=== PATIENT | female | born 1940 | race Caucasian/White ===

== ENCOUNTER 2019-04-30 19:55 | Inpatient (IN) | payer MEDICARE, BC ==
[2019-04-30] MEDS ORDERED: SODIUM CHLORIDE 0.9% 1,000 ML IV STA ×2 (20:21→21:31)
[2019-04-30 21:12] LABS: Anisocytosis Slight; Basophils # (A) 0.1 k/uL (0-0.2); Basophils % (A) 1 %; Eosinophils # (A) 0.1 k/uL (0-0.7); Eosinophils % (A) 0 %; HCT 33.6 % (34.0-46.0); HGB 10.4 gm/dL (11.4-16.0); Hypochromasia Slight; Lymphocytes # (A) 1.6 k/uL (1.0-4.8); Lymphocytes % (A) 9 %; MCH 27.3 pg (25.0-35.0); MCHC 30.9 g/dL (31.0-37.0); MCV 88.3 fL (80.0-100.0); Mean Platelet Volume 6.4; Monocytes # (A) 0.9 k/uL (0-1.0); Monocytes % (A) 5 %; Neutrophils # (A) 15.3 k/uL (1.3-7.7); Neutrophils % (A) 85 %; Platelet Count 288 k/uL (150-450); RDW 17.7 % (11.5-15.5); WBC 18.1 k/uL (3.8-10.6)
--- NOTE | 2019-04-30 21:13 | ED ---
Fall HPI - General Chief Complaint: Fall Stated Complaint: fall Time Seen by Provider: 04/30/19 20:05 Source: patient, EMS, RN notes reviewed, old records reviewed Mode of arrival: EMS - History of Present Illness Initial Comments: This is an 79-year-old female the ER for evaluation patient presents today for evaluation of the. Computed for a few hours ago at this time. Family was over patient earlier and left leg come back to palpation of the ground and skin tears to legs and ernandez, patient complaining of right elbow pain. Right-sided pain. Unsure of loss of consciousness no headache. Patient was unable to get herself off the ground. Patient sent in any current blood thinners. Patient denying any significant complaints of pain currently MD Complaint: fall -: hour(s) (5) Fall From: standing When Fall Occurred: 4-6 hours [employer] Fall Witnessed: no Place Fall Occurred: home Loss of Consciousness: unsure Prolonged Down Time?: yes Symptoms Prior to Fall: none Location - Extremities: Right: Shoulder, Elbow, Leg (edema) Severity: mild Severity scale (1-10): 3 Quality: aching Context: tripped/slipped Associated Symptoms: denies - Related Data Home Medications Medication Instructions Recorded Confirmed Biotin 5 mg PO DAILY 04/30/19 04/30/19 Budesonide/Formoterol Fumarate 2 puff INHALATION RT-BID 04/30/19 04/30/19 [Symbicort 160-4.5 Mcg Inhaler] Calcium Carbonate [Calcium] 600 mg PO DAILY 04/30/19 04/30/19 Folic Acid 0.4 mg PO DAILY 04/30/19 04/30/19 Levalbuterol Tartrate [Xopenex Hfa 1 puff INHALATION RT-BID PRN 04/30/19 04/30/19 Inhaler] Methotrexate Sodium [Methotrexate] 20 mg PO TU 04/30/19 04/30/19 Morphine Sulfate Ir [MSIR] 30 mg PO TID PRN 04/30/19 04/30/19 Ranitidine HCl [Zantac] 150 mg PO DAILY 04/30/19 04/30/19 methylPREDNISolone [Medrol] 2 mg PO DAILY 04/30/19 04/30/19 Allergies Allergy/AdvReac Type Severity Reaction Status Date / Time sulfadiazine Allergy Anaphylaxis Verified 04/30/19 22:01 Review of Systems ROS Statement: Those systems with pertinent positive or pertinent negative responses have been documented in the HPI. ROS Other: All systems not noted in ROS Statement are negative. Past Medical History Past Medical History: Asthma, Osteoarthritis (OA), Rheumatoid Arthritis (RA) Additional Past Medical History / Comment(s): Skin CA History of Any Multi-Drug Resistant Organisms: None Reported Additional Past Surgical History / Comment(s): left hip implant, gallbladder, Skin CA removed from face. Past Psychological History: No Psychological Hx Reported Smoking Status: Never smoker Past Alcohol Use History: Rare Past Drug Use History: None Reported - Past Family History Father Family Medical History: Myocardial Infarction ([place]) Mother Family Medical History: CVA/TIA General Exam Limitations: no limitations General appearance: alert, in no apparent distress Head exam: Present: atraumatic, normocephalic, normal inspection Eye exam: Present: normal appearance, EOMI. Absent: scleral icterus, conjunctival injection, periorbital swelling ENT exam: Present: normal exam, mucous membranes moist Neck exam: Present: normal inspection. Absent: tenderness, meningismus, lymphadenopathy Respiratory exam: Present: normal lung sounds bilaterally. Absent: respiratory distress, wheezes, rales, rhonchi, stridor Cardiovascular Exam: Present: normal rhythm, tachycardia, normal heart sounds. Absent: systolic murmur, diastolic murmur, rubs, gallop, clicks GI/Abdominal exam: Present: soft, normal bowel sounds. Absent: distended, tenderness, guarding, rebound, rigid Extremities exam: Present: normal inspection, normal capillary refill, other (Right shoulder tenderness). Absent: full ROM (Decreased shoulder right), tenderness (Decreased right shoulder tenderness), pedal edema, joint swelling, calf tenderness Back exam: Present: normal inspection Neurological exam: Present: alert, oriented X3, CN II-XII intact Psychiatric exam: Present: normal affect, normal mood Skin exam: Present: warm, dry, intact, normal color. Absent: rash Course Vital Signs 04/30/19 04/30/19 04/30/19 20:08 22:30 23:00 Temperature 98.3 F Pulse Rate 109 H 112 H 105 H Respiratory 19 Rate Blood Pressure 126/86 147/72 121/64 O2 Sat by Pulse 97 96 95 Oximetry 04/30/19 05/01/19 23:19 00:00 Temperature Pulse Rate 112 H 108 H Respiratory Rate Blood Pressure 146/72 139/81 O2 Sat by Pulse 95 96 Oximetry - Reevaluation(s) Reevaluation #1: 04/30/19 21:12 Medical record is reviewed Reevaluation #2: 04/30/19 22:00 Patient has no significant tenderness across her anterior pubic area, patient was able to get bed pain without difficulty Patient does feel too weak to go home Medical Decision Making - Medical Decision Making 79 female the ER for evaluation patient is status post fall with mild downtime. Patient has current pain control, right humerus has sling placed. Patient has adequate pain control currently. Still feeling weak mildly dehydrated. We'll admit for pain control - Lab Data Result diagrams: 04/30/19 21:00 04/30/19 21:00 Lab Results 04/30/19 04/30/19 04/30/19 Range/Units 21:00 21:00 21:00 WBC 18.1 H (3.8-10.6) k/uL RBC 3.80 (3.80-5.40) m/uL Hgb 10.4 L (11.4-16.0) gm/dL Hct 33.6 L (34.0-46.0) % MCV 88.3 (80.0-100.0) fL MCH 27.3 (25.0-35.0) pg MCHC 30.9 L (31.0-37.0) g/dL RDW 17.7 H (11.5-15.5) % Plt Count 288 (150-450) k/uL Neutrophils % 85 % Lymphocytes % 9 % Monocytes % 5 % Eosinophils % 0 % Basophils % 1 % Neutrophils # 15.3 H (1.3-7.7) k/uL Lymphocytes # 1.6 (1.0-4.8) k/uL Monocytes # 0.9 (0-1.0) k/uL Eosinophils # 0.1 (0-0.7) k/uL Basophils # 0.1 (0-0.2) k/uL Hypochromasia Slight Anisocytosis Slight PT (9.0-12.0) sec INR (<1.2) APTT (22.0-30.0) sec Sodium 138 (137-145) mmol/L Potassium 3.8 (3.5-5.1) mmol/L Chloride 101 (98-107) mmol/L Carbon Dioxide 27 (22-30) mmol/L Anion Gap 10 mmol/L BUN 27 H (7-17) mg/dL Creatinine 0.59 (0.52-1.04) mg/dL Est GFR (CKD-EPI)AfAm >90 (>60 ml/min/1.73 sqM) Est GFR (CKD-EPI)NonAf 86 (>60 ml/min/1.73 sqM) Glucose 159 H (74-99) mg/dL Calcium 9.7 (8.4-10.2) mg/dL Phosphorus 3.6 (2.5-4.5) mg/dL Magnesium 1.6 (1.6-2.3) mg/dL Total Bilirubin 0.5 (0.2-1.3) mg/dL AST 28 (14-36) U/L ALT 24 (9-52) U/L Alkaline Phosphatase 96 (38-126) U/L Creatine Kinase 67 (30-135) U/L CK-MB (CK-2) 1.5 (0.0-2.4) ng/mL Troponin I <0.012 (0.000-0.034) ng/mL NT-Pro-B Natriuret Pep pg/mL Total Protein 6.2 L (6.3-8.2) g/dL Albumin 3.6 (3.5-5.0) g/dL 04/30/19 04/30/19 Range/Units 21:00 21:00 WBC (3.8-10.6) k/uL RBC (3.80-5.40) m/uL Hgb (11.4-16.0) gm/dL Hct (34.0-46.0) % MCV (80.0-100.0) fL MCH (25.0-35.0) pg MCHC (31.0-37.0) g/dL RDW (11.5-15.5) % Plt Count (150-450) k/uL Neutrophils % % Lymphocytes % % Monocytes % % Eosinophils % % Basophils % % Neutrophils # (1.3-7.7) k/uL Lymphocytes # (1.0-4.8) k/uL Monocytes # (0-1.0) k/uL Eosinophils # (0-0.7) k/uL Basophils # (0-0.2) k/uL Hypochromasia Anisocytosis PT 9.9 (9.0-12.0) sec INR 0.9 (<1.2) APTT 16.3 L (22.0-30.0) sec Sodium (137-145) mmol/L Potassium (3.5-5.1) mmol/L Chloride (98-107) mmol/L Carbon Dioxide (22-30) mmol/L Anion Gap mmol/L BUN (7-17) mg/dL Creatinine (0.52-1.04) mg/dL Est GFR (CKD-EPI)AfAm (>60 ml/min/1.73 sqM) Est GFR (CKD-EPI)NonAf (>60 ml/min/1.73 sqM) Glucose (74-99) mg/dL Calcium (8.4-10.2) mg/dL Phosphorus (2.5-4.5) mg/dL Magnesium (1.6-2.3) mg/dL Total Bilirubin (0.2-1.3) mg/dL AST (14-36) U/L ALT (9-52) U/L Alkaline Phosphatase (38-126) U/L Creatine Kinase (30-135) U/L CK-MB (CK-2) (0.0-2.4) ng/mL Troponin I (0.000-0.034) ng/mL NT-Pro-B Natriuret Pep 682 pg/mL Total Protein (6.3-8.2) g/dL Albumin (3.5-5.0) g/dL - EKG Data -: EKG Interpreted by Me (EKG shows sinus tachycardia rate of 107, TX 170, QRS 90, QTc 448) - Radiology Data Radiology results: report reviewed (CT brain C-spine negative for traumatic injury chest x-rays negative for acute disease, x-ray pelvis and conclusive, x- ray right humerus right shoulder right elbow positive for proximal humerus fracture), image reviewed Disposition Clinical Impression: Fall, Weakness, Right humeral fracture, Dehydration Disposition: ADMITTED IP TO THIS [facility] Condition: Good Is patient prescribed a controlled substance at d/c from ED?: No
[2019-04-30 21:25] LABS: ALT 24 U/L (9-52); AST 28 U/L (14-36); African American GFR (CKD) >90 (>60 ml/min/1.73 sqM); Albumin 3.6 g/dL (3.5-5.0); Alkaline Phosphatase 96 U/L (38-126); Anion Gap 10 mmol/L; Blood Urea Nitrogen 27 mg/dL (7-17); Calcium 9.7 mg/dL (8.4-10.2); Carbon Dioxide 27 mmol/L (22-30); Chloride 101 mmol/L (98-107); Creatine Kinase 67 U/L (30-135); Glucose 159 mg/dL (74-99); Magnesium 1.6 mg/dL (1.6-2.3); Phosphorus 3.6 mg/dL (2.5-4.5); Potassium 3.8 mmol/L (3.5-5.1); Sodium 138 mmol/L (137-145); Total Bilirubin 0.5 mg/dL (0.2-1.3); Total Protein 6.2 g/dL (6.3-8.2)
[2019-04-30 21:29] LABS: INR 0.9 (<1.2); Prothrombin Time 9.9 sec (9.0-12.0)
[2019-04-30] MEDS ORDERED: SODIUM CHLORIDE 0.9% 1,000 ML IV ONE (21:30)
[2019-04-30] MEDS ORDERED: MORPHINE SULFATE 4 MG/ML SYRINGE IVP STA (21:30)
[2019-04-30 21:31] LABS: Partial Thromboplastin Time 16.3 sec (22.0-30.0)
[2019-04-30 21:37] LABS: Creatine Kinase MB 1.5 ng/mL (0.0-2.4); Troponin I <0.012 ng/mL (0.000-0.034)
--- NOTE | 2019-04-30 21:39 | XR ---
EXAMINATION TYPE: XR elbow complete RT DATE OF EXAM: 04/30/2019 CLINICAL HISTORY: Right elbow pain after fall injury. TECHNIQUE: Frontal, lateral and oblique images of the right elbow are obtained. COMPARISON: None FINDINGS: Demineralization is present. There is no acute fracture/dislocation evident in the right el bow. No abnormal fat pad signs are seen. Overlying clothing material is seen making evaluation sligh tly suboptimal. IMPRESSION: There is no acute fracture or dislocation in the right elbow.
--- NOTE | 2019-04-30 21:39 | CT ---
EXAMINATION TYPE: CT brain sherif carrasco DATE OF EXAM: 04/30/2019 COMPARISON: NONE HISTORY: Fall with headache and neck pain. CT DLP: 1181.3 mGycm. Automated Exposure Control for Dose Reduction was Utilized. TECHNIQUE: CT scan of the head and cervical spine are performed without contrast. FINDINGS: There is no acute intracranial hemorrhage or midline shift identified. Diffuse ventricula r and sulcal prominence. Low-attenuation in the deep and periventricular white matter. The calvarium is intact. The globes are intact and the visualized sinuses are clear. Past with desiccation distal i nternal carotid arteries is present. Cervical spine is visualized in its entirety from C1 through upper thoracic levels and demonstrates s light grade 1 anterolisthesis C3 on C4, slight grade 1 retrolisthesis C5 on C6, and grade 1 anterolis thesis C6 on C7 without evidence of acute fracture or dislocation. Prevertebral soft tissue appears within normal limits. The C1-C2 articulation shows asymmetric left-sided narrowing and spurring on c oronal images. Vertebral body heights are maintained. Moderate multilevel spurring and disc space maureen rowing most prominent at C4-C5 and C5-C6 levels is seen. Posterior spur disc complexes efface the ant erior thecal sac at these levels on sagittal and axial images. Slight levoconvex scoliotic curvature centered upper thoracic spine seen on coronal images. Axial images demonstrate multilevel uncovertebr al facet degenerative changes bilaterally contributing to multilevel neural foraminal narrowing. Mild to moderate calcified plaque bilateral carotid bulb greater on the left side is present. Visualized lung apices show no pneumothorax. IMPRESSION: 1. There is no acute fracture or dislocation evident in the cervical spine. Multilevel spondylolisthe sis and degenerative changes as detailed above. 2. No acute intracranial hemorrhage or midline shift is seen. Moderate diffuse cerebral atrophy and c hronic small vessel ischemic changes.
--- NOTE | 2019-04-30 21:52 | XR ---
EXAMINATION TYPE: XR shoulder complete RT DATE OF EXAM: 04/30/2019 CLINICAL HISTORY: Pain after fall injury. TECHNIQUE: Three views of the right shoulder are obtained. COMPARISON: None. FINDINGS: Demineralization is present. An acute slightly displaced comminuted fracture right humeral head involves the surgical neck and greater tuberosity. Some impaction of distal fracture fragment is seen. Glenohumeral joint shows no dislocation, severe narrowing and subchondral cystic changes prese nt. Acromioclavicular joint is maintained. Visualized ribs are intact. IMPRESSION: There is acute comminuted slightly displaced fracture surgical neck right proximal humer us with greater tuberosity involvement.
--- NOTE | 2019-04-30 21:53 | XR ---
EXAMINATION TYPE: XR chest 1V DATE OF EXAM: 04/30/2019 COMPARISON: Chest x-ray September 20, 2009. HISTORY: Right-sided pain after fall injury. TECHNIQUE: Single frontal view of the chest is obtained. FINDINGS: There is chronic parenchymal change without suspicious new focal air space opacity, pleura l effusion, or pneumothorax seen. The cardiac silhouette size is upper limits of normal. The osseo us structures are demineralized. Advanced degenerative change bilateral glenohumeral joints is seen. Acute comminuted slightly displaced fracture right humeral head level is noted. IMPRESSION: Chronic changes without acute pulmonary process.
--- NOTE | 2019-04-30 21:57 | XR ---
EXAMINATION TYPE: XR Hip RT and AP Pelvis DATE OF EXAM: 04/30/2019 COMPARISON: Abdominal x-ray 2009. HISTORY: Pelvic and right hip pain after fall injury. TECHNIQUE: A single AP view of the pelvis is obtained. Two views of the right hip are obtained. FINDINGS: Demineralization is present. Lucency overlying right superior pelvic ramus favors bowel gas . Similar finding left superior pelvic ramus is noted. Pubic symphysis is maintained. Remaining pelvi s shows no acute displaced fracture. Sacroiliac joints are preserved. Moderate narrowing right hip abner int. Metallic hardware left hip arthroplasty is partially imaged. Two views of right hip show no acute fracture or dislocation. No focal lytic or sclerotic lesion see n in the proximal right femur. Demineralization is present. The overlying soft tissue is unremarkabl e. IMPRESSION: Cannot exclude acute fracture involving superior pelvic rami bilaterally though favor ove rlying bowel gas. Remainder of pelvis shows no acute fracture or dislocation. Need to further investi gate by CT scan should be based on degree of clinical suspicion and clinical correlation.
[2019-04-30] MEDS: MORPHINE SULFATE 4 MG/ML SYRINGE IVP PRN (23:59)
[2019-05-01] MEDS ORDERED: SYMBICORT 160-4.5 MCG INHALER INHALATION STA (00:28)
[2019-05-01] MEDS: MORPHINE SULFATE 4 MG/ML SYRINGE IVP PRN ×2 (04:48→09:54)
[2019-05-01] MEDS ORDERED: ALBUTEROL NEBULIZED 2.5 MG/3 ML INHALATION PRN (10:31)
--- NOTE | 2019-05-01 11:13 | P.CNOR ---
History of Present Illness - [facility] Consult date: 05/01/19 Consult reason: fracture History of present illness: Patient is a pleasant 79-year-old female seen at bedside today in consultation for right proximal humerus fracture possible pelvic pubic rami fractures. She states she fell yesterday at home where she lives with family in [facility]. She states she fell to her right side subsequently injured her right upper arm. She was transported to the emergency department where x-rays showed a proximal humerus fracture. Studies were also done on the elbow head and neck which were negative. She has pain at the right shoulder as expected. She is denying any radicular symptoms down the upper extremity including numbness or tingling. She has a history of rheumatoid arthritis the right hand. She also has complaints of right leg pain from her thigh down to her ankle. She has pain with minimal range of motion or movement of the right leg. She has no left- sided symptoms currently. She is denying any other complaints. Review of Systems All systems: negative Constitutional: Denies chills, Denies fever Eyes: denies blurred vision, denies pain Ears, nose, mouth and throat: Denies headache, Denies sore throat Cardiovascular: Denies chest pain, Denies shortness of breath Respiratory: Denies cough Gastrointestinal: Denies abdominal pain, Denies diarrhea, Denies nausea, Denies vomiting Genitourinary: Denies dysuria, Denies hematuria Musculoskeletal: Denies myalgias Integumentary: Denies pruritus, Denies rash Neurological: Denies numbness, Denies weakness Psychiatric: Denies anxiety, Denies depression Endocrine: Denies fatigue, Denies weight change Past Medical History Past Medical History: Asthma, Osteoarthritis (OA), Rheumatoid Arthritis (RA) Additional Past Medical History / Comment(s): Skin CA History of Any Multi-Drug Resistant Organisms: None Reported Additional Past Surgical History / Comment(s): left hip implant, gallbladder, Skin CA removed from face. Past Psychological History: No Psychological Hx Reported Smoking Status: Never smoker Past Alcohol Use History: Rare Past Drug Use History: None Reported - Past Family History Father Family Medical History: Myocardial Infarction ([place]) Mother Family Medical History: CVA/TIA Medications and Allergies Home Medications Medication Instructions Recorded Confirmed Type Biotin 5 mg PO DAILY 04/30/19 04/30/19 History Budesonide/Formoterol Fumarate 2 puff INHALATION RT-BID 04/30/19 04/30/19 History [Symbicort 160-4.5 Mcg Inhaler] Calcium Carbonate [Calcium] 600 mg PO DAILY 04/30/19 04/30/19 History Folic Acid 0.4 mg PO DAILY 04/30/19 04/30/19 History Levalbuterol Tartrate [Xopenex Hfa 1 puff INHALATION RT-BID PRN 04/30/19 04/30/19 History Inhaler] Methotrexate Sodium [Methotrexate] 20 mg PO TU 04/30/19 04/30/19 History Morphine Sulfate Ir [MSIR] 30 mg PO TID PRN 04/30/19 04/30/19 History Ranitidine HCl [Zantac] 150 mg PO DAILY 04/30/19 04/30/19 History methylPREDNISolone [Medrol] 2 mg PO DAILY 04/30/19 04/30/19 History Allergies Allergy/AdvReac Type Severity Reaction Status Date / Time sulfadiazine Allergy Anaphylaxis Verified 04/30/19 22:01 Physical Examination Right upper extremity: Inspection shows no deformity or erythema or wounds. There is ecchymoses that humerus as expected. Range of motion was not tested due to the fracture. Neurovascular status is grossly intact with motor and sensation throughout the right upper extremity. There is no pain with range of motion of the elbow. She has rheumatoid appearing arthritic hand. 2+ radial pulses present and less than 2 second capillary refill is present Right lower extremity: Inspection of the right leg shows diffuse ecchymoses and swelling throughout the lower leg. Range of motion of the hip knee and ankle were not able to be determined due to significant pain with movement. Motor appears to be grossly intact. Sensation to light touch is intact with the right leg. Calf is soft and nontender. 2+ dorsalis pedis pulse and less than 2 second capillary refill is present. There is no deformity. There is no erythem a or open wounds. Results - Labs Labs: Abnormal Lab Results - Last 24 Hours (Table) 04/30/19 04/30/19 04/30/19 Range/Units 21:00 21:00 21:00 WBC 18.1 H (3.8-10.6) k/uL Hgb 10.4 L (11.4-16.0) gm/dL Hct 33.6 L (34.0-46.0) % MCHC 30.9 L (31.0-37.0) g/dL RDW 17.7 H (11.5-15.5) % Neutrophils # 15.3 H (1.3-7.7) k/uL APTT 16.3 L (22.0-30.0) sec BUN 27 H (7-17) mg/dL Glucose 159 H (74-99) mg/dL Total Protein 6.2 L (6.3-8.2) g/dL H & H 04/30/19 Range/Units 21:00 Hgb 10.4 L (11.4-16.0) gm/dL Hct 33.6 L (34.0-46.0) % Coagulation 04/30/19 Range/Units 21:00 INR 0.9 (<1.2) Result Diagrams: 04/30/19 21:00 04/30/19 21:00 - Diagnostic results Shoulder x-ray: report reviewed, image reviewed Assessment and Plan (1) Right humeral fracture Narrative/Plan: In regards to her right proximal humerus fracture, it is stable and there are no plans for immediate surgical intervention. Recommended continued sling and pain management. She is to be nonweightbearing with the right upper extremity. In regards to her pelvis, x-rays are not definitive for fracture of the pubic rami and clinically undeterminable due to the inability to examine her pelvis due to her right leg pain. Should she have fractures at the pubic rami, treatment would be similar in that she be protected weightbearing with walker. In regards to her right leg pain I have ordered x-rays from the femur down to the ankle. We'll review those findings and make further recommendations as appropriate. Continue pain management per primary team. Recommend DVT prophylaxis as well. Current Visit: Yes Status: Acute Priority: Medium Code(s): S42.301A - UNSP FRACTURE OF SHAFT OF HUMERUS, RIGHT ARM, INIT SNOMED Code(s): 07340041 Time with Patient: Greater than 30
[2019-05-01] MEDS ORDERED: METHOTREXATE SODIUM 2.5 MG TAB PO SCH (12:00)
--- NOTE | 2019-05-01 12:54 | XR ---
Right ankle, right leg, right knee, right femur HISTORY: Pain, trauma 2 views of the right femur on 4 images, 2 views of the right knee, 2 views of the right leg on 3 imag es, 2 views of the right ankle Bone mineralization is reduced which may limit sensitivity. Vascular calcifications are noted inciden tally. Alignment is maintained. Osteoarthritic changes present within the right knee, there is tricom partmental marginal spurring, joint space loss. Osteoarthritic change noted within the right foot. Jimenez prapatellar increased density compatible with knee joint effusion Soft tissue swelling noted at the r ight ankle. Lucency in the soft tissues of the right leg suggest underlying edema. There is a plantar calcaneal spur. IMPRESSION: No fracture or dislocation evident within the right femur, right knee, right ankle or rig ht leg. Additional findings above. Follow-up as indicated for increased sensitivity. Osteoarthritis, knee joint effusion, soft tissue swelling, osteopenia.
--- NOTE | 2019-05-01 13:50 | P.HPIM ---
History of Present Illness 79-year-old pleasant female had a fall non-syncopal mechanical. Patient is found have a right proximal humerus fracture and pelvic pubic rami fracture although patient does have significant swelling in the right ankle area and complete discoloration bruised discoloration of the right leg which was not imaged patient will undergo imaging of right leg and ankle for possible fractures patient check x-rays did show proximal humerus fracture. Patient was started on morphine which were dyspnea and patient will be taught was started on Toradol Tylenol and GI prophylaxis. Patient denied any fever chills denied dysuria. Patient doesn't have any radicular symptoms in the upper extremity and lower extremity. Review of Systems REVIEW OF SYSTEMS: CONSTITUTIONAL: No fever, no malaise, no fatigue. HEENT: No recent visual problems or hearing problems. Denied any sore throat. CARDIOVASCULAR: No chest pain, orthopnea, PND, no palpitations, no syncope. PULMONARY: No shortness of breath, no cough, no hemoptysis. GASTROINTESTINAL: No diarrhea, no nausea, no vomiting, no abdominal pain. NEUROLOGICAL: No headaches, no weakness, no numbness. HEMATOLOGICAL: Denies any bleeding or petechiae. GENITOURINARY: Denies any burning micturition, frequency, or urgency. MUSCULOSKELETAL/RHEUMATOLOGICAL: As mentioned in HPI ENDOCRINE: Denies any polyuria or polydipsia. The rest of the 14-point review of systems is negative. Past Medical History Past Medical History: Asthma, Osteoarthritis (OA), Rheumatoid Arthritis (RA) Additional Past Medical History / Comment(s): Skin CA History of Any Multi-Drug Resistant Organisms: None Reported Additional Past Surgical History / Comment(s): left hip implant, gallbladder, Skin CA removed from face. Past Psychological History: No Psychological Hx Reported Smoking Status: Never smoker Past Alcohol Use History: Rare Past Drug Use History: None Reported - Past Family History Father Family Medical History: Myocardial Infarction (AR) Mother Family Medical History: CVA/TIA Medications and Allergies Home Medications Medication Instructions Recorded Confirmed Type Biotin 5 mg PO DAILY 04/30/19 04/30/19 History Budesonide/Formoterol Fumarate 2 puff INHALATION RT-BID 04/30/19 04/30/19 History [Symbicort 160-4.5 Mcg Inhaler] Calcium Carbonate [Calcium] 600 mg PO DAILY 04/30/19 04/30/19 History Folic Acid 0.4 mg PO DAILY 04/30/19 04/30/19 History Levalbuterol Tartrate [Xopenex Hfa 1 puff INHALATION RT-BID PRN 04/30/19 04/30/19 History Inhaler] Methotrexate Sodium [Methotrexate] 20 mg PO TU 04/30/19 04/30/19 History Morphine Sulfate Ir [MSIR] 30 mg PO TID PRN 04/30/19 04/30/19 History Ranitidine HCl [Zantac] 150 mg PO DAILY 04/30/19 04/30/19 History methylPREDNISolone [Medrol] 2 mg PO DAILY 04/30/19 04/30/19 History Allergies Allergy/AdvReac Type Severity Reaction Status Date / Time sulfadiazine Allergy Anaphylaxis Verified 04/30/19 22:01 Physical Exam Vitals: Vital Signs Temp Pulse Pulse Resp BP BP Pulse Ox 05/01/19 07:03 99.8 F H 102 H 14 121/70 92 L 05/01/19 01:45 98.4 F 106 H 19 151/77 94 L 05/01/19 00:00 108 H 139/81 96 04/30/19 23:19 112 H 146/72 95 04/30/19 23:00 105 H 121/64 95 04/30/19 22:30 112 H 147/72 96 04/30/19 20:08 98.3 F 109 H 19 126/86 97 Intake and Output 04/30/19 05/01/19 05/01/19 22:59 06:59 14:59 Intake Total 400 Output Total 300 Balance 400 -300 Intake: Intake, IV Titration 400 Amount Sodium Chloride 0.9% 1, 400 000 ml @ 100 mls/hr IV . Q10H ONE Rx#:[id number] Output: Urine 300 Other: Voiding Method Bedpan # Voids 1 Weight 46.72 kg PHYSICAL EXAMINATION: GENERAL: The patient is alert and oriented x3, not in any acute distress. Well developed, well nourished. HEENT: Pupils are round and equally reacting to light. EOMI. No scleral icterus. No conjunctival pallor. Normocephalic, atraumatic. No pharyngeal erythema. No thyromegaly. CARDIOVASCULAR: S1 and S2 present. No murmurs, rubs, or gallops. PULMONARY: Chest is clear to auscultation, no wheezing or crackles. ABDOMEN: Soft, nontender, nondistended, normoactive bowel sounds. No palpable organomegaly. MUSCULOSKELETAL: As mentioned in HPI right ankle swelling deformity right leg cyanotic discoloration. And swelling EXTREMITIES: No cyanosis, clubbing, or pedal edema. NEUROLOGICAL: Gross neurological examination did not reveal any focal deficits. SKIN: No rashes. Results CBC & Chem 7: 04/30/19 21:00 04/30/19 21:00 Labs: Abnormal Lab Results - Last 24 Hours (Table) 04/30/19 04/30/19 04/30/19 Range/Units 21:00 21:00 21:00 WBC 18.1 H (3.8-10.6) k/uL Hgb 10.4 L (11.4-16.0) gm/dL Hct 33.6 L (34.0-46.0) % MCHC 30.9 L (31.0-37.0) g/dL RDW 17.7 H (11.5-15.5) % Neutrophils # 15.3 H (1.3-7.7) k/uL APTT 16.3 L (22.0-30.0) sec BUN 27 H (7-17) mg/dL Glucose 159 H (74-99) mg/dL Total Protein 6.2 L (6.3-8.2) g/dL Thrombosis Risk Factor Assmnt - Choose All That Apply Each Risk Factor Represents 3 Points: Age 75 years or older Thrombosis Risk Factor Assessment Total Risk Factor Score: 3 Thrombosis Risk Factor Assessment Level: Moderate Risk Assessment and Plan Plan: -Fall right humeral fracture with possibility of fracture of the right leg and ankle. Orthopedic surgery was canceled it pain management as mentioned above due to prophylaxis as mentioned above. Physical therapy and occupational therapy evaluation -Leukocytosis without any evidence of infection secondary to fall and fractures -Tachycardia sinus tachycardia secondary to pain -100 arthritis not in any acute flare up patient will be resumed on methotrexate and prednisone. -Asthma without any acute exacerbation DVT prophylaxis with subcutaneous heparin
[2019-05-01] MEDS: KETOROLAC 30 MG/ML 1 ML VIAL IVP PRN (14:41)
[2019-05-01] MEDS ORDERED: ACETAMINOPHEN TAB 325 MG TAB PO PRN (16:01)
[2019-05-01] MEDS ORDERED: MORPHINE SULFATE 4 MG/ML SYRINGE IVP STA (16:02)
[2019-05-01] MEDS: SYMBICORT 160-4.5 MCG INHALER INHALATION SCH ×2 (19:51→19:53)
[2019-05-01] MEDS: HEPARIN SODIUM,PORCINE 5,000 UNIT/ML 1 ML VIAL SQ SCH (20:18)
[2019-05-01] MEDS: FAMOTIDINE 20 MG TAB PO SCH (20:21)
[2019-05-02] MEDS: KETOROLAC 30 MG/ML 1 ML VIAL IVP PRN (00:22)
[2019-05-02] MEDS: MORPHINE SULFATE IR 15 MG TABLET PO PRN ×3 (02:32→18:46)
[2019-05-02 07:16] LABS: Anisocytosis Slight; Hypochromasia Moderate; MCH 29.3 pg (25.0-35.0); MCHC 32.1 g/dL (31.0-37.0); Mean Platelet Volume 6.7; RBC 2.14 m/uL (3.80-5.40); RDW 17.9 % (11.5-15.5); WBC 9.4 k/uL (3.8-10.6)
[2019-05-02 07:25] LABS: African American GFR (CKD) >90 (>60 ml/min/1.73 sqM); Anion Gap 6 mmol/L; Blood Urea Nitrogen 18 mg/dL (7-17); Calcium 8.6 mg/dL (8.4-10.2); Carbon Dioxide 24 mmol/L (22-30); Chloride 110 mmol/L (98-107); Glucose 75 mg/dL (74-99); Potassium 3.7 mmol/L (3.5-5.1); Sodium 140 mmol/L (137-145)
[2019-05-02 07:28] LABS: HGB 6.3 gm/dL (11.4-16.0)
[2019-05-02 07:29] LABS: HCT 19.5 % (34.0-46.0); Platelet Count 137 k/uL (150-450)
[2019-05-02] MEDS: HEPARIN SODIUM,PORCINE 5,000 UNIT/ML 1 ML VIAL SQ SCH ×2 (07:40→20:15)
[2019-05-02] MEDS: FOLIC ACID 1 MG TAB PO SCH (07:41)
[2019-05-02] MEDS: CALCIUM CARBONATE 500 MG CHEWABLE PO SCH (07:41)
[2019-05-02] MEDS: FAMOTIDINE 20 MG TAB PO SCH ×2 (07:41→20:15)
[2019-05-02] MEDS: methylPREDNISolone 4 MG TAB PO SCH (07:41)
[2019-05-02] MEDS: SYMBICORT 160-4.5 MCG INHALER INHALATION SCH ×2 (08:16→19:38)
[2019-05-02 08:55] LABS: Anisocytosis Slight; Basophils % (A) 0 %; Eosinophils # (A) 0.2 k/uL (0-0.7); Eosinophils % (A) 2 %; HCT 20.8 % (34.0-46.0); Hypochromasia Moderate; Lymphocytes # (A) 1.3 k/uL (1.0-4.8); Lymphocytes % (A) 11 %; MCH 28.4 pg (25.0-35.0); MCHC 30.9 g/dL (31.0-37.0); MCV 91.7 fL (80.0-100.0); Mean Platelet Volume 7.3; Monocytes # (A) 0.5 k/uL (0-1.0); Monocytes % (A) 5 %; Neutrophils # (A) 9.4 k/uL (1.3-7.7); Neutrophils % (A) 81 %; Platelet Count 173 k/uL (150-450); RBC 2.27 m/uL (3.80-5.40); RDW 18.2 % (11.5-15.5); WBC 11.6 k/uL (3.8-10.6)
[2019-05-02 08:57] LABS: HGB 6.4 gm/dL (11.4-16.0)
--- NOTE | 2019-05-02 09:58 | P.PN ---
Subjective Progress Note Date: 05/02/19 Principal diagnosis: Right proximal humerus fracture, possible pubic ramii fracture, RLE contusions Patient is pleasant 79-year-old female seen at bedside this morning. We saw her yesterday in consultation for right proximal humerus fracture as well as possible pubic rami fractures. She was also noted to have right lower extremity pain as well as ecchymoses and thus I ordered x-rays of the full right lower extremity. She continues to have pain as expected at the right shoulder as well as the right leg. She denies any new complaints. She has a history of rheumatoid arthritis and has been on methotrexate. Objective - Vital Signs Vital signs: Vital Signs Temp 98.2 F 05/02/19 07:00 Pulse 83 05/02/19 07:00 Resp 15 05/02/19 07:00 BP 106/62 05/02/19 07:00 Pulse Ox 93 L 05/02/19 01:34 Intake & Output 05/01/19 05/02/19 05/02/19 18:59 06:59 18:59 Intake Total 400 100 Output Total 300 Balance 100 100 Intake: Intake, IV Titration 400 Amount Sodium Chloride 0.9% 1, 400 000 ml @ 100 mls/hr IV . Q10H STA Rx#:[id number] Oral 100 Output: Urine 300 Other: Voiding Method Bedpan # Voids 2 1 - Exam Tenderness distinctly over the proximal humerus. Patient unwilling/unable to actively rotate, flex, extend, or abduct arm. Elbow range of motion is normal, without tenderness. Positive evolving ecchymosis over the elbow area, however, no focal tenderness. Sensation intact over medial and lateral forearm, thenar region, hypothenar region, mid-palm, dorsal 1st web space, lateral dorsal hand, and fingertips. Brachial and radial pulses are 2+. Capillary refill in all fingertips is less than 2 seconds. she has rheumatoid appearing hand. No ulceration. Skin is healthy, pink, and warm. Shoulder ROM today not tested Lower extremity shows ecchymosis diffusely in the right lower leg. She has pain with range of motion of the hip, knee and ankle. There is no deformity. Sensation intact to light touch throughout the right lower extremity. Calf is soft and nontender. To posterior cells. His pulse and less than 2 second capillary refill is present. - Constitutional General appearance: Present: no acute distress - Labs CBC & Chem 7: 05/02/19 08:24 05/02/19 05:49 Labs: Abnormal Lab Results - Last 24 Hours (Table) 05/02/19 05/02/19 05/02/19 Range/Units 05:49 05:49 08:24 WBC 11.6 H (3.8-10.6) k/uL RBC 2.14 L 2.27 L (3.80-5.40) m/uL Hgb 6.3 L* D 6.4 L* (11.4-16.0) gm/dL Hct 19.5 L* 20.8 L (34.0-46.0) % MCHC 30.9 L (31.0-37.0) g/dL RDW 17.9 H 18.2 H (11.5-15.5) % Plt Count 137 L D (150-450) k/uL Neutrophils # 9.4 H (1.3-7.7) k/uL Chloride 110 H (98-107) mmol/L BUN 18 H (7-17) mg/dL Assessment and Plan (1) Right humeral fracture Narrative/Plan: x-rays of the right leg including the femur, knee, tib-fib, ankle were negative for fracture or dislocation. Recommend continue supportive measures for her leg pain as well as elevation and physical therapy. In regards to her right proximal humerus fracture, it is stable and there are no plans for immediate surgical intervention. Recommended continued sling and pain management. She is to be nonweightbearing with the right upper extremity. In regards to her pelvis, x- rays are not definitive for fracture of the pubic rami and clinically undete rminable due to the inability to examine her pelvis due to her right leg pain. Should she have fractures at the pubic rami, treatment would be similar in that she be protected weightbearing with walker. Continue pain management per primary team. Recommend DVT prophylaxis as well. Current Visit: Yes Status: Acute Priority: Medium Code(s): S42.301A - UNSP FRACTURE OF SHAFT OF HUMERUS, RIGHT ARM, INIT SNOMED Code(s): 48342717 Time with Patient: Less than 30
--- NOTE | 2019-05-02 16:01 | P.PN ---
Subjective Progress Note Date: 05/02/19 Principal diagnosis: 79-year-old pleasant female had a fall non-syncopal mechanical. Patient is found have a right proximal humerus fracture and pelvic pubic rami fracture although patient does have significant swelling in the right ankle area and complete discoloration bruised discoloration of the right leg which was not imaged patient will undergo imaging of right leg and ankle for possible fractures patient chest x-rays did show proximal humerus fracture. Patient was started on morphine which was dyspneic and patient will be started on Toradol Tylenol and GI prophylaxis. Patient denied any fever chills denied dysuria. Patient doesn't have any radicular symptoms in the upper extremity and lower extremity. 05/02/2019 Patient is sitting up in bed in no acute distress. A sling to the right upper extremity is noted with bruising also noted that has not worsened. Patient continues to have right lower extremity swelling with discoloration and bruising noted. Patient states that the leg is very tender but denies any tingling or numbness and is able to move toes with no difficulty. Positive pedal pulses. Patient denies any chest pain, shortness of breath, or palpitations at this time. Patient is afebrile. Patient denies any nausea or vomiting and has been tolerating diet. Patient was restarted on her MS Contin but she normally takes at home and states that the pain has gotten much more manageable. Patient's labs this morning showed a hemoglobin of 6.4 and is currently awaiting 1 unit of PRBCs to be transfused. Patient denies any bleeding at this time. PT/OT are following and will work with the patient. Discussed with the patient today about discharge plans and patient is agreeable to rehab upon discharge. Case management and social work are following. Objective - Vital Signs Vital signs: Vital Signs Temp 98.7 F 05/02/19 14:47 Pulse 93 05/02/19 14:47 Resp 16 05/02/19 14:47 BP 95/46 05/02/19 14:47 Pulse Ox 95 05/02/19 14:47 Intake & Output 05/01/19 05/02/19 05/02/19 18:59 06:59 18:59 Intake Total 400 340 Output Total 300 Balance 100 340 Intake: Intake, IV Titration 400 Amount Sodium Chloride 0.9% 1, 400 000 ml @ 100 mls/hr IV . Q10H STA Rx#:[id number] Oral 340 Blood Product 0 Rc As-1 Unit 0 [id number] Output: Urine 300 Other: Voiding Method Bedpan # Voids 2 1 3 - Exam GENERAL: The patient is alert and oriented x3, not in any acute distress. Well developed, well nourished. Vital signs are stable. Blood pressure is 105/59, pulse is 89, temp is 98.5F, respirations are 16, oxygen saturation is 100% on 2 L nasal cannula. HEENT: Pupils are round and equally reacting to light. EOMI. No scleral icterus. No conjunctival pallor. Normocephalic, atraumatic. No pharyngeal erythema. No thyromegaly. CARDIOVASCULAR: S1 and S2 present. No murmurs, rubs, or gallops. PULMONARY: Chest is clear to auscultation, no wheezing or crackles. ABDOMEN: Soft, nontender, nondistended, normoactive bowel sounds. No palpable organomegaly. MUSCULOSKELETAL: As mentioned in HPI right ankle swelling deformity right leg cyanotic discoloration, bruising, and swelling. Pain upon palpation with no reports of numbness or tingling EXTREMITIES: No cyanosis, clubbing, or pedal edema. Positive pedal pulses p alpated. NEUROLOGICAL: Gross neurological examination did not reveal any focal deficits. SKIN: No rashes. Bruising and discoloration noted to the right upper extremity as well as the right lower extremity. - Labs CBC & Chem 7: 05/02/19 08:24 05/02/19 05:49 Labs: Abnormal Lab Results - Last 24 Hours (Table) 05/02/19 05/02/19 05/02/19 Range/Units 05:49 05:49 08:24 WBC 11.6 H (3.8-10.6) k/uL RBC 2.14 L 2.27 L (3.80-5.40) m/uL Hgb 6.3 L* D 6.4 L* (11.4-16.0) gm/dL Hct 19.5 L* 20.8 L (34.0-46.0) % MCHC 30.9 L (31.0-37.0) g/dL RDW 17.9 H 18.2 H (11.5-15.5) % Plt Count 137 L D (150-450) k/uL Neutrophils # 9.4 H (1.3-7.7) k/uL Chloride 110 H (98-107) mmol/L BUN 18 H (7-17) mg/dL Crossmatch 05/02/19 Range/Units 09:07 WBC (3.8-10.6) k/uL RBC (3.80-5.40) m/uL Hgb (11.4-16.0) gm/dL Hct (34.0-46.0) % MCHC (31.0-37.0) g/dL RDW (11.5-15.5) % Plt Count (150-450) k/uL Neutrophils # (1.3-7.7) k/uL Chloride (98-107) mmol/L BUN (7-17) mg/dL Crossmatch See Detail Assessment and Plan Assessment: -Fall right humeral fracture with possibility of fracture of the right leg and ankle. Orthopedic surgery was canceled it pain management as mentioned above due to prophylaxis as mentioned above. Physical therapy and occupational therapy evaluation -Leukocytosis without any evidence of infection secondary to fall and fractures -Tachycardia sinus tachycardia secondary to pain - rheumatoid arthritis not in any acute flare up patient will be resumed on methotrexate and prednisone. -Asthma without any acute exacerbation DVT prophylaxis with subcutaneous heparin
[2019-05-03] MEDS: MORPHINE SULFATE IR 15 MG TABLET PO PRN ×3 (04:40→20:33)
[2019-05-03] MEDS: SYMBICORT 160-4.5 MCG INHALER INHALATION SCH ×2 (07:36→19:04)
[2019-05-03 08:40] LABS: Anisocytosis Slight; Basophils % (A) 1 %; Eosinophils # (A) 0.2 k/uL (0-0.7); Eosinophils % (A) 2 %; HCT 21.6 % (34.0-46.0); Hypochromasia Slight; Lymphocytes # (A) 1.2 k/uL (1.0-4.8); Lymphocytes % (A) 13 %; MCH 28.9 pg (25.0-35.0); MCHC 32.4 g/dL (31.0-37.0); MCV 89.1 fL (80.0-100.0); Mean Platelet Volume 7.5; Monocytes # (A) 0.4 k/uL (0-1.0); Monocytes % (A) 5 %; Neutrophils # (A) 6.9 k/uL (1.3-7.7); Neutrophils % (A) 78 %; Platelet Count 168 k/uL (150-450); RBC 2.42 m/uL (3.80-5.40); RDW 17.5 % (11.5-15.5); WBC 8.9 k/uL (3.8-10.6)
[2019-05-03] MEDS: FAMOTIDINE 20 MG TAB PO SCH ×2 (08:42→20:33)
[2019-05-03] MEDS: CALCIUM CARBONATE 500 MG CHEWABLE PO SCH (08:42)
[2019-05-03] MEDS: FOLIC ACID 1 MG TAB PO SCH (08:42)
[2019-05-03] MEDS: methylPREDNISolone 4 MG TAB PO SCH (08:42)
[2019-05-03] MEDS: HEPARIN SODIUM,PORCINE 5,000 UNIT/ML 1 ML VIAL SQ SCH ×2 (08:43→20:33)
--- NOTE | 2019-05-03 09:21 | P.PN ---
Subjective Progress Note Date: 05/03/19 Principal diagnosis: Right proximal humerus fracture, possible pubic ramii fracture, RLE contusions Patient is pleasant 79-year-old female seen at bedside this morning. We are fol lowing for right proximal humerus fracture as well as possible pubic rami fractures. She was also noted to have right lower extremity pain as well as ecchymoses. Xrays were negative for fracture of the full right lower extremity. She continues to have pain as expected at the right shoulder as well as the right leg. She denies any new complaints. She has a history of rheumatoid arthritis and has been on methotrexate. Objective - Vital Signs Vital signs: Vital Signs Temp 98.6 F 05/03/19 07:00 Pulse 78 05/03/19 07:00 Resp 12 05/03/19 07:00 BP 112/55 05/03/19 07:00 Pulse Ox 94 L 05/03/19 07:00 Intake & Output 05/02/19 05/03/19 05/03/19 18:59 06:59 18:59 Intake Total 890 Balance 890 Intake: Oral 580 Blood Product 310 Rc As-1 Unit 310 [id number] Other: Voiding Method Bedpan # Voids 3 2 - Exam Tenderness distinctly over the proximal humerus. Patient unable to actively rotate, flex, extend, or abduct arm. Elbow range of motion is normal, without tenderness. Positive evolving ecchymosis over the elbow area, however, no focal tenderness. Sensation intact over medial and lateral forearm, thenar region, hypothenar region, mid-palm, dorsal 1st web space, lateral dorsal hand, and fingertips. Brachial and radial pulses are 2+. Capillary refill in all fingertips is less than 2 seconds. she has rheumatoid appearing hand. No ulceration. Skin is healthy, pink, and warm. Shoulder ROM today not tested Lower extremity shows ecchymosis diffusely in the right lower leg. She has pain with range of motion of the hip, knee and ankle. There is no deformity. Sensation intact to light touch throughout the right lower extremity. Calf is soft and nontender. 2+DP pules and less than 2 second capillary refill is present. - Constitutional General appearance: Present: no acute distress - Labs CBC & Chem 7: 05/03/19 07:06 05/02/19 05:49 Labs: Abnormal Lab Results - Last 24 Hours (Table) 05/02/19 05/03/19 Range/Units 09:07 07:06 RBC 2.42 L (3.80-5.40) m/uL Hgb 7.0 L (11.4-16.0) gm/dL Hct 21.6 L (34.0-46.0) % RDW 17.5 H (11.5-15.5) % Crossmatch See Detail Assessment and Plan (1) Right humeral fracture Narrative/Plan: x-rays of the right leg including the femur, knee, tib-fib, ankle were negative for fracture or dislocation. Recommend continue supportive measures for her leg pain as well as elevation and physical therapy. In regards to her right proximal humerus fracture, it is stable and there are no plans for immediate surgical intervention. Recommended continued sling and pain management. She is to be nonweightbearing with the right upper extremity. In regards to her pelvis, x- rays are not definitive for fracture of the pubic rami and clinically undeterminable due to the inability to examine her pelvis due to her right leg pain. Should she have fractures at the pubic rami, treatment would be similar in that she be protected weightbearing with walker. Continue pain management per primary team. Recommend DVT prophylaxis as well. She may follow up as an outpatient in office. Current Visit: Yes Status: Acute Priority: Medium Code(s): S42.301A - UNSP FRACTURE OF SHAFT OF HUMERUS, RIGHT ARM, INIT SNOMED Code(s): 87683702 Time with Patient: Less than 30
--- NOTE | 2019-05-03 15:47 | P.PN ---
Subjective Progress Note Date: 05/03/19 Principal diagnosis: 79-year-old pleasant female had a fall non-syncopal mechanical. Patient is found have a right proximal humerus fracture and pelvic pubic rami fracture although patient does have significant swelling in the right ankle area and complete discoloration bruised discoloration of the right leg which was not imaged patient will undergo imaging of right leg and ankle for possible fractures patient chest x-rays did show proximal humerus fracture. Patient was started on morphine which was dyspneic and patient will be started on Toradol Tylenol and GI prophylaxis. Patient denied any fever chills denied dysuria. Patient doesn't have any radicular symptoms in the upper extremity and lower extremity. 05/02/2019 Patient is sitting up in bed in no acute distress. A sling to the right upper extremity is noted with bruising also noted that has not worsened. Patient continues to have right lower extremity swelling with discoloration and bruising noted. Patient states that the leg is very tender but denies any tingling or numbness and is able to move toes with no difficulty. Positive pedal pulses. Patient denies any chest pain, shortness of breath, or palpitations at this time. Patient is afebrile. Patient denies any nausea or vomiting and has been tolerating diet. Patient was restarted on her MS Contin but she normally takes at home and states that the pain has gotten much more manageable. Patient's labs this morning showed a hemoglobin of 6.4 and is currently awaiting 1 unit of PRBCs to be transfused. Patient denies any bleeding at this time. PT/OT are following and will work with the patient. Discussed with the patient today about discharge plans and patient is agreeable to rehab upon discharge. Case management and social work are following. 05/03/2019 Patient is lying in bed in no acute distress. Patient was able to work with PT/OT today with recommendations for subacute rehab upon discharge. Currently there are no plans for any surgical interventions of the right humerus fracture. Patient's hemoglobin this morning was 7 and will be receiving 1 unit of PRBCs after working with PT/OT. Will monitor vital signs and labs closely. Case management and social organization professor following and working on possible placement at [facility]. Patient denies any chest pain, shortness of breath or palpitations at this time. Patient is tolerating diet with no reports of any nausea or vomiting. Patient states that her pain is being managed. Patient's right lower extremity continues to have bruising and swelling and is being closely mo nitored. Patient does have positive pedal pulses and denies any tingling or numbness to the lower extremity. Objective - Vital Signs Vital signs: Vital Signs Temp 98.5 F 05/03/19 15:16 Pulse 78 05/03/19 15:16 Resp 16 05/03/19 15:16 BP 99/60 05/03/19 15:16 Pulse Ox 94 L 05/03/19 15:16 Intake & Output 05/02/19 05/03/19 05/03/19 18:59 06:59 18:59 Intake Total 890 0 Balance 890 0 Intake: Oral 580 Blood Product 310 0 Rc As-1 Unit 0 [id number] Rc As-1 Unit 310 [id number] Other: Voiding Method Bedpan # Voids 3 2 3 - Exam GENERAL: The patient is alert and oriented x3, not in any acute distress. Well developed, well nourished. Vital signs are stable. Blood pressure is 112/55, pulse is 78, temp is 98.6F, respirations are 12, oxygen saturation is 94% on room air. HEENT: Pupils are round and equally reacting to light. EOMI. No scleral icterus. No conjunctival pallor. Normocephalic, atraumatic. No pharyngeal erythema. No thyromegaly. CARDIOVASCULAR: S1 and S2 present. No murmurs, rubs, or gallops. PULMONARY: Chest is clear to auscultation, no wheezing or crackles. ABDOMEN: Soft, nontender, nondistended, normoactive bowel sounds. No palpable organomegaly. MUSCULOSKELETAL: As mentioned in HPI right ankle swelling deformity right leg cyanotic discoloration, bruising, and swelling. Pain upon palpation with no reports of numbness or tingling EXTREMITIES: No cyanosis, clubbing, or pedal edema. Positive pedal pulses palpated. NEUROLOGICAL: Gross neurological examination did not reveal any focal deficits. SKIN: No rashes. Bruising and discoloration noted to the right upper extremity as well as the right lower extremity. - Labs CBC & Chem 7: 05/03/19 07:06 05/02/19 05:49 Labs: Abnormal Lab Results - Last 24 Hours (Table) 05/02/19 05/03/19 Range/Units 09:07 07:06 RBC 2.42 L (3.80-5.40) m/uL Hgb 7.0 L (11.4-16.0) gm/dL Hct 21.6 L (34.0-46.0) % RDW 17.5 H (11.5-15.5) % Crossmatch See Detail Assessment and Plan Assessment: -Fall right humeral fracture with possibility of fracture of the right leg and ankle. Orthopedic surgery was consulted and is following. pain management as mentioned above due to prophylaxis as mentioned above. Physical therapy and occupational therapy evaluation suggests subacute rehab. -Leukocytosis without any evidence of infection secondary to fall and fractures -Tachycardia sinus tachycardia secondary to pain - rheumatoid arthritis not in any acute flare up patient will be resumed on methotrexate and prednisone. -Asthma without any acute exacerbation DVT prophylaxis with subcutaneous heparin Recommendations and discussion: Recommend continue current medications, management, and symptomatic treatment. Ortho is following. PT/OT are following. Patient is receiving 1 unit of PRBCs for hemoglobin of 7 this morning. Will repeat a.m. labs. Guarded prognosis. Case management and social work are following and working on placement at [facility]. Further recommendations to follow. Possible discharge in 24 hours.
--- NOTE | 2019-05-03 16:02 | CDI ---
Documentation Clarification Form Date: 05/03/2019 3:42:06 PM From: Kaley Nguyen RN, CCDS Admit Date: 05/01/2019 3:04:00 PM Patient Name: Bianca Soto Visit Number: [id number] Discharge Date: ATTENTION: The Clinical Documentation Specialists (CDI) and [facility] Coding Staff appreciate your assistance in clarifying documentation. Please respond to the clarification below the line at the bottom and electronically sign. The CDI & [facility] Coding staff will review the response and follow-up if needed. Please note: Queries are made part of the Legal Health Record. If you have any questions, please contact the author of this message via ITS. Dr. Wilmar Sarmiento Documentation states: Fall non-syncopal mechanical. Patient was found to have a right proximal humerus fracture and pelvis pubic rami fracture. History/Risk Factors: Asthma, Osteoarthritis, Rheumatoid Arthritis, Jerez CA Clinical indicators: 79-year-old female who present after a fall. She has significant swelling in the right ankle area and complete discoloration bruised discoloration of the right legs. She has positive evolving ecchymosis over the elbow area. HGB 10.4, 6.3, 6.4 7.0 HCT 33.6 19.5, 20.8, 21.6 Treatment: Monitor CBC Transfuse 1 unit PRBC Clinical significance of diagnostic testing and treatment CANNOT be assumed or coded without physician documentation of significance if any. Please clarify what abnormal laboratory signifies: Abnormal Lab Value (due to, specify) Disease process, please specify Infectious process, please specify Unable to determine Other, please specify (Last Revision: May 2017) MTDD
[2019-05-03 20:18] VITALS: RESP 18
[2019-05-04] MEDS: MORPHINE SULFATE IR 15 MG TABLET PO PRN ×2 (04:19→13:18)
[2019-05-04] MEDS: SYMBICORT 160-4.5 MCG INHALER INHALATION SCH (07:17)
[2019-05-04 07:50] VITALS: BP 123/61; PULSE 73; TEMP 98.6
[2019-05-04 08:32] LABS: Anisocytosis Slight; Basophils % (A) 1 %; Eosinophils # (A) 0.2 k/uL (0-0.7); Eosinophils % (A) 3 %; HCT 26.7 % (34.0-46.0); Hypochromasia Slight; Lymphocytes # (A) 1.2 k/uL (1.0-4.8); Lymphocytes % (A) 16 %; MCH 29.3 pg (25.0-35.0); MCHC 32.8 g/dL (31.0-37.0); MCV 89.4 fL (80.0-100.0); Mean Platelet Volume 7.3; Monocytes # (A) 0.4 k/uL (0-1.0); Monocytes % (A) 5 %; Neutrophils # (A) 5.4 k/uL (1.3-7.7); Neutrophils % (A) 74 %; Platelet Count 178 k/uL (150-450); Poikilocytosis Slight; RBC 2.98 m/uL (3.80-5.40); RDW 16.6 % (11.5-15.5); WBC 7.3 k/uL (3.8-10.6)
[2019-05-04 08:44] LABS: HGB 8.7 gm/dL (11.4-16.0)
[2019-05-04] MEDS: FOLIC ACID 1 MG TAB PO SCH (09:03)
[2019-05-04] MEDS: methylPREDNISolone 4 MG TAB PO SCH (09:03)
[2019-05-04] MEDS: HEPARIN SODIUM,PORCINE 5,000 UNIT/ML 1 ML VIAL SQ SCH (09:04)
[2019-05-04] MEDS: CALCIUM CARBONATE 500 MG CHEWABLE PO SCH (09:04)
[2019-05-04] MEDS: FAMOTIDINE 20 MG TAB PO SCH (09:04)
--- NOTE | 2019-05-04 13:04 | P.DS ---
Providers Date of admission: 05/01/19 15:04 Expected date of discharge: 05/04/19 Attending physician: Angely Garrett Consults: 05/01/19 10:34 Consult Physician Routine Consulting Provider: [facility] Consult Reason/Comments: humeral head fracture, fall, possible pelvic fracture Do you want consulting provider notified?: Yes Primary care physician: [facility] Course: Final diagnosis Fall with right humeral fracture Leukocytosis without any evidence of infection secondary to fall and fractures Tachycardia, sinus tachycardia secondary to pain Rheumatoid arthritis not in any acute flareup Acute blood loss anemia secondary to fall and fractures Asthma without any acute exacerbation DVT prophylaxis Discharge disposition Patient is being discharged in a stable condition with guarded prognosis to [facility] for continued PT/OT therapy. Patient will follow up with orthopedic clinic in 1-2 weeks. Patient is to continue with orthopedic recommendations as well as PT/OT recommendations of continued sling of the right arm with non-weightbearing. Right lower extremity should maintain protected weight-bearing with a walker as tolerated. Total time taken is 35 minutes. History of present illness This is an 79-year-old female who was recently admitted for a fall and had a right humeral fracture and was being closely monitored. During hospitalization patient had some acute blood loss anemia most likely due to the fall and fracture. Patient received 2 units of PRBCs during hospitalization and tolerated well. Current hemoglobin is 8.5. Recommend repeat labs in 2-3 days. Per PT/OT and orthopedic surgery patient would benefit from a subacute rehab for strength and mobility. Currently patient's condition is stable and will be discharged today to [facility] for continued rehab. Patient will follow-up with orthopedic clinic in the outpatient setting in 1-2 weeks. Patient denies any shortness of breath, chest pain, or palpitations at this time. Patient is tolerating diet with no reports of nausea or vomiting. Patient has remained afebrile. Patient has been working with PT/OT and will continue while at rehab. Guarded prognosis On exam vital signs are stable. Temp is 98.6F, pulse is 73, respirations are 18, blood pressure is 123/61, oxygen saturation is 97% on room air. Cardio S1 and S2 are heard. Respiratory system shows clear upon auscultation. Abdomen is soft, thin, non-tender. Nervous system shows no focal deficits with mild diffuse weakness. Extremities show right upper arm bruising that has improved, lower right extremity with bruising and discoloration that is improving, Refill less than 3 of the right lower extremity and positive pulses noted. Please refer to medication reconciliation sheet for a list of medications. Patient Condition at Discharge: Good Plan - Discharge Summary New Discharge Prescriptions: New Acetaminophen Tab [Tylenol] 650 mg PO Q6HR PRN tab PRN Reason: Fever and/ or Mild Pain Continue Ranitidine HCl [Zantac] 150 mg PO DAILY Folic Acid 0.4 mg PO DAILY Calcium Carbonate [Calcium] 600 mg PO DAILY Biotin 5 mg PO DAILY Methotrexate Sodium [Methotrexate] 20 mg PO TU methylPREDNISolone [Medrol] 2 mg PO DAILY Budesonide/Formoterol Fumarate [Symbicort 160-4.5 Mcg Inhaler] 2 puff INHALATION RT-BID Levalbuterol Tartrate [Xopenex Hfa Inhaler] 1 puff INHALATION RT-BID PRN PRN Reason: Shortness Of Breath Morphine Sulfate Ir [MSIR] 30 mg PO TID PRN #6 tab PRN Reason: Pain Discharge Medication List Biotin 5 mg PO DAILY 04/30/19 [History] Budesonide/Formoterol Fumarate [Symbicort 160-4.5 Mcg Inhaler] 2 puff INHALATION RT-BID 04/30/19 [History] Calcium Carbonate [Calcium] 600 mg PO DAILY 04/30/19 [History] Folic Acid 0.4 mg PO DAILY 04/30/19 [History] Levalbuterol Tartrate [Xopenex Hfa Inhaler] 1 puff INHALATION RT-BID PRN 04/30/19 [History] Methotrexate Sodium [Methotrexate] 20 mg PO TU 04/30/19 [History] Ranitidine HCl [Zantac] 150 mg PO DAILY 04/30/19 [History] methylPREDNISolone [Medrol] 2 mg PO DAILY 04/30/19 [History] Acetaminophen Tab [Tylenol] 650 mg PO Q6HR PRN tab 05/04/19 [Rx] Morphine Sulfate Ir [MSIR] 30 mg PO TID PRN #6 tab 05/04/19 [Rx] Follow up Appointment(s)/Referral(s): Luis Zambrano DO [Primary Care Provider] - 1-2 days (Office closed. Please call Tuesday for follow up ) Román Curtis MD [STAFF PHYSICIAN] - 05/11/19 2:15 pm Ambulatory/Diagnostic Orders: Complete Blood Count w/diff [LAB.AMB] Time Frame: 2 Days, Location: None Selected Patient Instructions/Handouts: Fall Prevention for Older Adults (ED) Activity/Diet/Wound Care/Special Instructions: Patient is going to [facility] Non weightbearing RUE Sling to right arm for comfort Weightbearing as tolerated to the right lower extremity Continue to have the right lower extremity elevated while at rest F/U with Dr. Curtis/Krzysztof Sotelo PA-C in office Follow-up with primary care provider upon discharge Repeat labs in 2-3 days Continue current diet Activity as tolerated Discharge Disposition: TRANSFER TO SNF/ECF
== END 2019-05-04 14:14 | DRG 563 ==
LOC: EC 19:55 → 4SSUR 21:30 → OBSVTOIN 05-01 15:04
PROVIDERS: ADMIT Hospitalist; ATTEND Hospitalist
PROC: 30233N1 Transfusion of Nonautologous Red Blood Cells into Peripheral Vein, Percutaneous Approach (ICD-10-PCS; principal; 2019-05-02)
DX: S42.201A Unspecified fracture of upper end of right humerus, initial encounter for closed fracture (principal); S32.509A Unspecified fracture of unspecified pubis, initial encounter for closed fracture; D62 Acute posthemorrhagic anemia; E86.0 Dehydration; M06.9 Rheumatoid arthritis, unspecified; D72.829 Elevated white blood cell count, unspecified; J45.909 Unspecified asthma, uncomplicated; M19.90 Unspecified osteoarthritis, unspecified site; M79.604 Pain in right leg; S80.11XA Contusion of right lower leg, initial encounter; Z79.51 Long term (current) use of inhaled steroids; Z79.52 Long term (current) use of systemic steroids; Z79.899 Other long term (current) drug therapy; Z88.2 Allergy status to sulfonamides; Z96.642 Presence of left artificial hip joint; Z90.49 Acquired absence of other specified parts of digestive tract; Z85.828 Personal history of other malignant neoplasm of skin; W01.0XXA Fall on same level from slipping, tripping and stumbling without subsequent striking against object, initial encounter; Y92.009 Unspecified place in unspecified non-institutional (private) residence as the place of occurrence of the external cause
CPT/HCPCS: 36415; 70450; 71045; 72125; 73502; 80048; 80053; 82550; 82553; 83735; 83880; 84100; 84484; 85025; 85027; 85610; 85730; 86850; 86900; 86901; 86920; 93005; 94640; 94760; 96361; 96365; 96375; 96376; 99285

== ENCOUNTER 2020-10-23 13:38 | Inpatient (IN) | payer MEDICARE, BC ==
[2020-10-23] MEDS ORDERED: ALBUTEROL HFA INHALER INHALATION PRN (14:14)
[2020-10-23] MEDS ORDERED: ALBUTEROL HFA INHALER INHALATION STA (14:14)
[2020-10-23] MEDS ORDERED: ACETAMINOPHEN TAB 325 MG TAB PO PRN (14:14)
[2020-10-23] MEDS ORDERED: ACETAMINOPHEN TAB 325 MG TAB PO STA (14:14)
--- NOTE | 2020-10-23 14:19 | ED ---
General Adult HPI - General Chief complaint: Shortness of Breath Stated complaint: SOB Time Seen by Provider: 10/23/20 13:49 Source: patient, EMS, RN notes reviewed Mode of arrival: EMS Limitations: no limitations - History of Present Illness Initial comments: Patient is a pleasant 78-year-old female presenting to the emergency department secondary to not feeling well. Patient states she did have her immunization for coronavirus a month ago. Patient missed her second appointment. Patient states she is been having symptoms over the past week. Patient was tested positive for coronavirus 3 days ago. Patient complains of cough and dyspnea. Cough has productive white sputum. Patient has fevers and significant fatigue. No isolated area of weakness. No loss of taste or smell. Patient feels dry. - Related Data Home Medications Medication Instructions Recorded Confirmed Budesonide/Formoterol Fumarate 2 puff INHALATION RT-BID 04/30/19 10/23/20 [Symbicort 160-4.5 Mcg Inhaler] Levalbuterol Tartrate [Xopenex Hfa 1 puff INHALATION RT-BID PRN 04/30/19 10/23/20 Inhaler] metHOTREXate sodium [Methotrexate] 20 mg PO TH 04/30/19 10/23/20 methylPREDNISolone [Medrol] 2 mg PO DAILY 04/30/19 10/23/20 Mirabegron [Myrbetriq] 25 mg PO DAILY 10/23/20 10/23/20 Morphine Sulfate Ir [MSIR] 30 mg PO Q8H 10/23/20 10/23/20 Allergies Allergy/AdvReac Type Severity Reaction Status Date / Time sulfadiazine Allergy Anaphylaxis Verified 10/23/20 15:32 Review of Systems ROS Statement: Those systems with pertinent positive or pertinent negative responses have been documented in the HPI. ROS Other: All systems not noted in ROS Statement are negative. Constitutional: Reports: fever Eyes: Denies: eye pain ENT: Denies: ear pain Respiratory: Reports: cough, dyspnea Cardiovascular: Denies: chest pain Endocrine: Reports: fatigue Gastrointestinal: Reports: other (Anorexia). Denies: abdominal pain Genitourinary: Denies: dysuria Musculoskeletal: Denies: back pain Skin: Denies: rash Neurological: Denies: confusion Past Medical History Past Medical History: Asthma, Osteoarthritis (OA), Rheumatoid Arthritis (RA) Additional Past Medical History / Comment(s): Skin CA History of Any Multi-Drug Resistant Organisms: None Reported Additional Past Surgical History / Comment(s): left hip implant, gallbladder, Skin CA removed from face. Past Psychological History: No Psychological Hx Reported Smoking Status: Never smoker Past Alcohol Use History: None Reported Past Drug Use History: None Reported - Past Family History Father Family Medical History: Myocardial Infarction (MT) Mother Family Medical History: CVA/TIA General Exam Limitations: no limitations General appearance: alert, in no apparent distress Head exam: Present: atraumatic Eye exam: Present: normal appearance, PERRL ENT exam: Present: mucous membranes dry Neck exam: Present: normal inspection. Absent: meningismus Respiratory exam: Present: normal lung sounds bilaterally Cardiovascular Exam: Present: regular rate, normal rhythm GI/Abdominal exam: Present: soft. Absent: tenderness Extremities exam: Present: normal inspection Neurological exam: Present: alert Psychiatric exam: Present: normal affect, normal mood Skin exam: Present: normal color Course Vital Signs 10/23/20 10/23/20 10/23/20 13:41 13:47 15:08 Temperature 100.9 F H 99.2 F Pulse Rate 106 H Respiratory 16 16 Rate Blood Pressure 97/79 O2 Sat by Pulse 99 90 L Oximetry 10/23/20 10/23/20 15:13 15:51 Temperature Pulse Rate Respiratory Rate Blood Pressure O2 Sat by Pulse 94 L 98 Oximetry EKG Findings - EKG Comments: EKG Findings:: Sinus tachycardia 102. [place] 174. QRS 88. QT 228. QTC 427. Normal axis. Normal QRS. No acute ST change. Medical Decision Making - Medical Decision Making Room air pulse ox was 90%. Patient updated on results and plan. Case discussed with Dr. Garrett, who will admit covering for hospital call. - Lab Data Result diagrams: 10/23/20 13:52 10/23/20 13:52 Lab Results 10/23/20 10/23/20 10/23/20 Range/Units 13:52 13:52 13:52 WBC 4.2 (3.8-10.6) k/uL RBC 3.97 (3.80-5.40) m/uL Hgb 12.8 (11.4-16.0) gm/dL Hct 37.9 (34.0-46.0) % MCV 95.5 (80.0-100.0) fL MCH 32.2 (25.0-35.0) pg MCHC 33.7 (31.0-37.0) g/dL RDW 14.3 (11.5-15.5) % Plt Count 175 (150-450) k/uL MPV 7.0 Neutrophils % 82 % Lymphocytes % 9 % Monocytes % 6 % Eosinophils % 1 % Basophils % 1 % Neutrophils # 3.4 (1.3-7.7) k/uL Lymphocytes # 0.4 L (1.0-4.8) k/uL Monocytes # 0.3 (0-1.0) k/uL Eosinophils # 0.0 (0-0.7) k/uL Basophils # 0.1 (0-0.2) k/uL PT 10.1 (9.0-12.0) sec INR 0.9 (<1.2) APTT 22.4 (22.0-30.0) sec Sodium 137 (137-145) mmol/L Potassium 4.3 (3.5-5.1) mmol/L Chloride 98 (98-107) mmol/L Carbon Dioxide 33 H (22-30) mmol/L Anion Gap 6 mmol/L BUN 20 H (7-17) mg/dL Creatinine 0.53 (0.52-1.04) mg/dL Est GFR (CKD-EPI)AfAm >90 (>60 ml/min/1.73 sqM) Est GFR (CKD-EPI)NonAf 89 (>60 ml/min/1.73 sqM) Glucose 98 (74-99) mg/dL Plasma Lactic Acid Jaison (0.7-2.0) mmol/L Calcium 9.6 (8.4-10.2) mg/dL Magnesium 1.7 (1.6-2.3) mg/dL Total Bilirubin 0.5 (0.2-1.3) mg/dL AST 47 H (14-36) U/L ALT 25 (4-34) U/L Alkaline Phosphatase 71 (38-126) U/L Lactate Dehydrogenase 644 H (313-618) U/L C-Reactive Protein 49.3 H (<10.0) mg/L Total Protein 6.2 L (6.3-8.2) g/dL Albumin 3.7 (3.5-5.0) g/dL Coronavirus (PCR) (Not Detectd) 10/23/20 10/23/20 Range/Units 13:52 13:52 WBC (3.8-10.6) k/uL RBC (3.80-5.40) m/uL Hgb (11.4-16.0) gm/dL Hct (34.0-46.0) % MCV (80.0-100.0) fL MCH (25.0-35.0) pg MCHC (31.0-37.0) g/dL RDW (11.5-15.5) % Plt Count (150-450) k/uL MPV Neutrophils % % Lymphocytes % % Monocytes % % Eosinophils % % Basophils % % Neutrophils # (1.3-7.7) k/uL Lymphocytes # (1.0-4.8) k/uL Monocytes # (0-1.0) k/uL Eosinophils # (0-0.7) k/uL Basophils # (0-0.2) k/uL PT (9.0-12.0) sec INR (<1.2) APTT (22.0-30.0) sec Sodium (137-145) mmol/L Potassium (3.5-5.1) mmol/L Chloride (98-107) mmol/L Carbon Dioxide (22-30) mmol/L Anion Gap mmol/L BUN (7-17) mg/dL Creatinine (0.52-1.04) mg/dL Est GFR (CKD-EPI)AfAm (>60 ml/min/1.73 sqM) Est GFR (CKD-EPI)NonAf (>60 ml/min/1.73 sqM) Glucose (74-99) mg/dL Plasma Lactic Acid Jaison 1.1 (0.7-2.0) mmol/L Calcium (8.4-10.2) mg/dL Magnesium (1.6-2.3) mg/dL Total Bilirubin (0.2-1.3) mg/dL AST (14-36) U/L ALT (4-34) U/L Alkaline Phosphatase (38-126) U/L Lactate Dehydrogenase (313-618) U/L C-Reactive Protein (<10.0) mg/L Total Protein (6.3-8.2) g/dL Albumin (3.5-5.0) g/dL Coronavirus (PCR) Detected A (Not Detectd) - Radiology Data Radiology results: image reviewed (1 view chest x-ray shows COPD. Right suprahilar prominence.) Disposition Clinical Impression: COVID-19 Disposition: ADMITTED IP TO THIS HOSP Is patient prescribed a controlled substance at d/c from ED?: No Referrals: Luis Zambrano DO [Primary Care Provider] - 1-2 days Decision Time: 15:56
[2020-10-23 14:32] LABS: Basophils # (A) 0.1 k/uL (0-0.2); Basophils % (A) 1 %; Eosinophils % (A) 1 %; HCT 37.9 % (34.0-46.0); HGB 12.8 gm/dL (11.4-16.0); Lymphocytes # (A) 0.4 k/uL (1.0-4.8); Lymphocytes % (A) 9 %; MCH 32.2 pg (25.0-35.0); MCHC 33.7 g/dL (31.0-37.0); MCV 95.5 fL (80.0-100.0); Monocytes # (A) 0.3 k/uL (0-1.0); Monocytes % (A) 6 %; Neutrophils # (A) 3.4 k/uL (1.3-7.7); Neutrophils % (A) 82 %; Platelet Count 175 k/uL (150-450); RBC 3.97 m/uL (3.80-5.40); RDW 14.3 % (11.5-15.5); WBC 4.2 k/uL (3.8-10.6)
[2020-10-23 14:43] LABS: INR 0.9 (<1.2); Partial Thromboplastin Time 22.4 sec (22.0-30.0); Prothrombin Time 10.1 sec (9.0-12.0)
[2020-10-23 15:00] LABS: ALT 25 U/L (4-34); AST 47 U/L (14-36); African American GFR (CKD) >90 (>60 ml/min/1.73 sqM); Albumin 3.7 g/dL (3.5-5.0); Alkaline Phosphatase 71 U/L (38-126); Anion Gap 6 mmol/L; Blood Urea Nitrogen 20 mg/dL (7-17); C Reactive Protein 49.3 mg/L (<10.0); Calcium 9.6 mg/dL (8.4-10.2); Carbon Dioxide 33 mmol/L (22-30); Chloride 98 mmol/L (98-107); Glucose 98 mg/dL (74-99); LDH 644 U/L (313-618); Magnesium 1.7 mg/dL (1.6-2.3); Non-African American GFR(CKD) 89 (>60 ml/min/1.73 sqM); Potassium 4.3 mmol/L (3.5-5.1); Sodium 137 mmol/L (137-145); Total Bilirubin 0.5 mg/dL (0.2-1.3); Total Protein 6.2 g/dL (6.3-8.2)
--- NOTE | 2020-10-23 15:06 | XR ---
EXAMINATION TYPE: XR chest 1V portable DATE OF EXAM: 10/23/2020 Comparison: 04/30/2019 Clinical History: 80-year-old female shortness of breath and fever, Suspected COVID-19 pneumonia Findings: Heart upper limits of normal in size. Rounded retrocardiac density may represent a moderate-sized her nando. Hyperinflation. Right suprahilar prominence. Mild interstitial prominence is unchanged. No joaquín consolidation or pleural effusion seen at this time. Advanced degenerative change at the shoulders. This seems to be a chronic healed fracture deformity of the left proximal humeral surgical neck. Impression: 1. COPD. No definite focal infiltrate at this time. 2. Right suprahilar soft tissue prominence could be projectional. Consider cross-sectional evaluation to exclude underlying lymphadenopathy or subtle mass. 3. Possible underlying moderate-sized hiatal hernia.
[2020-10-23] MEDS ORDERED: NALOXONE 0.4 MG/ML 1 ML VIAL IV PRN (15:56)
[2020-10-23] MEDS ORDERED: ENOXAPARIN 30 MG/0.3 ML SYRINGE SQ SCH (16:00)
[2020-10-23] MEDS: ASCORBIC ACID 500 MG TAB PO SCH (17:06)
[2020-10-23] MEDS: DEXAMETHASONE SOD PHOSPHATE 10 MG/ML 1 ML VIAL IV SCH (17:06)
[2020-10-23] MEDS: CHOLECALCIFEROL 25 MCG (1000 IU) TABLET PO SCH (17:06)
[2020-10-23] MEDS: SODIUM CHLORIDE 0.9% 1,000 ML IV SCH (17:07)
[2020-10-23] MEDS: ZINC SULFATE 220 MG CAP PO SCH (17:07)
[2020-10-23] MEDS ORDERED: ALPRAZolam 0.25 MG TAB PO PRN (17:52)
[2020-10-23] MEDS ORDERED: HYDROcodone/APAP 5-325MG 1 EACH TAB PO PRN (17:52)
--- NOTE | 2020-10-23 18:56 | CT ---
EXAMINATION TYPE: CT angio chest with contrast and with 3-D reconstruction renderings DATE OF EXAM: 10/23/2020 6:28 PM COMPARISON: None HISTORY: ELEVATED D-DIMER AND +COVID. CT DLP: 229.5 mGycm Automated exposure control for dose reduction was used. CONTRAST: CTA scan of the thorax is performed with IV Contrast, patient injected with 63ML mL of Isovue 370, pu lmonary embolism protocol. . FINDINGS: Airways: Unremarkable Lungs: There are a few scattered geographic zones of groundglass opacity in subpleural position bilat erally, ranging from 1 cm to 3 cm mean diameter and sparing the central axial lung parenchyma. These bilateral scattered groundglass opacities occupy approximately 5-10% of the pulmonary parenchyma; the se can correlate with a clinical diagnosis of atypical pneumonia. There is no lung consolidation. No evidence of pulmonary edema. A few scattered pulmonary nodules are identified, which can be further c haracterized six-month follow-up CT. Pleural spaces: No abnormal gas or fluid collections. Mediastinum: Pulmonary arteries are patent bilaterally, with no evidence for pulmonary embolism. Aort a is unremarkable. No cardiomegaly, but left atrial enlargement noted. No pericardial effusion. Coron geovany calcifications are seen. No adenopathy. Other: Proximal half of the stomach is noted to be intrathoracic in position. IMPRESSION: 1. NEGATIVE FOR PULMONARY EMBOLISM. 2. PATCHY BILATERAL 1-3 CM SUBPLEURAL NONSPECIFIC GROUNDGLASS OPACITIES
--- NOTE | 2020-10-23 19:27 | HP ---
HISTORY AND PHYSICAL DATE OF SERVICE: 10/23/2020. CHIEF COMPLAINT: Shortness of breath. HISTORY OF PRESENT ILLNESS: This 80-year-old woman with a past medical history of multiple medical problems including history of asthma, DJD, rheumatoid arthritis, history of skin cancer being followed by Dr. Zambrano in the outpatient setting, was not feeling well over the past several days. Patient had shortness of breath, cough and sputum. The patient did receive the 1st does of Covid vaccine on September 25. The 2nd dose was supposed to be on the but the patient did not take because the patient was apparently sick. Multiple members of the family are sick including the patient's son recently with Covid 19 according to her. The patient was tested positive for Covid-19 3 days ago and because of increasing difficulty, the patient came to [facility] and was admitted for further evaluation and treatment. The patient was found to be hypoxic at 90% on room air. Patient needed supplemental oxygen. A chest x-ray was done which I reviewed personally in the ER showed some increased bronchovascular markings and possible pneumonia in the right suprahilar area. Hiatal hernia was also suspected. Labs were CBC within normal limits. D-dimer was 1.01. LDH 644. CRP is 45.3. The patient admitted for further evaluation and treatment. There is no history any headache, loss of consciousness or seizures at this time. No history of hematochezia or melena either. PAST MEDICAL HISTORY: History of asthma, DJD, rheumatoid arthritis, skin cancer. MEDICATIONS: Home medications are reviewed and include: Medrol, methotrexate, MS-IR, Myrbetriq, Xopenex, Symbicort, Effexor, sulfadiazine. FAMILY HISTORY: History of myocardial infarction in the family. SOCIAL HISTORY: No history of smoking. No history of alcohol. REVIEW OF SYSTEMS: ENT: Diminished vision. Diminished hearing. CARDIOVASCULAR as mentioned earlier. RESPIRATORY: As mentioned earlier. GI no nausea or vomiting. : No dysuria. NERVOUS SYSTEM: No numbness or weakness. ALLERGY/IMMUNOLOGY: As mentioned earlier. HEMATOLOGY/ONCOLOGY: No history of anemia. ENDOCRINE: No history of diabetes or hypothyroidism. CONSTITUTIONAL: As mentioned earlier. DERMATOLOGY as mentioned earlier. RHEUMATOLOGY as mentioned earlier. PSYCHIATRY: As mentioned earlier. PHYSICAL EXAMINATION: Alert and oriented x3. Pulse is 97. Blood pressure 97/57, respirations 16, temperature 99.4, pulse ox was 90 percent on room air and 94% on 3 L nasal cannula. T-max 100.9. HEENT: Conjunctivae normal. NECK: No JVD. CARDIOVASCULAR: S1, S2 muffled. RESPIRATORY: Breath sounds diminished in the bases. A few scattered rhonchi. ABDOMEN: Soft, nontender. No mass palpable. LEGS: No edema. No swelling. NERVOUS SYSTEM: No focal deficits. LABS: CBC within normal limits. D-dimer is 1.01, CO2 33, AST is 47 and LDH is 644. CRP is 49.3. Covid 19 is positive. ASSESSMENT: 1. Acute Covid 19 infection with possible Covid 19 interstitial pneumonia. 2. Prominent right hilum, rule out pneumonia. 3. Elevated D-dimer. 4. Elevated inflammatory markers, Covid 19 including LDH and CRP. 5. Elevated AST. 6. History of asthma. 7. History of degenerative joint disease. 8. History of rheumatoid arthritis. 9. History of skin cancer. 10.History of left hip implantation. RECOMMENDATION AND DISCUSSION: This 80-year-old woman who presented with multiple complex medical issues, we will monitor the patient closely, continue the current medications, symptomatic treatment. We will initiate Lovenox and zinc and dexamethasone. Albuterol will be started. The patient might be in the window for Covid 19. I would recommend pulmonary and Infectious Disease evaluation with Dr. Beltran. Other than that, I would also recommend a CT angio of the chest to rule out the possible acute pulmonary embolism. We will follow the patient closely. Overall prognosis guarded because of multiple complex medical issues. [ MMODL / IJN: [id number] /
[2020-10-23] MEDS: MORPHINE SULFATE IR 15 MG TABLET PO SCH (19:35)
[2020-10-23] MEDS: ENOXAPARIN 40 MG/0.4 ML SYRINGE SQ SCH (19:36)
[2020-10-23] MEDS: ALBUTEROL HFA INHALER INHALATION SCH (19:41)
[2020-10-23] MEDS: SYMBICORT 160-4.5 MCG INHALER INHALATION SCH (19:41)
[2020-10-23] MEDS ORDERED: ALBUTEROL HFA INHALER INHALATION SCH (20:00)
[2020-10-24] MEDS: MORPHINE SULFATE IR 15 MG TABLET PO SCH ×3 (02:00→18:08)
[2020-10-24] MEDS: ALBUTEROL HFA INHALER INHALATION SCH ×4 (07:46→19:28)
[2020-10-24] MEDS: SYMBICORT 160-4.5 MCG INHALER INHALATION SCH ×2 (07:47→19:28)
[2020-10-24] MEDS: ASCORBIC ACID 500 MG TAB PO SCH ×2 (09:29→20:07)
[2020-10-24] MEDS: ZINC SULFATE 220 MG CAP PO SCH (09:29)
[2020-10-24] MEDS: DEXAMETHASONE SOD PHOSPHATE 10 MG/ML 1 ML VIAL IV SCH (09:31)
[2020-10-24 09:52] LABS: African American GFR (CKD) 98.4 (60.0-200.0); Albumin 3.6 g/dL (3.80-4.90); Albumin/Globulin Ratio 2.12 (1.60-3.17); BUN/Creat Ratio 28.33 Ratio (12.00-20.00); Calcium 9.3 mg/dL (8.7-10.3); Globulin 1.7 g/dL (1.6-3.3); Non-African American GFR(CKD) 84.9 (60.0-200.0); Potassium 4.1 mmol/L (3.5-5.5); Total Bilirubin 0.4 mg/dL (0.3-1.2); Total Protein 5.3 g/dL (6.2-8.2)
[2020-10-24] MEDS: MULTIVITAMINS, THERA 1 EACH TAB PO SCH (12:59)
[2020-10-24] MEDS: THIAMINE 100 MG TAB PO SCH (12:59)
[2020-10-24] MEDS: FOLIC ACID 1 MG TAB PO SCH (12:59)
[2020-10-24] MEDS: SODIUM CHLORIDE 0.9% 1,000 ML IV SCH (16:12)
--- NOTE | 2020-10-24 17:02 | PN ---
PROGRESS NOTE DATE OF SERVICE: 10/24/2020 This 80-year-old woman was admitted with shortness of breath and acute COVID-19 infection with bilateral COVID interstitial pneumonia. The patient is being closely monitored. The inflammatory markers of COVID-19 are elevated. The pulse ox is about 100% on 3 L. The patient has some shortness of breath past medical. PAST MEDICAL HISTORY: Reviewed. REVIEW OF SYSTEMS: CARDIOVASCULAR: As mentioned earlier. RESPIRATORY: As mentioned earlier. GI: As mentioned earlier. : No dysuria. NERVOUS SYSTEM: No numbness or weakness. CURRENT MEDICATIONS: Tylenol, [place], Ventolin, Xanax, vitamin C, Symbicort, Doses of medications reviewed. PHYSICAL EXAM: GENERAL: Patient is alert and oriented times two. VITAL SIGNS: Pulse 83, blood pressure 155/71, respirations 20, temperature 97.2, pulse ox 100% on 3 liters. HEENT: Conjunctivae normal. NECK: No jugular venous distention. No carotid bruits. No lymph node enlargement. RESPIRATORY: Breath sounds diminished at the bases. A few scattered rhonchi and crackles. HEART: S1 and S2, muffled. ABDOMEN: Soft, no tenderness. EXTREMITIES: No edema, no swelling. NERVOUS: No focal deficits. LABORATORY DATA: CBC within normal. D-dimer is 1.01. Chest CTA personally reviewed showed no evidence of any pulmonary embolism, but however, patchy bilateral subpleural nonspecific ground-glass opacities. Other labs are reviewed. ASSESSMENT: 1. Acute COVID-19 infection with acute COVID-19 interstitial pneumonia bilaterally. 2. Prominent right hilum possibly secondary to pneumonia. 3. Elevated D-dimer with no evidence of pulmonary embolism. 4. Elevated inflammatory markers of COVID-19 including LDH and CRP. 5. Increased ALT. 6. History of asthma. 7. History of degenerative joint disease. 8. History of rheumatoid arthritis. 9. History of skin cancer. 10.History of the hip implantation. RECOMMENDATION AND DISCUSSION: In this 80-year-old gentleman who presented with multiple complex medical issues, we will monitor the patient closely. Continue the current management and continue symptomatic treatment. Otherwise I would recommend followup labs. Otherwise will repeat CBC, CMP, repeat inflammatory markers. Procalcitonin is elevated. I would also get a UA with micro. I would also follow the patient closely with Dr. Koo and Dr. Beltran also. Prognosis guarded because of multiple complex medical issues. Further recommendations to follow. MMODL / IJN: [id number] / GRAHAM
[2020-10-24 18:03] LABS: Ferritin 301.3 ng/mL (10.0-291.0)
[2020-10-24] MEDS: ENOXAPARIN 40 MG/0.4 ML SYRINGE SQ SCH (18:09)
[2020-10-25] MEDS: MORPHINE SULFATE IR 15 MG TABLET PO SCH ×3 (02:02→17:52)
--- NOTE | 2020-10-25 05:56 | CONS ---
CONSULTATION DATE OF SERVICE: 10/24/2020 REASON FOR CONSULTATION: COVID-19 infection. HISTORY OF PRESENT ILLNESS: The patient is an 80-year-old female with past medical history significant for COPD in this patient who did get her 1st dose of COVID-19 vaccine on September 25. The patient mentioned she did not go for the 2nd dose as she was not feeling well. The patient is now presenting to the [facility] yesterday afternoon for evaluation of increasing shortness of breath and cough, along with weakness. The patient's symptoms have been going on for more than a week now and apparently the patient tested positive for COVID-19 three days prior to presentation to the hospital. The patient is complaining of feeling weak, fatigued, no energy and did have a fever. She did have shortness of breath on minimal exertion and even at rest. The patient did have a cough which is moderate in intensity with occasional green sputum. No hemoptysis. No pleuritic chest pain. No nausea, no vomiting. No abdominal pain. Did have some diarrhea. On presentation to hospital the patient did have a low-grade fever of 100.9. Patient was saturating 94% initially on room air and currently 100% on 3 L and 95% on room air. The patient did have a normal white count with lymphopenia. D- dimer is 1.01. Kidney function was normal. AST is elevated. CRP 49.3, procalcitonin 0.19. George PCR was positive. Chest x-ray, COPD, no acute infiltrate. CT angiogram did show some peripheral ground glass opacities. The patient was admitted to the hospital. Infectious Disease was consulted for further management. REVIEW OF SYSTEMS: Positive points have been mentioned in HPI. Rest of systems are negative. PAST MEDICAL HISTORY: Asthma, rheumatoid arthritis, history of skin cancer. PAST SURGICAL HISTORY: Left heel implant, cholecystectomy, skin cancer removal. SOCIAL HISTORY: Denies smoking, drinking or drug use. FAMILY HISTORY: Father with history of ME. ALLERGIES: SULFADIAZINE. MEDICATIONS: The patient is currently on Tylenol, [place], Ventolin, Xanax, vitamin C, Symbicort, vitamin D3, Decadron, Lovenox, folic acid, Theragran, Narcan, IV fluid, zinc sulfate. PHYSICAL EXAMINATION: VITAL SIGNS: Blood pressure 155/71 with a pulse of 83, temperature 97.2. She is 95% on room air. GENERAL DESCRIPTION: The patient is an elderly female lying in bed in no distress. No tachypnea or accessory muscles of respiration use. HEENT: Examination shows no pallor or scleral icterus. Oral mucous membrane is dry. NECK: Trachea is central, no thyromegaly. LUNGS: Unlabored breathing, decreased intensity of breath sounds, no wheeze. HEART: S1, S2. Regular rate and rhythm. ABDOMEN: Soft, no tenderness, no guarding, no rigidity. EXTREMITIES: No edema of the feet. SKIN: No rash or mass palpable. NEUROLOGICAL: Patient is awake, alert, oriented times three. Mood and affect normal. LABS: Hemoglobin is 12.1, white count 4.2. D-dimer 1.01, creatinine 0.6. AST 41, initial was 47 and CRP elevated, procalcitonin 0.19. Chest x-ray negative. CT angiogram was positive with some peripheral ground glass opacity. DIAGNOSTIC IMPRESSION: Patient presenting to the hospital with increasing shortness of breath, cough with fever in this patient who does have underlying asthma and currently have only one COVID- 19 vaccine. She was unable to get to the second one because she was not feeling well, likely representing a mild COVID-19 infection in this patient whose symptom have been going on for more than a week and is currently 95% on room air. Will not meet criteria for remdesivir per institution policy. The patient already is seeing clinical improvement with treatment started yesterday. PLAN: 1. Patient to continue with dexamethasone, Lovenox, zinc, ascorbic acid. 2. We will add cultures. 3. Droplet isolation and respiratory support. 4. We will follow on clinical condition to further adjust medication if needed. Thank you for this consultation. Will follow this patient along with you. MMODL / IJN: [id number] /
[2020-10-25] MEDS: ALBUTEROL HFA INHALER INHALATION SCH ×4 (07:25→20:26)
[2020-10-25] MEDS: SYMBICORT 160-4.5 MCG INHALER INHALATION SCH ×2 (07:25→20:26)
[2020-10-25 08:55] LABS: ALT 28 U/L (4-34); AST 45 U/L (14-36); African American GFR (CKD) >90 (>60 ml/min/1.73 sqM); Albumin/Globulin Ratio 1.3; Alkaline Phosphatase 78 U/L (38-126); Anion Gap 10 mmol/L; Blood Urea Nitrogen 16 mg/dL (7-17); C Reactive Protein 38.8 mg/L (<10.0); Calcium 10.1 mg/dL (8.4-10.2); Carbon Dioxide 30 mmol/L (22-30); Chloride 101 mmol/L (98-107); Glucose 89 mg/dL (74-99); LDH 755 U/L (313-618); Non-African American GFR(CKD) >90 (>60 ml/min/1.73 sqM); Potassium 4.8 mmol/L (3.5-5.1); Sodium 141 mmol/L (137-145); Total Bilirubin 0.7 mg/dL (0.2-1.3)
[2020-10-25] MEDS: COLCHICINE 0.6 MG EACH PO SCH ×2 (09:22→20:01)
[2020-10-25] MEDS: DEXAMETHASONE SOD PHOSPHATE 10 MG/ML 1 ML VIAL IV SCH (09:22)
[2020-10-25] MEDS: ASCORBIC ACID 500 MG TAB PO SCH ×2 (09:23→20:01)
[2020-10-25] MEDS: THIAMINE 100 MG TAB PO SCH (09:23)
[2020-10-25] MEDS: MULTIVITAMINS, THERA 1 EACH TAB PO SCH (09:23)
[2020-10-25] MEDS: ZINC SULFATE 220 MG CAP PO SCH (09:24)
[2020-10-25] MEDS: FOLIC ACID 1 MG TAB PO SCH (09:24)
[2020-10-25] MEDS: CHOLECALCIFEROL 25 MCG (1000 IU) TABLET PO SCH (09:24)
--- NOTE | 2020-10-25 11:21 | P.CNPUL ---
History of Present Illness Consult date: 10/25/20 Reason for consult: dyspnea History of present illness: -year-old female patient presented to the ED because of not feeling well. She stated that she received a vaccination fo COVID 19 approximately a month ago. She missed her second dose of the vaccination and she took only the first dose.she took her first dose of vaccination which she sings his Pfizer vaccine on 09/25/2020. The patient was having complaints of cough and dyspnea and she was not feeling well and she was having fevers and fatigue. Based on that she had the colon 19 testing done approximately 3 days ago and she tested positive. No loss of the taste or smell. In the ED, the patient had a T-max of 100.9. Pulse is 106. BP was 97/79. Saturation was 90% on room air oxygen. EKG was sinus without any acute abnormalities. The patient was hospitalized accordingly. The patient had a white cell count of 4.2 with a hemoglobin of 12.8. BUN is at 20 with a creatinine of 0.5 and a blood sugar of 98. Platelet count was 175. The chest x-ray showed COPD without any focal infiltration. There was some right suprahilar soft tissue prominence and there was a moderate- sized hiatal hernia. Based on that, the patient was given a CT angios the chest was negative for pulmonary embolism. There was patchy bilateral subpleural subs subpleural, minimal groundglass changes. This is very minimal at this point in time. She is currently on oxygen at 2 L. She is 98% pulse ox. She is on Decadron 6 mg IV. She takes Lovenox 40 mg subcu every 24 worse. Her markers show a mildly elevated LDH of 755, CRP of 38 and a d-dimer is at 1.01. Her covert 19 testing was positive on 10/23/2020.note that the patient has been taking methotrexate for history of rheumatoid arthritis. She is known to have bronchial asthma. She'll noted previously. Skin cancer.[id number] was diagnosed having covert 19 and she happens to live with her son and [id number]-[id number] Review of Systems Constitutional: Reports fever, Reports weakness Eyes: denies as per HPI, denies blurred vision, denies bulging eye, denies decreased vision, denies diplopia, denies discharge, denies dry eye, denies irritation, denies itching, denies pain, denies photophobia, denies loss of peripheral vision, denies loss of vision, denies tunnel vision/blind spots Ears: deny: decreased hearing, ear discharge, earache, tinnitus Ears, nose, mouth and throat: Denies headache, Denies sore throat Breasts: absent: as per HPI, change in shape, gynecomastia, masses, nipple discharge, pain, skin changes, swelling Cardiovascular: Reports decreased exercise tolerance, Reports dyspnea on exertion Respiratory: Reports dyspnea Gastrointestinal: Reports as per HPI Genitourinary: Reports as per HPI Menstruation: Reports as per HPI Musculoskeletal: Reports as per HPI Musculoskeletal: absent: ankle pain, ankle stiffness, ankle swelling Integumentary: Reports as per HPI Neurological: Reports as per HPI, Reports weakness Psychiatric: Reports as per HPI Endocrine: Reports as per HPI, Reports fatigue Hematologic/Lymphatic: Reports as per HPI Allergic/Immunologic: Reports as per HPI Past Medical History Past Medical History: Asthma, Osteoarthritis (OA), Rheumatoid Arthritis (RA) Additional Past Medical History / Comment(s): Skin CA History of Any Multi-Drug Resistant Organisms: None Reported Additional Past Surgical History / Comment(s): left hip implant, gallbladder, Skin CA removed from face. Past Psychological History: No Psychological Hx Reported Smoking Status: Never smoker Past Alcohol Use History: None Reported Past Drug Use History: None Reported - Past Family History Father Family Medical History: Myocardial Infarction ([place]) Mother Family Medical History: CVA/TIA Medications and Allergies Home Medications Medication Instructions Recorded Confirmed Type Budesonide/Formoterol Fumarate 2 puff INHALATION RT-BID 04/30/19 10/23/20 History [Symbicort 160-4.5 Mcg Inhaler] Levalbuterol Tartrate [Xopenex Hfa 1 puff INHALATION RT-BID PRN 04/30/19 10/23/20 History Inhaler] metHOTREXate sodium [Methotrexate] 20 mg PO TH 04/30/19 10/23/20 History methylPREDNISolone [Medrol] 2 mg PO DAILY 04/30/19 10/23/20 History Mirabegron [Myrbetriq] 25 mg PO DAILY 10/23/20 10/23/20 History Morphine Sulfate Ir [MSIR] 30 mg PO Q8H 10/23/20 10/23/20 History Allergies Allergy/AdvReac Type Severity Reaction Status Date / Time sulfadiazine Allergy Anaphylaxis Verified 10/23/20 15:32 Physical Exam Vitals: Vital Signs Temp Pulse Resp BP Pulse Ox 10/25/20 10:00 98 F 79 18 137/68 98 10/25/20 05:34 98.0 F 69 13 139/74 99 10/25/20 02:00 97.6 F 69 13 150/81 95 10/24/20 22:04 98.3 F 78 14 138/71 95 10/24/20 13:38 97.2 F L 86 20 155/71 100 Intake and Output 10/24/20 10/25/20 10/25/20 22:59 06:59 14:59 Output Total 400 Balance -400 Output: Urine 400 Other: Voiding Method Toilet External Catheter # Voids 3 1 The patient appeared well nourished and normally developed. Vital signs as documented. Head exam is unremarkable. No scleral icterus or corneal arcus noted. Neck is without jugular venous distension, thyromegaly, or carotid bruits. Carotid upstrokes are brisk bilaterally. Lungs are clear to auscultation and percussion. Cardiac exam reveals the PMI to be normally sized and situated. Rhythm is regular. First and second heart sounds normal. No murmurs, rubs or gallops. Abdominal exam reveals normal bowel sounds, no masses, no organomegaly and no aortic enlargement. Extremities are nonedematous and both femoral and pedal pulses are normal.Examination of the skin revealed no evidence of significant rashes, suspicious appearing nevi or other concerning lesions.Neuro logically, the patient is awake and alert and the patient does not have any focal neurological deficit. Cranial nerves are essentially intact. Results - Laboratory Findings CBC and BMP: 10/23/20 13:52 10/25/20 07:47 PT/INR, D-dimer PT 10.1 sec (9.0-12.0) 10/23/20 13:52 INR 0.9 (<1.2) 10/23/20 13:52 D-Dimer 0.55 mg/L FEU (<0.60) 10/25/20 07:47 Abnormal lab findings: Abnormal Labs 10/23/20 10/23/20 10/23/20 13:52 13:52 13:52 Lymphocytes # 0.4 L D-Dimer Carbon Dioxide 33 H BUN 20 H Creatinine BUN/Creatinine Ratio Ferritin 301.3 H AST 47 H Lactate Dehydrogenase 644 H C-Reactive Protein 49.3 H Total Protein 6.2 L Albumin Procalcitonin 0.19 H Coronavirus (PCR) 10/23/20 10/23/20 10/23/20 13:52 13:52 18:58 Lymphocytes # D-Dimer 1.01 H Carbon Dioxide BUN Creatinine BUN/Creatinine Ratio 28.33 H Ferritin AST 41 H Lactate Dehydrogenase C-Reactive Protein Total Protein 5.3 L Albumin 3.60 L Procalcitonin Coronavirus (PCR) Detected A 10/25/20 07:47 Lymphocytes # D-Dimer Carbon Dioxide BUN Creatinine 0.43 L BUN/Creatinine Ratio Ferritin AST 45 H Lactate Dehydrogenase 755 H C-Reactive Protein 38.8 H Total Protein Albumin Procalcitonin Coronavirus (PCR) - Diagnostic Findings Chest x-ray: image reviewed CT scan - chest: image reviewed Assessment and Plan Plan: 1 acute shortness of breath, mainly related but not limited to asthma exacerbation as the patient also has some minor bilateral pulmonary groundglass changes consistent with COVID 19-related pulmonary infection. Nevertheless, these groundglass changes on minimal at this point in time and her main presentation is asthma exacerbation. She is maintaining a pulse ox above 90% on room air oxygen. 2 COVID 19 infection confirmed on 10/23/2020 3 COVID 19vaccination administered on 09/25/2020 4 chronic bronchial asthma maintained on Symbicort and Xopenex on outpatient basis 5 history of rheumatoid arthritis maintained on methotrexate on outpatient basis and she also takes prednisone 2 mg daily basis. 6 chronic steroid treatment and dependence related to rheumatoid arthritis 7 history of skin cancer Plan Obviously this patient was infected with coronavirus/COVID 19 post Pfizer vaccination x 1 The fact that she has been taken methotrexate and prednisone, this may have contributed to a lower illicited immune response and she got infected accordingly. Her test was positive. The patient has however minimal groundglass changes in current presentation is typical of an underlying asthma exacerbation. I will stop the methotrexate for now. I'll subjective patient IV Solu Medrol 60 g every 6 hours. Resume Symbicort. Resume bronchodilators ar [id number]. Stop the Decadron for now. Monitor inflammatory markers which are already low. Lovenox 40 mg subcu for DVT prophylaxis. We'll continue to follow.
[2020-10-25] MEDS ORDERED: methylPREDNISolone SOD SUCCI 125 MG/2 ML VIAL IV SCH (12:00)
--- NOTE | 2020-10-25 13:57 | XR ---
EXAMINATION TYPE: XR chest 1V portable DATE OF EXAM: 10/25/2020 COMPARISON: Chest x-ray and chest CT 10/23/2020 HISTORY: Covid, shortness of breath and cough TECHNIQUE: Single frontal view of the chest is obtained. FINDINGS: Findings are similar to prior exam. Bone mineralization is reduced. There is no pneumothor ax or pleural effusion. Cardiac mediastinal silhouette is stable. Aorta appears dense and somewhat ec tatic. Retrocardiac density with central lucency consistent with hiatal hernia and partial intrathora cic stomach. Central vascularity appears prominently, interstitium is mildly increased. Prominent luis alfredo g volume may be indicative of underlying COPD. IMPRESSION: Airspace disease noted on patient's prior chest CT not as conspicuous on chest x-ray. Previously identified pulmonary nodules are not seen on plain film.
[2020-10-25] MEDS: SODIUM CHLORIDE 0.9% 1,000 ML IV SCH (15:51)
[2020-10-25 17:19] LABS: HCT 42.6 % (37.2-46.3); HGB 13.4 g/dL (12.0-15.0); MCH 31.5 pg (27.0-32.0); MCHC 31.5 g/dL (32.0-37.0); Mean Platelet Volume 10.1 fL (9.5-12.2); Platelet Count 316 X 10*3/uL (140-440); RBC 4.26 X 10*6/uL (4.10-5.20); RDW 13.5 % (11.5-14.5); WBC 6.86 X 10*3/uL (4.50-10.00)
[2020-10-25 17:46] LABS: Ferritin 334.9 ng/mL (10.0-291.0)
[2020-10-25] MEDS: methylPREDNISolone SOD SUCCI 125 MG/2 ML VIAL IV SCH (17:52)
[2020-10-25] MEDS: ENOXAPARIN 40 MG/0.4 ML SYRINGE SQ SCH (17:52)
[2020-10-25 18:17] LABS: Basophils # (A) 0.01 X 10*3/uL (0.00-0.10); Basophils % (A) 0.1 %; Eosinophils # (A) 0 X 10*3/uL (0.04-0.35); Eosinophils % (A) 0 %; Lymphocytes # (A) 1.03 X 10*3/uL (0.90-5.00); Monocytes % (A) 7.3 %; Neutrophils % (A) 77.3 %
--- NOTE | 2020-10-25 20:43 | PN ---
PROGRESS NOTE DATE OF SERVICE: 10/25/2020 This 80-year-old woman who was admitted with shortness of breath and acute COVID-19 infection with bilateral COVID-19 interstitial pneumonia is being closely monitored at this time. The patient is satting about 98% on 2 L. The patient had multiple contacts with COVID-19 at home apparently. The ferritin level was 334.9, and multiple inflammatory markers also elevated. The procalcitonin level was also elevated. Otherwise, white count is normal and the patient is currently not running any fever. Patient was seen by Dr. Koo and as well as with Dr. Beltran. PAST MEDICAL HISTORY: Reviewed. REVIEW OF SYSTEMS: CARDIOVASCULAR SYSTEM: No angina. RESPIRATORY: As mentioned earlier. GI: No nausea. : No dysuria. NERVOUS SYSTEM: No numbness, weakness. CURRENT MEDICATIONS: Tylenol, [place], Ventolin, Xanax, vitamin C, Symbicort. PHYSICAL EXAMINATION: Patient alert and oriented x3. Pulse 79, blood pressure 130/60, respiration 18, temperature 98 degrees, pulse ox 98% on 2 L. HEENT: Conjunctivae normal. Oral mucosa moist. NECK: No jugular venous distention. No lymph node enlargement. CARDIOVASCULAR: S1, S2, muffled. No S3, no S4, RESPIRATORY: Diminished breath sounds at the bases. A few scattered rhonchi and crackles. ABDOMEN: Soft, nontender. LEGS: No edema, no swelling. NERVOUS SYSTEM: No focal motor or sensory deficits. LABS: D-dimer is 1.01 and inflammatory markers are also elevated. CRP is 38.8. ASSESSMENT: 1. Acute COVID-19 infection with acute COVID-19 interstitial pneumonia bilaterally. 2. Prominent right hilum possibly secondary pneumonia. 3. Elevated D-dimer with no evidence of pulmonary embolism. 4. Elevated inflammatory markers of COVID-19 including LDH and CRP. 5. Recent COVID-19 vaccinations x1. 6. Increased ALT. 7. History of asthma. 8. History of degenerative joint disease. 9. History of rheumatoid arthritis. 10.History of skin cancer. 11.History of hip replacement. RECOMMENDATIONS AND DISCUSSION: Recommend to continue current medications, continue to monitor, symptomatic treatment. Otherwise, at this time continue with IV steroids. Monitor closely with Pulmonary and Infectious Disease. Guarded prognosis because of multiple complex medical issues. Further recommendations to follow. MMODL / IJN: [id number] /
[2020-10-25 22:12] LABS: Appearance,Urine Clear (Clear); Bilirubin,Urine Negative (Negative); Blood,Urine Negative (Negative); Color,Urine Yellow; Glucose,Urine (UA) Negative (Negative); Ketones,Urine Negative (Negative); Leukocyte Esterase,Urine Negative (Negative); Mucus,Urine Rare /hpf; Nitrite,Urine Negative (Negative); Protein,Urine 1+ (Negative); Specific Gravity,Urine 1.021 (1.001-1.035); Squamous Epithelial Cell,Urine <1 /hpf (0-4); Urobilinogen,Urine <2.0 mg/dL (<2.0); WBC,Urine 1 /hpf (0-5)
[2020-10-26] MEDS: MORPHINE SULFATE IR 15 MG TABLET PO SCH ×3 (01:25→17:42)
[2020-10-26] MEDS: methylPREDNISolone SOD SUCCI 125 MG/2 ML VIAL IV SCH ×4 (01:25→17:43)
[2020-10-26] MEDS: ALBUTEROL HFA INHALER INHALATION SCH ×4 (07:31→19:22)
[2020-10-26] MEDS: SYMBICORT 160-4.5 MCG INHALER INHALATION SCH ×2 (07:31→19:22)
[2020-10-26] MEDS: CHOLECALCIFEROL 25 MCG (1000 IU) TABLET PO SCH (08:39)
[2020-10-26] MEDS: COLCHICINE 0.6 MG EACH PO SCH ×2 (08:39→20:15)
[2020-10-26] MEDS: ZINC SULFATE 220 MG CAP PO SCH (08:39)
[2020-10-26] MEDS: ASCORBIC ACID 500 MG TAB PO SCH ×2 (08:39→20:15)
--- NOTE | 2020-10-26 11:33 | P.PN ---
Subjective Progress Note Date: 10/26/20 80-year-old female patient presented to the ED because of not feeling well. She stated that she received a vaccination fo COVID 19 approximately a month ago. She missed her second dose of the vaccination and she took only the first dose.she took her first dose of vaccination which she sings his Pfizer vaccine on 09/25/2020. The patient was having complaints of cough and dyspnea and she was not feeling well and she was having fevers and fatigue. Based on that she had the colon 19 testing done approximately 3 days ago and she tested positive. No loss of the taste or smell. In the ED, the patient had a T-max of 100.9. Pulse is 106. BP was 97/79. Saturation was 90% on room air oxygen. EKG was sinus without any acute abnormalities. The patient was hospitalized accordingly. The patient had a white cell count of 4.2 with a hemoglobin of 12.8. BUN is at 20 with a creatinine of 0.5 and a blood sugar of 98. Platelet count was 175. The chest x-ray showed COPD without any focal infiltration. There was some right suprahilar soft tissue prominence and there was a moderate- sized hiatal hernia. Based on that, the patient was given a CT angios the chest was negative for pulmonary embolism. There was patchy bilateral subpleural subs subpleural, minimal groundglass changes. This is very minimal at this point in time. She is currently on oxygen at 2 L. She is 98% pulse ox. She is on Decadron 6 mg IV. She takes Lovenox 40 mg subcu every 24 worse. Her markers show a mildly elevated LDH of 755, CRP of 38 and a d-dimer is at 1.01. Her covert 19 testing was positive on 10/23/2020.note that the patient has been taking methotrexate for history of rheumatoid arthritis. She is known to have bronchial asthma. She'll noted previously. Skin cancer.dzsxnzlb-jw-[id number] was diagnosed having covid 19 and she happens to live with her son and yosnhuiw-gk-fed 10/26/2020, the patient remains on 2 L of oxygen by nasal cannula. She has Covid 19 infection/pneumonia. She has exertional dyspnea and she gets short of breath with mobility and activity. The patient has not developed any fever or chills.D-dimer remains low. Note that she has history of bronchial asthma and the patient is also being treated with Symbicort, IV Solu-Medrol and albuterol HFA [id number]. No nausea. No vomiting. No abdominal pain. No chest pain. Objective - Vital Signs Vital signs: Vital Signs Temp 98.2 F 10/26/20 09:15 Pulse 79 10/26/20 09:15 Resp 18 10/26/20 09:15 BP 160/80 10/26/20 09:15 Pulse Ox 98 10/26/20 09:15 Intake & Output 10/25/20 10/26/20 10/26/20 18:59 06:59 18:59 Other: # Voids 3 2 - Exam The patient appeared well nourished and normally developed. Vital signs as documented. Head exam is unremarkable. No scleral icterus or corneal arcus noted. Neck is without jugular venous distension, thyromegaly, or carotid bruits. Carotid upstrokes are brisk bilaterally. Lungs are clear to auscultation and percussion. Cardiac exam reveals the PMI to be normally sized and situated. Rhythm is regular. First and second heart sounds normal. No murmurs, rubs or gallops. Abdominal exam reveals normal bowel sounds, no masses, no organomegaly and no aortic enlargement. Extremities are nonedematous and both femoral and pedal pulses are normal. The patient has contractions and arm and hand deformities related to previous history of rheumatoid arthritis. Examination of the skin revealed no evidence of significant rashes, suspicious appearing nevi or other concerning lesions.Neurologically, the patient is awake and alert and the patient does not have any focal neurological deficit. Cranial nerves are essentially intact. - Labs CBC & Chem 7: 10/25/20 07:47 10/25/20 07:47 Labs: Abnormal Lab Results - Last 24 Hours (Table) 10/25/20 10/25/20 10/25/20 Range/Units 07:47 07:47 21:30 MCV 100.0 H (80.0-97.0) fL MCHC 31.5 L (32.0-37.0) g/dL Eosinophils # 0 L (0.04-0.35) X 10*3/uL Ferritin 334.9 H (10.0-291.0) ng/mL Urine Protein 1+ H (Negative) Urine Mucus Rare H (None) /hpf Microbiology - Last 24 Hours (Table) 10/23/20 14:36 Blood Culture - Preliminary Blood No Growth after 48 hours 10/23/20 14:06 Blood Culture - Preliminary Blood No Growth after 48 hours Assessment and Plan Plan: 1 acute shortness of breath, mainly related but not limited to asthma exacerbation as the patient also has some minor bilateral pulmonary groundglass changes consistent with COVID 19-related pulmonary infection. Nevertheless, these groundglass changes on minimal at this point in time and her main presentation is asthma exacerbation. She is maintaining a pulse ox above 90% on room air oxygen. Clinically stable compared to yesterday's evaluation. Still requiring oxygen at 2 L. 2 COVID 19 infection confirmed on 10/23/2020 3 COVID 19 vaccination administered on 09/25/2020 4 chronic bronchial asthma maintained on Symbicort and Xopenex on outpatient basis 5 history of rheumatoid arthritis maintained on methotrexate on outpatient basis and she also takes prednisone 2 mg daily basis. 6 chronic steroid treatment and dependence related to rheumatoid arthritis 7 history of skin cancer Plan Obviously this patient was infected with coronavirus/COVID 19 post Pfizer vaccination x 1 The fact that she has been taken methotrexate and prednisone, this may have contributed to a lower illicited immune response and she got i nfected accordingly. Her test was positive. The patient has however minimal groundglass changes in current presentation is typical of an underlying asthma exacerbation. I will stop the methotrexate for now. I'll subjective patient IV Solu Medrol 60 g every 6 hours. Resume Symbicort. She is also on Lovenox 40 mg subcutaneous every day. She is essentially stable compared to yesterday. She still requiring oxygen at 2 L per minute nasal cannula. No worsening shortness of breath. Slightly less bronchospastic and wheezy compared to yesterday's evaluation. We'll continue same treatment for now. We'll repeat chest x-ray in the morning. We'll repeat inflammatory markers in the morning.
[2020-10-26 11:50] LABS: HCT 40.5 % (37.2-46.3); HGB 12.8 g/dL (12.0-15.0); MCH 31.4 pg (27.0-32.0); MCHC 31.6 g/dL (32.0-37.0); MCV 99.3 fL (80.0-97.0); Mean Platelet Volume 9.8 fL (9.5-12.2); Platelet Count 278 X 10*3/uL (140-440); RBC 4.08 X 10*6/uL (4.10-5.20); RDW 13.6 % (11.5-14.5); WBC 4.61 X 10*3/uL (4.50-10.00)
[2020-10-26 12:15] LABS: African American GFR (CKD) 98.4 (60.0-200.0); Albumin/Globulin Ratio 1.74 (1.60-3.17); Anion Gap 8.1 mmol/L (4.00-12.00); BUN/Creat Ratio 33.33 Ratio (12.00-20.00); C Reactive Protein 1.9 mg/dL (0.0-0.8); Calcium 9.9 mg/dL (8.7-10.3); Carbon Dioxide 30.9 mmol/L (21.6-31.8); Globulin 2.3 g/dL (1.6-3.3); Non-African American GFR(CKD) 84.9 (60.0-200.0); Total Bilirubin 0.6 mg/dL (0.3-1.2); Total Protein 6.3 g/dL (6.2-8.2)
[2020-10-26 12:16] LABS: Basophils # (A) 0.01 X 10*3/uL (0.00-0.10); Basophils % (A) 0.2 %; Eosinophils # (A) 0 X 10*3/uL (0.04-0.35); Eosinophils % (A) 0 %; Lymphocytes # (A) 0.45 X 10*3/uL (0.90-5.00); Lymphocytes % (A) 9.8 %; Monocytes # (A) 0.11 X 10*3/uL (0.20-1.00); Monocytes % (A) 2.4 %; Neutrophils # (A) 4.02 X 10*3/uL (1.80-7.70); Neutrophils % (A) 87.2 %
[2020-10-26 12:39] LABS: Ferritin 242.9 ng/mL (10.0-291.0)
[2020-10-26] MEDS: FOLIC ACID 1 MG TAB PO SCH (12:57)
[2020-10-26] MEDS: MULTIVITAMINS, THERA 1 EACH TAB PO SCH (12:57)
[2020-10-26] MEDS: ENOXAPARIN 40 MG/0.4 ML SYRINGE SQ SCH (17:42)
[2020-10-26] MEDS: SODIUM CHLORIDE 0.9% 1,000 ML IV SCH (17:43)
--- NOTE | 2020-10-26 18:25 | PN ---
PROGRESS NOTE DATE OF SERVICE: 10/26/2020 This 80-year-old woman who was admitted with acute Covid 19 infection, Covid 19, bilateral interstitial pneumonia. Patient is having shortness of breath. The patient being treated with steroids and other medications also. Patient being closely monitored. Chest x-ray showed some minimal infiltrates. The pulse ox is 98% on [address] Koo is following the patient closely. PAST MEDICAL HISTORY: Reviewed. REVIEW OF SYSTEMS: CARDIOVASCULAR: As mentioned earlier. RESPIRATORY: As mentioned earlier. GI: No nausea or vomiting. : No dysuria. NERVOUS SYSTEM: No numbness. No weakness. CURRENT MEDICATIONS: Reviewed and include: Tylenol, [place], Ventolin, Xanax, vitamin C, Symbicort, vitamin D3, [place], Lovenox, MS-IR, multivitamins, other doses reviewed. PHYSICAL EXAM: Patient is alert, oriented x3. Pulse 74. Blood pressure 160/84, respiration 18, temperature 98.2, pulse ox 98% on 2 L. HEENT: Conjunctivae normal. NECK: No JVD. RESPIRATORY SYSTEM: Breath sounds diminished at the bases. A few scattered rhonchi. ABDOMEN: Soft. LEGS are no edema. NERVOUS SYSTEM: No focal deficits. LAB: WBC 4.7, hemoglobin 12.8, sodium 143, potassium 5.3. COVID-19 positive. ASSESSMENT: 1. Acute COVID-19 infection with acute Covid 19 interstitial pneumonia bilateral. 2. Prominent right hilum possibly secondary to pneumonia. 3. Elevated D-dimer without any evidence of pulmonary embolism. 4. Elevated inflammatory markers of Covid 19 including LDH and CRP. 5. Recent Covid 19 vaccination x1. 6. Increased ALT. 7. History of asthma. 8. History of degenerative joint disease. 9. History of rheumatoid arthritis. 10.History of skin cancer. 11.History of hip replacement. RECOMMENDATIONS AND DISCUSSION: Recommend to continue current medications, symptomatic treatment, and continue with IV steroids. Continue bronchodilators continue the antibiotics. Otherwise, C- reactive protein is improving at this time. We will continue to monitor. Continue with Lovenox and repeat labs. Guarded prognosis. Further recommendations to follow. MMODL / IJN: [id number] / MTDD
--- NOTE | 2020-10-26 23:13 | PN ---
PROGRESS NOTE DATE OF SERVICE: 10/26/2020 REASON FOR FOLLOWUP: COVID-19 pneumonia. INTERVAL HISTORY: The patient is currently afebrile. The patient is breathing comfortably. The patient denies having any chest pain, shortness of breath . The patient did have a cough but no sputum. No nausea, vomiting, abdominal pain or diarrhea. PHYSICAL EXAMINATION: Blood pressure 160/80 with a pulse of 79. Temperature 98.2, she is 98% on 2 L nasal cannula. General description: The patient is an elderly female lying in bed in no distress. Respiratory system: Unlabored breathing, clear to auscultation anteriorly. HEART: S1, S2. Regular rate and rhythm. ABDOMEN: Soft, no tenderness. LABS: Hemoglobin is 12.2, white count 4.61, creatinine 0.6. Blood culture have been negative. DIAGNOSTIC IMPRESSION AND PLAN: Patient with acute COVID-19 pneumonia. This patient seems to have shown overall clinical improvement currently with supportive treatment in the form of colchicine, Lovenox, Solu-Medrol, zinc and ascorbic acid to continue along with respiratory support and monitor clinical course closely. MMODL / IJN: [id number] / MTDD
[2020-10-27] MEDS: methylPREDNISolone SOD SUCCI 125 MG/2 ML VIAL IV SCH ×3 (00:59→11:30)
[2020-10-27] MEDS: MORPHINE SULFATE IR 15 MG TABLET PO SCH ×3 (01:00→17:16)
[2020-10-27] MEDS: ALBUTEROL HFA INHALER INHALATION SCH ×4 (07:13→19:21)
[2020-10-27] MEDS: SYMBICORT 160-4.5 MCG INHALER INHALATION SCH ×2 (07:13→19:21)
[2020-10-27] MEDS: ZINC SULFATE 220 MG CAP PO SCH (09:38)
[2020-10-27] MEDS: MULTIVITAMINS, THERA 1 EACH TAB PO SCH (09:38)
[2020-10-27] MEDS: ASCORBIC ACID 500 MG TAB PO SCH ×2 (09:38→19:31)
[2020-10-27] MEDS: CHOLECALCIFEROL 25 MCG (1000 IU) TABLET PO SCH (09:38)
[2020-10-27] MEDS: COLCHICINE 0.6 MG EACH PO SCH ×2 (09:40→19:31)
--- NOTE | 2020-10-27 10:10 | XR ---
EXAMINATION TYPE: XR chest 1V DATE OF EXAM: 10/27/2020 COMPARISON: 10/25/2020 HISTORY: Cough TECHNIQUE: Single frontal view of the chest is obtained. FINDINGS: A coarsened interstitium with hiatal hernia noted. Chronic deformity and arthropathy of th e shoulders. No pneumothorax. Underlying COPD noted. Rib deformity suggested on the left likely chron ic. No pleural effusion or pneumothorax. Heart size stable. Atherosclerotic change aorta. Diffuse ost eopenia. IMPRESSION: 1. Patchy left upper lobe and perihilar coarsened interstitium correlate for pneumonitis.
[2020-10-27 10:32] LABS: Basophils # (A) 0.01 X 10*3/uL (0.00-0.10); Basophils % (A) 0.1 %; Eosinophils # (A) 0 X 10*3/uL (0.04-0.35); Eosinophils % (A) 0 %; HCT 37.4 % (37.2-46.3); Lymphocytes # (A) 0.44 X 10*3/uL (0.90-5.00); Lymphocytes % (A) 5.7 %; MCH 31.9 pg (27.0-32.0); MCHC 32.1 g/dL (32.0-37.0); MCV 99.5 fL (80.0-97.0); Mean Platelet Volume 9.8 fL (9.5-12.2); Monocytes # (A) 0.13 X 10*3/uL (0.20-1.00); Monocytes % (A) 1.7 %; Neutrophils # (A) 7.14 X 10*3/uL (1.80-7.70); Platelet Count 270 X 10*3/uL (140-440); RBC 3.76 X 10*6/uL (4.10-5.20); RDW 13.4 % (11.5-14.5); WBC 7.76 X 10*3/uL (4.50-10.00)
[2020-10-27 11:18] LABS: Ferritin 209.4 ng/mL (10.0-291.0)
[2020-10-27] MEDS: THIAMINE 100 MG TAB PO SCH (11:30)
[2020-10-27] MEDS: FOLIC ACID 1 MG TAB PO SCH (11:30)
[2020-10-27 11:43] LABS: African American GFR (CKD) 104.5 (60.0-200.0); Albumin 3.7 g/dL (3.80-4.90); Albumin/Globulin Ratio 1.95 (1.60-3.17); Anion Gap 5.4 mmol/L (4.00-12.00); C Reactive Protein 0.8 mg/dL (0.0-0.8); Calcium 9.5 mg/dL (8.7-10.3); Carbon Dioxide 31.6 mmol/L (21.6-31.8); Globulin 1.9 g/dL (1.6-3.3); Non-African American GFR(CKD) 90.1 (60.0-200.0); Potassium 4.7 mmol/L (3.5-5.5); Total Bilirubin 0.5 mg/dL (0.3-1.2); Total Protein 5.6 g/dL (6.2-8.2)
--- NOTE | 2020-10-27 13:46 | P.PN ---
Subjective Progress Note Date: 10/27/20 80-year-old female patient presented to the ED because of not feeling well. She stated that she received a vaccination fo COVID 19 approximately a month ago. She missed her second dose of the vaccination and she took only the first dose.she took her first dose of vaccination which she sings his Pfizer vaccine on 09/25/2020. The patient was having complaints of cough and dyspnea and she was not feeling well and she was having fevers and fatigue. Based on that she had the colon 19 testing done approximately 3 days ago and she tested positive. No loss of the taste or smell. In the ED, the patient had a T-max of 100.9. Pulse is 106. BP was 97/79. Saturation was 90% on room air oxygen. EKG was sinus without any acute abnormalities. The patient was hospitalized accordingly. The patient had a white cell count of 4.2 with a hemoglobin of 12.8. BUN is at 20 with a creatinine of 0.5 and a blood sugar of 98. Platelet count was 175. The chest x-ray showed COPD without any focal infiltration. There was some right suprahilar soft tissue prominence and there was a moderate- sized hiatal hernia. Based on that, the patient was given a CT angios the chest was negative for pulmonary embolism. There was patchy bilateral subpleural subs subpleural, minimal groundglass changes. This is very minimal at this point in time. She is currently on oxygen at 2 L. She is 98% pulse ox. She is on Decadron 6 mg IV. She takes Lovenox 40 mg subcu every 24 worse. Her markers show a mildly elevated LDH of 755, CRP of 38 and a d-dimer is at 1.01. Her covert 19 testing was positive on 10/23/2020.note that the patient has been taking methotrexate for history of rheumatoid arthritis. She is known to have bronchial asthma. She'll noted previously. Skin cancer.[id number]-mh-wud was diagnosed having covid 19 and she happens to live with her son and [id number] 10/26/2020, the patient remains on 2 L of oxygen by nasal cannula. She has Covid 19 infection/pneumonia. She has exertional dyspnea and she gets short of breath with mobility and activity. The patient has not developed any fever or chills.D-dimer remains low. Note that she has history of bronchial asthma and the patient is also being treated with Symbicort, IV Solu-Medrol and albuterol HFA [id number]. No nausea. No vomiting. No abdominal pain. No chest pain. On 10/27/2020 patient seen in follow-up on medical floor. She is awake and alert, she has some scattered wheezes but overall less bronchospastic on today's exam, room air pulse ox is 96-97%, she is breathing comfortably, no acute distress, no cognitive chest pain, lung sounds are clear, no crackles there are some scattered wheezes, patient remains on IV Cipro 60 mg every 6 hours, today's chest x-ray shows patchy left upper lobe and perihilar coarsened interstitium. Today's labs have been reviewed, white blood cell count is 7.7, lymphocyte count is 0.4, d-dimer 0.5, electrolytes are unremarkable, B1 is 23 creatinine 0.5, LDH and CRP have significantly improved, urinalysis is without signs of infection. She continues on inhaled bronchodilators, prophylactic dose of Lovenox, and vitamins C, D and zinc. Objective - Vital Signs Vital signs: Vital Signs Temp 98.2 F 10/27/20 10:09 Pulse 103 H 10/27/20 10:09 Resp 19 10/27/20 10:09 BP 135/73 10/27/20 10:09 Pulse Ox 96 10/27/20 11:18 Intake & Output 10/26/20 10/27/20 10/27/20 18:59 06:59 18:59 Other: # Voids 3 2 # Bowel Movements 1 - Exam GENERAL EXAM: Alert, active, very pleasant, 80-year-old white female, sitting up in the chair, currently on room air, with a pulse ox of 96% comfortable in no apparent distress. HEAD: Normocephalic/atraumatic. EYES: Normal reaction of pupils, equal size. Conjunctiva pink, sclera white. NOSE: Clear with pink turbinates. THROAT: No erythema or exudates. NECK: No masses, no JVD, no thyroid enlargement, no adenopathy. CHEST: No chest wall deformity. Symmetrical expansion. LUNGS: Equal air entry with bibasilar crackles CVS: Regular rate and rhythm, normal S1 and S2, no gallops, no murmurs, no rubs ABDOMEN: Soft, nontender. No hepatosplenomegaly, normal bowel sounds, no guarding or rigidity. EXTREMITIES: No clubbing, no edema, no cyanosis, 2+ pulses and upper and lower extremities. MUSCULOSKELETAL: Muscle strength and tone normal. SPINE: No scoliosis or deformity SKIN: No rashes CENTRAL NERVOUS SYSTEM: Alert and oriented -3. No focal deficits, tone is normal in all 4 extremities. PSYCHIATRIC: Alert and oriented -3. Appropriate affect. Intact judgment and insight. - Labs CBC & Chem 7: 10/27/20 06:42 10/27/20 06:42 Labs: Abnormal Lab Results - Last 24 Hours (Table) 10/27/20 10/27/20 Range/Units 06:42 06:42 RBC 3.76 L (4.10-5.20) X 10*6/uL MCV 99.5 H (80.0-97.0) fL Lymphocytes # 0.44 L (0.90-5.00) X 10*3/uL Monocytes # 0.13 L (0.20-1.00) X 10*3/uL Eosinophils # 0 L (0.04-0.35) X 10*3/uL Creatinine 0.5 L (0.6-1.5) mg/dL BUN/Creatinine Ratio 46.00 H (12.00-20.00) Ratio Glucose 120 H (70-110) mg/dL AST 72 H (13-35) U/L ALT 57 H (8-44) U/L Lactate Dehydrogenase 274 H (120-246) U/L Total Protein 5.6 L (6.2-8.2) g/dL Albumin 3.70 L (3.80-4.90) g/dL Microbiology - Last 24 Hours (Table) 10/23/20 14:06 Blood Culture - Preliminary Blood No Growth after 72 hours 10/23/20 14:36 Blood Culture - Preliminary Blood No Growth after 72 hours Assessment and Plan Plan: Assessment: 1 acute shortness of breath, mainly related but not limited to asthma exacerbation as the patient also has some minor bilateral pulmonary groundglass changes consistent with COVID 19-related pulmonary infection. Nevertheless, these groundglass changes on minimal at this point in time and her main presentation is asthma exacerbation. She is maintaining a pulse ox above 90% on room air oxygen. Clinically stable compared to yesterday's evaluation. Still r equiring oxygen at 2 L. 2 COVID 19 infection confirmed on 10/23/2020 3 COVID 19 vaccination administered on 09/25/2020 4 chronic bronchial asthma maintained on Symbicort and Xopenex on outpatient b asis 5 history of rheumatoid arthritis maintained on methotrexate on outpatient basis and she also takes prednisone 2 mg daily basis. 6 chronic steroid treatment and dependence related to rheumatoid arthritis 7 history of skin cancer Plan: No worsening dyspnea, inflammatory markers are improving, no fever, patient is on room air, we'll transition to IV Solu-Medrol to oral prednisone 40 mg daily, continue with current dose prophylactic Lovenox, methotrexate remains on hold. Today's chest x-ray has been reviewed. The patient continues to be stable and improve may consider discharge home in the next 24 hours. Patient will not be able to receive her second dose of Covid 19 vaccine for at least 2-3 weeks after she is completely symptom free I performed a history & physical examination of the patient and discussed their management with my nurse practitioner, Kathleen Farmer. I reviewed the nurse practitioner's note and agree with the documented findings and plan of care. Lung sounds are positive for diminished breath sounds. The findings and the impression was discussed with the patient. I attest to the documentation by the nurse practitioner. Time with Patient: Less than 30
[2020-10-27] MEDS: SODIUM CHLORIDE 0.9% 1,000 ML IV SCH (16:31)
--- NOTE | 2020-10-27 17:03 | PN ---
PROGRESS NOTE DATE OF SERVICE: 10/27/2020 INTERVAL HISTORY: This 80-year-old woman was admitted with acute COVID-19 infection as well as possible acute asthma exacerbation. She is being closely monitored. The patient is on IV steroids. No chest pain. No palpitations. No fever. Pulmonary is following the patient closely. The most recent chest x-ray done today which was reviewed personally by me showed some evidence of pneumonia of the perihilar distribution. PAST MEDICAL HISTORY: Reviewed. PHYSICAL EXAM: GENERAL: Patient is alert and oriented times three. VITAL SIGNS: Pulse 75, blood pressure 150/72, respirations 17, temperature 98, pulse ox 97% on room air. HEENT: Conjunctivae normal. Oral mucosa moist. NECK: No jugular venous distention. RESPIRATORY: Breath sounds diminished at the bases. No rhonchi, no crackles. HEART: S1 and S2, muffled. ABDOMEN: Soft, no tenderness. No masses palpable. EXTREMITIES: No edema, no swelling. NERVOUS: No focal deficits. LABS: WBC 7.2, hemoglobin is 12, otherwise glucose is 120. AST 72, ALT is 57. ASSESSMENT: 1. Acute COVID-19 infection with acute COVID-19 interstitial pneumonia, bilateral. 2. Possible acute asthma exacerbation. 3. Prominent right hilum with possibly secondary pneumonia. 4. Elevated D-dimer without any evidence of pulmonary embolism. 5. Elevated inflammatory markers of COVID-19 including LDH and CRP. 6. Possible COVID-19 interstitial pneumonia. 7. History of recent COVID-19 vaccination x1. 8. Increased ALT. 9. History of asthma. 10.History of degenerative joint disease. 11.History rheumatoid arthritis. 12.History of skin cancer. 13.History of hip replacement. RECOMMENDATIONS AND DISCUSSION: I recommend to continue current management and continue symptomatic treatment. Continue the bronchodilators and steroids. Continue with the rest of the medications. Prognosis guarded because of multiple complex medical issues. Further recommendations to follow. MMODL / IJN: [id number] /
[2020-10-27] MEDS: ENOXAPARIN 40 MG/0.4 ML SYRINGE SQ SCH (17:16)
--- NOTE | 2020-10-27 18:45 | PN ---
PROGRESS NOTE DATE OF SERVICE: 10/27/2020 REASON FOR FOLLOWUP: COVID-19 infection. INTERVAL HISTORY: The patient is currently afebrile. The patient is currently breathing comfortably on room air. Denies having any chest pain. Occasional cough. No nausea. No abdominal pain. No diarrhea. PHYSICAL EXAMINATION: Blood pressure 154/76, pulse 78, temperature 98.1. She is 95% on room air. General description is an elderly female lying in bed in no distress. Respiratory system: Unlabored breathing with mild basilar crackles. Heart S1-S2 regular rate and rhythm. ABDOMEN: Soft, no tenderness. EXTREMITIES: No edema. LABS: Hemoglobin is 12, with white count 7.76, BUN of 23, creatinine 0.5. DIAGNOSTIC IMPRESSION AND PLAN: Patient with acute COVID-19 infection in this patient who seems to have shown overall clinical improvement. Currently on room air. No worsening chest x-ray finding. Patient is covered with colchicine, Lovenox, zinc. Steroids have been discontinued. Continue supportive care. MMODL / IJN: [id number] /
[2020-10-28] MEDS: MORPHINE SULFATE IR 15 MG TABLET PO SCH ×2 (02:45→08:59)
[2020-10-28] MEDS: ALBUTEROL HFA INHALER INHALATION SCH ×2 (07:32→11:27)
[2020-10-28] MEDS: SYMBICORT 160-4.5 MCG INHALER INHALATION SCH (07:32)
[2020-10-28] MEDS: CHOLECALCIFEROL 25 MCG (1000 IU) TABLET PO SCH (08:59)
[2020-10-28] MEDS: COLCHICINE 0.6 MG EACH PO SCH (08:59)
[2020-10-28] MEDS: ZINC SULFATE 220 MG CAP PO SCH (09:00)
[2020-10-28] MEDS: ASCORBIC ACID 500 MG TAB PO SCH (09:00)
[2020-10-28] MEDS ORDERED: predniSONE 20 MG TAB PO SCH (09:00)
[2020-10-28 11:37] VITALS: BP 142/83; PULSE 90; RESP 16; TEMP 97.5
[2020-10-28] MEDS: THIAMINE 100 MG TAB PO SCH (12:47)
[2020-10-28] MEDS: MULTIVITAMINS, THERA 1 EACH TAB PO SCH (12:47)
[2020-10-28] MEDS: FOLIC ACID 1 MG TAB PO SCH (12:47)
--- NOTE | 2020-10-28 14:25 | P.PN ---
Subjective Progress Note Date: 10/28/20 80-year-old female patient presented to the ED because of not feeling well. She stated that she received a vaccination fo COVID 19 approximately a month ago. She missed her second dose of the vaccination and she took only the first dose.she took her first dose of vaccination which she sings his Pfizer vaccine on 09/25/2020. The patient was having complaints of cough and dyspnea and she was not feeling well and she was having fevers and fatigue. Based on that she had the colon 19 testing done approximately 3 days ago and she tested positive. No loss of the taste or smell. In the ED, the patient had a T-max of 100.9. Pulse is 106. BP was 97/79. Saturation was 90% on room air oxygen. EKG was sinus without any acute abnormalities. The patient was hospitalized accordingly. The patient had a white cell count of 4.2 with a hemoglobin of 12.8. BUN is at 20 with a creatinine of 0.5 and a blood sugar of 98. Platelet count was 175. The chest x-ray showed COPD without any focal infiltration. There was some right suprahilar soft tissue prominence and there was a moderate- sized hiatal hernia. Based on that, the patient was given a CT angios the chest was negative for pulmonary embolism. There was patchy bilateral subpleural subs subpleural, minimal groundglass changes. This is very minimal at this point in time. She is currently on oxygen at 2 L. She is 98% pulse ox. She is on Decadron 6 mg IV. She takes Lovenox 40 mg subcu every 24 worse. Her markers show a mildly elevated LDH of 755, CRP of 38 and a d-dimer is at 1.01. Her covert 19 testing was positive on 10/23/2020.note that the patient has been taking methotrexate for history of rheumatoid arthritis. She is known to have bronchial asthma. She'll noted previously. Skin cancer.dduylpba-yn-fsm was diagnosed having covid 19 and she happens to live with her son and [id number] 10/26/2020, the patient remains on 2 L of oxygen by nasal cannula. She has Covid 19 infection/pneumonia. She has exertional dyspnea and she gets short of breath with mobility and activity. The patient has not developed any fever or chills.D-dimer remains low. Note that she has history of bronchial asthma and the patient is also being treated with Symbicort, IV Solu-Medrol and albuterol HFA [id number]. No nausea. No vomiting. No abdominal pain. No chest pain. On 10/27/2020 patient seen in follow-up on medical floor. She is awake and alert, she has some scattered wheezes but overall less bronchospastic on today's exam, room air pulse ox is 96-97%, she is breathing comfortably, no acute distress, no cognitive chest pain, lung sounds are clear, no crackles there are some scattered wheezes, patient remains on IV Cipro 60 mg every 6 hours, today's chest x-ray shows patchy left upper lobe and perihilar coarsened interstitium. Today's labs have been reviewed, white blood cell count is 7.7, lymphocyte count is 0.4, d-dimer 0.5, electrolytes are unremarkable, B1 is 23 creatinine 0.5, LDH and CRP have significantly improved, urinalysis is without signs of infection. She continues on inhaled bronchodilators, prophylactic dose of Lovenox, and vitamins C, D and zinc. On 10/28/2020 patient seen in follow-up on medical floor, she is awake and alert, in no acute distress, she is on room air, pulse ox is 96%, she is breathing comfortably, vital signs have been stable, patient has denied fever or chills, no acute event overnight, no chest discomfort, no worsening cough. No nausea vomiting or diarrhea. She continues on IV steroids, inhaled bronchodilators, prednisone and prophylactic Lovenox. Objective - Vital Signs Vital signs: Vital Signs Temp 97.5 F L 10/28/20 10:00 Pulse 90 10/28/20 10:00 Resp 16 10/28/20 10:00 BP 142/83 10/28/20 10:00 Pulse Ox 95 10/28/20 10:00 Intake & Output 10/27/20 10/28/20 10/28/20 18:59 06:59 18:59 Other: Voiding Method Toilet Diaper External Catheter # Voids 3 1 # Bowel Movements 1 1 - Exam GENERAL EXAM: Alert, active, very pleasant, 80-year-old white female, sitting up in the chair, currently on room air, with a pulse ox of 96% comfortable in no apparent distress. HEAD: Normocephalic/atraumatic. EYES: Normal reaction of pupils, equal size. Conjunctiva pink, sclera white. NOSE: Clear with pink turbinates. THROAT: No erythema or exudates. NECK: No masses, no JVD, no thyroid enlargement, no adenopathy. CHEST: No chest wall deformity. Symmetrical expansion. LUNGS: Equal air entry with bibasilar crackles CVS: Regular rate and rhythm, normal S1 and S2, no gallops, no murmurs, no rubs ABDOMEN: Soft, nontender. No hepatosplenomegaly, normal bowel sounds, no guarding or rigidity. EXTREMITIES: No clubbing, no edema, no cyanosis, 2+ pulses and upper and lower extremities. MUSCULOSKELETAL: Muscle strength and tone normal. SPINE: No scoliosis or deformity SKIN: No rashes CENTRAL NERVOUS SYSTEM: Alert and oriented -3. No focal deficits, tone is normal in all 4 extremities. PSYCHIATRIC: Alert and oriented -3. Appropriate affect. Intact judgment and insight. - Labs CBC & Chem 7: 10/27/20 06:42 10/27/20 06:42 Labs: Microbiology - Last 24 Hours (Table) 10/23/20 14:36 Blood Culture - Preliminary Blood No Growth after 96 hours 10/23/20 14:06 Blood Culture - Preliminary Blood No Growth after 96 hours Assessment and Plan Plan: Assessment: 1 acute shortness of breath, mainly related but not limited to asthma exacerbation as the patient also has some minor bilateral pulmonary groundglass changes consistent with COVID 19-related pulmonary infection. Nevertheless, these groundglass changes on minimal at this point in time and her main presentation is asthma exacerbation. She is maintaining a pulse ox above 90% on room air oxygen. Clinically stable compared to yesterday's evaluation. Still requiring oxygen at 2 L. 2 COVID 19 infection confirmed on 10/23/2020 3 COVID 19 vaccination administered on 09/25/2020 4 chronic bronchial asthma maintained on Symbicort and Xopenex on outpatient basis 5 history of rheumatoid arthritis maintained on methotrexate on outpatient basis and she also takes prednisone 2 mg daily basis. 6 chronic steroid treatment and dependence related to rheumatoid arthritis 7 history of skin cancer Plan: Patient has remained stable, no fever or chills, and she is maintaining stable oxygenation on room air, no specific complaints, she is breathing comfortably, from pulmonary perspective she can consider for discharge of the hospital today, she can follow up with Dr. Koo in the office in 2 to 3 weeks I performed a history & physical examination of the patient and discussed their management with my nurse practitioner, Kathleen Farmer. I reviewed the nurse practitioner's note and agree with the documented findings and plan of care. Lung sounds are positive for diminished breath sounds. The findings and the impression was discussed with the patient. I attest to the documentation by the nurse practitioner. Time with Patient: Less than 30
[2020-10-28] MEDS: SODIUM CHLORIDE 0.9% 1,000 ML IV SCH (16:10)
--- NOTE | 2020-10-28 23:51 | DS ---
DISCHARGE SUMMARY DATE OF SERVICE: 10/28/2020 FINAL DIAGNOSES: 1. Acute COVID-19 infection as well as acute COVID-19 interstitial pneumonia, bilateral. 2. Possible acute bronchial asthma exacerbation. 3. Prominent right hilum with possible secondary pneumonia. 4. Elevated D-dimer without any evidence of pulmonary embolism. 5. Elevated inflammatory markers of COVID-19, including LDH and CRP. 6. Possible COVID-19 interstitial pneumonia. 7. History of recent COVID-19 vaccination x1. 8. Increased ALT. 9. History of asthma. 10.History of degenerative joint disease. 11.History of rheumatoid arthritis. 12.History of skin cancer. 13.History of hip replacement. DIAGNOSTIC IMPRESSION AND PLAN: The patient will be discharged in stable condition with guarded prognosis. Total time taken 35 minutes. HISTORY OF PRESENT ILLNESS: This 80-year-old woman with a past medical history of multiple medical problems was admitted with acute COVID-19 infection as well as multiple medical problems. She was treated symptomatically. Patient improved significantly. On exam, vitals are stable. CARDIOVASCULAR SYSTEM: S1, S2 muffled. ABDOMEN: Soft. NERVOUS SYSTEM: No focal deficit. The patient was seen by Dr. Wilburn and cleared for discharge. DISCHARGE ADVICE AND MEDICATIONS: 1. Diet cardiac. 2. Activity limited until followup. 3. Follow up with Dr. Zambrano in 1-2 days. 4. Follow up with Dr. Koo as recommended. 5. Methotrexate as before. 6. MS-IR 30 mg q.8. 7. Myrbetriq 25 mg p.o. daily. 8. Symbicort 2 puffs b.i.d. 9. Colcrys 0.6 daily. 10.DuoNeb q.i.d. and p.r.n. 11.Folic acid 1 mg p.o. daily. 12.Multivitamins 1 p.o. daily. 13.Oral zinc 220 mg p.o. daily. 14.Prednisone 40 mg daily for 3 days, 30 mg daily for 3 days, 20 mg daily for 3 days, 10 mg daily for 3 days. 15.Thiamine 100 mg p.o. daily. 16.Vitamin C 500 mg p.o. daily. 17.Vitamin D3 25 mcg p.o. daily. 18.Follow up with Dr. Zambrano as advised. 19.Second dose of vaccination probably after 3 months. Once again, the patient will be discharged in stable condition with guarded prognosis. MMODL / SAVANNAHN: [id number] /
--- NOTE | 2020-10-31 15:17 | P.PN ---
Progress Note - Text Progress Note Date: 10/28/20 REASON FOR FOLLOWUP: COVID-19 infection. INTERVAL HISTORY: The patient is afebrile. The patient is breathing comfortably on room air. The patient denies chest pain. Patient did have mild dry cough. No nausea. No abdominal pain. No diarrhea. PHYSICAL EXAMINATION: Blood pressure 154/76, pulse 78, temperature 98.1. She is 95% on room air. General description is an elderly female lying in bed in no distress. Respiratory system: Unlabored breathing with mild basilar crackles. Heart S1-S2 regular rate and rhythm. ABDOMEN: Soft, no tenderness. EXTREMITIES: No edema. LABS: Revealed DIAGNOSTIC IMPRESSION AND PLAN: Patient with acute COVID-19 infection in this patient who seems to have shown overall clinical improvement. Currently on room air. No worsening chest x-ray finding. Patient is covered with colchicine, Lovenox, zinc. Continue supportive care.
== END 2020-10-28 16:42 | disposition home or self-care (01) | DRG 177 ==
LOC: EC 13:38 → 4SSUR 15:56
PROVIDERS: ADMIT Hospitalist; ATTEND Hospitalist
DX: U07.1 COVID-19 (principal); J12.82 Pneumonia due to coronavirus disease 2019; J45.901 Unspecified asthma with (acute) exacerbation; J44.0 Chronic obstructive pulmonary disease with (acute) lower respiratory infection; M06.9 Rheumatoid arthritis, unspecified; M19.90 Unspecified osteoarthritis, unspecified site; R09.02 Hypoxemia; K44.9 Diaphragmatic hernia without obstruction or gangrene; D72.810 Lymphocytopenia; Z79.891 Long term (current) use of opiate analgesic; Z79.52 Long term (current) use of systemic steroids; Z79.51 Long term (current) use of inhaled steroids; Z79.899 Other long term (current) drug therapy; Z96.642 Presence of left artificial hip joint; Z85.828 Personal history of other malignant neoplasm of skin; Z90.49 Acquired absence of other specified parts of digestive tract; Z98.890 Other specified postprocedural states; Z88.2 Allergy status to sulfonamides; Z82.49 Family history of ischemic heart disease and other diseases of the circulatory system; Z82.3 Family history of stroke
CPT/HCPCS: 36415; 71045; 71275; 80053; 81001; 82728; 83605; 83615; 83735; 84145; 85025; 85379; 85610; 85730; 86140; 87040; 87635; 93005; 94640; 94760; 96372; 99284

== ENCOUNTER 2020-10-29 10:54 | Observation (INO) | payer MEDICARE, BC ==
[2020-10-29] MEDS ORDERED: SODIUM CHLORIDE 0.9% 500 ML 500 ML IV STA (11:34)
--- NOTE | 2020-10-29 12:03 | ED ---
Weakness HPI - General Chief complaint: Weakness Stated complaint: revisit - weakness Time Seen by Provider: 10/29/20 11:03 Source: patient Mode of arrival: EMS Limitations: no limitations - History of Present Illness Initial comments: 80 year-old female patient presents to the emergency department for evaluation of persistent weakness. She was recently admitted to the hospital and for COVID- 19. She was discharged yesterday. Apparently she was too weak to care for herself at home and family called EMS to bring her back to ED. Patient states that she just feels weak. She denies any pain. States she feels short of breath. Denies vomiting or cough. States she is not eating or drinking. She is a poor historian and it is difficult to obtain information. I did speak to the [id number] who reports that since discharge yesterday patient has been be coming progressively more weak. She had several episodes of diarrhea throughout the night and today. She is not eating or drinking and they're concerned she is becoming dehydrated. They were hoping for placement in an ECF for rehab due to her illness and weakness. - Related Data Home Medications Medication Instructions Recorded Confirmed Budesonide/Formoterol Fumarate 2 puff INHALATION RT-BID 04/30/19 10/29/20 [Symbicort 160-4.5 Mcg Inhaler] metHOTREXate sodium [Methotrexate] 20 mg PO TH 04/30/19 10/29/20 Mirabegron [Myrbetriq] 25 mg PO DAILY 10/23/20 10/29/20 Morphine Sulfate Ir [MSIR] 30 mg PO Q8H 10/23/20 10/29/20 Ipratropium-Albuterol Nebulize 3 ml INHALATION RT-QID 10/29/20 10/29/20 [Duoneb 0.5 mg-3 mg/3 ml Soln] predniSONE See Taper PO DAILY 10/29/20 10/29/20 Previous Rx's Medication Instructions Recorded Ascorbic Acid [Vitamin C] 500 mg PO DAILY #30 tab 10/28/20 Cholecalciferol [Vitamin D3 (25 25 mcg PO DAILY #30 tablet 10/28/20 Mcg = 1000 Iu)] Colchicine [Colcrys] 0.6 mg PO DAILY #30 each 10/28/20 Folic Acid 1 mg PO DAILY #30 tablet 10/28/20 Multivitamins, Thera [Multivitamin] 1 tab PO DAILY #30 tablet 10/28/20 Thiamine [Vitamin B-1] 100 mg PO DAILY #30 tablet 10/28/20 Zinc Sulfate [Orazinc] 220 mg PO DAILY #30 cap 10/28/20 Allergies Allergy/AdvReac Type Severity Reaction Status Date / Time sulfadiazine Allergy Anaphylaxis Verified 10/29/20 12:52 Review of Systems ROS Statement: Those systems with pertinent positive or pertinent negative responses have been documented in the HPI. ROS Other: All systems not noted in ROS Statement are negative. Past Medical History Past Medical History: Asthma, Osteoarthritis (OA), Rheumatoid Arthritis (RA) Additional Past Medical History / Comment(s): Skin CA History of Any Multi-Drug Resistant Organisms: None Reported Additional Past Surgical History / Comment(s): left hip implant, gallbladder, Skin CA removed from face. Past Psychological History: No Psychological Hx Reported Smoking Status: Never smoker Past Alcohol Use History: None Reported Past Drug Use History: None Reported - Past Family History Father Family Medical History: Myocardial Infarction ([place]) Mother Family Medical History: CVA/TIA General Exam Limitations: no limitations General appearance: alert, in no apparent distress, other (This is a well- developed, thin appearing elderly female patient in no acute distress. Vital signs upon presentation are temperature 98.2F, pulse 98, respirations 18, blood pressure 138/88, pulse ox 97% on room air.) Eye exam: Present: normal appearance, PERRL, EOMI. Absent: scleral icterus, conjunctival injection, periorbital swelling ENT exam: Present: normal exam, normal oropharynx, mucous membranes dry Respiratory exam: Present: normal lung sounds bilaterally. Absent: respiratory distress, wheezes, rales, rhonchi, stridor Cardiovascular Exam: Present: regular rate, normal rhythm, normal heart sounds. Absent: systolic murmur, diastolic murmur, rubs, gallop, clicks GI/Abdominal exam: Present: soft, normal bowel sounds. Absent: distended, tenderness, guarding, rebound, rigid Neurological exam: Present: alert, CN II-XII intact. Absent: oriented X3 (2) Psychiatric exam: Present: normal affect, normal mood Skin exam: Present: warm, dry, intact, normal color. Absent: rash Course Vital Signs 10/29/20 11:03 Temperature 98.2 F Pulse Rate 98 Respiratory 18 Rate Blood Pressure 138/88 O2 Sat by Pulse 97 Oximetry Medical Decision Making - Medical Decision Making 80-year-old female patient presenting to the emergency department today for increased weakness, altered mental status. Patient was discharged home from the hospital yesterday after being admitted for several days for COVID-19 infection with pneumonitis. Labs are obtained and showed white blood cell count 18.2 most likely elevated due to steroid use, BUN 22, creatinine 0.51. Urine is pending. I did discuss results with the family, they are concerned that they will not be able to adequately care for her at home and would like her to be placed in an ECF, she has been to [facility] in the past. Case discussed with my attending Dr. Haddad. - Lab Data Result diagrams: 10/29/20 11:41 10/29/20 11:41 Lab Results 10/29/20 10/29/20 10/29/20 Range/Units 11:41 11:41 11:41 WBC 18.2 H (3.8-10.6) k/uL RBC 4.60 (3.80-5.40) m/uL Hgb 14.5 (11.4-16.0) gm/dL Hct 43.6 (34.0-46.0) % MCV 94.7 (80.0-100.0) fL MCH 31.5 (25.0-35.0) pg MCHC 33.3 (31.0-37.0) g/dL RDW 15.1 (11.5-15.5) % Plt Count 344 (150-450) k/uL MPV 6.8 Neutrophils % 89 % Lymphocytes % 4 % Monocytes % 5 % Eosinophils % 1 % Basophils % 0 % Neutrophils # 16.3 H (1.3-7.7) k/uL Lymphocytes # 0.8 L (1.0-4.8) k/uL Monocytes # 0.9 (0-1.0) k/uL Eosinophils # 0.1 (0-0.7) k/uL Basophils # 0.0 (0-0.2) k/uL Sodium 137 (137-145) mmol/L Potassium 4.0 (3.5-5.1) mmol/L Chloride 101 (98-107) mmol/L Carbon Dioxide 25 (22-30) mmol/L Anion Gap 11 mmol/L BUN 22 H (7-17) mg/dL Creatinine 0.51 L (0.52-1.04) mg/dL Est GFR (CKD-EPI)AfAm >90 (>60 ml/min/1.73 sqM) Est GFR (CKD-EPI)NonAf >90 (>60 ml/min/1.73 sqM) Glucose 80 (74-99) mg/dL Plasma Lactic Acid Jaison 1.4 (0.7-2.0) mmol/L Calcium 10.4 H (8.4-10.2) mg/dL Magnesium 1.6 (1.6-2.3) mg/dL Total Bilirubin 1.3 (0.2-1.3) mg/dL AST 61 H (14-36) U/L ALT 88 H (4-34) U/L Alkaline Phosphatase 107 (38-126) U/L Total Protein 6.6 (6.3-8.2) g/dL Albumin 3.8 (3.5-5.0) g/dL Urine Color Urine Appearance (Clear) Urine pH (5.0-8.0) Ur Specific [place] (1.001-1.035) Urine Protein (Negative) Urine Glucose (UA) (Negative) Urine Ketones (Negative) Urine Blood (Negative) Urine Nitrite (Negative) Urine Bilirubin (Negative) Urine Urobilinogen (<2.0) mg/dL Ur Leukocyte Esterase (Negative) Urine RBC (0-5) /hpf Urine WBC (0-5) /hpf Urine Mucus (None) /hpf 10/29/20 Range/Units 13:22 WBC (3.8-10.6) k/uL RBC (3.80-5.40) m/uL Hgb (11.4-16.0) gm/dL Hct (34.0-46.0) % MCV (80.0-100.0) fL MCH (25.0-35.0) pg MCHC (31.0-37.0) g/dL RDW (11.5-15.5) % Plt Count (150-450) k/uL MPV Neutrophils % % Lymphocytes % % Monocytes % % Eosinophils % % Basophils % % Neutrophils # (1.3-7.7) k/uL Lymphocytes # (1.0-4.8) k/uL Monocytes # (0-1.0) k/uL Eosinophils # (0-0.7) k/uL Basophils # (0-0.2) k/uL Sodium (137-145) mmol/L Potassium (3.5-5.1) mmol/L Chloride (98-107) mmol/L Carbon Dioxide (22-30) mmol/L Anion Gap mmol/L BUN (7-17) mg/dL Creatinine (0.52-1.04) mg/dL Est GFR (CKD-EPI)AfAm (>60 ml/min/1.73 sqM) Est GFR (CKD-EPI)NonAf (>60 ml/min/1.73 sqM) Glucose (74-99) mg/dL Plasma Lactic Acid Jaison (0.7-2.0) mmol/L Calcium (8.4-10.2) mg/dL Magnesium (1.6-2.3) mg/dL Total Bilirubin (0.2-1.3) mg/dL AST (14-36) U/L ALT (4-34) U/L Alkaline Phosphatase (38-126) U/L Total Protein (6.3-8.2) g/dL Albumin (3.5-5.0) g/dL Urine Color Light Yellow Urine Appearance Clear (Clear) Urine pH 6.0 (5.0-8.0) Ur Specific [place] 1.012 (1.001-1.035) Urine Protein 1+ H (Negative) Urine Glucose (UA) Negative (Negative) Urine Ketones 2+ H (Negative) Urine Blood Small H (Negative) Urine Nitrite Positive H (Negative) Urine Bilirubin Negative (Negative) Urine Urobilinogen <2.0 (<2.0) mg/dL Ur Leukocyte Esterase Negative (Negative) Urine RBC 2 (0-5) /hpf Urine WBC 2 (0-5) /hpf Urine Mucus Rare H (None) /hpf - Radiology Data Radiology results: report reviewed, image reviewed One view x-ray of the chest is obtained. Report was reviewed in its entirety. Impression by Dr. Lerma shows rotated exam. Right lower lobe lung nodule. Ground glass opacity seen on patient CT not well seen on plain film. Disposition Clinical Impression: Weakness, COVID-19 Disposition: ADMITTED IP TO THIS HOSP Condition: Serious Referrals: Luis Zambrano DO [Primary Care Provider] - 1-2 days Decision to Admit Reason: Admit from EC Decision Date: 10/29/20 Decision Time: 13:53
[2020-10-29 12:07] LABS: Basophils % (A) 0 %; Eosinophils # (A) 0.1 k/uL (0-0.7); Eosinophils % (A) 1 %; HCT 43.6 % (34.0-46.0); HGB 14.5 gm/dL (11.4-16.0); Lymphocytes # (A) 0.8 k/uL (1.0-4.8); Lymphocytes % (A) 4 %; MCH 31.5 pg (25.0-35.0); MCHC 33.3 g/dL (31.0-37.0); MCV 94.7 fL (80.0-100.0); Mean Platelet Volume 6.8; Monocytes # (A) 0.9 k/uL (0-1.0); Monocytes % (A) 5 %; Neutrophils # (A) 16.3 k/uL (1.3-7.7); Neutrophils % (A) 89 %; Platelet Count 344 k/uL (150-450); RDW 15.1 % (11.5-15.5); WBC 18.2 k/uL (3.8-10.6)
[2020-10-29 12:34] LABS: ALT 88 U/L (4-34); AST 61 U/L (14-36); African American GFR (CKD) >90 (>60 ml/min/1.73 sqM); Albumin 3.8 g/dL (3.5-5.0); Alkaline Phosphatase 107 U/L (38-126); Anion Gap 11 mmol/L; Blood Urea Nitrogen 22 mg/dL (7-17); Calcium 10.4 mg/dL (8.4-10.2); Carbon Dioxide 25 mmol/L (22-30); Chloride 101 mmol/L (98-107); Glucose 80 mg/dL (74-99); Magnesium 1.6 mg/dL (1.6-2.3); Non-African American GFR(CKD) >90 (>60 ml/min/1.73 sqM); Sodium 137 mmol/L (137-145); Total Bilirubin 1.3 mg/dL (0.2-1.3); Total Protein 6.6 g/dL (6.3-8.2)
--- NOTE | 2020-10-29 12:36 | XR ---
EXAMINATION TYPE: XR chest 1V portable DATE OF EXAM: 10/29/2020 COMPARISON: Right chest x-ray 10/27/2020, chest CT 10/23/2020 HISTORY: Weakness, Covid positive TECHNIQUE: Single frontal view of the chest is obtained. FINDINGS: There is no focal air space opacity, pleural effusion, or pneumothorax seen. The cardiac silhouette size is within normal limits. Questionable nodular density present in the right lower lob e measuring approximately 1 cm. The osseous structures are stable, remote trauma suspected proximal r ight humerus, is arthropathy the left shoulder, acromioclavicular joint on the right, there are overl munir leads and the aorta is dense. IMPRESSION: Rotated exam. There is a right lower lobe lung nodule. Groundglass opacities seen on pat ient's CT not well seen on plain film.
[2020-10-29 13:47] LABS: Appearance,Urine Clear (Clear); Bilirubin,Urine Negative (Negative); Blood,Urine Small (Negative); Color,Urine Light Yellow; Glucose,Urine (UA) Negative (Negative); Ketones,Urine 2+ (Negative); Leukocyte Esterase,Urine Negative (Negative); Mucus,Urine Rare /hpf; Nitrite,Urine Positive (Negative); Protein,Urine 1+ (Negative); RBC,Urine 2 /hpf (0-5); Specific Gravity,Urine 1.012 (1.001-1.035); Urobilinogen,Urine <2.0 mg/dL (<2.0); WBC,Urine 2 /hpf (0-5)
[2020-10-29] MEDS ORDERED: NALOXONE 0.4 MG/ML 1 ML VIAL IV PRN (13:51)
[2020-10-29] MEDS: SODIUM CHLORIDE 0.9% 1,000 ML IV SCH (14:34)
[2020-10-29] MEDS ORDERED: CHOLESTYRAMINE (WITH SUGAR) 4 GM PACKET PO PRN (16:05)
[2020-10-29] MEDS: IPRATROPIUM-ALBUTEROL 3 ML NEB INHALATION SCH (16:31)
[2020-10-29] MEDS: MAGNESIUM SULFATE-D5W PMX 1 GM in DEXTROSE/WATER 1 100ML.BAG IVPB SCH ×2 (16:44→18:14)
--- NOTE | 2020-10-29 17:39 | P.HPIM ---
History of Present Illness 80 year-old female patient presents to the emergency department for evaluation of persistent weakness. She was recently admitted to the hospital and for COVID- 19. She was discharged yesterday. Apparently she was too weak to care for herself at home and family called EMS to bring her back to ED. Patient states that she just feels weak. She denies any pain. States she feels short of breath. Denies vomiting or cough. States she is not eating or drinking. She is a poor historian and it is difficult to obtain information. I did speak to the [id number] who reports that since discharge yesterday patient has been becoming progressively more weak. She had several episodes of diarrhea throughout the night and today. She is not eating or drinking and they're concerned she is becoming dehydrated. They were hoping for placement in an ECF for rehab due to her illness and weakness. During her stay in ER patient had multiple episodes of diarrhea. Obtaining C. diff testing. Patient IV fluids will be increased patient will be admitted with PT and OT consultation along with social work and case management evaluation Review of Systems Unable to obtain due to her clinical condition Past Medical History Past Medical History: Asthma, Osteoarthritis (OA), Rheumatoid Arthritis (RA) Additional Past Medical History / Comment(s): Skin CA History of Any Multi-Drug Resistant Organisms: None Reported Additional Past Surgical History / Comment(s): left hip implant, gallbladder, Skin CA removed from face. Past Psychological History: No Psychological Hx Reported Smoking Status: Never smoker Past Alcohol Use History: None Reported Past Drug Use History: None Reported - Past Family History Father Family Medical History: Myocardial Infarction ([place]) Mother Family Medical History: CVA/TIA Medications and Allergies Home Medications Medication Instructions Recorded Confirmed Type Budesonide/Formoterol Fumarate 2 puff INHALATION RT-BID 04/30/19 10/29/20 History [Symbicort 160-4.5 Mcg Inhaler] metHOTREXate sodium [Methotrexate] 20 mg PO TH 04/30/19 10/29/20 History Mirabegron [Myrbetriq] 25 mg PO DAILY 10/23/20 10/29/20 History Morphine Sulfate Ir [MSIR] 30 mg PO Q8H 10/23/20 10/29/20 History Ascorbic Acid [Vitamin C] 500 mg PO DAILY #30 tab 10/28/20 10/29/20 Rx Cholecalciferol [Vitamin D3 (25 25 mcg PO DAILY #30 tablet 10/28/20 10/29/20 Rx Mcg = 1000 Iu)] Colchicine [Colcrys] 0.6 mg PO DAILY #30 each 10/28/20 10/29/20 Rx Folic Acid 1 mg PO DAILY #30 tablet 10/28/20 10/29/20 Rx Multivitamins, Thera [Multivitamin] 1 tab PO DAILY #30 tablet 10/28/20 10/29/20 Rx Thiamine [Vitamin B-1] 100 mg PO DAILY #30 tablet 10/28/20 10/29/20 Rx Zinc Sulfate [Orazinc] 220 mg PO DAILY #30 cap 10/28/20 10/29/20 Rx Ipratropium-Albuterol Nebulize 3 ml INHALATION RT-QID 10/29/20 10/29/20 History [Duoneb 0.5 mg-3 mg/3 ml Soln] predniSONE See Taper PO DAILY 10/29/20 10/29/20 History Allergies Allergy/AdvReac Type Severity Reaction Status Date / Time sulfadiazine Allergy Anaphylaxis Verified 10/29/20 12:52 Physical Exam Vitals: Vital Signs Temp Pulse Resp BP Pulse Ox 10/29/20 16:39 81 10/29/20 16:32 66 10/29/20 15:05 80 18 157/70 99 10/29/20 14:00 101 H 20 176/79 97 10/29/20 13:30 90 18 165/82 98 10/29/20 12:30 89 18 141/89 98 10/29/20 11:30 87 21 138/88 79 L 10/29/20 11:03 98.2 F 98 18 138/88 97 Intake and Output 10/29/20 10/29/20 10/29/20 06:59 14:59 22:59 Other: Weight 49.895 kg PHYSICAL EXAMINATION: GENERAL: The patient is drowsy unable to assess his orientation, not in any acute distress. Well developed, well nourished. HEENT: Pupils are round and equally reacting to light. EOMI. No scleral icterus. No conjunctival pallor. Normocephalic, atraumatic. No pharyngeal erythema. No thyromegaly. CARDIOVASCULAR: S1 and S2 present. No murmurs, rubs, or gallops. PULMONARY: Chest is clear to auscultation, no wheezing or crackles. ABDOMEN: Soft, nontender, nondistended, normoactive bowel sounds. No palpable organomegaly. MUSCULOSKELETAL: No joint swelling or deformity. EXTREMITIES: No cyanosis, clubbing, or pedal edema. NEUROLOGICAL: Unable to assess as patient doesn't follow commands and although moving all 4 limbs SKIN: No rashes. Results CBC & Chem 7: 10/29/20 11:41 10/29/20 11:41 Labs: Abnormal Lab Results - Last 24 Hours (Table) 10/29/20 10/29/20 10/29/20 Range/Units 11:41 11:41 13:22 WBC 18.2 H (3.8-10.6) k/uL Neutrophils # 16.3 H (1.3-7.7) k/uL Lymphocytes # 0.8 L (1.0-4.8) k/uL BUN 22 H (7-17) mg/dL Creatinine 0.51 L (0.52-1.04) mg/dL Calcium 10.4 H (8.4-10.2) mg/dL AST 61 H (14-36) U/L ALT 88 H (4-34) U/L Urine Protein 1+ H (Negative) Urine Ketones 2+ H (Negative) Urine Blood Small H (Negative) Urine Nitrite Positive H (Negative) Urine Mucus Rare H (None) /hpf Assessment and Plan Plan: -Generalized weakness: Secondary to recent infection prolonged hospitalization. Patient will be evaluated by physical therapy and occupational therapy possibly will need placement in subacute rehabitation. Patient will be continued on weaning dose of steroids and colchicine for now -Diarrhea: Will test for C. diff no evidence of any other infection at this t [facility]. -Altered mental status: May be related to morphine. Patient is on sustained release morphine which will be discontinued patient will continued on IV fluids -History of rheumatoid arthritis for which patient is on methotrexate which will continue 9 -Asthma without any acute exacerbation unsure about the severity of her chronic asthma. -DVT prophylaxis with Lovenox
[2020-10-29] MEDS: SYMBICORT 160-4.5 MCG INHALER INHALATION SCH (20:58)
[2020-10-29] MEDS: ALBUTEROL HFA INHALER INHALATION SCH (20:58)
[2020-10-29] MEDS: amLODIPine 10 MG TAB PO SCH (22:17)
[2020-10-30 08:32] LABS: African American GFR (CKD) >90 (>60 ml/min/1.73 sqM); Anion Gap 15 mmol/L; Blood Urea Nitrogen 16 mg/dL (7-17); Calcium 9.4 mg/dL (8.4-10.2); Carbon Dioxide 18 mmol/L (22-30); Chloride 102 mmol/L (98-107); Glucose 69 mg/dL (74-99); Magnesium 2.2 mg/dL (1.6-2.3); Non-African American GFR(CKD) 89 (>60 ml/min/1.73 sqM); Sodium 135 mmol/L (137-145)
[2020-10-30] MEDS: amLODIPine 10 MG TAB PO SCH (08:42)
[2020-10-30] MEDS: ALBUTEROL HFA INHALER INHALATION SCH ×3 (08:54→17:11)
[2020-10-30] MEDS: SYMBICORT 160-4.5 MCG INHALER INHALATION SCH (08:54)
[2020-10-30] MEDS: IPRATROPIUM-ALBUTEROL 3 ML NEB INHALATION SCH (08:58)
[2020-10-30] MEDS ORDERED: CHOLECALCIFEROL 25 MCG (1000 IU) TABLET PO SCH (09:00)
[2020-10-30] MEDS ORDERED: ASCORBIC ACID 500 MG TAB PO SCH (09:00)
[2020-10-30] MEDS ORDERED: COLCHICINE 0.6 MG EACH PO SCH (09:00)
[2020-10-30] MEDS ORDERED: THIAMINE 100 MG TAB PO SCH (09:00)
[2020-10-30] MEDS ORDERED: NON FORMULARY DRUG (Mirabegron [Myrbetriq] 25 MG Tab.Er.24h) PO SCH (09:00)
[2020-10-30] MEDS ORDERED: ENOXAPARIN 40 MG/0.4 ML SYRINGE SQ SCH (09:00)
[2020-10-30] MEDS ORDERED: predniSONE 20 MG TAB PO SCH (09:00)
[2020-10-30] MEDS ORDERED: MULTIVITAMINS, THERA 1 EACH TAB PO SCH (09:00)
[2020-10-30] MEDS ORDERED: FOLIC ACID 1 MG TAB PO SCH (09:00)
[2020-10-30] MEDS: SODIUM CHLORIDE 0.9% 1,000 ML IV SCH (09:07)
[2020-10-30 10:02] VITALS: RESP 18
[2020-10-30] MEDS ORDERED: DICYCLOMINE 10 MG CAP PO PRN (13:18)
[2020-10-30 13:27] VITALS: BMI 20.1
[2020-10-30] MEDS ORDERED: Potassium Replacement Protocol 1 EACH MISC MISCELLANE PRN (13:28)
[2020-10-30] MEDS: POTASSIUM CHLORIDE ER 20 MEQ TAB.ER PO SCH ×2 (13:48→15:19)
--- NOTE | 2020-10-30 14:46 | P.DS ---
Providers Date of admission: 10/29/20 13:43 Attending physician: Angely Garrett Primary care physician[facility] Course: 80 year-old female patient presents to the emergency department for evaluation of persistent weakness. She was recently admitted to the hospital and for COVID- 19. She was discharged yesterday. Apparently she was too weak to care for herself at home and family called EMS to bring her back to ED. Patient states that she just feels weak. She denies any pain. States she feels short of breath. Denies vomiting or cough. States she is not eating or drinking. She is a poor historian and it is difficult to obtain information. I did speak to the [id number] who reports that since discharge yesterday patient has been becoming progressively more weak. She had several episodes of diarrhea throughout the night and today. She is not eating or drinking and they're concerned she is becoming dehydrated. They were hoping for placement in an ECF for rehab due to her illness and weakness. During her stay in ER patient had multiple episodes of diarrhea. Obtaining C. diff testing. Patient IV fluids will be increased patient will be admitted with PT and OT consultation along with social work and case management evaluation. 10/30/2020 Patient's mental status improved significantly patient is alert oriented times around 2 today still tired and weak. C. diff is not available at this time patient is still having some diarrhea this is probably related to withdrawal from morphine she was on. Morphine was discontinued because of toxic encephalopathy. be started on Bentyl as well because of the IV fluids patient's potassium is down which will be replaced. Patient is able to provide me some history today. All inpatient medications were reviewed and appropriate changes in these medications as dictated in the interval history and assessment and plan. PHYSICAL EXAMINATION: GENERAL: The patient is alert and oriented x2, not in any acute distress. Thin built appears to be fatigued still HEENT: Pupils are round and equally reacting to light. EOMI. No scleral icterus. No conjunctival pallor. Normocephalic, atraumatic. No pharyngeal erythema. No thyromegaly. CARDIOVASCULAR: S1 and S2 present. No murmurs, rubs, or gallops. PULMONARY: Chest is clear to auscultation, no wheezing or crackles. ABDOMEN: Soft, nontender, nondistended, normoactive bowel sounds. No palpable organomegaly. MUSCULOSKELETAL: No joint swelling or deformity. EXTREMITIES: No cyanosis, clubbing, or pedal edema. NEUROLOGICAL: Gross neurological examination did not reveal any focal deficits. SKIN: No rashes. Assessment and Plan Plan: -Generalized weakness: Secondary to recent infection prolonged hospitalization. And toxic encephalopathy from morphine. Morphine was discontinued patient is having some diarrhea probably a withdrawal from a morphine C. diff is still pending. Patient will be discharged to subacute rehabilitation once we get negative C. diff. Patient is on Questran and Bentyl will be added as needed for diarrhea. -Diarrhea: Will test for C. diff no evidence of any other infection at this time. -Altered mental status: Secondary to morphine and toxic encephalopathy secondary to morphine. -History of rheumatoid arthritis for which patient is on methotrexate which will continued -Asthma without any acute exacerbation unsure about the severity of her chronic asthma. Patient will be discharged to subacute rehabitation either today or tomorrow depending on his C. diff test. Patient Condition at Discharge: Serious Plan - Discharge Summary Discharge Rx Participant: No New Discharge Prescriptions: New Cholestyramine (with Sugar) [Questran Packet] 4 gm PO TID BETWEEN MEALS PRN packet PRN Reason: Constipation Dicyclomine [Bentyl] 10 mg PO TID PRN #10 capsule PRN Reason: Diarrhea Continue metHOTREXate sodium [Methotrexate] 20 mg PO TH Budesonide/Formoterol Fumarate [Symbicort 160-4.5 Mcg Inhaler] 2 puff INHALATION RT-BID Mirabegron [Myrbetriq] 25 mg PO DAILY Folic Acid 1 mg PO DAILY #30 tablet Multivitamins, Thera [Multivitamin (formulary)] 1 tab PO DAILY #30 tablet Zinc Sulfate [Orazinc] 220 mg PO DAILY #30 cap Thiamine [Vitamin B-1] 100 mg PO DAILY #30 tablet Ascorbic Acid [Vitamin C] 500 mg PO DAILY #30 tab Cholecalciferol [Vitamin D3 (25 Mcg = 1000 Iu)] 25 mcg PO DAILY #30 tablet Ipratropium-Albuterol Nebulize [Duoneb 0.5 mg-3 mg/3 ml Soln] 3 ml INHALATION RT-QID Changed predniSONE See Taper PO DAILY #0 Discontinued Morphine Sulfate Ir [MSIR] 30 mg PO Q8H Colchicine [Colcrys] 0.6 mg PO DAILY #30 each Discharge Medication List Budesonide/Formoterol Fumarate [Symbicort 160-4.5 Mcg Inhaler] 2 puff INHALATION RT-BID 04/30/19 [History] metHOTREXate sodium [Methotrexate] 20 mg PO TH 04/30/19 [History] Mirabegron [Myrbetriq] 25 mg PO DAILY 10/23/20 [History] Ascorbic Acid [Vitamin C] 500 mg PO DAILY #30 tab 10/28/20 [Rx] Cholecalciferol [Vitamin D3 (25 Mcg = 1000 Iu)] 25 mcg PO DAILY #30 tablet 10/28/20 [Rx] Folic Acid 1 mg PO DAILY #30 tablet 10/28/20 [Rx] Multivitamins, Thera [Multivitamin (formulary)] 1 tab PO DAILY #30 tablet 10/28/20 [Rx] Thiamine [Vitamin B-1] 100 mg PO DAILY #30 tablet 10/28/20 [Rx] Zinc Sulfate [Orazinc] 220 mg PO DAILY #30 cap 10/28/20 [Rx] Ipratropium-Albuterol Nebulize [Duoneb 0.5 mg-3 mg/3 ml Soln] 3 ml INHALATION RT-QID 10/29/20 [History] Cholestyramine (with Sugar) [Questran Packet] 4 gm PO TID BETWEEN MEALS PRN packet 10/30/20 [Rx] Dicyclomine [Bentyl] 10 mg PO TID PRN #10 capsule 10/30/20 [Rx] predniSONE See Taper PO DAILY #0 10/30/20 [Rx] Follow up Appointment(s)/Referral(s): Manolo Forman MD [STAFF PHYSICIAN] - 1 Week Luis Zambrano DO [Primary Care Provider] - 1-2 Days Discharge Disposition: HOME SELF-CARE
[2020-10-30] MEDS ORDERED: metHOTREXate sodium 2.5 MG TAB PO SCH (16:00)
[2020-10-30 16:17] VITALS: BP 131/72; PULSE 88; TEMP 97.8
== END 2020-10-30 17:29 ==
LOC: EC 10:54 → INTOOBSV 13:43 → 4SSUR 13:43
PROVIDERS: ADMIT Hospitalist; ATTEND Hospitalist
DX: G92 Toxic encephalopathy (principal); T40.2X5A Adverse effect of other opioids, initial encounter; R53.1 Weakness; R19.7 Diarrhea, unspecified; M06.9 Rheumatoid arthritis, unspecified; J45.909 Unspecified asthma, uncomplicated; J18.9 Pneumonia, unspecified organism; Z96.642 Presence of left artificial hip joint; R91.8 Other nonspecific abnormal finding of lung field; Z86.16 Personal history of COVID-19; Z79.899 Other long term (current) drug therapy; Z79.51 Long term (current) use of inhaled steroids; Z82.49 Family history of ischemic heart disease and other diseases of the circulatory system
CPT/HCPCS: 96361 ×2; 96365; 96366; 96372; 99285; 94640 ×3; 93005 ×2; 97162; 97166; 80053; 80048; 83605; 83735 ×2; 84484; 85025; 87324; 71045; G0378; J1650; J8610; J3475; J7512

== ENCOUNTER 2020-11-05 14:01 | Inpatient (IN) | payer MEDICARE, BC ==
--- NOTE | 2020-11-05 14:14 | ED ---
Recheck HPI <Deb Maldonado - Last Filed: 11/05/20 17:25> <Jose Haddadah Paul - Last Filed: 11/12/20 16:27> - General Stated Complaint: Covid+/High HR/Fever Time Seen by Provider: 11/05/20 14:05 - History of Present Illness Initial Comments: 80yo female with hx of RA, asthma and diagnosis of covid 19 on 10/20/2020 (inbetween vaccine #1 and #2 after exposure) presenting to the ER today for cc of rapid heart rate, lower blood pressure readings and fevers. [place] [facility] [place] a care facility. She was brought to the emergency department for rapid heart rate readings as well as lower than usual blood pressure and fevers. Patient personally complains of shortness of breath as well as body aches. She denies nausea vomiting diarrhea rashes chest pain or leg swelling. There is also been documented that she has had decreased appetite. Patient admits to generalized weakness, denies localized weakness or sensation deficits. Patient denies additional complaints she denies any hemoptysis neck stiffness sore throat dysuria urgency or frequency. Upon arrival patient is tachycardic and is warm to touch. She does not appear in distress nor altered-answering questions clearly and appropriately, she is hard of hearing. (Deb Maldonado) - Related Data Home Medications Medication Instructions Recorded Confirmed Budesonide/Formoterol Fumarate 2 puff INHALATION RT-BID@0900,2100 04/30/19 11/05/20 [Symbicort 160-4.5 Mcg Inhaler] metHOTREXate sodium [Methotrexate] 20 mg PO TH@89904/30/19 11/05/20 Mirabegron [Myrbetriq] 25 mg PO DAILY@89910/23/20 11/05/20 Ipratropium-Albuterol Nebulize 3 ml INHALATION RT-QID@,,,10/29/20 11/05/20 [Duoneb 0.5 mg-3 mg/3 ml Soln] Acetaminophen [Tylenol] 650 mg PO Q6H PRN 11/05/20 11/05/20 Ascorbic Acid [Vitamin C] 500 mg PO DAILY@89911/05/20 11/05/20 Cholecalciferol [Vitamin D3 (25 25 mcg PO DAILY@0900 11/05/20 11/05/20 Mcg = 1000 Iu)] Folic Acid 1 mg PO DAILY@0900 11/05/20 11/05/20 Lactose-Reduced Food [Ensure Plus] 1 can PO BID@0900,2100 11/05/20 11/05/20 Loperamide [Imodium] 2 mg PO Q6H PRN 11/05/20 11/05/20 Multivitamins, Thera [Multivitamin 1 tab PO DAILY@0900 11/05/20 11/05/20 (formulary)] Thiamine [Vitamin B-1] 100 mg PO DAILY@0900 11/05/20 11/05/20 Zinc Sulfate [Orazinc] 220 mg PO DAILY@0900 11/05/20 11/05/20 Previous Rx's Medication Instructions Recorded Cholestyramine (with Sugar) 4 gm PO TID BETWEEN MEALS PRN 10/30/20 [Questran Packet] packet Dicyclomine [Bentyl] 10 mg PO TID PRN #10 capsule 10/30/20 Allergies Allergy/AdvReac Type Severity Reaction Status Date / Time sulfadiazine Allergy Anaphylaxis Verified 11/05/20 17:03 Review of Systems ROS Other: All systems not noted in ROS Statement are negative. <Deb Maldonado - Last Filed: 11/05/20 17:25> ROS Other: All systems not noted in ROS Statement are negative. <Amarilis Haddad - Last Filed: 11/12/20 16:27> ROS Statement: Those systems with pertinent positive or pertinent negative responses have been documented in the HPI. Past Medical History Past Medical History: Asthma, Osteoarthritis (OA), Rheumatoid Arthritis (RA) Additional Past Medical History / Comment(s): Skin CA History of Any Multi-Drug Resistant Organisms: None Reported Additional Past Surgical History / Comment(s): left hip implant, gallbladder, Skin CA removed from face. Past Psychological History: No Psychological Hx Reported Smoking Status: Never smoker Past Alcohol Use History: None Reported Past Drug Use History: None Reported - Past Family History Father Family Medical History: Myocardial Infarction ([place]) Mother Family Medical History: CVA/TIA <Deb Maldonado - Last Filed: 11/05/20 17:25> General Exam <Deb Maldonado - Last Filed: 11/05/20 17:25> - General Exam Comments Initial Comments: General: The patient is awake and alert, in no distress Eye: +3 mm pupils are equal, round and reactive to light, extra-ocular movements are intact. No nystagmus. There is normal conjunctiva bilaterally. No signs of icterus. Ears, nose, mouth and throat: There are moist mucous membranes and no oral lesions. Neck: The neck is supple, there is no tenderness or JVD. Cardiovascular: There is a regular rate and rhythm. No murmur, rub or gallop is appreciated. Respiratory: Respirations are non-labored, breath sounds are equal. No wheezes , stridor, rales, or rhonchi. Gastrointestinal: Soft, non-distended, non-tender abdomen without masses or organomegaly noted. There is no rebound or guarding present. Musculoskeletal: Normal ROM, no tenderness. Strength 5/5. Sensation intact. Radial and DP pulses equal bilaterally 2+. Neurological: A&O x 3. CN II-XII intact grossly, There are no obvious motor or sensory deficits. Coordination appears grossly intact. Speech is normal. Skin: Skin is warm and dry and no rashes or lesions are noted. No LE edema. Psychiatric: Cooperative, appropriate mood & affect, normal judgment. (Deb Maldonado) Course Vital Signs 11/05/20 11/05/20 11/05/20 14:17 15:24 16:44 Temperature 99.1 F Pulse Rate 117 H 120 H 108 H Respiratory 24 24 16 Rate Blood Pressure 132/90 130/74 132/94 O2 Sat by Pulse 98 97 100 Oximetry 11/05/20 11/05/20 19:08 21:47 Temperature Pulse Rate 93 86 Respiratory 16 14 Rate Blood Pressure 141/70 136/76 O2 Sat by Pulse 99 97 Oximetry Medical Decision Making - Lab Data Result diagrams: 11/05/20 14:44 11/05/20 14:44 <Deb Maldonado - Last Filed: 11/05/20 17:25> - Lab Data Result diagrams: 11/12/20 06:07 11/12/20 06:07 <Amarilis Haddad - Last Filed: 11/12/20 16:27> - Medical Decision Making Ventricular rate 1 21 bpm, WV interval 134 ms, QRS confucianist 92 ms, QT/QTc to 72/386 ms. This is sinus tachycardia with an incomplete right bundle branch block. Nonspecific T-wave changes but no ST elevation or depression appreciated. 6-year-old female presented for worsening shortness of breath, sustained tachycardia lower than normal blood pressure readings at outpatient facility and fevers. Chest x-ray overall improved.. Patient does have persistent tachycardia despite anti-pyritic administration. Patietn hydrated. she had elevated WBC count but is on steroid outpatient, reactive WBC count vs concern for secondary bacterial infection. Fluids, IV abx initiated, blood cultures pending. Patient agreeable to admission> Spoke with front office coordinator [employer] for Dr. Garrett who recommended decadron, pulm consultation and is agreeable to admission. Patient case also discussed with attending Dr. Haddad who is agreeable to this care plan Initial admission attemptd to [facility] but since patient has had two admission to [facility] in past 3 weeks they recommended admitting again to this group. (Deb Maldonado) I was available for consultation in the emergency department. The history and physical exam were done by the midlevel provider. I was consulted for this patients care. I reviewed the case with the midlevel provider and based on their presentation of the patient, I agree with the assessment, medical decision making and plan of care as documented. Chart was dictated using [email or web address] dictation software. Attempts were made to correct any dictation errors however some typographical errors may persist. Patient was seen during a national state of emergency due to the Covid-19 pandemic. (Amarilis Haddad) - Lab Data Lab Results 11/05/20 11/05/20 11/05/20 Range/Units 14:44 14:44 14:44 WBC 19.6 H (3.8-10.6) k/uL RBC 4.08 (3.80-5.40) m/uL Hgb 12.7 (11.4-16.0) gm/dL Hct 39.4 (34.0-46.0) % MCV 96.5 (80.0-100.0) fL MCH 31.1 (25.0-35.0) pg MCHC 32.2 (31.0-37.0) g/dL RDW 15.2 (11.5-15.5) % Plt Count 388 (150-450) k/uL MPV 7.3 Neutrophils % 89 % Lymphocytes % 7 % Monocytes % 3 % Eosinophils % 0 % Basophils % 0 % Neutrophils # 17.5 H (1.3-7.7) k/uL Lymphocytes # 1.3 (1.0-4.8) k/uL Monocytes # 0.6 (0-1.0) k/uL Eosinophils # 0.1 (0-0.7) k/uL Basophils # 0.1 (0-0.2) k/uL PT 12.8 H (9.0-12.0) sec INR 1.2 H (<1.2) APTT 24.2 (22.0-30.0) sec D-Dimer 2.61 H (<0.60) mg/L FEU Sodium 139 (137-145) mmol/L Potassium 4.2 (3.5-5.1) mmol/L Chloride 103 (98-107) mmol/L Carbon Dioxide 28 (22-30) mmol/L Anion Gap 8 mmol/L BUN 23 H (7-17) mg/dL Creatinine 0.52 (0.52-1.04) mg/dL Est GFR (CKD-EPI)AfAm >90 (>60 ml/min/1.73 sqM) Est GFR (CKD-EPI)NonAf 89 (>60 ml/min/1.73 sqM) Glucose 111 H (74-99) mg/dL Plasma Lactic Acid Jaison (0.7-2.0) mmol/L Calcium 9.5 (8.4-10.2) mg/dL Magnesium 1.9 (1.6-2.3) mg/dL Ferritin 969.6 H (10.0-291.0) ng/mL Total Bilirubin 1.0 (0.2-1.3) mg/dL AST 53 H (14-36) U/L ALT 31 (4-34) U/L Alkaline Phosphatase 152 H (38-126) U/L Lactate Dehydrogenase 876 H (313-618) U/L C-Reactive Protein 348.3 H (<10.0) mg/L NT-Pro-B Natriuret Pep pg/mL Total Protein 6.0 L (6.3-8.2) g/dL Albumin 2.8 L (3.5-5.0) g/dL Procalcitonin (0.02-0.09) ng/mL 11/05/20 11/05/20 11/05/20 Range/Units 14:44 14:44 14:44 WBC (3.8-10.6) k/uL RBC (3.80-5.40) m/uL Hgb (11.4-16.0) gm/dL Hct (34.0-46.0) % MCV (80.0-100.0) fL MCH (25.0-35.0) pg MCHC (31.0-37.0) g/dL RDW (11.5-15.5) % Plt Count (150-450) k/uL MPV Neutrophils % % Lymphocytes % % Monocytes % % Eosinophils % % Basophils % % Neutrophils # (1.3-7.7) k/uL Lymphocytes # (1.0-4.8) k/uL Monocytes # (0-1.0) k/uL Eosinophils # (0-0.7) k/uL Basophils # (0-0.2) k/uL PT (9.0-12.0) sec INR (<1.2) APTT (22.0-30.0) sec D-Dimer (<0.60) mg/L FEU Sodium (137-145) mmol/L Potassium (3.5-5.1) mmol/L Chloride (98-107) mmol/L Carbon Dioxide (22-30) mmol/L Anion Gap mmol/L BUN (7-17) mg/dL Creatinine (0.52-1.04) mg/dL Est GFR (CKD-EPI)AfAm (>60 ml/min/1.73 sqM) Est GFR (CKD-EPI)NonAf (>60 ml/min/1.73 sqM) Glucose (74-99) mg/dL Plasma Lactic Acid Jaison 1.4 (0.7-2.0) mmol/L Calcium (8.4-10.2) mg/dL Magnesium (1.6-2.3) mg/dL Ferritin (10.0-291.0) ng/mL Total Bilirubin (0.2-1.3) mg/dL AST (14-36) U/L ALT (4-34) U/L Alkaline Phosphatase (38-126) U/L Lactate Dehydrogenase (313-618) U/L C-Reactive Protein (<10.0) mg/L NT-Pro-B Natriuret Pep 1170 pg/mL Total Protein (6.3-8.2) g/dL Albumin (3.5-5.0) g/dL Procalcitonin 10.24 H (0.02-0.09) ng/mL Disposition Is patient prescribed a controlled substance at d/c from ED?: No Time of Disposition: 17:28 Decision to Admit Reason: Admit from EC Decision Date: 11/05/20 Decision Time: 17:28 <Deb Maldonado - Last Filed: 11/05/20 17:25> <Amarilis Haddad - Last Filed: 11/12/20 16:27> Clinical Impression: Dyspnea, Tachycardia, Fever, COVID-19, Leukocytosis Disposition: ADMITTED IP TO THIS HOSP Condition: Stable
[2020-11-05] MEDS ORDERED: SODIUM CHLORIDE 0.9% 500 ML 500 ML IV ONE (14:26)
--- NOTE | 2020-11-05 15:06 | XR ---
EXAMINATION TYPE: XR chest 1V portable DATE OF EXAM: 11/05/2020 COMPARISON: Chest x-ray one week ago. CTA chest October 23, 2020. HISTORY: Cough and weakness, suspect covid pneumonia TECHNIQUE: Single AP portable frontal upright view of the chest is obtained. FINDINGS: There is background chronic parenchymal change greatest in the upper lungs without suspici ous new focal air space opacity, pleural effusion, or pneumothorax seen. Stable 8 to 10 mm lateral r ight basilar nodule redemonstrated. The cardiac silhouette size is upper limits of normal on current study with atherosclerotic aorta. Advanced degenerative change bilateral glenohumeral joints. IMPRESSION: Chronic changes without new suspicious acute pulmonary process.
[2020-11-05 15:09] LABS: Basophils # (A) 0.1 k/uL (0-0.2); Basophils % (A) 0 %; Eosinophils # (A) 0.1 k/uL (0-0.7); Eosinophils % (A) 0 %; HCT 39.4 % (34.0-46.0); HGB 12.7 gm/dL (11.4-16.0); Lymphocytes # (A) 1.3 k/uL (1.0-4.8); Lymphocytes % (A) 7 %; MCH 31.1 pg (25.0-35.0); MCHC 32.2 g/dL (31.0-37.0); MCV 96.5 fL (80.0-100.0); Mean Platelet Volume 7.3; Monocytes # (A) 0.6 k/uL (0-1.0); Monocytes % (A) 3 %; Neutrophils # (A) 17.5 k/uL (1.3-7.7); Neutrophils % (A) 89 %; Platelet Count 388 k/uL (150-450); RBC 4.08 m/uL (3.80-5.40); RDW 15.2 % (11.5-15.5); WBC 19.6 k/uL (3.8-10.6)
[2020-11-05 15:13] LABS: ALT 31 U/L (4-34); AST 53 U/L (14-36); African American GFR (CKD) >90 (>60 ml/min/1.73 sqM); Albumin 2.8 g/dL (3.5-5.0); Alkaline Phosphatase 152 U/L (38-126); Anion Gap 8 mmol/L; Blood Urea Nitrogen 23 mg/dL (7-17); Calcium 9.5 mg/dL (8.4-10.2); Carbon Dioxide 28 mmol/L (22-30); Chloride 103 mmol/L (98-107); Glucose 111 mg/dL (74-99); LDH 876 U/L (313-618); Magnesium 1.9 mg/dL (1.6-2.3); Non-African American GFR(CKD) 89 (>60 ml/min/1.73 sqM); Potassium 4.2 mmol/L (3.5-5.1); Sodium 139 mmol/L (137-145)
[2020-11-05] MEDS: SODIUM CHLORIDE 0.9% 1,000 ML IV SCH (15:18)
[2020-11-05 15:22] LABS: INR 1.2 (<1.2); Partial Thromboplastin Time 24.2 sec (22.0-30.0); Prothrombin Time 12.8 sec (9.0-12.0)
[2020-11-05] MEDS ORDERED: SODIUM CHLORIDE 0.9% 1,000 ML IV ONE (15:26)
[2020-11-05] MEDS ORDERED: ACETAMINOPHEN TAB 325 MG TAB PO STA (15:36)
[2020-11-05 15:41] LABS: D-Dimer 2.61 mg/L FEU (<0.60)
[2020-11-05 15:45] LABS: C Reactive Protein 348.3 mg/L (<10.0)
--- NOTE | 2020-11-05 16:41 | CT ---
EXAMINATION TYPE: CT chest angio for PE DATE OF EXAM: 11/05/2020 COMPARISON: 10/23/2020 HISTORY: elevated dimer CT DLP: 175.7 mGycm Automated exposure control for dose reduction was used. CONTRAST: Performed with IV Contrast, patient injected with 100 mL of Isovue 370. There are 3-D post processed images. There is some pulmonary emphysema. There is pulmonary hyperinflation and flattening of the diaphragm. There is hiatal hernia. Heart size is normal. There is no pericardial effusion. There is no mediastinal adenopathy. There are no hilar masses. Ascending aorta measures 3.5 cm. There is no dissection. There is normal contrast opacification of the pulmonary arteries. There are no filling defects. There is thoracic kyphotic deformity with T7 and T8 anterior wedging 75%. The upper abdominal soft ti ssues are intact. There is advanced arthritic change in the shoulder joints. IMPRESSION: No evidence of pulmonary embolism. Pulmonary emphysema. Thoracic kyphotic deformity. Compression fractures stable compared to last exam.
[2020-11-05] MEDS ORDERED: NALOXONE 0.4 MG/ML 1 ML VIAL IV PRN (17:20)
[2020-11-05] MEDS ORDERED: DEXAMETHASONE SOD PHOSPHATE 4 MG/ML 1 ML VIAL IV STA (17:25)
[2020-11-05 23:07] LABS: Glucose,Whole Blood 159 mg/dL (75-99)
[2020-11-06] MEDS: SODIUM CHLORIDE 0.9% 1,000 ML IV SCH ×4 (01:41→21:18)
[2020-11-06] MEDS: ACETAMINOPHEN TAB 325 MG TAB PO PRN ×2 (12:09→20:23)
[2020-11-06] MEDS ORDERED: dexAMETHasone 2 MG TAB PO SCH (13:15)
[2020-11-06] MEDS ORDERED: ACETAMINOPHEN TAB 325 MG TAB PO PRN (13:42)
[2020-11-06] MEDS ORDERED: CHOLESTYRAMINE (WITH SUGAR) 4 GM PACKET PO PRN (13:42)
--- NOTE | 2020-11-06 13:49 | P.HPIM ---
History of Present Illness H&P Date: 11/06/20 HISTORY OF PRESENT ILLNESS This is an 80-year-old female patient of Dr. Zambrano in [facility] currently at [facility] under the care of Dr. Durham for subacute rehab with past medical history of rheumatoid arthritis, bronchial mild intermittent asthma, overactive bladder. Patient was diagnosed with COVID-19 1 month after receiving the first vaccine on October 23 and was hospitalized at that time. CT angiogram was negative for pulmonary embolism. She was treated with colchicine, Lovenox and supplements. Patient was discharged home on October 28 but due to weakness and diarrhea, rehospitalized on October 29 under [facility] and was subsequently discharged to [facility]. Patient was sent from [facility] to the [facility] due to tachycardia and low blood pressure and fevers. Patient also complained of shortness of breath and body aches. No nausea, vomiting or diarrhea. She does have decreased appetite and generalized weakness. She was found to be afebrile, heart rate 117, respiratory rate 24, blood pressure 132/90, pulse ox 98% on 2 L nasal cannula. EKG was a sinus tachycardia with right bundle branch block. No acute ST changes. Chest x-ray reveals chronic changes. CTA of the chest showed no evidence of pulmonary embolism. Pulmonary emphysema. Thoracic kyphotic deformity. Compression fracture stable. WBC 19.6, hemoglobin 12.7, platelet count 388. INR 1.2. D-dimer 2.61. Electrolytes normal. BUN 23 and creatinine 0.52. AST 53, ALT 31, alkaline phosphate is 152. LDH 876. C-reactive protein 348.3. Lactic acid 1.4. ProBNP 1170. REVIEW OF SYSTEMS Constitutional: Reports fever, no chills, no night sweats. Reported weight loss. Reports weakness, Reportsfatigue no lethargy. No daytime sleepiness. EENT: No headache. No blurred vision or double vision, no loss of vision. Reports loss of Hearing, no ringing in the ears, no dizziness. No nasal drainage or congestion. No epistaxis. No sore throat. Lungs: Reports shortness of breath, cough, no sputum production. No wheezing. Cardiovascular: No chest pain, no lower extremity edema. No palpitations. No paroxysmal nocturnal dyspnea. No orthopnea. No lightheadedness or dizziness. No syncopal episodes. Abdominal: No abdominal pain. No nausea, vomiting. No diarrhea. No constipation. No bloody or tarry stools.. No loss of appetite. Genitourinary: No dysuria, increased frequency, urgency. No urinary retention. Musculoskeletal: Reports myalgias. Reports muscle weakness, no gait dysfunction, no frequent falls. No back pain. No neck pain. Integumentary: No wounds, no lesions. No rash or pruritus. No unusual bruising. No change in hair or nails. Neurologic: No aphasia. No facial droop. No change in mentation. No head injury. No headache. No paralysis. No paresthesia. Psychiatric: No depression. No anxiety. Endocrine: No abnormal blood sugars. SOCIAL HISTORY Patient is a lifelong nonsmoker, no alcohol use, illicit drug use. She lives with her son and family. She has been for 20 years. 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 FAMILY HISTORY Mother at age 59 from a myocardial infarction. Father at age 49 from a myocardial infarction. Patient does not have any brothers or sisters. Patient has one daughter that at age 6 from a brain tumor. One son is living in has no major medical problems. PHYSICAL EXAMINATION Gen: This is a frail 80-year-old female. She is resting on the side of the bed and appears comfortable. No acute respiratory distress is noted. HEENT: Head is atraumatic, normocephalic. Pupils equal, round. Sclerae is anicteric. NECK: Supple. No JVD. No lymphadenopathy. No thyromegaly. LUNGS: Diminished. No intercostal retractions. No accessory muscle usage. HEART: Regular rate and rhythm. No murmur. ABDOMEN: Soft. Bowel sounds are present. No masses. No tenderness. EXTREMITIES: No pedal edema. No calf tenderness. NEUROLOGICAL: Patient is awake, alert and oriented x3. Cranial nerves 2 through 12 are grossly intact. ASSESSMENT AND PLAN 1. Generalized weakness secondary to Covid 19, prolonged hospitalization, recent diarrhea, weight loss. Continue PT and OT. 2. Hypotension and tachycardia with leukocytosis possibly related to dehydration secondary to recent diarrhea, possibly secondary to bacterial pneumonia. 3. Leukocytosis secondary to steroids. 4. Elevated d-dimer, pulmonary embolism ruled out. D-dimer elevated secondary to recent Covid infection.. 5. Elevated inflammatory markers secondary to Covid 19.. 6. Covid 19 pneumonia, possible bacterial pneumonia with lingering effects. Continue Rocephin 1 g daily, dexamethasone 6 mg daily, Lovenox 40 mg subcu daily. 7. History of rheumatoid arthritis. Methotrexate on hold. 8. Mild intermittent asthma. 9. Overactive bladder. Continue Mirabegron 25 mg daily. 10. GI prophylaxis. Protonix. 11. DVT prophylaxis. Lovenox. Patient will be admitted to the hospital for a minimum of 2 night stay. DISCHARGE PLAN Return to [facility] to complete course of rehab. Impression and plan of care have been directed as dictated by the signing physician. Raissa Ledbetter nurse practitioner acting as scribe for signing physician. Past Medical History Past Medical History: Asthma, Osteoarthritis (OA), Rheumatoid Arthritis (RA) Additional Past Medical History / Comment(s): Skin CA History of Any Multi-Drug Resistant Organisms: None Reported Additional Past Surgical History / Comment(s): left hip implant, gallbladder, Skin CA removed from face. Past Psychological History: No Psychological Hx Reported Smoking Status: Never smoker Past Alcohol Use History: None Reported Past Drug Use History: None Reported - Past Family History Father Family Medical History: Myocardial Infarction ([place]) Mother Family Medical History: CVA/TIA Medications and Allergies Home Medications Medication Instructions Recorded Confirmed Type Budesonide/Formoterol Fumarate 2 puff INHALATION RT-BID@0900,2100 04/30/19 11/05/20 History [Symbicort 160-4.5 Mcg Inhaler] metHOTREXate sodium [Methotrexate] 20 mg PO TH@0900 04/30/19 11/05/20 History Mirabegron [Myrbetriq] 25 mg PO DAILY@0900 10/23/20 11/05/20 History Ipratropium-Albuterol Nebulize 3 ml INHALATION RT-QID@,,,10/29/20 11/05/20 History [Duoneb 0.5 mg-3 mg/3 ml Soln] Cholestyramine (with Sugar) 4 gm PO TID BETWEEN MEALS PRN 10/30/20 11/05/20 Rx [Questran Packet] packet Dicyclomine [Bentyl] 10 mg PO TID PRN #10 capsule 10/30/20 11/05/20 Rx Acetaminophen [Tylenol] 650 mg PO Q6H PRN 11/05/20 11/05/20 History Ascorbic Acid [Vitamin C] 500 mg PO DAILY@0900 11/05/20 11/05/20 History Cholecalciferol [Vitamin D3 (25 25 mcg PO DAILY@0900 11/05/20 11/05/20 History Mcg = 1000 Iu)] Folic Acid 1 mg PO DAILY@0900 11/05/20 11/05/20 History Lactose-Reduced Food [Ensure Plus] 1 can PO BID@0900,2100 11/05/20 11/05/20 History Loperamide [Imodium] 2 mg PO Q6H PRN 11/05/20 11/05/20 History Multivitamins, Thera [Multivitamin 1 tab PO DAILY@0900 11/05/20 11/05/20 History (formulary)] Thiamine [Vitamin B-1] 100 mg PO DAILY@0900 11/05/20 11/05/20 History Zinc Sulfate [Orazinc] 220 mg PO DAILY@0900 11/05/20 11/05/20 History Allergies Allergy/AdvReac Type Severity Reaction Status Date / Time sulfadiazine Allergy Anaphylaxis Verified 11/05/20 17:03 Physical Exam Vitals: Vital Signs Temp Pulse Pulse Resp BP BP Pulse Ox 11/06/20 08:00 98 F 87 18 126/68 99 11/06/20 04:00 98.6 F 84 18 131/63 100 11/06/20 00:00 98.9 F 94 18 127/72 95 11/05/20 21:47 86 14 136/76 97 11/05/20 19:08 93 16 141/70 99 11/05/20 16:44 108 H 16 132/94 100 11/05/20 15:24 120 H 24 130/74 97 11/05/20 14:17 99.1 F 117 H 24 132/90 98 Intake and Output 11/05/20 11/06/20 11/06/20 22:59 06:59 14:59 Intake Total 240 Balance 240 Intake: Oral 240 Other: Voiding Method Diaper # Voids 1 1 Weight 31.5 kg 31.5 kg Results CBC & Chem 7: 11/05/20 14:44 11/05/20 14:44 Labs: Abnormal Lab Results - Last 24 Hours (Table) 11/05/20 11/05/20 11/05/20 Range/Units 14:44 14:44 14:44 WBC 19.6 H (3.8-10.6) k/uL Neutrophils # 17.5 H (1.3-7.7) k/uL PT 12.8 H (9.0-12.0) sec INR 1.2 H (<1.2) D-Dimer 2.61 H (<0.60) mg/L FEU BUN 23 H (7-17) mg/dL Glucose 111 H (74-99) mg/dL POC Glucose (mg/dL) (75-99) mg/dL AST 53 H (14-36) U/L Alkaline Phosphatase 152 H (38-126) U/L Lactate Dehydrogenase 876 H (313-618) U/L C-Reactive Protein 348.3 H (<10.0) mg/L Total Protein 6.0 L (6.3-8.2) g/dL Albumin 2.8 L (3.5-5.0) g/dL Procalcitonin (0.02-0.09) ng/mL 11/05/20 11/05/20 Range/Units 14:44 23:06 WBC (3.8-10.6) k/uL Neutrophils # (1.3-7.7) k/uL PT (9.0-12.0) sec INR (<1.2) D-Dimer (<0.60) mg/L FEU BUN (7-17) mg/dL Glucose (74-99) mg/dL POC Glucose (mg/dL) 159 H (75-99) mg/dL AST (14-36) U/L Alkaline Phosphatase (38-126) U/L Lactate Dehydrogenase (313-618) U/L C-Reactive Protein (<10.0) mg/L Total Protein (6.3-8.2) g/dL Albumin (3.5-5.0) g/dL Procalcitonin 10.24 H (0.02-0.09) ng/mL Thrombosis Risk Factor Assmnt - Choose All That Apply Any of the Below Risk Factors Present?: No Each Risk Factor Represents 3 Points: Age 75 years or older Other congenital or acquired thrombophilia - If yes, enter type in comment: No Thrombosis Risk Factor Assessment Total Risk Factor Score: 3 Thrombosis Risk Factor Assessment Level: Moderate Risk
[2020-11-06] MEDS: ENOXAPARIN 40 MG/0.4 ML SYRINGE SQ SCH (14:39)
--- NOTE | 2020-11-06 15:24 | P.CNPUL ---
History of Present Illness Consult date: 11/06/20 Requesting physician: Angely Garrett Chief complaint: Tachycardia, hypoxemia. History of present illness: 80-year-old female, who is an extremely poor historian, who apparently tested positive for COVID 19, on 10/20/2020. She apparently tested positive between her first coronavirus vaccine and her second vaccine. The patient apparently resides at one of the local nursing homes. She presented to the emergency room on November 05, with a rapid heart rate, and low blood pressure. Apparently in the emergency room, she complained of shortness of breath. She also apparently had body aches. Today, when I talked to the patient, she is an extremely poor historian, and doesn't really admit to anything at all. It's hard to know what she was actually complaining out. In the ER sosa mentions that she did not complain of nausea, vomiting, diarrhea, abdominal pain, rash, or lower extremity edema. He does mention that she had a poor appetite, and poor fluid intake. Chest x-ray showed chronic changes without new or suspicious acute pulmonary process. CT angiogram did not reveal a pulmonary embolus and only showed e vidence of emphysematous changes. White count was 19.6, hemoglobin 12.7, hematocrit 39.4, and platelet count 388,000. PT 12.8, INR 1.2, PTT 24.2, and d- dimer 2.61. Sodium potassium chloride and CO2 were all normal. Anion gap was normal. BUN was 23 with a creatinine of 0.52. LDH was 876, C-reactive protein was 348, N-terminal proBNP was 1170, and pro-calcitonin level was 10.24. Review of Systems REVIEW OF SYSTEMS: CONSTITUTIONAL: [Negative.] NEUROLOGIC: [ Negative.] HEENT: [ Negative.] CARDIAC: Rapid heart rate and low blood pressure. PULMONARY: Possible shortness of breath. GI: [Negative.] : [Negative.] RHEUMATOLOGIC: [ Negative.] IMMUNOLOGIC: [ Negative.] ENDOCRINE: [Negative. ] DERMATOLOGIC: [Negative.] Past Medical History Past Medical History: Asthma, Osteoarthritis (OA), Rheumatoid Arthritis (RA) Additional Past Medical History / Comment(s): Skin CA History of Any Multi-Drug Resistant Organisms: None Reported Additional Past Surgical History / Comment(s): left hip implant, gallbladder, Skin CA removed from face. Past Psychological History: No Psychological Hx Reported Smoking Status: Never smoker Past Alcohol Use History: None Reported Past Drug Use History: None Reported - Past Family History Father Family Medical History: Myocardial Infarction ([place]) Mother Family Medical History: CVA/TIA Medications and Allergies Home Medications Medication Instructions Recorded Confirmed Type Budesonide/Formoterol Fumarate 2 puff INHALATION RT-BID@09,209904/30/19 11/05/20 History [Symbicort 160-4.5 Mcg Inhaler] metHOTREXate sodium [Methotrexate] 20 mg PO TH@89904/30/19 11/05/20 History Mirabegron [Myrbetriq] 25 mg PO DAILY@89910/23/20 11/05/20 History Ipratropium-Albuterol Nebulize 3 ml INHALATION RT-QID@,,,10/29/20 11/05/20 History [Duoneb 0.5 mg-3 mg/3 ml Soln] Cholestyramine (with Sugar) 4 gm PO TID BETWEEN MEALS PRN 10/30/20 11/05/20 Rx [Questran Packet] packet Dicyclomine [Bentyl] 10 mg PO TID PRN #10 capsule 10/30/20 11/05/20 Rx Acetaminophen [Tylenol] 650 mg PO Q6H PRN 11/05/20 11/05/20 History Ascorbic Acid [Vitamin C] 500 mg PO DAILY@89911/05/20 11/05/20 History Cholecalciferol [Vitamin D3 (25 25 mcg PO DAILY@89911/05/20 11/05/20 History Mcg = 1000 Iu)] Folic Acid 1 mg PO DAILY@89911/05/20 11/05/20 History Lactose-Reduced Food [Ensure Plus] 1 can PO BID@0900,209911/05/20 11/05/20 History Loperamide [Imodium] 2 mg PO Q6H PRN 11/05/20 11/05/20 History Multivitamins, Thera [Multivitamin 1 tab PO DAILY@00 11/05/20 11/05/20 History (formulary)] Thiamine [Vitamin B-1] 100 mg PO DAILY@00 11/05/20 11/05/20 History Zinc Sulfate [Orazinc] 220 mg PO DAILY@00 11/05/20 11/05/20 History Allergies Allergy/AdvReac Type Severity Reaction Status Date / Time sulfadiazine Allergy Anaphylaxis Verified 11/05/20 17:03 Physical Exam Osteopathic Statement: *. No significant issues noted on an osteopathic structural exam other than those noted in the History and Physical/Consult. Vitals: Vital Signs Temp Pulse Pulse Resp BP BP Pulse Ox 11/06/20 12:00 98.4 F 87 16 134/68 99 11/06/20 08:00 98 F 87 18 126/68 99 11/06/20 04:00 98.6 F 84 18 131/63 100 11/06/20 00:00 98.9 F 94 18 127/72 95 11/05/20 21:47 86 14 136/76 97 11/05/20 19:08 93 16 141/70 99 11/05/20 16:44 108 H 16 132/94 100 11/05/20 15:24 120 H 24 130/74 97 Intake and Output 11/06/20 11/06/20 11/06/20 06:59 14:59 22:59 Intake Total 240 Balance 240 Intake: Oral 240 Other: Voiding Method Diaper Diaper # Voids 1 1 Weight 31.5 kg No acute respiratory distress, poor historian, room air saturation 99%. HEENT examination is grossly unremarkable. Mucous membranes are moist. Small sores about her lips. Neck supple. Full range of motion. No adenopathy thyromegaly or neck vein distention. Cardiovascular examination reveals regular rhythm rate. S1-S2 normal. No S3 or S4. No discernible murmur noted. Heart rate 87 bpm. Lungs reveal clear breath sounds. Her sounds are equal bilaterally. No adventitious lung sounds including wheezes rhonchi or crackles. Abdomen soft bowel sounds are heard. No masses or tenderness. Extremities are intact. No cyanosis clubbing or edema. Deformities of rheumatoid arthritis are noticed in her hands and wrists. Skin is without rash or lesion. Neurologic examination is brief but nonfocal. Not a good historian. Results - Laboratory Findings CBC and BMP: 11/05/20 14:44 11/05/20 14:44 PT/INR, D-dimer PT 12.8 sec (9.0-12.0) H 11/05/20 14:44 INR 1.2 (<1.2) H 11/05/20 14:44 D-Dimer 2.61 mg/L FEU (<0.60) H 11/05/20 14:44 Abnormal lab findings: Abnormal Labs 11/05/20 11/05/20 11/05/20 14:44 14:44 14:44 WBC 19.6 H Neutrophils # 17.5 H PT 12.8 H INR 1.2 H D-Dimer 2.61 H BUN 23 H Glucose 111 H POC Glucose (mg/dL) AST 53 H Alkaline Phosphatase 152 H Lactate Dehydrogenase 876 H C-Reactive Protein 348.3 H Total Protein 6.0 L Albumin 2.8 L Procalcitonin 11/05/20 11/05/20 14:44 23:06 WBC Neutrophils # PT INR D-Dimer BUN Glucose POC Glucose (mg/dL) 159 H AST Alkaline Phosphatase Lactate Dehydrogenase C-Reactive Protein Total Protein Albumin Procalcitonin 10.24 H - Diagnostic Findings Chest x-ray: image reviewed CT scan - chest: image reviewed Assessment and Plan Assessment: Prior history of COVID 19 infection, 10/20/2020. Essentially normal chest x-ray and CT angiogram, without evidence of COVID 19 related pneumonia/pneumonitis. No evidence of bacterial pneumonia at this time. Tachycardia, and hypotension, resolved. History of chronic bronchial asthma. History of rheumatoid arthritis. History of skin cancer. History of DJD. Plan: Plan dated 11/06/2020. In my opinion, the patient does not need or require antibiotics at this time. Chest x-ray and CT angiogram did not show any evidence of active pulmonary disease. A urine should be checked. The patient will not benefit from decadron at this time. Additional recommendations and suggestions are forthcoming. She tested positive for COVID 19 back on October 20. We will continue to follow. A urinalysis will be sent. Prognosis is guarded. Etiology of her tachycardia and hyportension are not clear. Currently, she is on room air. She's not having any pulmonary complaints. Blood pressure and heart rate are normal. The patient has essentially been afebrile. Time with Patient: Greater than 30
[2020-11-06] MEDS ORDERED: ALBUTEROL HFA INHALER INHALATION PRN (15:28)
[2020-11-06] MEDS: ALBUTEROL HFA INHALER INHALATION SCH ×2 (15:41→19:32)
[2020-11-06 15:47] LABS: Ferritin 969.6 ng/mL (10.0-291.0)
[2020-11-06] MEDS ORDERED: IPRATROPIUM-ALBUTEROL 3 ML NEB INHALATION SCH (17:00)
[2020-11-06] MEDS: SYMBICORT 160-4.5 MCG INHALER INHALATION SCH (19:32)
[2020-11-06] MEDS ORDERED: NON FORMULARY DRUG (Lactose-Reduced Food [Ensure Plus] 237 ML Liquid) PO SCH (21:00)
[2020-11-07] MEDS: SODIUM CHLORIDE 0.9% 1,000 ML IV SCH ×2 (06:17→15:04)
[2020-11-07] MEDS: PANTOPRAZOLE 40 MG TABLET PO SCH (06:24)
[2020-11-07] MEDS: SYMBICORT 160-4.5 MCG INHALER INHALATION SCH ×2 (07:22→20:03)
[2020-11-07] MEDS: ALBUTEROL HFA INHALER INHALATION SCH ×4 (07:22→20:03)
[2020-11-07] MEDS: CHOLECALCIFEROL 25 MCG (1000 IU) TABLET PO SCH (09:23)
[2020-11-07] MEDS: FOLIC ACID 1 MG TAB PO SCH (09:24)
[2020-11-07] MEDS: THIAMINE 100 MG TAB PO SCH (09:24)
[2020-11-07] MEDS: ZINC SULFATE 220 MG CAP PO SCH (09:24)
[2020-11-07] MEDS: ASCORBIC ACID 500 MG TAB PO SCH (09:24)
[2020-11-07] MEDS: MULTIVITAMINS, THERA 1 EACH TAB PO SCH (09:24)
[2020-11-07] MEDS: ENOXAPARIN 40 MG/0.4 ML SYRINGE SQ SCH (09:25)
[2020-11-07] MEDS: NON FORMULARY DRUG (Mirabegron [Myrbetriq] 25 MG Tab.Er.24h) PO SCH (09:25)
[2020-11-07] MEDS: ACETAMINOPHEN TAB 325 MG TAB PO PRN ×2 (11:27→17:40)
--- NOTE | 2020-11-07 14:42 | P.PN ---
Subjective Progress Note Date: 11/07/20 HISTORY OF PRESENT ILLNESS This is an 80-year-old female patient of Dr. Zambrano in [facility] currently at [facility] under the care of Dr. Durham for subacute rehab with past medical history of rheumatoid arthritis, bronchial mild intermittent asthma, overactive bladder. Patient was diagnosed with COVID-19 1 month after receiving the first vaccine on October 23 and was hospitalized at that time. CT angiogram was negative for pulmonary embolism. She was treated with colchicine, Lovenox and supplements. Patient was discharged home on October 28 but due to weakness and diarrhea, nathan ospitalized on October 29 under [facility] and was subsequently discharged to [facility]. Patient was sent from [facility] to the [facility] due to tachycardia and low blood pressure and fevers. Patient also complained of shortness of breath and body aches. No nausea, vomiting or diarrhea. She does have decreased appetite and generalized weakness. She was found to be afebrile, heart rate 117, respiratory rate 24, blood pressure 132/90, pulse ox 98% on 2 L nasal cannula. EKG was a sinus tachycardia with right bundle branch block. No acute ST changes. Chest x-ray reveals chronic changes. CTA of the chest showed no evidence of pulmonary embolism. Pulmonary emphysema. Thoracic kyphotic deformity. Compression fracture stable. WBC 19.6, hemoglobin 12.7, platelet count 388. INR 1.2. D-dimer 2.61. Electrolytes normal. BUN 23 and creatinine 0.52. AST 53, ALT 31, alkaline phosphate is 152. LDH 876. C-reactive protein 348.3. Lactic acid 1.4. ProBNP 1170. 3/: Pulse ox 100% on 2 L nasal cannula, afebrile, heart rate 79, blood pressure 135/74. media monitor is a sinus rhythm. Patient has been seen by pulmonary medicine indeterminate patient does not require antibiotics, no benefit with Decadron. Recommended a urinalysis which has been ordered on 2 occasions and not collected. Patient has refused PT and OT today. Recommendations from therapies is for subacute rehab. Patient is eating very little, she states she does not have appetite. Patient remains pleasantly confused. REVIEW OF SYSTEMS Constitutional: Reports fever, no chills, no night sweats. Reported weight loss. Reports weakness, Reportsfatigue no lethargy. No daytime sleepiness. EENT: No headache. No blurred vision or double vision, no loss of vision. Reports loss of Hearing, no ringing in the ears, no dizziness. No nasal drainage or congestion. No epistaxis. No sore throat. Lungs: Reports shortness of breath, cough, no sputum production. No wheezing. Cardiovascular: No chest pain, no lower extremity edema. No palpitations. No paroxysmal nocturnal dyspnea. No orthopnea. No lightheadedness or dizziness. No syncopal episodes. Abdominal: No abdominal pain. No nausea, vomiting. No diarrhea. No constipation. No bloody or tarry stools.. No loss of appetite. Genitourinary: No dysuria, increased frequency, urgency. No urinary retention. Musculoskeletal: Reports myalgias. Reports muscle weakness, no gait dysfunction, no frequent falls. No back pain. No neck pain. Integumentary: No wounds, no lesions. No rash or pruritus. No unusual bruising. No change in hair or nails. Neurologic: No aphasia. No facial droop. No change in mentation. No head injury. No headache. No paralysis. No paresthesia. Psychiatric: No depression. No anxiety. Endocrine: No abnormal blood sugars. PHYSICAL EXAMINATION Gen: This is a frail 80-year-old female. She is resting on the side of the bed and appears comfortable. No acute respiratory distress is noted. HEENT: Head is atraumatic, normocephalic. Pupils equal, round. Sclerae is anicteric. NECK: Supple. No JVD. No lymphadenopathy. No thyromegaly. LUNGS: Diminished. No intercostal retractions. No accessory muscle usage. HEART: Regular rate and rhythm. No murmur. ABDOMEN: Soft. Bowel sounds are present. No masses. No tenderness. EXTREMITIES: No pedal edema. No calf tenderness. NEUROLOGICAL: Patient is awake, alert and oriented to person and place. Cranial nerves 2 through 12 are grossly intact. ASSESSMENT AND PLAN 1. Generalized weakness secondary to Covid 19, prolonged hospitalization, recent diarrhea, weight loss. Continue PT and OT. 2. Hypotension and tachycardia with leukocytosis possibly related to deh ydration secondary to recent diarrhea, possibly secondary to bacterial pneumonia. 3. Leukocytosis secondary to steroids. 4. Elevated d-dimer, pulmonary embolism ruled out. D-dimer elevated secondary to recent Covid infection.. 5. Elevated inflammatory markers secondary to Covid 19.. 6. Covid 19 pneumonia, possible bacterial pneumonia with lingering effects. Continue Rocephin 1 g daily, dexamethasone 6 mg daily, Lovenox 40 mg subcu daily. 7. History of rheumatoid arthritis. Methotrexate on hold. 8. Mild intermittent asthma. 9. Overactive bladder. Continue Mirabegron 25 mg daily. 10. GI prophylaxis. Protonix. 11. DVT prophylaxis. Lovenox. DISCHARGE PLAN Return to [facility] on Tuesday to complete course of rehab. Impression and plan of care have been directed as dictated by the signing physician. Raissa Ledbetter nurse practitioner acting as scribe for signing physician. Objective - Vital Signs Vital signs: Vital Signs Temp 98 F 11/07/20 12:00 Pulse 79 11/07/20 12:00 Resp 20 11/07/20 12:00 BP 135/74 11/07/20 12:00 Pulse Ox 100 11/07/20 12:00 Intake & Output 11/06/20 11/07/20 11/07/20 18:59 06:59 18:59 Intake Total 240 240 365 Balance 240 240 365 Weight 34.5 kg 34.5 kg Intake: Oral 240 240 365 Other: Voiding Method Diaper Diaper Bedside Commode Bedpan Diaper # Voids 1 2 3 - Labs CBC & Chem 7: 11/05/20 14:44 11/05/20 14:44 Labs: Abnormal Lab Results - Last 24 Hours (Table) 11/05/20 Range/Units 14:44 Ferritin 969.6 H (10.0-291.0) ng/mL Microbiology - Last 24 Hours (Table) 11/05/20 15:21 Blood Culture - Preliminary Blood No Growth after 24 hours 11/05/20 14:44 Blood Culture - Preliminary Blood No Growth after 24 hours
[2020-11-07 14:57] LABS: Appearance,Urine Cloudy (Clear); Bacteria,Urine Rare /hpf; Bilirubin,Urine Negative (Negative); Blood,Urine Trace (Negative); Budding Yeast,Urine Few /hpf; Color,Urine Yellow; Glucose,Urine (UA) Negative (Negative); Ketones,Urine Negative (Negative); Leukocyte Esterase,Urine Large (Negative); Mucus,Urine Rare /hpf; Nitrite,Urine Negative (Negative); Protein,Urine Trace (Negative); RBC,Urine 7 /hpf (0-5); Specific Gravity,Urine 1.014 (1.001-1.035); Squamous Epithelial Cell,Urine <1 /hpf (0-4); Urobilinogen,Urine <2.0 mg/dL (<2.0); WBC,Urine 89 /hpf (0-5)
--- NOTE | 2020-11-07 16:10 | P.PN ---
Subjective Progress Note Date: 11/07/20 80-year-old female, who is an extremely poor historian, who apparently tested positive for COVID 19, on 10/20/2020. She apparently tested positive between her first coronavirus vaccine and her second vaccine. The patient apparently resides at one of the local nursing homes. She presented to the emergency room on November 05, with a rapid heart rate, and low blood pressure. Apparently in the emergency room, she complained of shortness of breath. She also apparently had body aches. Today, when I talked to the patient, she is an extremely poor historian, and doesn't really admit to anything at all. It's hard to know what she was actually complaining out. In the ER sosa mentions that she did not complain of nausea, vomiting, diarrhea, abdominal pain, rash, or lower extremity edema. He does mention that she had a poor appetite, and poor fluid intake. Chest x-ray showed chronic changes without new or suspicious acute pulmonary process. CT angiogram did not reveal a pulmonary embolus and only showed evidence of emphysematous changes. White count was 19.6, hemoglobin 12.7, hematocrit 39.4, and platelet count 388,000. PT 12.8, INR 1.2, PTT 24.2, and d- dimer 2.61. Sodium potassium chloride and CO2 were all normal. Anion gap was normal. BUN was 23 with a creatinine of 0.52. LDH was 876, C-reactive protein was 348, N-terminal proBNP was 1170, and pro-calcitonin level was 10.24. The patient is seen today 11/07/2020 in follow-up on the selective care unit. She is currently awake and alert resting comfortably in bed. Maintaining O2 saturations in the 90s on 2 L/m per nasal cannula. She did test positive for CoVID 19 19 on 10/20/2020. Continued on Lovenox, vitamin supplements. She remains on Symbicort, albuterol, antibiotics in the form of ceftriaxone. Urinalysis cloudy, large leukocyte esterase, many WBCs, rare bacteria. Cultures pending. Objective - Vital Signs Vital signs: Vital Signs Temp 97.9 F 11/07/20 15:54 Pulse 81 11/07/20 15:54 Resp 16 11/07/20 15:54 BP 139/75 11/07/20 15:54 Pulse Ox 98 11/07/20 15:54 Intake & Output 11/06/20 11/07/20 11/07/20 18:59 06:59 18:59 Intake Total 240 240 490 Balance 240 240 490 Weight 34.5 kg 34.5 kg Intake: Oral 240 240 490 Other: Voiding Method Diaper Diaper Bedside Commode Bedpan Diaper # Voids 1 2 2 - Exam GENERAL EXAM: Alert, very pleasant 80-year-old female patient, on 2 L nasal cannula, comfortable in no apparent distress. HEAD: Normocephalic. EYES: Normal reaction of pupils, equal size. NOSE: Clear with pink turbinates. THROAT: No erythema or exudates. NECK: No masses, no JVD. CHEST: No chest wall deformity. LUNGS: Equal air entry with no crackles, wheeze, rhonchi or dullness. CVS: S1 and S2 normal with no audible murmur, regular rhythm. ABDOMEN: No hepatosplenomegaly, normal bowel sounds, no guarding or rigidity. SPINE: No scoliosis or deformity SKIN: No rashes CENTRAL NERVOUS SYSTEM: No focal deficits, tone is normal in all 4 extremities. EXTREMITIES: There is no peripheral edema. No clubbing, no cyanosis. Peripheral pulses are intact. - Labs CBC & Chem 7: 11/05/20 14:44 11/05/20 14:44 Labs: Abnormal Lab Results - Last 24 Hours (Table) 11/07/20 Range/Units 14:40 Urine Appearance Cloudy H (Clear) Urine Protein Trace H (Negative) Urine Blood Trace H (Negative) Ur Leukocyte Esterase Large H (Negative) Urine RBC 7 H (0-5) /hpf Urine WBC 89 H (0-5) /hpf Urine Bacteria Rare H (None) /hpf Urine Mucus Rare H (None) /hpf Urine Yeast (Budding) Few H (None) /hpf Microbiology - Last 24 Hours (Table) 11/05/20 15:21 Blood Culture - Preliminary Blood No Growth after 24 hours 11/05/20 14:44 Blood Culture - Preliminary Blood No Growth after 24 hours Assessment and Plan Assessment: 1 Prior history of COVID 19 infection, 10/20/2020. Essentially normal chest x- ray and CT angiogram, without evidence of COVID 19 related pneumonia/pneumonitis. 2 Elevated pro calcitonin, suspect urinary tract infection 3 Tachycardia, and hypotension, resolved. 4 History of chronic bronchial asthma. 5 History of rheumatoid arthritis. 6 History of skin cancer. 7 History of DJD. Plan: The patient was seen and evaluated by Dr. Yusuf Urinalysis results reviewed, cultures pending Continue ceftriaxone Titrate down the FiO2 as tolerated We'll continue to follow I, the cosigning physician, performed a history & physical examination of the patient. Lungs sounds are clear. Maintaining good O2 saturations in the 90s on 2 L nasal cannula. I discussed the assessment and plan of care with my nurse practitioner, Kary Escamilla. I attest to the above note as dictated by her.
[2020-11-08] MEDS: SODIUM CHLORIDE 0.9% 1,000 ML IV SCH ×4 (04:20→20:07)
[2020-11-08] MEDS: ACETAMINOPHEN TAB 325 MG TAB PO PRN (04:21)
[2020-11-08] MEDS: PANTOPRAZOLE 40 MG TABLET PO SCH (06:46)
[2020-11-08] MEDS: ALBUTEROL HFA INHALER INHALATION SCH ×4 (08:47→20:21)
[2020-11-08] MEDS: SYMBICORT 160-4.5 MCG INHALER INHALATION SCH ×2 (08:47→20:22)
[2020-11-08 09:41] LABS: HCT 33.1 % (34.0-46.0); Hypochromasia Slight; MCH 32.4 pg (25.0-35.0); MCHC 33.3 g/dL (31.0-37.0); MCV 97.2 fL (80.0-100.0); Mean Platelet Volume 7.5; Platelet Count 327 k/uL (150-450); RDW 14.9 % (11.5-15.5); WBC 9.8 k/uL (3.8-10.6)
[2020-11-08] MEDS: FOLIC ACID 1 MG TAB PO SCH (10:02)
[2020-11-08] MEDS: CHOLECALCIFEROL 25 MCG (1000 IU) TABLET PO SCH (10:02)
[2020-11-08] MEDS: ENOXAPARIN 40 MG/0.4 ML SYRINGE SQ SCH (10:02)
[2020-11-08] MEDS: ZINC SULFATE 220 MG CAP PO SCH (10:02)
[2020-11-08] MEDS: MULTIVITAMINS, THERA 1 EACH TAB PO SCH (10:02)
[2020-11-08] MEDS: ASCORBIC ACID 500 MG TAB PO SCH (10:02)
[2020-11-08] MEDS: THIAMINE 100 MG TAB PO SCH (10:02)
[2020-11-08] MEDS: NON FORMULARY DRUG (Mirabegron [Myrbetriq] 25 MG Tab.Er.24h) PO SCH (11:00)
[2020-11-08 11:21] LABS: ALT 31 U/L (4-34); AST 31 U/L (14-36); African American GFR (CKD) >90 (>60 ml/min/1.73 sqM); Albumin 2.5 g/dL (3.5-5.0); Alkaline Phosphatase 106 U/L (38-126); Anion Gap 3 mmol/L; Blood Urea Nitrogen 13 mg/dL (7-17); Calcium 8.8 mg/dL (8.4-10.2); Carbon Dioxide 31 mmol/L (22-30); Chloride 104 mmol/L (98-107); Glucose 87 mg/dL (74-99); Non-African American GFR(CKD) >90 (>60 ml/min/1.73 sqM); Potassium 3.6 mmol/L (3.5-5.1); Sodium 138 mmol/L (137-145); Total Bilirubin 0.5 mg/dL (0.2-1.3); Total Protein 5.4 g/dL (6.3-8.2)
[2020-11-08] MEDS: MORPHINE SULFATE IR 15 MG TABLET PO SCH ×2 (12:19→20:12)
--- NOTE | 2020-11-08 14:49 | P.PN ---
Subjective Progress Note Date: 11/08/20 80-year-old female, who is an extremely poor historian, who apparently tested positive for COVID 19, on 10/20/2020. She apparently tested positive between her first coronavirus vaccine and her second vaccine. The patient apparently resides at one of the local nursing homes. She presented to the emergency room on November 05, with a rapid heart rate, and low blood pressure. Apparently in the emergency room, she complained of shortness of breath. She also apparently had body aches. Today, when I talked to the patient, she is an extremely poor historian, and doesn't really admit to anything at all. It's hard to know what she was actually complaining out. In the ER sosa mentions that she did not complain of nausea, vomiting, diarrhea, abdominal pain, rash, or lower extremity edema. He does mention that she had a poor appetite, and poor fluid intake. Chest x-ray showed chronic changes without new or suspicious acute pulmonary process. CT angiogram did not reveal a pulmonary embolus and only showed evidence of emphysematous changes. White count was 19.6, hemoglobin 12.7, hematocrit 39.4, and platelet count 388,000. PT 12.8, INR 1.2, PTT 24.2, and d- dimer 2.61. Sodium potassium chloride and CO2 were all normal. Anion gap was normal. BUN was 23 with a creatinine of 0.52. LDH was 876, C-reactive protein was 348, N-terminal proBNP was 1170, and pro-calcitonin level was 10.24. The patient is seen today 11/07/2020 in follow-up on the selective care unit. She is currently awake and alert resting comfortably in bed. Maintaining O2 saturations in the 90s on 2 L/m per nasal cannula. She did test positive for CoVID 19 19 on 10/20/2020. Continued on Lovenox, vitamin supplements. She remains on Symbicort, albuterol, antibiotics in the form of ceftriaxone. Urinalysis cloudy, large leukocyte esterase, many WBCs, rare bacteria. Cultures pending. Patient is seen today 11/08/2020 in follow-up on the selective care unit. Currently resting comfortably in bed. Awake and alert in no acute distress. Maintaining O2 saturations in the 90s on 2 L/m per nasal cannula. White count 9.8. Hemoglobin 11.0. Sodium 138. Potassium 3.6. Creatinine 0.45. Blood and urine cultures pending. She remains on ceftriaxone. Objective - Vital Signs Vital signs: Vital Signs Temp 98.1 F 11/08/20 10:51 Pulse 73 11/08/20 10:51 Resp 18 11/08/20 04:00 BP 140/58 11/08/20 10:51 Pulse Ox 97 11/08/20 10:51 Intake & Output 11/07/20 11/08/20 11/08/20 18:59 06:59 18:59 Intake Total 490 600 Balance 490 600 Weight 34.5 kg 39.5 kg Intake: Intake, IV Titration 600 Amount Sodium Chloride 0.9% 1, 600 000 ml @ 130 mls/hr IV . [id number] [facility] Rx#:[id number] Oral 490 Other: Voiding Method Bedside Commode Bedside Commode Bedside Commode Bedpan Bedpan Bedpan Diaper Diaper Diaper # Voids 2 4 - Exam GENERAL EXAM: Alert, very pleasant 80-year-old female patient, on 2 L nasal cannula, comfortable in no apparent distress. HEAD: Normocephalic. EYES: Normal reaction of pupils, equal size. NOSE: Clear with pink turbinates. THROAT: No erythema or exudates. NECK: No masses, no JVD. CHEST: No chest wall deformity. LUNGS: Equal air entry with no crackles, wheeze, rhonchi or dullness. CVS: S1 and S2 normal with no audible murmur, regular rhythm. ABDOMEN: No hepatosplenomegaly, normal bowel sounds, no guarding or rigidity. SPINE: No scoliosis or deformity SKIN: No rashes CENTRAL NERVOUS SYSTEM: No focal deficits, tone is normal in all 4 extremities. EXTREMITIES: Rheumatic changes. There is no peripheral edema. No clubbing, no cyanosis. Peripheral pulses are intact. - Labs CBC & Chem 7: 11/08/20 08:23 11/08/20 10:53 Labs: Abnormal Lab Results - Last 24 Hours (Table) 11/07/20 11/08/20 11/08/20 Range/Units 14:40 08:23 10:53 RBC 3.40 L (3.80-5.40) m/uL Hgb 11.0 L (11.4-16.0) gm/dL Hct 33.1 L (34.0-46.0) % Carbon Dioxide 31 H (22-30) mmol/L Creatinine 0.45 L (0.52-1.04) mg/dL Total Protein 5.4 L (6.3-8.2) g/dL Albumin 2.5 L (3.5-5.0) g/dL Urine Appearance Cloudy H (Clear) Urine Protein Trace H (Negative) Urine Blood Trace H (Negative) Ur Leukocyte Esterase Large H (Negative) Urine RBC 7 H (0-5) /hpf Urine WBC 89 H (0-5) /hpf Urine Bacteria Rare H (None) /hpf Urine Mucus Rare H (None) /hpf Urine Yeast (Budding) Few H (None) /hpf Microbiology - Last 24 Hours (Table) 11/07/20 14:40 Urine Culture - Preliminary Urine,Clean Catch 11/05/20 15:21 Blood Culture - Preliminary Blood No Growth after 48 hours 11/05/20 14:44 Blood Culture - Preliminary Blood No Growth after 48 hours Assessment and Plan Assessment: 1 Prior history of COVID 19 infection, 10/20/2020. Essentially normal chest x- ray and CT angiogram, without evidence of COVID 19 related pneumonia/pneumonitis. 2 Elevated pro calcitonin, suspect urinary tract infection 3 Tachycardia, and hypotension, resolved. 4 History of chronic bronchial asthma. 5 History of rheumatoid arthritis. 6 History of skin cancer. 7 History of DJD. Plan: The patient was seen and evaluated by Dr. Yusuf Urine and blood cultures pending Continue ceftriaxone Continue bronchodilators We'll continue to follow I, the cosigning physician, performed a history & physical examination of the patient. Lungs sounds are clear. Maintaining good O2 saturations in the 90s on 2 L nasal cannula. I discussed the assessment and plan of care with my nurse practitioner, Kary Escamilla. I attest to the above note as dictated by her.
--- NOTE | 2020-11-08 15:50 | P.PN ---
Subjective Progress Note Date: 11/08/20 HISTORY OF PRESENT ILLNESS This is an 80-year-old female patient of Dr. Zambrano in [facility] currently at [facility] under the care of Dr. Durham for subacute rehab with past medical history of rheumatoid arthritis, bronchial mild intermittent asthma, overactive bladder. Patient was diagnosed with COVID-19 1 month after receiving the first vaccine on October 23 and was hospitalized at that time. CT angiogram was negative for pulmonary embolism. She was treated with colchicine, Lovenox and supplements. Patient was discharged home on October 28 but due to weakness and diarrhea, re hospitalized on October 29 under [facility] and was subsequently discharged to [facility]. Patient was sent from [facility] to the [facility] due to tachycardia and low blood pressure and fevers. Patient also complained of shortness of breath and body aches. No nausea, vomiting or diarrhea. She does have decreased appetite and generalized weakness. She was found to be afebrile, heart rate 117, respiratory rate 24, blood pressure 132/90, pulse ox 98% on 2 L nasal cannula. EKG was a sinus tachycardia with right bundle branch block. No acute ST changes. Chest x-ray reveals chronic changes. CTA of the chest showed no evidence of pulmonary embolism. Pulmonary emphysema. Thoracic kyphotic deformity. Compression fracture stable. WBC 19.6, hemoglobin 12.7, platelet count 388. INR 1.2. D-dimer 2.61. Electrolytes normal. BUN 23 and creatinine 0.52. AST 53, ALT 31, alkaline phosphate is 152. LDH 876. C-reactive protein 348.3. Lactic acid 1.4. ProBNP 1170. 11/07: Pulse ox 100% on 2 L nasal cannula, afebrile, heart rate 79, blood pressure 135/74. monitor technician is a sinus rhythm. Patient has been seen by pulmonary medicine indeterminate patient does not require antibiotics, no benefit with Decadron. Recommended a urinalysis which has been ordered on 2 occasions and not collected. Patient has refused PT and OT today. Recommendations from therapies is for subacute rehab. Patient is eating very little, she states she does not have appetite. Patient remains pleasantly confused. 11/08: Patient arm was seen for evaluation today, very frail looking, she R feels drowsy, and has not slept well last night, when inquired she arm was supposed to take morphine 30 mg every 8 hours, she has been doing in the past several years, secondary to RA. Apparently she hasn't had this medication off for the past several days now, the family 1. Her morphine 3 started, when inquired patient denies any significant pain today. She is noticed to have unlimited appetite, however she is drinking okay. She is a little bit anemic when evaluated for blood work, hemoglobin was 11.0, creatinine 0.45, Covid markers on admission November 05 was elevated, with ferritin 969, alkaline phosphatase 152, LDH 876, CRP of 348, pro-calcitonin elevated at 10.24, urine WBC the 84 WBC, currently pending patient is on Rocephin. Vital signs okay, nonlabored breathing, O2 sats 2 L cannula, 100%, otherwise remainder she stands at 97%. T-max of 98, heart rate of 88. She is followed here by Dr. Jaramillo a critical care medicine. attempted to call son 4x and another family member 2x without response REVIEW OF SYSTEMS Constitutional: Reports fever, no chills, no night sweats. Reported weight loss. Reports weakness, Reportsfatigue no lethargy. No daytime sleepiness. EENT: No headache. No blurred vision or double vision, no loss of vision. Reports loss of Hearing, no ringing in the ears, no dizziness. No nasal drainage or congestion. No epistaxis. No sore throat. Lungs: Reports shortness of breath, cough, no sputum production. No wheezing. Cardiovascular: No chest pain, no lower extremity edema. No palpitations. No paroxysmal nocturnal dyspnea. No orthopnea. No lightheadedness or dizziness. No syncopal episodes. Abdominal: No abdominal pain. No nausea, vomiting. No diarrhea. No constipation. No bloody or tarry stools.. No loss of appetite. Genitourinary: No dysuria, increased frequency, urgency. No urinary retention. Musculoskeletal: Reports myalgias. Reports muscle weakness, no gait dysfunction, no frequent falls. No back pain. No neck pain. Integumentary: No wounds, no lesions. No rash or pruritus. No unusual bruising. No change in hair or nails. Neurologic: No aphasia. No facial droop. No change in mentation. No head injury. No headache. No paralysis. No paresthesia. Psychiatric: No depression. No anxiety. Endocrine: No abnormal blood sugars. Objective - Vital Signs Vital signs: Vital Signs Temp 98.1 F 11/08/20 10:51 Pulse 73 11/08/20 10:51 Resp 18 11/08/20 04:00 BP 140/58 11/08/20 10:51 Pulse Ox 97 11/08/20 10:51 Intake & Output 11/07/20 11/08/20 11/08/20 18:59 06:59 18:59 Intake Total 490 600 Balance 490 600 Weight 34.5 kg 39.5 kg Intake: Intake, IV Titration 600 Amount Sodium Chloride 0.9% 1, 600 000 ml @ 130 mls/hr IV . [id number] [facility] Rx#:[id number] Oral 490 Other: Voiding Method Bedside Commode Bedside Commode Bedside Commode Bedpan Bedpan Bedpan Diaper Diaper Diaper # Voids 2 4 - Constitutional General appearance: Present: cooperative, no acute distress, thin - EENT Eyes: Present: anicteric sclerae, EOMI, PERRLA, dentition normal - Neck Neck: Present: normal ROM - Respiratory Respiratory: bilateral: CTA, negative: diminished, dullness, rales - Cardiovascular Rhythm: regular Heart sounds: normal: S1, S2 Abnormal Heart Sounds: Absent: systolic murmur, diastolic murmur, rub, S3 Gallop, S4 Gallop, click, other - Gastrointestinal General gastrointestinal: Present: normal bowel sounds, soft - Integumentary Integumentary: Present: decreased turgor, normal - Neurologic Neurologic: Present: CNII-XII intact - Musculoskeletal Musculoskeletal: Present: generalized weakness - Psychiatric Psychiatric: Present: A&O x's 3, appropriate affect - Labs CBC & Chem 7: 11/08/20 08:23 11/08/20 10:53 Labs: Abnormal Lab Results - Last 24 Hours (Table) 11/07/20 11/08/20 11/08/20 Range/Units 14:40 08:23 10:53 RBC 3.40 L (3.80-5.40) m/uL Hgb 11.0 L (11.4-16.0) gm/dL Hct 33.1 L (34.0-46.0) % Carbon Dioxide 31 H (22-30) mmol/L Creatinine 0.45 L (0.52-1.04) mg/dL Total Protein 5.4 L (6.3-8.2) g/dL Albumin 2.5 L (3.5-5.0) g/dL Urine Appearance Cloudy H (Clear) Urine Protein Trace H (Negative) Urine Blood Trace H (Negative) Ur Leukocyte Esterase Large H (Negative) Urine RBC 7 H (0-5) /hpf Urine WBC 89 H (0-5) /hpf Urine Bacteria Rare H (None) /hpf Urine Mucus Rare H (None) /hpf Urine Yeast (Budding) Few H (None) /hpf Microbiology - Last 24 Hours (Table) 11/07/20 14:40 Urine Culture - Preliminary Urine,Clean Catch 11/05/20 15:21 Blood Culture - Preliminary Blood No Growth after 48 hours 11/05/20 14:44 Blood Culture - Preliminary Blood No Growth after 48 hours Assessment and Plan Plan: 1. Generalized weakness secondary to Covid 19, prolonged hospitalization, recent diarrhea, weight loss. Continue PT and OT. 2. Hypotension and tachycardia with leukocytosis possibly related to dehydration secondary to recent diarrhea, possibly secondary to bacterial pneumonia. 3. Leukocytosis secondary to steroids , from UTI, 4 acute UTI with pyuria, patient is on IV Rocephin, urine cultures currently pending. Unknown whether the antibiotic was started in the emergency room with subsequent urinalysis was collected after the initial antibiotic was performed 4. Elevated d-dimer, pulmonary embolism ruled out. D-dimer elevated secondary to recent Covid infection.. 5. Elevated inflammatory markers secondary to Covid 19.. 6. Covid 19 pneumonia, possible bacterial pneumonia with lingering effects. no current hypoxemia Continue Rocephin 1 g daily, dexamethasone 6 mg daily, Lovenox 40 mg subcu daily. 7. History of rheumatoid arthritis. Methotrexate on hold. 8. Mild intermittent asthma. 9. Overactive bladder. Continue Mirabegron 25 mg daily. 10. GI prophylaxis. Protonix. 11. Frail elderly with protein calorie nutrition, low BMI 18, most likely secondary to chronic poor nutrition, patient needs an oral orexigenic agent, we will discuss Remeron wtih family members but no current response. pt is in agreement for now to start remeron 7.5. 11. DVT prophylaxis. Lovenox.
[2020-11-09] MEDS: SODIUM CHLORIDE 0.9% 1,000 ML IV SCH ×3 (04:33→17:24)
[2020-11-09] MEDS: MORPHINE SULFATE IR 15 MG TABLET PO SCH ×3 (04:38→17:09)
[2020-11-09] MEDS: PANTOPRAZOLE 40 MG TABLET PO SCH (06:25)
[2020-11-09] MEDS: SYMBICORT 160-4.5 MCG INHALER INHALATION SCH ×2 (07:24→19:14)
[2020-11-09] MEDS: ALBUTEROL HFA INHALER INHALATION SCH ×4 (07:24→19:14)
[2020-11-09] MEDS: ZINC SULFATE 220 MG CAP PO SCH (09:21)
[2020-11-09] MEDS: FOLIC ACID 1 MG TAB PO SCH (09:21)
[2020-11-09] MEDS: CHOLECALCIFEROL 25 MCG (1000 IU) TABLET PO SCH (09:21)
[2020-11-09] MEDS: ASCORBIC ACID 500 MG TAB PO SCH (09:21)
[2020-11-09] MEDS: THIAMINE 100 MG TAB PO SCH (09:21)
[2020-11-09] MEDS: MULTIVITAMINS, THERA 1 EACH TAB PO SCH (09:21)
[2020-11-09] MEDS: NON FORMULARY DRUG (Mirabegron [Myrbetriq] 25 MG Tab.Er.24h) PO SCH (09:22)
[2020-11-09] MEDS: ENOXAPARIN 40 MG/0.4 ML SYRINGE SQ SCH (09:22)
[2020-11-09 11:44] LABS: Glucose,Whole Blood 84 mg/dL (75-99)
--- NOTE | 2020-11-09 14:23 | P.PN ---
Subjective Progress Note Date: 11/09/20 HISTORY OF PRESENT ILLNESS This is an 80-year-old female patient of Dr. Zambrano in [facility] currently at [facility] under the care of Dr. Durham for subacute rehab with past medical history of rheumatoid arthritis, bronchial mild intermittent asthma, overactive bladder. Patient was diagnosed with COVID-19 1 month after receiving the first vaccine on October 23 and was hospitalized at that time. CT angiogram was negative for pulmonary embolism. She was treated with colchicine, Lovenox and supplements. Patient was discharged home on October 28 but due to weakness and diarrhea, re hospitalized on October 29 under [facility] and was subsequently discharged to [facility]. Patient was sent from [facility] to the [facility] due to tachycardia and low blood pressure and fevers. Patient also complained of shortness of breath and body aches. No nausea, vomiting or diarrhea. She does have decreased appetite and generalized weakness. She was found to be afebrile, heart rate 117, respiratory rate 24, blood pressure 132/90, pulse ox 98% on 2 L nasal cannula. EKG was a sinus tachycardia with right bundle branch block. No acute ST changes. Chest x-ray reveals chronic changes. CTA of the chest showed no evidence of pulmonary embolism. Pulmonary emphysema. Thoracic kyphotic deformity. Compression fracture stable. WBC 19.6, hemoglobin 12.7, platelet count 388. INR 1.2. D-dimer 2.61. Electrolytes normal. BUN 23 and creatinine 0.52. AST 53, ALT 31, alkaline phosphate is 152. LDH 876. C-reactive protein 348.3. Lactic acid 1.4. ProBNP 1170. 11/07: Pulse ox 100% on 2 L nasal cannula, afebrile, heart rate 79, blood pressure 135/74. 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 Patient has been seen by pulmonary medicine indeterminate patient does not require antibiotics, no benefit with Decadron. Recommended a urinalysis which has been ordered on 2 occasions and not collected. Patient has refused PT and OT today. Recommendations from therapies is for subacute rehab. Patient is eating very little, she states she does not have appetite. Patient remains pleasantly confused. 11/08: Patient arm was seen for evaluation today, very frail looking, she R feels drowsy, and has not slept well last night, when inquired she arm was supposed to take morphine 30 mg every 8 hours, she has been doing in the past several years, secondary to RA. Apparently she hasn't had this medication off for the past several days now, the family 1. Her morphine 3 started, when inquired patient denies any significant pain today. She is noticed to have unlimited appetite, however she is drinking okay. She is a little bit anemic when evaluated for blood work, hemoglobin was 11.0, creatinine 0.45, Covid markers on admission November 05 was elevated, with ferritin 969, alkaline phosphatase 152, LDH 876, CRP of 348, pro-calcitonin elevated at 10.24, urine WBC the 84 WBC, currently pending patient is on Rocephin. Vital signs okay, nonlabored breathing, O2 sats 2 L cannula, 100%, otherwise remainder she stands at 97%. T-max of 98, heart rate of 88. She is followed here by Dr. Jaramillo a critical care medicine. attempted to call son 4x and another family member 2x without response 11/09: Patient is more drowsy today, more lethargic, we have to back down on mor phine 15 mg twice a day, still with diminished appetite, she does have lip sores mainly on the left side, possibly suspected HSV oral simplex, valacyclovir initiated, we haven't initiated mirtaze[ine. Melatonin started for sleep christian at nighttime. Nutrition is still impaired, started on liquid ensure tid hemoglobin 11, creatinine of 0.45, albumin not 2.5 urine culture presumptive staph aureus, patient is on Rocephin, patient denies pain in the joints or the back or abdominal pain REVIEW OF SYSTEMS Constitutional: Reports fever, no chills, no night sweats. Reported weight loss. Reports weakness, Reportsfatigue no lethargy. No daytime sleepiness. EENT: No headache. No blurred vision or double vision, no loss of vision. Reports loss of Hearing, no ringing in the ears, no dizziness. No nasal drainage or congestion. No epistaxis. No sore throat. Lungs: Reports shortness of breath, cough, no sputum production. No wheezing. Cardiovascular: No chest pain, no lower extremity edema. No palpitations. No paroxysmal nocturnal dyspnea. No orthopnea. No lightheadedness or dizziness. No syncopal episodes. Abdominal: No abdominal pain. No nausea, vomiting. No diarrhea. No constipation. No bloody or tarry stools.. No loss of appetite. Genitourinary: No dysuria, increased frequency, urgency. No urinary retention. Musculoskeletal: Reports myalgias. Reports muscle weakness, no gait dysfunction, no frequent falls. No back pain. No neck pain. Integumentary: No wounds, no lesions. No rash or pruritus. No unusual bruising. No change in hair or nails. Neurologic: No aphasia. No facial droop. No change in mentation. No head injury. No headache. No paralysis. No paresthesia. Psychiatric: No depression. No anxiety. Endocrine: No abnormal blood sugars. Objective - Vital Signs Vital signs: Vital Signs Temp 98.6 F 11/09/20 08:00 Pulse 103 H 11/09/20 08:00 Resp 18 11/09/20 04:00 BP 133/63 11/09/20 08:00 Pulse Ox 97 11/09/20 08:00 Intake & Output 11/08/20 11/09/20 11/09/20 18:59 06:59 18:59 Intake Total 250 80 Balance 250 80 Weight 33.5 kg Intake: Intake, IV Titration 50 Amount cefTRIAXone 1 gm In 50 Sodium Chloride 0.9% 50 ml @ 100 mls/hr IVPB Q24HR [facility] Rx#:[id number] Oral 200 80 Other: Voiding Method Bedside Commode Bedside Commode Bedside Commode Bedpan Bedpan Bedpan Diaper Diaper Diaper # Voids 1 1 2 # Bowel Movements 0 0 - Constitutional General appearance: Present: cooperative, no acute distress, thin - EENT Eyes: Present: EOMI, PERRLA, normal appearance ENT: Present: NA/AT, normal oropharynx, other (Crusts on the upper lip left side and left lower lip,) - Neck Neck: Present: normal ROM - Respiratory Respiratory: bilateral: CTA - Cardiovascular Rhythm: regular Heart sounds: normal: S1, S2 - Gastrointestinal General gastrointestinal: Present: decreased bowel sounds, normal bowel sounds - Integumentary Integumentary: Present: decreased turgor, normal - Neurologic Neurologic: Present: CNII-XII intact - Musculoskeletal Musculoskeletal: Present: generalized weakness, strength equal bilaterally - Psychiatric Psychiatric: Present: appropriate affect - Labs CBC & Chem 7: 11/08/20 08:23 03/20/21 10:53 Labs: Microbiology - Last 24 Hours (Table) 11/07/20 14:40 Urine Culture - Preliminary Urine,Clean Catch Presumptive Staph aureus 11/05/20 15:21 Blood Culture - Preliminary Blood No Growth after 72 hours 11/05/20 14:44 Blood Culture - Preliminary Blood No Growth after 72 hours Assessment and Plan Plan: 1. Generalized weakness secondary to Covid 19, prolonged hospitalization, recent diarrhea, weight loss. Continue PT and OT. 2. Hypotension and tachycardia with leukocytosis possibly related to dehydration secondary to recent diarrhea, possibly secondary to bacterial pneumonia. 3. Leukocytosis secondary to steroids , from UTI, staph species 4 acute UTI with pyuria, patient is on IV Rocephin, urine cultures currently pending. Unknown whether the antibiotic was started in the emergency room with subsequent urinalysis was collected after the initial antibiotic was performed IV Rocephin 4. Elevated d-dimer, pulmonary embolism ruled out. D-dimer elevated secondary to recent Covid infection.. 5. Elevated inflammatory markers secondary to Covid 19.. 6. Covid 19 pneumonia, possible bacterial pneumonia with lingering effects. no current hypoxemia Continue Rocephin 1 g daily, dexamethasone 6 mg daily, Lovenox 40 mg subcu daily. 7. History of rheumatoid arthritis. Methotrexate on hold. Family wanted morphine restarted at 30 mg 3 times a day per home dose. She cannot tolerate these secondary to hypersomnia, we are decreasing it to 50 mg every 8 hours. 8. Mild intermittent asthma. 9. Overactive bladder. Continue Mirabegron 25 mg daily. 10. GI prophylaxis. Protonix. 11. Frail elderly with protein calorie nutrition, low BMI 18, most likely secondary to chronic poor nutrition, patient needs an oral orexigenic agent, we will discuss Remeron wtih family members but no current response. pt is in agre ement for now to start remeron 7.5. We have initiated Remeron as the patient is drowsy secondary to morphine that was requested by family members 12. 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 Severe protein calorie malnutrition on ensure 3 times a day BMI 15 possible Marinol however this could significantly impaired neuropsychiatric disorders including cognitive impairment. 11. DVT prophylaxis. Lovenox.
--- NOTE | 2020-11-09 14:39 | P.PN ---
Subjective Progress Note Date: 11/09/20 80-year-old female, who is an extremely poor historian, who apparently tested positive for COVID 19, on 10/20/2020. She apparently tested positive between her first coronavirus vaccine and her second vaccine. The patient apparently resides at one of the local nursing homes. She presented to the emergency room on November 05, with a rapid heart rate, and low blood pressure. Apparently in the emergency room, she complained of shortness of breath. She also apparently had body aches. Today, when I talked to the patient, she is an extremely poor historian, and doesn't really admit to anything at all. It's hard to know what she was actually complaining out. In the ER sosa mentions that she did not complain of nausea, vomiting, diarrhea, abdominal pain, rash, or lower extremity edema. He does mention that she had a poor appetite, and poor fluid intake. Chest x-ray showed chronic changes without new or suspicious acute pulmonary process. CT angiogram did not reveal a pulmonary embolus and only showed evidence of emphysematous changes. White count was 19.6, hemoglobin 12.7, hematocrit 39.4, and platelet count 388,000. PT 12.8, INR 1.2, PTT 24.2, and d- dimer 2.61. Sodium potassium chloride and CO2 were all normal. Anion gap was normal. BUN was 23 with a creatinine of 0.52. LDH was 876, C-reactive protein was 348, N-terminal proBNP was 1170, and pro-calcitonin level was 10.24. The patient is seen today 11/07/2020 in follow-up on the selective care unit. She is currently awake and alert resting comfortably in bed. Maintaining O2 saturations in the 90s on 2 L/m per nasal cannula. She did test positive for CoVID 19 19 on 10/20/2020. Continued on Lovenox, vitamin supplements. She remains on Symbicort, albuterol, antibiotics in the form of ceftriaxone. Urinalysis cloudy, large leukocyte esterase, many WBCs, rare bacteria. Cultures pending. Patient is seen today 11/08/2020 in follow-up on the selective care unit. Currently resting comfortably in bed. Awake and alert in no acute distress. Maintaining O2 saturations in the 90s on 2 L/m per nasal cannula. White count 9.8. Hemoglobin 11.0. Sodium 138. Potassium 3.6. Creatinine 0.45. Blood and urine cultures pending. She remains on ceftriaxone. Patient is seen today 11/09/2020 in follow-up on the selective care unit. She is currently awake and alert in no acute distress. Resting comfortably in bed. She is still requiring 3 L/m per nasal cannula to maintain O2 saturations in the 90s. She is 0.9 normal sinus at 50 MLS per hour. Urine culture positive for presumptive staph aureus. Blood cultures revealed no growth. Sodium 138. Potassium 3.6. Creatinine 0.45. Remains on ceftriaxone. Objective - Vital Signs Vital signs: Vital Signs Temp 98.6 F 11/09/20 08:00 Pulse 103 H 11/09/20 08:00 Resp 18 11/09/20 04:00 BP 133/63 11/09/20 08:00 Pulse Ox 97 11/09/20 08:00 Intake & Output 11/08/20 11/09/20 11/09/20 18:59 06:59 18:59 Intake Total 250 80 Balance 250 80 Weight 33.5 kg Intake: Intake, IV Titration 50 Amount cefTRIAXone 1 gm In 50 Sodium Chloride 0.9% 50 ml @ 100 mls/hr IVPB Q24HR [facility] Rx#:[id number] Oral 200 80 Other: Voiding Method Bedside Commode Bedside Commode Bedside Commode Bedpan Bedpan Bedpan Diaper Diaper Diaper # Voids 1 1 2 # Bowel Movements 0 0 - Exam GENERAL EXAM: Alert, very pleasant 80-year-old female patient, on 3 L nasal cannula, comfortable in no apparent distress. HEAD: Normocephalic. EYES: Normal reaction of pupils, equal size. NOSE: Clear with pink turbinates. THROAT: No erythema or exudates. NECK: No masses, no JVD. CHEST: No chest wall deformity. LUNGS: Equal air entry with no crackles, wheeze, rhonchi or dullness. CVS: S1 and S2 normal with no audible murmur, regular rhythm. ABDOMEN: No hepatosplenomegaly, normal bowel sounds, no guarding or rigidity. SPINE: No scoliosis or deformity SKIN: No rashes CENTRAL NERVOUS SYSTEM: No focal deficits, tone is normal in all 4 extremities. EXTREMITIES: Rheumatic changes. There is no peripheral edema. No clubbing, no cyanosis. Peripheral pulses are intact. - Labs CBC & Chem 7: 11/08/20 08:23 11/08/20 10:53 Labs: Microbiology - Last 24 Hours (Table) 11/07/20 14:40 Urine Culture - Preliminary Urine,Clean Catch Presumptive Staph aureus 11/05/20 15:21 Blood Culture - Preliminary Blood No Growth after 72 hours 11/05/20 14:44 Blood Culture - Preliminary Blood No Growth after 72 hours Assessment and Plan Assessment: 1 Prior history of COVID 19 infection, 10/20/2020. Essentially normal chest x- ray and CT angiogram, without evidence of COVID 19 related pneumonia/pneumonitis. 2 Elevated pro calcitonin, secondary to urinary tract infection with presumptive staph aureus 3 Tachycardia, and hypotension, resolved. 4 History of chronic bronchial asthma. 5 History of rheumatoid arthritis. 6 History of skin cancer. 7 History of DJD. Plan: The patient was seen and evaluated by Dr. Yusuf Continue ceftriaxone Continue bronchodilators Titrate down the FiO2 as tolerated We'll continue to follow I, the cosigning physician, performed a history & physical examination of the patient. Lungs sounds are clear. Maintaining good O2 saturations in the 90s on 3 L nasal cannula. I discussed the assessment and plan of care with my nurse practitioner, Kary Escamilla. I attest to the above note as dictated by her.
[2020-11-09 16:48] LABS: Glucose,Whole Blood 78 mg/dL (75-99)
[2020-11-09] MEDS: valACYclovir HCL 1,000 MG TABLET PO SCH ×2 (17:24→21:58)
[2020-11-09 21:10] LABS: Glucose,Whole Blood 89 mg/dL (75-99)
[2020-11-09] MEDS: MELATONIN 3 MG TABLET PO SCH (21:57)
[2020-11-09] MEDS: ACETAMINOPHEN TAB 325 MG TAB PO PRN (21:57)
[2020-11-10] MEDS: MORPHINE SULFATE IR 15 MG TABLET PO SCH ×5 (00:07→21:50)
[2020-11-10] MEDS: SODIUM CHLORIDE 0.9% 1,000 ML IV SCH ×3 (04:07→17:51)
[2020-11-10 06:11] LABS: Glucose,Whole Blood 81 mg/dL (75-99)
[2020-11-10] MEDS: PANTOPRAZOLE 40 MG TABLET PO SCH (06:32)
[2020-11-10 07:37] LABS: ALT 88 U/L (4-34); AST 46 U/L (14-36); African American GFR (CKD) >90 (>60 ml/min/1.73 sqM); Albumin 2.1 g/dL (3.5-5.0); Alkaline Phosphatase 225 U/L (38-126); Anion Gap 6 mmol/L; Blood Urea Nitrogen 16 mg/dL (7-17); Calcium 8.6 mg/dL (8.4-10.2); Carbon Dioxide 32 mmol/L (22-30); Chloride 98 mmol/L (98-107); Glucose 72 mg/dL (74-99); LDH 422 U/L (313-618); Non-African American GFR(CKD) 88 (>60 ml/min/1.73 sqM); Potassium 3.4 mmol/L (3.5-5.1); Sodium 136 mmol/L (137-145); Total Bilirubin 0.6 mg/dL (0.2-1.3); Total Protein 4.5 g/dL (6.3-8.2)
[2020-11-10 07:51] LABS: C Reactive Protein 246.8 mg/L (<10.0)
[2020-11-10 07:58] LABS: Basophils % (A) 0 %; Eosinophils # (A) 0.1 k/uL (0-0.7); Eosinophils % (A) 1 %; HCT 30.7 % (34.0-46.0); HGB 10.1 gm/dL (11.4-16.0); Lymphocytes # (A) 1.1 k/uL (1.0-4.8); Lymphocytes % (A) 11 %; Mean Platelet Volume 7.2; Monocytes # (A) 0.4 k/uL (0-1.0); Monocytes % (A) 4 %; Neutrophils # (A) 8.4 k/uL (1.3-7.7); Neutrophils % (A) 83 %; Platelet Count 304 k/uL (150-450); RBC 3.17 m/uL (3.80-5.40); WBC 10.1 k/uL (3.8-10.6)
[2020-11-10] MEDS: CHOLECALCIFEROL 25 MCG (1000 IU) TABLET PO SCH (08:39)
[2020-11-10] MEDS: FOLIC ACID 1 MG TAB PO SCH (08:39)
[2020-11-10] MEDS: ZINC SULFATE 220 MG CAP PO SCH (08:39)
[2020-11-10] MEDS: THIAMINE 100 MG TAB PO SCH (08:39)
[2020-11-10] MEDS: ASCORBIC ACID 500 MG TAB PO SCH (08:39)
[2020-11-10] MEDS: MULTIVITAMINS, THERA 1 EACH TAB PO SCH (08:39)
[2020-11-10] MEDS: valACYclovir HCL 1,000 MG TABLET PO SCH ×3 (08:39→21:46)
[2020-11-10] MEDS: ENOXAPARIN 40 MG/0.4 ML SYRINGE SQ SCH (08:40)
[2020-11-10] MEDS: ALBUTEROL HFA INHALER INHALATION SCH ×4 (08:46→20:08)
[2020-11-10] MEDS: SYMBICORT 160-4.5 MCG INHALER INHALATION SCH ×2 (08:46→20:08)
[2020-11-10] MEDS: NON FORMULARY DRUG (Mirabegron [Myrbetriq] 25 MG Tab.Er.24h) PO SCH (10:05)
[2020-11-10] MEDS: POTASSIUM CHLORIDE ER 20 MEQ TAB.ER PO SCH ×2 (10:20→12:14)
--- NOTE | 2020-11-10 11:16 | P.PN ---
Subjective Progress Note Date: 11/10/20 HISTORY OF PRESENT ILLNESS This is an 80-year-old female patient of Dr. Zambrano in [facility] currently at [facility] under the care of Dr. Durham for subacute rehab with past medical history of rheumatoid arthritis, bronchial mild intermittent asthma, overactive bladder. Patient was diagnosed with COVID-19 1 month after receiving the first vaccine on October 23 and was hospitalized at that time. CT angiogram was negative for pulmonary embolism. She was treated with colchicine, Lovenox and supplements. Patient was discharged home on October 28 but due to weakness and diarrhea, nathan ospitalized on October 29 under [facility] and was subsequently discharged to [facility]. Patient was sent from [facility] to the [facility] due to tachycardia and low blood pressure and fevers. Patient also complained of shortness of breath and body aches. No nausea, vomiting or diarrhea. She does have decreased appetite and generalized weakness. She was found to be afebrile, heart rate 117, respiratory rate 24, blood pressure 132/90, pulse ox 98% on 2 L nasal cannula. EKG was a sinus tachycardia with right bundle branch block. No acute ST changes. Chest x-ray reveals chronic changes. CTA of the chest showed no evidence of pulmonary embolism. Pulmonary emphysema. Thoracic kyphotic deformity. Compression fracture stable. WBC 19.6, hemoglobin 12.7, platelet count 388. INR 1.2. D-dimer 2.61. Electrolytes normal. BUN 23 and creatinine 0.52. AST 53, ALT 31, alkaline phosphate is 152. LDH 876. C-reactive protein 348.3. Lactic acid 1.4. ProBNP 1170. 11/07: Pulse ox 100% on 2 L nasal cannula, afebrile, heart rate 79, blood pressure 135/74. 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 Patient has been seen by pulmonary medicine indeterminate patient does not require antibiotics, no benefit with Decadron. Recommended a urinalysis which has been ordered on 2 occasions and not collected. Patient has refused PT and OT today. Recommendations from therapies is for subacute rehab. Patient is eating very little, she states she does not have appetite. Patient remains pleasantly confused. 11/08: Patient arm was seen for evaluation today, very frail looking, she R feels drowsy, and has not slept well last night, when inquired she arm was supposed to take morphine 30 mg every 8 hours, she has been doing in the past several years, secondary to RA. Apparently she hasn't had this medication off for the past several days now, the family 1. Her morphine 3 started, when inquired patient denies any significant pain today. She is noticed to have unlimited appetite, however she is drinking okay. She is a little bit anemic when evaluated for blood work, hemoglobin was 11.0, creatinine 0.45, Covid markers on admission November 05 was elevated, with ferritin 969, alkaline phosphatase 152, LDH 876, CRP of 348, pro-calcitonin elevated at 10.24, urine WBC the 84 WBC, currently pending patient is on Rocephin. Vital signs okay, nonlabored breathing, O2 sats 2 L cannula, 100%, otherwise remainder she stands at 97%. T-max of 98, heart rate of 88. She is followed here by Dr. Jaramillo a critical care medicine. attempted to call son 4x and another family member 2x without response 11/09: Patient is more drowsy today, more lethargic, we have to back down on morp mauricio 15 mg twice a day, still with diminished appetite, she does have lip sores mainly on the left side, possibly suspected HSV oral simplex, valacyclovir initiated, we haven't initiated mirtaze[ine. Melatonin started for sleep church at nighttime. Nutrition is still impaired, started on liquid ensure tid hemoglobin 11, creatinine of 0.45, albumin not 2.5 urine culture presumptive staph aureus, patient is on Rocephin, patient denies pain in the joints or the back or abdominal pain 11/10: Patient states that she is not feeling too good today. She states she is feeling tired. She denies having any pain whatsoever. Patient is somewhat lethargic. She is on morphine 15 mg every 8 hours which will be decreased frequency to every 12 hours and hold for sedation. Urine culture is positive for MSSA and ceftriaxone will be transitioned to Kefzol. Patient has been afebrile, heart rate 92, blood pressure 115/59, pulse ox 100% on 3 L nasal cannula. Repeat blood work reveals WBC 10.1, hemoglobin 10.1. Sodium 136, potassium 3. form will be replaced, chloride 98, CO2 32, BUN 16 creatinine 0.54. Blood sugars running between 72 and 89. AST 46, ALT 88, alkaline phosphatase 225. C-reactive protein 246.8. Plan is to monitor patient overnight and probable discharge to [facility] tomorrow. REVIEW OF SYSTEMS Constitutional: Reports fever, no chills, no night sweats. Reported weight loss. Reports weakness, Reportsfatigue no lethargy. No daytime sleepiness. EENT: No headache. No blurred vision or double vision, no loss of vision. Reports loss of Hearing, no ringing in the ears, no dizziness. No nasal drainage or congestion. No epistaxis. No sore throat. Lungs: Reports shortness of breath, cough, no sputum production. No wheezing. Cardiovascular: No chest pain, no lower extremity edema. No palpitations. No paroxysmal nocturnal dyspnea. No orthopnea. No lightheadedness or dizziness. No syncopal episodes. Abdominal: No abdominal pain. No nausea, vomiting. No diarrhea. No constipation. No bloody or tarry stools.. No loss of appetite. Genitourinary: No dysuria, increased frequency, urgency. No urinary retention. Musculoskeletal: Denies myalgias. Reports muscle weakness, no gait dysfunction, no frequent falls. No back pain. No neck pain. Integumentary: No wounds, no lesions. No rash or pruritus. No unusual bruising. No change in hair or nails. Neurologic: No aphasia. No facial droop. No change in mentation. No head injury. No headache. No paralysis. No paresthesia. Psychiatric: No depression. No anxiety. Endocrine: No abnormal blood sugars. PHYSICAL EXAMINATION Gen: This is a frail 80-year-old female. She is resting on the side of the bed and appears comfortable. No acute respiratory distress is noted. HEENT: Head is atraumatic, normocephalic. Pupils equal, round. Sclerae is anicteric. NECK: Supple. No JVD. No lymphadenopathy. No thyromegaly. LUNGS: Diminished. No intercostal retractions. No accessory muscle usage. HEART: Regular rate and rhythm. No murmur. ABDOMEN: Soft. Bowel sounds are present. No masses. No tenderness. EXTREMITIES: No pedal edema. No calf tenderness. NEUROLOGICAL: Patient is awake, alert and oriented to person and place. Cranial nerves 2 through 12 are grossly intact. ASSESSMENT AND PLAN 1. Generalized weakness secondary to Covid 19, prolonged hospitalization, recent diarrhea, weight loss. Continue PT and OT. 2. Hypotension and tachycardia with leukocytosis possibly related to dehydration secondary to recent diarrhea, possibly secondary to bacterial pneumonia. 3. Leukocytosis secondary to steroids. 4. Elevated d-dimer, pulmonary embolism ruled out. D-dimer elevated secondary to recent Covid infection.. 5. Elevated inflammatory markers secondary to Covid 19.. 6. Covid 19 pneumonia, possible bacterial pneumonia with lingering effects. Continue Kefzol, Lovenox 40 mg subcu daily. 7. Acute MSSA UTI with pyuria, transition IV antibiotics to Kefzol. 8. Mild intermittent asthma. 9. Overactive bladder. Continue Mirabegron 25 mg daily. 10. Severe protein calorie malnutrition with BMI of 15. We'll hold on starting Remeron due to family's desire to have patient on morphine. 11. Chronic pain, secondary to inflammatory arthritis, rheumatoid, on maintenance morphine 12. HSV oral simplex lesions, doubt herpes zoster, continue valacyclovir will be 1 g 3 times a day, 5-7 days instead of 2 tabs twice a day 13. DVT prophylaxis. Lovenox. DISCHARGE PLAN Return to [facility] on Tuesday to complete course of rehab. Impression and plan of care have been directed as dictated by the signing physician. Raissa Ledbetter nurse practitioner acting as scribe for signing physician. Objective - Vital Signs Vital signs: Vital Signs Temp 98.2 F 11/10/20 08:00 Pulse 92 11/10/20 08:00 Resp 16 11/10/20 08:00 BP 115/59 11/10/20 08:00 Pulse Ox 100 11/10/20 04:00 Intake & Output 11/09/20 11/10/20 11/10/20 18:59 06:59 18:59 Intake Total 200 Output Total 1 Balance 200 -1 Weight 34.5 kg Intake: Oral 200 Output: Urine 1 Other: Voiding Method Bedside Commode Bedside Commode Bedpan Bedpan Diaper Diaper # Voids 2 1 # Bowel Movements 0 0 - Labs CBC & Chem 7: 11/10/20 06:46 11/10/20 06:46 Labs: Abnormal Lab Results - Last 24 Hours (Table) 11/10/20 11/10/20 Range/Units 06:46 06:46 RBC 3.17 L (3.80-5.40) m/uL Hgb 10.1 L (11.4-16.0) gm/dL Hct 30.7 L (34.0-46.0) % Neutrophils # 8.4 H (1.3-7.7) k/uL Sodium 136 L (137-145) mmol/L Potassium 3.4 L (3.5-5.1) mmol/L Carbon Dioxide 32 H (22-30) mmol/L Glucose 72 L (74-99) mg/dL AST 46 H (14-36) U/L ALT 88 H (4-34) U/L Alkaline Phosphatase 225 H (38-126) U/L C-Reactive Protein 246.8 H (<10.0) mg/L Total Protein 4.5 L (6.3-8.2) g/dL Albumin 2.1 L (3.5-5.0) g/dL Microbiology - Last 24 Hours (Table) 11/07/20 14:40 Urine Culture - Final Urine,Clean Catch Staphylococcus aureus 11/05/20 15:21 Blood Culture - Preliminary Blood No Growth after 96 hours 11/05/20 14:44 Blood Culture - Preliminary Blood No Growth after 96 hours
--- NOTE | 2020-11-10 11:18 | P.PN ---
Subjective Progress Note Date: 11/10/20 80-year-old female, who is an extremely poor historian, who apparently tested positive for COVID 19, on 10/20/2020. She apparently tested positive between her first coronavirus vaccine and her second vaccine. The patient apparently resides at one of the local nursing homes. She presented to the emergency room on November 05, with a rapid heart rate, and low blood pressure. Apparently in the emergency room, she complained of shortness of breath. She also apparently had body aches. Today, when I talked to the patient, she is an extremely poor historian, and doesn't really admit to anything at all. It's hard to know what she was actually complaining out. In the ER sosa mentions that she did not complain of nausea, vomiting, diarrhea, abdominal pain, rash, or lower extremity edema. He does mention that she had a poor appetite, and poor fluid intake. Chest x-ray showed chronic changes without new or suspicious acute pulmonary process. CT angiogram did not reveal a pulmonary embolus and only showed evidence of emphysematous changes. White count was 19.6, hemoglobin 12.7, hematocrit 39.4, and platelet count 388,000. PT 12.8, INR 1.2, PTT 24.2, and d- dimer 2.61. Sodium potassium chloride and CO2 were all normal. Anion gap was normal. BUN was 23 with a creatinine of 0.52. LDH was 876, C-reactive protein was 348, N-terminal proBNP was 1170, and pro-calcitonin level was 10.24. The patient is seen today 11/07/2020 in follow-up on the selective care unit. She is currently awake and alert resting comfortably in bed. Maintaining O2 saturations in the 90s on 2 L/m per nasal cannula. She did test positive for CoVID 19 19 on 10/20/2020. Continued on Lovenox, vitamin supplements. She remains on Symbicort, albuterol, antibiotics in the form of ceftriaxone. Urinalysis cloudy, large leukocyte esterase, many WBCs, rare bacteria. Cultures pending. Patient is seen today 11/08/2020 in follow-up on the selective care unit. Currently resting comfortably in bed. Awake and alert in no acute distress. Maintaining O2 saturations in the 90s on 2 L/m per nasal cannula. White count 9.8. Hemoglobin 11.0. Sodium 138. Potassium 3.6. Creatinine 0.45. Blood and urine cultures pending. She remains on ceftriaxone. Patient is seen today 11/09/2020 in follow-up on the selective care unit. She is currently awake and alert in no acute distress. Resting comfortably in bed. She is still requiring 3 L/m per nasal cannula to maintain O2 saturations in the 90s. She is 0.9 normal sinus at 50 MLS per hour. Urine culture positive for presumptive staph aureus. Blood cultures revealed no growth. Sodium 138. Potassium 3.6. Creatinine 0.45. Remains on ceftriaxone. 11/10/2020 the patient is being seen for a follow-up. The patient has a Covid 19 infection and this was diagnosed on 10/20/2020. Chest x-ray and CAT scan of the chest have been normal without evidence of any pneumonitis. The patient had an elevated troponin level and is already due to a UTI and the patient is being treated accordingly. The patient's tachycardia and hypotension is improved. The patient is known to have chronic bronchial asthma, RA and osteoarthritis. The patient remains on IV Rocephin. The urine culture showed staph aureus, MSSA. The white cell count is not elevated at this point in time. No other major electrolyte abnormalities noted. Objective - Vital Signs Vital signs: Vital Signs Temp 98.2 F 11/10/20 08:00 Pulse 92 11/10/20 08:00 Resp 16 11/10/20 08:00 BP 115/59 11/10/20 08:00 Pulse Ox 100 11/10/20 04:00 Intake & Output 11/09/20 11/10/20 11/10/20 18:59 06:59 18:59 Intake Total 200 Output Total 1 Balance 200 -1 Weight 34.5 kg Intake: Oral 200 Output: Urine 1 Other: Voiding Method Bedside Commode Bedside Commode Diaper Bedpan Bedpan Diaper Diaper # Voids 2 1 # Bowel Movements 0 0 - Exam GENERAL EXAM: Alert, very pleasant 80-year-old female patient, on 2 L nasal cannula, comfortable in no apparent distress. HEAD: Normocephalic. EYES: Normal reaction of pupils, equal size. NOSE: Clear with pink turbinates. THROAT: No erythema or exudates. NECK: No masses, no JVD. CHEST: No chest wall deformity. LUNGS: Equal air entry with no crackles, wheeze, rhonchi or dullness. CVS: S1 and S2 normal with no audible murmur, regular rhythm. ABDOMEN: No hepatosplenomegaly, normal bowel sounds, no guarding or rigidity. SPINE: No scoliosis or deformity SKIN: No rashes CENTRAL NERVOUS SYSTEM: No focal deficits, tone is normal in all 4 extremities. EXTREMITIES: Rheumatic changes. There is no peripheral edema. No clubbing, no cyanosis. Peripheral pulses are intact. - Labs CBC & Chem 7: 11/10/20 06:46 11/10/20 06:46 Labs: Abnormal Lab Results - Last 24 Hours (Table) 11/10/20 11/10/20 Range/Units 06:46 06:46 RBC 3.17 L (3.80-5.40) m/uL Hgb 10.1 L (11.4-16.0) gm/dL Hct 30.7 L (34.0-46.0) % Neutrophils # 8.4 H (1.3-7.7) k/uL Sodium 136 L (137-145) mmol/L Potassium 3.4 L (3.5-5.1) mmol/L Carbon Dioxide 32 H (22-30) mmol/L Glucose 72 L (74-99) mg/dL AST 46 H (14-36) U/L ALT 88 H (4-34) U/L Alkaline Phosphatase 225 H (38-126) U/L C-Reactive Protein 246.8 H (<10.0) mg/L Total Protein 4.5 L (6.3-8.2) g/dL Albumin 2.1 L (3.5-5.0) g/dL Microbiology - Last 24 Hours (Table) 11/07/20 14:40 Urine Culture - Final Urine,Clean Catch Staphylococcus aureus 11/05/20 15:21 Blood Culture - Preliminary Blood No Growth after 96 hours 11/05/20 14:44 Blood Culture - Preliminary Blood No Growth after 96 hours Assessment and Plan Plan: 1 Prior history of COVID 19 infection, 10/20/2020. Essentially normal chest x- ray and CT angiogram, without evidence of COVID 19 related pneumonia/pneumonitis. The patient is not having any major respiratory difficulties. The pro calcitonin was elevated and the patient had a underlying UTI. She is LDH level is currently at 422 and a CRP level is down to 246. The patient's pulse ox is 100% liters about 2 by nasal cannula. She'll be titrated down to room air. 2 Elevated pro calcitonin, secondary to urinary tract infection with MSSA, staph aureus and the patient is on IV Rocephin 3 Tachycardia, and hypotension, resolved. 4 History of chronic bronchial asthma. 5 History of rheumatoid arthritis. 6 History of skin cancer. 7 History of DJD. Plan: Continue ceftriaxone Continue bronchodilators Titrate down the FiO2 as tolerated , will titrate the patient down to room air oxygen, We'll continue to follow
[2020-11-10] MEDS: ACETAMINOPHEN TAB 325 MG TAB PO PRN (16:31)
--- NOTE | 2020-11-10 18:44 | XR ---
EXAMINATION TYPE: XR chest 1V portable DATE OF EXAM: 11/10/2020 COMPARISON: 11/05/2020. HISTORY: Weakness and pneumonia. TECHNIQUE: Single frontal view of the chest is obtained. FINDINGS: There is slight increased prominence of the bilateral upper lobe interstitial opacities. N o pleural effusion, or pneumothorax seen. Stable hilar prominence. The cardiac silhouette size is wi thin normal limits. The osseous structures are intact. IMPRESSION: Slightly increased prominence of bilateral upper lobe interstitial opacities, may relate to acute on chronic process.
[2020-11-10] MEDS: METOPROLOL TARTRATE 12.5 MG TAB PO SCH (21:51)
[2020-11-10] MEDS: MELATONIN 3 MG TABLET PO SCH (21:51)
[2020-11-10] MEDS: PIPERACILLIN-TAZOBACTAM 3.375 GM in SODIUM CHLORIDE 0.9% 100 ML IVPB SCH (23:41)
[2020-11-11] MEDS: SODIUM CHLORIDE 0.9% 1,000 ML IV SCH ×3 (04:32→17:09)
[2020-11-11] MEDS: PIPERACILLIN-TAZOBACTAM 3.375 GM in SODIUM CHLORIDE 0.9% 100 ML IVPB SCH ×3 (05:26→22:09)
[2020-11-11] MEDS: PANTOPRAZOLE 40 MG TABLET PO SCH (07:04)
[2020-11-11] MEDS: CHOLECALCIFEROL 25 MCG (1000 IU) TABLET PO SCH (08:21)
[2020-11-11] MEDS: METOPROLOL TARTRATE 12.5 MG TAB PO SCH ×3 (08:21→22:21)
[2020-11-11] MEDS: ENOXAPARIN 40 MG/0.4 ML SYRINGE SQ SCH (08:21)
[2020-11-11] MEDS: ASCORBIC ACID 500 MG TAB PO SCH (08:21)
[2020-11-11] MEDS: THIAMINE 100 MG TAB PO SCH (08:22)
[2020-11-11] MEDS: ZINC SULFATE 220 MG CAP PO SCH (08:22)
[2020-11-11] MEDS: FOLIC ACID 1 MG TAB PO SCH (08:22)
[2020-11-11] MEDS: valACYclovir HCL 1,000 MG TABLET PO SCH ×4 (08:22→22:21)
[2020-11-11] MEDS: NON FORMULARY DRUG (Mirabegron [Myrbetriq] 25 MG Tab.Er.24h) PO SCH (08:26)
[2020-11-11] MEDS: ALBUTEROL HFA INHALER INHALATION SCH ×4 (08:27→20:21)
[2020-11-11] MEDS: SYMBICORT 160-4.5 MCG INHALER INHALATION SCH ×2 (08:28→20:21)
[2020-11-11] MEDS: MORPHINE SULFATE IR 15 MG TABLET PO SCH ×2 (09:01→22:07)
[2020-11-11] MEDS: MULTIVITAMINS, THERA 1 EACH TAB PO SCH (09:01)
[2020-11-11] MEDS ORDERED: POTASSIUM CHLORIDE ER 20 MEQ TAB.ER PO SCH (11:00)
[2020-11-11] MEDS ORDERED: Potassium Replacement Protocol 1 EACH MISC MISCELLANE PRN (11:00)
--- NOTE | 2020-11-11 11:29 | P.PN ---
Subjective Progress Note Date: 11/11/20 HISTORY OF PRESENT ILLNESS This is an 80-year-old female patient of Dr. Zambrano in [facility] currently at [facility] under the care of Dr. Durham for subacute rehab with past medical history of rheumatoid arthritis, bronchial mild intermittent asthma, overactive bladder. Patient was diagnosed with COVID-19 1 month after receiving the first vaccine on October 23 and was hospitalized at that time. CT angiogram was negative for pulmonary embolism. She was treated with colchicine, Lovenox and supplements. Patient was discharged home on October 28 but due to weakness and diarrhea, nathan ospitalized on October 29 under [facility] and was subsequently discharged to [facility]. Patient was sent from [facility] to the [facility] due to tachycardia and low blood pressure and fevers. Patient also complained of shortness of breath and body aches. No nausea, vomiting or diarrhea. She does have decreased appetite and generalized weakness. She was found to be afebrile, heart rate 117, respiratory rate 24, blood pressure 132/90, pulse ox 98% on 2 L nasal cannula. EKG was a sinus tachycardia with right bundle branch block. No acute ST changes. Chest x-ray reveals chronic changes. CTA of the chest showed no evidence of pulmonary embolism. Pulmonary emphysema. Thoracic kyphotic deformity. Compression fracture stable. WBC 19.6, hemoglobin 12.7, platelet count 388. INR 1.2. D-dimer 2.61. Electrolytes normal. BUN 23 and creatinine 0.52. AST 53, ALT 31, alkaline phosphate is 152. LDH 876. C-reactive protein 348.3. Lactic acid 1.4. ProBNP 1170. 11/07: Pulse ox 100% on 2 L nasal cannula, afebrile, heart rate 79, blood pressure 135/74. 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 Patient has been seen by pulmonary medicine indeterminate patient does not require antibiotics, no benefit with Decadron. Recommended a urinalysis which has been ordered on 2 occasions and not collected. Patient has refused PT and OT today. Recommendations from therapies is for subacute rehab. Patient is eating very little, she states she does not have appetite. Patient remains pleasantly confused. 11/08: Patient arm was seen for evaluation today, very frail looking, she R feels drowsy, and has not slept well last night, when inquired she arm was supposed to take morphine 30 mg every 8 hours, she has been doing in the past several years, secondary to RA. Apparently she hasn't had this medication off for the past several days now, the family 1. Her morphine 3 started, when inquired patient denies any significant pain today. She is noticed to have unlimited appetite, however she is drinking okay. She is a little bit anemic when evaluated for blood work, hemoglobin was 11.0, creatinine 0.45, Covid markers on admission November 05 was elevated, with ferritin 969, alkaline phosphatase 152, LDH 876, CRP of 348, pro-calcitonin elevated at 10.24, urine WBC the 84 WBC, currently pending patient is on Rocephin. Vital signs okay, nonlabored breathing, O2 sats 2 L cannula, 100%, otherwise remainder she stands at 97%. T-max of 98, heart rate of 88. She is followed here by Dr. Jaramillo a critical care medicine. attempted to call son 4x and another family member 2x without response 11/09: Patient is more drowsy today, more lethargic, we have to back down on morp mauricio 15 mg twice a day, still with diminished appetite, she does have lip sores mainly on the left side, possibly suspected HSV oral simplex, valacyclovir initiated, we haven't initiated mirtaze[ine. Melatonin started for sleep catholic at nighttime. Nutrition is still impaired, started on liquid ensure tid hemoglobin 11, creatinine of 0.45, albumin not 2.5 urine culture presumptive staph aureus, patient is on Rocephin, patient denies pain in the joints or the back or abdominal pain 11/10: Patient states that she is not feeling too good today. She states she is feeling tired. She denies having any pain whatsoever. Patient is somewhat lethargic. She is on morphine 15 mg every 8 hours which will be decreased frequency to every 12 hours and hold for sedation. Urine culture is positive for MSSA and ceftriaxone will be transitioned to Kefzol. Patient has been afebrile, heart rate 92, blood pressure 115/59, pulse ox 100% on 3 L nasal cannula. Repeat blood work reveals WBC 10.1, hemoglobin 10.1. Sodium 136, potassium 3. form will be replaced, chloride 98, CO2 32, BUN 16 creatinine 0.54. Blood sugars running between 72 and 89. AST 46, ALT 88, alkaline phosphatase 225. C-reactive protein 246.8. Plan is to monitor patient overnight and probable discharge to [facility] tomorrow. 11/11: Patient had a temperature max yesterday afternoon when a 1.8 and consult was added for Dr. Beltran and antibiotics changed to Zosyn. Patient remains more sedated unchanged from yesterday. She will open her eyes and answer questions. She is eating very little. We have added and speech consult for possible aspiration. Chest x-ray ordered yesterday afternoon revealed slightly increased prominence of bilateral upper lobe interstitial opacities. May relate to acute or chronic process. Repeat blood work ordered for tomorrow. Patient has been afebrile since yesterday afternoon, heart rate 101, blood pressure 135/73, pulse ox 95% on room air. REVIEW OF SYSTEMS Constitutional: Reports fever, no chills, no night sweats. Reported weight loss. Reports weakness, Reports fatigue reports lethargy. No daytime sleepiness. EENT: No headache. No blurred vision or double vision, no loss of vision. Reports loss of Hearing, no ringing in the ears, no dizziness. No nasal drainage or congestion. No epistaxis. No sore throat. Lungs: Reports shortness of breath, cough, no sputum production. No wheezing. Cardiovascular: No chest pain, no lower extremity edema. No palpitations. No paroxysmal nocturnal dyspnea. No orthopnea. No lightheadedness or dizziness. No syncopal episodes. Abdominal: No abdominal pain. No nausea, vomiting. No diarrhea. No constip ation. No bloody or tarry stools.. No loss of appetite. Genitourinary: No dysuria, increased frequency, urgency. No urinary retention. Musculoskeletal: Denies myalgias. Reports muscle weakness, no gait dysfunction, no frequent falls. No back pain. No neck pain. Integumentary: No wounds, no lesions. No rash or pruritus. No unusual bruising. No change in hair or nails. Neurologic: No aphasia. No facial droop. No change in mentation. No head injury. No headache. No paralysis. No paresthesia. Psychiatric: No depression. No anxiety. Endocrine: No abnormal blood sugars. PHYSICAL EXAMINATION Gen: This is a frail 80-year-old female. She is resting on the side of the bed and appears comfortable. No acute respiratory distress is noted. HEENT: Head is atraumatic, normocephalic. Pupils equal, round. Sclerae is anicteric. NECK: Supple. No JVD. No lymphadenopathy. No thyromegaly. LUNGS: Diminished. No intercostal retractions. No accessory muscle usage. HEART: Regular rate and rhythm. No murmur. ABDOMEN: Soft. Bowel sounds are present. No masses. No tenderness. EXTREMITIES: No pedal edema. No calf tenderness. NEUROLOGICAL: Patient is awake, alert and oriented to person and place. Cranial nerves 2 through 12 are grossly intact. ASSESSMENT AND PLAN 1. Generalized weakness secondary to Covid 19, prolonged hospitalization, recent diarrhea, weight loss. Continue PT and OT. 2. Sepsis: Hypotension and tachycardia with leukocytosis possibly related to dehydration secondary to recent diarrhea, possibly secondary to bacterial pneumonia.continue Zosyn, consult with Dr. Beltran 3. Leukocytosis secondary to steroids. 4. Elevated d-dimer, pulmonary embolism ruled out. D-dimer elevated secondary to recent Covid infection.. 5. Elevated inflammatory markers secondary to Covid 19.. 6. Covid 19 pneumonia, possible bacterial pneumonia with lingering effects. Continue Kefzol, Lovenox 40 mg subcu daily. 7. Acute MSSA UTI with pyuria, transition IV antibiotics to Kefzol. 8. Mild intermittent asthma. 9. Overactive bladder. Continue Mirabegron 25 mg daily. 10. Severe protein calorie malnutrition with BMI of 15. We'll hold on starting Remeron due to family's desire to have patient on morphine. 11. Chronic pain, secondary to inflammatory arthritis, rheumatoid, on maintenance morphine 12. HSV oral simplex lesions, doubt herpes zoster, continue valacyclovir will be 1 g 3 times a day, 5-7 days instead of 2 tabs twice a day 13. DVT prophylaxis. Lovenox. DISCHARGE PLAN Return to [facility] later this week to complete course of rehab. Impression and plan of care have been directed as dictated by the signing physician. Raissa Ledbetter nurse practitioner acting as scribe for signing physician. Objective - Vital Signs Vital signs: Vital Signs Temp 98.5 F 11/11/20 08:13 Pulse 101 H 11/11/20 08:13 Resp 18 11/11/20 08:13 BP 135/63 11/11/20 08:13 Pulse Ox 95 11/11/20 08:13 Intake & Output 11/10/20 11/11/20 11/11/20 18:59 06:59 18:59 Intake Total 120 240 Balance 120 240 Weight 34.5 kg 36 kg Intake: Oral 120 240 Other: Voiding Method Diaper Diaper Diaper # Voids 2 1 2 - Labs CBC & Chem 7: 11/10/20 06:46 11/10/20 06:46 Labs: Microbiology - Last 24 Hours (Table) 11/05/20 15:21 Blood Culture - Preliminary Blood No Growth after 120 hours 11/05/20 14:44 Blood Culture - Preliminary Blood No Growth after 120 hours
--- NOTE | 2020-11-11 11:36 | P.PN ---
Subjective Progress Note Date: 11/11/20 80-year-old female, who is an extremely poor historian, who apparently tested positive for COVID 19, on 10/20/2020. She apparently tested positive between her first coronavirus vaccine and her second vaccine. The patient apparently resides at one of the local nursing homes. She presented to the emergency room on November 05, with a rapid heart rate, and low blood pressure. Apparently in the emergency room, she complained of shortness of breath. She also apparently had body aches. Today, when I talked to the patient, she is an extremely poor historian, and doesn't really admit to anything at all. It's hard to know what she was actually complaining out. In the ER sosa mentions that she did not complain of nausea, vomiting, diarrhea, abdominal pain, rash, or lower extremity edema. He does mention that she had a poor appetite, and poor fluid intake. Chest x-ray showed chronic changes without new or suspicious acute pulmonary process. CT angiogram did not reveal a pulmonary embolus and only showed evidence of emphysematous changes. White count was 19.6, hemoglobin 12.7, hematocrit 39.4, and platelet count 388,000. PT 12.8, INR 1.2, PTT 24.2, and d- dimer 2.61. Sodium potassium chloride and CO2 were all normal. Anion gap was normal. BUN was 23 with a creatinine of 0.52. LDH was 876, C-reactive protein was 348, N-terminal proBNP was 1170, and pro-calcitonin level was 10.24. The patient is seen today 11/07/2020 in follow-up on the selective care unit. She is currently awake and alert resting comfortably in bed. Maintaining O2 saturations in the 90s on 2 L/m per nasal cannula. She did test positive for CoVID 19 19 on 10/20/2020. Continued on Lovenox, vitamin supplements. She remains on Symbicort, albuterol, antibiotics in the form of ceftriaxone. Urinalysis cloudy, large leukocyte esterase, many WBCs, rare bacteria. Cultures pending. Patient is seen today 11/08/2020 in follow-up on the selective care unit. Currently resting comfortably in bed. Awake and alert in no acute distress. Maintaining O2 saturations in the 90s on 2 L/m per nasal cannula. White count 9.8. Hemoglobin 11.0. Sodium 138. Potassium 3.6. Creatinine 0.45. Blood and urine cultures pending. She remains on ceftriaxone. Patient is seen today 11/09/2020 in follow-up on the selective care unit. She is currently awake and alert in no acute distress. Resting comfortably in bed. She is still requiring 3 L/m per nasal cannula to maintain O2 saturations in the 90s. She is 0.9 normal sinus at 50 MLS per hour. Urine culture positive for presumptive staph aureus. Blood cultures revealed no growth. Sodium 138. Potassium 3.6. Creatinine 0.45. Remains on ceftriaxone. 11/10/2020 the patient is being seen for a follow-up. The patient has a Covid 19 infection and this was diagnosed on 10/20/2020. Chest x-ray and CAT scan of the chest have been normal without evidence of any pneumonitis. The patient had an elevated troponin level and is already due to a UTI and the patient is being treated accordingly. The patient's tachycardia and hypotension is improved. The patient is known to have chronic bronchial asthma, RA and osteoarthritis. The patient remains on IV Rocephin. The urine culture showed staph aureus, MSSA. The white cell count is not elevated at this point in time. No other major electrolyte abnormalities noted. 11/11/2020, the patient is being seen for a follow-up. The patient is currently on room air oxygen pulse ox is on many experts percent. The patient has done well. LDH level is down to 246 and a CRP level is down to 4.5. Electrolytes are all within normal limits. This patient is hemodynamically stable. She was also treated for a UTI. Her white cell count today is at 10.1 with a hemoglobin of 10.1. She remains on IV Rocephin. No other issues for now. She is on room air oxygen. As mentioned earlier, the chest x-ray and a CAT scan of the chest did not show any evidence of any pneumonitis. Objective - Vital Signs Vital signs: Vital Signs Temp 98.4 F 11/11/20 11:20 Pulse 96 11/11/20 11:20 Resp 18 11/11/20 11:20 BP 143/66 11/11/20 11:20 Pulse Ox 96 11/11/20 11:20 Intake & Output 11/10/20 11/11/20 11/11/20 18:59 06:59 18:59 Intake Total 120 240 Balance 120 240 Weight 34.5 kg 36 kg Intake: Oral 120 240 Other: Voiding Method Diaper Diaper Diaper # Voids 2 1 2 - Exam GENERAL EXAM: Alert, very pleasant 80-year-old female patient, on RA, comfortable in no apparent distress. HEAD: Normocephalic. EYES: Normal reaction of pupils, equal size. NOSE: Clear with pink turbinates. THROAT: No erythema or exudates. NECK: No masses, no JVD. CHEST: No chest wall deformity. LUNGS: Equal air entry with no crackles, wheeze, rhonchi or dullness. CVS: S1 and S2 normal with no audible murmur, regular rhythm. ABDOMEN: No hepatosplenomegaly, normal bowel sounds, no guarding or rigidity. SPINE: No scoliosis or deformity SKIN: No rashes CENTRAL NERVOUS SYSTEM: No focal deficits, tone is normal in all 4 extremities. EXTREMITIES: Rheumatic changes. There is no peripheral edema. No clubbing, no cyanosis. Peripheral pulses are intact. - Labs CBC & Chem 7: 11/10/20 06:46 11/10/20 06:46 Labs: Microbiology - Last 24 Hours (Table) 11/05/20 15:21 Blood Culture - Preliminary Blood No Growth after 120 hours 11/05/20 14:44 Blood Culture - Preliminary Blood No Growth after 120 hours Assessment and Plan Plan: 1 Prior history of COVID 19 infection, 10/20/2020. Essentially normal chest x- ray and CT angiogram, without evidence of COVID 19 related pneumonia /pneumonitis. The patient is not having any major respiratory difficulties. The pro calcitonin was elevated and the patient had a underlying UTI. She is LDH level is currently at 422 and a CRP level is down to 246. The patient's is on room air. 2 Elevated pro calcitonin, secondary to urinary tract infection with MSSA, staph aureus and the patient is on IV Rocephin 3 Tachycardia, and hypotension, resolved. 4 History of chronic bronchial asthma. 5 History of rheumatoid arthritis. 6 History of skin cancer. 7 History of DJD. Plan: Continue antibiotics per medicine Continue bronchodilators Titrate down the FiO2 as tolerated , will titrate the patient down to room air oxygen, We'll sign off the case as the patient does not have any active pulmonary or critical care issues
[2020-11-11] MEDS: MELATONIN 3 MG TABLET PO SCH (22:06)
[2020-11-12] MEDS: SODIUM CHLORIDE 0.9% 1,000 ML IV SCH ×3 (05:04→17:11)
[2020-11-12] MEDS: PIPERACILLIN-TAZOBACTAM 3.375 GM in SODIUM CHLORIDE 0.9% 100 ML IVPB SCH ×3 (06:17→22:08)
[2020-11-12] MEDS: MULTIVITAMINS, THERA 1 EACH TAB PO SCH (08:38)
[2020-11-12] MEDS: ZINC SULFATE 220 MG CAP PO SCH (08:38)
[2020-11-12] MEDS: FOLIC ACID 1 MG TAB PO SCH (08:38)
[2020-11-12] MEDS: THIAMINE 100 MG TAB PO SCH (08:39)
[2020-11-12] MEDS: MORPHINE SULFATE IR 15 MG TABLET PO SCH ×2 (08:39→22:07)
[2020-11-12] MEDS: ASCORBIC ACID 500 MG TAB PO SCH (08:39)
[2020-11-12] MEDS: METOPROLOL TARTRATE 12.5 MG TAB PO SCH ×2 (08:40→22:07)
[2020-11-12] MEDS: PANTOPRAZOLE 40 MG TABLET PO SCH (08:40)
[2020-11-12] MEDS: valACYclovir HCL 1,000 MG TABLET PO SCH ×2 (08:41→22:08)
[2020-11-12] MEDS: ENOXAPARIN 40 MG/0.4 ML SYRINGE SQ SCH (08:41)
[2020-11-12] MEDS: NON FORMULARY DRUG (Mirabegron [Myrbetriq] 25 MG Tab.Er.24h) PO SCH (08:41)
[2020-11-12] MEDS: CHOLECALCIFEROL 25 MCG (1000 IU) TABLET PO SCH (08:41)
[2020-11-12 08:49] LABS: HCT 30.8 % (37.2-46.3); HGB 9.7 g/dL (12.0-15.0); MCH 30.9 pg (27.0-32.0); MCHC 31.5 g/dL (32.0-37.0); MCV 98.1 fL (80.0-97.0); Mean Platelet Volume 9.6 fL (9.5-12.2); Platelet Count 438 X 10*3/uL (140-440); RBC 3.14 X 10*6/uL (4.10-5.20); RDW 14.6 % (11.5-14.5); WBC 9.94 X 10*3/uL (4.50-10.00)
[2020-11-12] MEDS: ALBUTEROL HFA INHALER INHALATION SCH ×4 (09:01→21:06)
[2020-11-12] MEDS: SYMBICORT 160-4.5 MCG INHALER INHALATION SCH ×2 (09:01→21:06)
[2020-11-12 09:18] LABS: African American GFR (CKD) 104.5 (60.0-200.0); Albumin 2.5 g/dL (3.80-4.90); Albumin/Globulin Ratio 1.09 (1.60-3.17); Anion Gap 8.1 mmol/L (4.00-12.00); Calcium 8.4 mg/dL (8.7-10.3); Carbon Dioxide 27.9 mmol/L (21.6-31.8); Globulin 2.3 g/dL (1.6-3.3); Non-African American GFR(CKD) 90.1 (60.0-200.0); Potassium 4.3 mmol/L (3.5-5.5); Total Bilirubin 0.6 mg/dL (0.3-1.2); Total Protein 4.8 g/dL (6.2-8.2)
--- NOTE | 2020-11-12 11:42 | P.PN ---
Subjective Progress Note Date: 11/12/20 HISTORY OF PRESENT ILLNESS This is an 80-year-old female patient of Dr. Zambrano in [facility] currently at [facility] under the care of Dr. Durham for subacute rehab with past medical history of rheumatoid arthritis, bronchial mild intermittent asthma, overactive bladder. Patient was diagnosed with COVID-19 1 month after receiving the first vaccine on October 23 and was hospitalized at that time. CT angiogram was negative for pulmonary embolism. She was treated with colchicine, Lovenox and supplements. Patient was discharged home on October 28 but due to weakness and diarrhea, nathan ospitalized on October 29 under [facility] and was subsequently discharged to [facility]. Patient was sent from [facility] to the [facility] due to tachycardia and low blood pressure and fevers. Patient also complained of shortness of breath and body aches. No nausea, vomiting or diarrhea. She does have decreased appetite and generalized weakness. She was found to be afebrile, heart rate 117, respiratory rate 24, blood pressure 132/90, pulse ox 98% on 2 L nasal cannula. EKG was a sinus tachycardia with right bundle branch block. No acute ST changes. Chest x-ray reveals chronic changes. CTA of the chest showed no evidence of pulmonary embolism. Pulmonary emphysema. Thoracic kyphotic deformity. Compression fracture stable. WBC 19.6, hemoglobin 12.7, platelet count 388. INR 1.2. D-dimer 2.61. Electrolytes normal. BUN 23 and creatinine 0.52. AST 53, ALT 31, alkaline phosphate is 152. LDH 876. C-reactive protein 348.3. Lactic acid 1.4. ProBNP 1170. 11/07: Pulse ox 100% on 2 L nasal cannula, afebrile, heart rate 79, blood pressure 135/74. teletypesetter monitor is a sinus rhythm. Patient has been seen by pulmonary medicine indeterminate patient does not require antibiotics, no benefit with Decadron. Recommended a urinalysis which has been ordered on 2 occasions and not collected. Patient has refused PT and OT today. Recommendations from therapies is for subacute rehab. Patient is eating very little, she states she does not have appetite. Patient remains pleasantly confused. 11/08: Patient arm was seen for evaluation today, very frail looking, she R feels drowsy, and has not slept well last night, when inquired she arm was supposed to take morphine 30 mg every 8 hours, she has been doing in the past several years, secondary to RA. Apparently she hasn't had this medication off for the past several days now, the family 1. Her morphine 3 started, when inquired patient denies any significant pain today. She is noticed to have unlimited appetite, however she is drinking okay. She is a little bit anemic when evaluated for blood work, hemoglobin was 11.0, creatinine 0.45, Covid markers on admission November 05 was elevated, with ferritin 969, alkaline phosphatase 152, LDH 876, CRP of 348, pro-calcitonin elevated at 10.24, urine WBC the 84 WBC, currently pending patient is on Rocephin. Vital signs okay, nonlabored breathing, O2 sats 2 L cannula, 100%, otherwise remainder she stands at 97%. T-max of 98, heart rate of 88. She is followed here by Dr. Jaramillo a critical care medicine. attempted to call son 4x and another family member 2x without response 11/09: Patient is more drowsy today, more lethargic, we have to back down on morp mauricio 15 mg twice a day, still with diminished appetite, she does have lip sores mainly on the left side, possibly suspected HSV oral simplex, valacyclovir initiated, we haven't initiated mirtaze[ine. Melatonin started for sleep mormonism at nighttime. Nutrition is still impaired, started on liquid ensure tid hemoglobin 11, creatinine of 0.45, albumin not 2.5 urine culture presumptive staph aureus, patient is on Rocephin, patient denies pain in the joints or the back or abdominal pain 11/10: Patient states that she is not feeling too good today. She states she is feeling tired. She denies having any pain whatsoever. Patient is somewhat lethargic. She is on morphine 15 mg every 8 hours which will be decreased frequency to every 12 hours and hold for sedation. Urine culture is positive for MSSA and ceftriaxone will be transitioned to Kefzol. Patient has been afebrile, heart rate 92, blood pressure 115/59, pulse ox 100% on 3 L nasal cannula. Repeat blood work reveals WBC 10.1, hemoglobin 10.1. Sodium 136, potassium 3. form will be replaced, chloride 98, CO2 32, BUN 16 creatinine 0.54. Blood sugars running between 72 and 89. AST 46, ALT 88, alkaline phosphatase 225. C-reactive protein 246.8. Plan is to monitor patient overnight and probable discharge to ECF tomorrow. 11/11: Patient had a temperature max yesterday afternoon when a 1.8 and consult was added for Dr. Beltran and antibiotics changed to Zosyn. Patient remains more sedated unchanged from yesterday. She will open her eyes and answer questions. She is eating very little. We have added and speech consult for possible aspiration. Chest x-ray ordered yesterday afternoon revealed slightly increased prominence of bilateral upper lobe interstitial opacities. May relate to acute or chronic process. Repeat blood work ordered for tomorrow. Patient has been afebrile since yesterday afternoon, heart rate 101, blood pressure 135/73, pulse ox 95% on room air. 11/12: The patient is again more lethargic but has been afebrile. She has been seen bipolar medicine & office cases there is no active pulmonary issues. Blood culture was never obtained as ordered on the evening of November 10. Blood culture will be ordered now. Consult placed with Dr. Beltran. Patient is currently on Zosyn. Valtrex dosing will be decreased to twice daily to complete 4 more days. She has been afebrile, heart rate 99, blood pressure 134/71, pulse ox 100% on room air. Repeat blood work reveals WBC 9.9, hemoglobin 9.7, platelet count 438. Sodium 133, potassium 4.3, chloride 97, CO2 27.9, BUN 10 and creatinine 0.4. Alkaline phosphatase 192. Anticipate possible discharge back to ECF tomorrow if patient remains stable.. Blood culture ordered. REVIEW OF SYSTEMS Constitutional: Reports fever, no chills, no night sweats. Reported weight loss. Reports weakness, Reports fatigue reports lethargy. No daytime sleepiness. EENT: No headache. No blurred vision or double vision, no loss of vision. Reports loss of Hearing, no ringing in the ears, no dizziness. No nasal drainage or congestion. No epistaxis. No sore throat. Lungs: Reports shortness of breath, cough, no sputum production. No wheezing. Cardiovascular: No chest pain, no lower extremity edema. No palpitations. No paroxysmal nocturnal dyspnea. No orthopnea. No lightheadedness or dizziness. No syncopal episodes. Abdominal: No abdominal pain. No nausea, vomiting. No diarrhea. No constipation. No bloody or tarry stools.. No loss of appetite. Genitourinary: No dysuria, increased frequency, urgency. No urinary retention. Musculoskeletal: Denies myalgias. Reports muscle weakness, no gait dysfunction, no frequent falls. No back pain. No neck pain. Integumentary: No wounds, no lesions. No rash or pruritus. No unusual bruising. No change in hair or nails. Neurologic: No aphasia. No facial droop. No change in mentation. No head injury. No headache. No paralysis. No paresthesia. Psychiatric: No depression. No anxiety. Endocrine: No abnormal blood sugars. PHYSICAL EXAMINATION Gen: This is a frail 80-year-old female. She is resting on the side of the bed and appears comfortable. No acute respiratory distress is noted. HEENT: Head is atraumatic, normocephalic. Pupils equal, round. Sclerae is anicteric. NECK: Supple. No JVD. No lymphadenopathy. No thyromegaly. LUNGS: Diminished. No intercostal retractions. No accessory muscle usage. HEART: Regular rate and rhythm. No murmur. ABDOMEN: Soft. Bowel sounds are present. No masses. No tenderness. EXTREMITIES: No pedal edema. No calf tenderness. NEUROLOGICAL: Patient is awake, alert and oriented to person and place. Cranial nerves 2 through 12 are grossly intact. ASSESSMENT AND PLAN 1. Generalized weakness secondary to Covid 19, prolonged hospitalization, recent diarrhea, weight loss. Continue PT and OT. 2. Sepsis: Hypotension and tachycardia with leukocytosis possibly related to dehydration secondary to recent diarrhea, possibly secondary to bacterial pneumonia.continue Zosyn, consult with Dr. Beltran 3. Leukocytosis secondary to steroids. 4. Elevated d-dimer, pulmonary embolism ruled out. D-dimer elevated secondary to recent Covid infection.. 5. Elevated inflammatory markers secondary to Covid 19.. 6. Covid 19 pneumonia, possible bacterial pneumonia with lingering effects. Continue Kefzol, Lovenox 40 mg subcu daily. 7. Acute MSSA UTI with pyuria, transition IV antibiotics to Kefzol. 8. Mild intermittent asthma. 9. Overactive bladder. Continue Mirabegron 25 mg daily. 10. Severe protein calorie malnutrition with BMI of 15. We'll hold on starting Remeron due to family's desire to have patient on morphine. 11. Chronic pain, secondary to inflammatory arthritis, rheumatoid, on maintenance morphine 12. HSV oral simplex lesions, doubt herpes zoster, continue valacyclovir will be 1 g 3 times a day, 5-7 days instead of 2 tabs twice a day 13. DVT prophylaxis. Lovenox. DISCHARGE PLAN Return to [facility] under the care of Dr. Forman on to complete course of rehab. Impression and plan of care have been directed as dictated by the signing physician. Raissa Ledbetter nurse practitioner acting as scribe for signing physician. Objective - Vital Signs Vital signs: Vital Signs Temp 98.5 F 11/12/20 05:52 Pulse 99 11/12/20 05:52 Resp 18 11/12/20 05:52 BP 134/71 11/12/20 05:52 Pulse Ox 100 11/12/20 05:52 Intake & Output 11/11/20 11/12/20 11/12/20 18:59 06:59 18:59 Intake Total 240 Balance 240 Weight 36.3 kg Intake: Oral 240 Other: Voiding Method Diaper Diaper # Voids 3 2 - Labs CBC & Chem 7: 11/12/20 06:07 11/12/20 06:07 Labs: Abnormal Lab Results - Last 24 Hours (Table) 11/12/20 11/12/20 Range/Units 06:07 06:07 RBC 3.14 L (4.10-5.20) X 10*6/uL Hgb 9.7 L (12.0-15.0) g/dL Hct 30.8 L (37.2-46.3) % MCV 98.1 H (80.0-97.0) fL MCHC 31.5 L (32.0-37.0) g/dL RDW 14.6 H (11.5-14.5) % Sodium 133 L (135-145) mmol/L Creatinine 0.5 L (0.6-1.5) mg/dL Calcium 8.4 L (8.7-10.3) mg/dL Alkaline Phosphatase 192 H (41-126) U/L Total Protein 4.8 L (6.2-8.2) g/dL Albumin 2.50 L (3.80-4.90) g/dL Albumin/Globulin Ratio 1.09 L (1.60-3.17) g/dL Microbiology - Last 24 Hours (Table) 11/05/20 15:21 Blood Culture - Final Blood No Growth after 144 hours 11/05/20 14:44 Blood Culture - Final Blood No Growth after 144 hours
--- NOTE | 2020-11-12 15:33 | PN ---
PROGRESS NOTE DATE OF SERVICE: 11/12/2020 REASON FOR FOLLOWUP: Likely aspiration pneumonia. INTERVAL HISTORY: The patient did have a low grade fever of 100.1 this morning. The patient is afebrile since then. Currently on room air. The patient remains to be pleasantly confused, unable to provide any history. No vomiting, diarrhea has been reported by nursing staff. Oral intake remains to be poor. PHYSICAL EXAMINATION: Blood pressure 118/69, pulse of 101 temperature 100.1. She is 93% room air. General description is an elderly female up in the chair in no distress. RESPIRATORY SYSTEM: Unlabored breathing, decreased breath sounds at bases. No wheeze. HEART: S1, S2. Regular rate and rhythm. ABDOMEN: Soft, no tenderness. LABS: Hemoglobin 9.7, white count 9.94. Creatinine 0.5. DIAGNOSTIC IMPRESSION AND PLAN: Patient with low-grade fever, concern likely for an aspiration pneumonia with bilateral upper lobe infiltrate on CT. Patient started on Zosyn. Fever seemed to have improved. Needs aspiration precautions and close followup. Continue supportive care. MMODL / IJN: [id number] /
[2020-11-12] MEDS: MIRTAZAPINE 15 MG TAB PO SCH ×2 (17:11→22:07)
[2020-11-12] MEDS: ACETAMINOPHEN TAB 325 MG TAB PO PRN (17:12)
[2020-11-13] MEDS: SODIUM CHLORIDE 0.9% 1,000 ML IV SCH ×2 (05:35→08:09)
[2020-11-13] MEDS: PIPERACILLIN-TAZOBACTAM 3.375 GM in SODIUM CHLORIDE 0.9% 100 ML IVPB SCH ×2 (05:35→13:28)
[2020-11-13] MEDS: PANTOPRAZOLE 40 MG TABLET PO SCH (08:09)
[2020-11-13] MEDS: ASCORBIC ACID 500 MG TAB PO SCH (08:10)
[2020-11-13] MEDS: THIAMINE 100 MG TAB PO SCH (08:10)
[2020-11-13] MEDS: MULTIVITAMINS, THERA 1 EACH TAB PO SCH (08:10)
[2020-11-13] MEDS: FOLIC ACID 1 MG TAB PO SCH (08:10)
[2020-11-13] MEDS: METOPROLOL TARTRATE 12.5 MG TAB PO SCH (08:10)
[2020-11-13] MEDS: valACYclovir HCL 1,000 MG TABLET PO SCH ×2 (08:10→19:50)
[2020-11-13] MEDS: ZINC SULFATE 220 MG CAP PO SCH (08:10)
[2020-11-13] MEDS: CHOLECALCIFEROL 25 MCG (1000 IU) TABLET PO SCH (08:10)
[2020-11-13] MEDS: ENOXAPARIN 40 MG/0.4 ML SYRINGE SQ SCH (08:10)
[2020-11-13] MEDS: ALBUTEROL HFA INHALER INHALATION SCH ×4 (09:10→20:25)
[2020-11-13] MEDS: SYMBICORT 160-4.5 MCG INHALER INHALATION SCH ×2 (09:10→20:25)
[2020-11-13] MEDS ORDERED: METOPROLOL TARTRATE 25 MG TAB PO SCH (09:30)
[2020-11-13] MEDS ORDERED: METOPROLOL TARTRATE 12.5 MG TAB PO ONE (09:30)
[2020-11-13] MEDS: NON FORMULARY DRUG (Mirabegron [Myrbetriq] 25 MG Tab.Er.24h) PO SCH (09:58)
--- NOTE | 2020-11-13 11:06 | P.PN ---
Subjective Progress Note Date: 11/13/20 HISTORY OF PRESENT ILLNESS This is an 80-year-old female patient of Dr. Zambrano in [facility] currently at [facility] under the care of Dr. Durham for subacute rehab with past medical history of rheumatoid arthritis, bronchial mild intermittent asthma, overactive bladder. Patient was diagnosed with COVID-19 1 month after receiving the first vaccine on October 23 and was hospitalized at that time. CT angiogram was negative for pulmonary embolism. She was treated with colchicine, Lovenox and supplements. Patient was discharged home on October 28 but due to weakness and diarrhea, nathan ospitalized on October 29 under [facility] and was subsequently discharged to [facility]. Patient was sent from [facility] to the [facility] due to tachycardia and low blood pressure and fevers. Patient also complained of shortness of breath and body aches. No nausea, vomiting or diarrhea. She does have decreased appetite and generalized weakness. She was found to be afebrile, heart rate 117, respiratory rate 24, blood pressure 132/90, pulse ox 98% on 2 L nasal cannula. EKG was a sinus tachycardia with right bundle branch block. No acute ST changes. Chest x-ray reveals chronic changes. CTA of the chest showed no evidence of pulmonary embolism. Pulmonary emphysema. Thoracic kyphotic deformity. Compression fracture stable. WBC 19.6, hemoglobin 12.7, platelet count 388. INR 1.2. D-dimer 2.61. Electrolytes normal. BUN 23 and creatinine 0.52. AST 53, ALT 31, alkaline phosphate is 152. LDH 876. C-reactive protein 348.3. Lactic acid 1.4. ProBNP 1170. 11/07: Pulse ox 100% on 2 L nasal cannula, afebrile, heart rate 79, blood pressure 135/74. candy vendor is a sinus rhythm. Patient has been seen by pulmonary medicine indeterminate patient does not require antibiotics, no benefit with Decadron. Recommended a urinalysis which has been ordered on 2 occasions and not collected. Patient has refused PT and OT today. Recommendations from therapies is for subacute rehab. Patient is eating very little, she states she does not have appetite. Patient remains pleasantly confused. 11/08: Patient arm was seen for evaluation today, very frail looking, she R feels drowsy, and has not slept well last night, when inquired she arm was supposed to take morphine 30 mg every 8 hours, she has been doing in the past several years, secondary to RA. Apparently she hasn't had this medication off for the past several days now, the family 1. Her morphine 3 started, when inquired patient denies any significant pain today. She is noticed to have unlimited appetite, however she is drinking okay. She is a little bit anemic when evaluated for blood work, hemoglobin was 11.0, creatinine 0.45, Covid markers on admission November 05 was elevated, with ferritin 969, alkaline phosphatase 152, LDH 876, CRP of 348, pro-calcitonin elevated at 10.24, urine WBC the 84 WBC, currently pending patient is on Rocephin. Vital signs okay, nonlabored breathing, O2 sats 2 L cannula, 100%, otherwise remainder she stands at 97%. T-max of 98, heart rate of 88. She is followed here by Dr. Jaramillo a critical care medicine. attempted to call son 4x and another family member 2x without response 11/09: Patient is more drowsy today, more lethargic, we have to back down on morp mauricio 15 mg twice a day, still with diminished appetite, she does have lip sores mainly on the left side, possibly suspected HSV oral simplex, valacyclovir initiated, we haven't initiated mirtaze[ine. Melatonin started for sleep samaritan at nighttime. Nutrition is still impaired, started on liquid ensure tid hemoglobin 11, creatinine of 0.45, albumin not 2.5 urine culture presumptive staph aureus, patient is on Rocephin, patient denies pain in the joints or the back or abdominal pain 11/10: Patient states that she is not feeling too good today. She states she is feeling tired. She denies having any pain whatsoever. Patient is somewhat lethargic. She is on morphine 15 mg every 8 hours which will be decreased frequency to every 12 hours and hold for sedation. Urine culture is positive for MSSA and ceftriaxone will be transitioned to Kefzol. Patient has been afebrile, heart rate 92, blood pressure 115/59, pulse ox 100% on 3 L nasal cannula. Repeat blood work reveals WBC 10.1, hemoglobin 10.1. Sodium 136, potassium 3. form will be replaced, chloride 98, CO2 32, BUN 16 creatinine 0.54. Blood sugars running between 72 and 89. AST 46, ALT 88, alkaline phosphatase 225. C-reactive protein 246.8. Plan is to monitor patient overnight and probable discharge to ECF tomorrow. 11/11: Patient had a temperature max yesterday afternoon when a 1.8 and consult was added for Dr. Beltran and antibiotics changed to Zosyn. Patient remains more sedated unchanged from yesterday. She will open her eyes and answer questions. She is eating very little. We have added and speech consult for possible aspiration. Chest x-ray ordered yesterday afternoon revealed slightly increased prominence of bilateral upper lobe interstitial opacities. May relate to acute or chronic process. Repeat blood work ordered for tomorrow. Patient has been afebrile since yesterday afternoon, heart rate 101, blood pressure 135/73, pulse ox 95% on room air. 11/12: The patient is again more lethargic but has been afebrile. She has been seen bipolar medicine & office cases there is no active pulmonary issues. Blood culture was never obtained as ordered on the evening of November 10. Blood culture will be ordered now. Consult placed with Dr. Beltran. Patient is currently on Zosyn. Valtrex dosing will be decreased to twice daily to complete 4 more days. She has been afebrile, heart rate 99, blood pressure 134/71, pulse ox 100% on room air. Repeat blood work reveals WBC 9.9, hemoglobin 9.7, platelet count 438. Sodium 133, potassium 4.3, chloride 97, CO2 27.9, BUN 10 and creatinine 0.4. Alkaline phosphatase 192. Anticipate possible discharge back to ECF tomorrow if patient remains stable.. Blood culture ordered. 11/13: She has been seen and followed by Dr. Beltran from infectious disease for possible aspiration pneumonia. Temperature max 100.1 yesterday at 1600. Patient has been continued on Zosyn. Urine culture is finalized with staph aureus. Blood cultures no growth. Heart rate is running low 100s and metoprolol increased to 25 mg twice daily. Blood pressure 136/71. candy vendor is sinus rhythm. Patient is not eating very much, about 25% of her meals with low appetite. REVIEW OF SYSTEMS Constitutional: Reports fever, no chills, no night sweats. Reported weight loss. Reports weakness, Reports fatigue reports lethargy. Reports daytime sl eepiness. EENT: No headache. No blurred vision or double vision, no loss of vision. Reports loss of Hearing, no ringing in the ears, no dizziness. No nasal drainage or congestion. No epistaxis. No sore throat. Lungs: Reports shortness of breath, cough, no sputum production. No wheezing. Cardiovascular: No chest pain, no lower extremity edema. No palpitations. No paroxysmal nocturnal dyspnea. No orthopnea. No lightheadedness or dizziness. No syncopal episodes. Abdominal: No abdominal pain. No nausea, vomiting. No diarrhea. No constipation. No bloody or tarry stools.. No loss of appetite. Genitourinary: No dysuria, increased frequency, urgency. No urinary retention. Musculoskeletal: Denies myalgias. Reports muscle weakness, no gait dysfunction, no frequent falls. No back pain. No neck pain. Integumentary: No wounds, no lesions. No rash or pruritus. No unusual bruising . No change in hair or nails. Neurologic: No aphasia. No facial droop. No change in mentation. No head injury. No headache. No paralysis. No paresthesia. Psychiatric: No depression. No anxiety. Endocrine: No abnormal blood sugars. PHYSICAL EXAMINATION Gen: This is a frail 80-year-old female. She is resting on the side of the bed and appears comfortable. No acute respiratory distress is noted. HEENT: Head is atraumatic, normocephalic. Pupils equal, round. Sclerae is anicteric. Her face lesion left lips NECK: Supple. No JVD. No lymphadenopathy. No thyromegaly. LUNGS: Diminished. No intercostal retractions. No accessory muscle usage. HEART: Regular rate and rhythm. No murmur. ABDOMEN: Soft. Bowel sounds are present. No masses. No tenderness. EXTREMITIES: No pedal edema. No calf tenderness. NEUROLOGICAL: Patient is awake, alert and oriented to person and place. Cranial nerves 2 through 12 are grossly intact. ASSESSMENT AND PLAN 1. Generalized weakness secondary to Covid 19, prolonged hospitalization, recent diarrhea, weight loss. Continue PT and OT. 2. Sepsis: Hypotension and tachycardia with leukocytosis possibly related to dehydration secondary to recent diarrhea, possibly secondary to aspiration pneu monia.continue Zosyn, consult with Dr. Beltran 3. Leukocytosis secondary to steroids. 4. Elevated d-dimer, pulmonary embolism ruled out. D-dimer elevated secondary to recent Covid infection.. 5. Elevated inflammatory markers secondary to Covid 19.. 6. Covid 19 pneumonia, possible bacterial pneumonia with lingering effects. Continue Kefzol, Lovenox 40 mg subcu daily. 7. Acute MSSA UTI with pyuria, transition IV antibiotics to Kefzol. 8. Mild intermittent asthma. 9. Overactive bladder. Continue Mirabegron 25 mg daily. 10. Severe protein calorie malnutrition with BMI of 15. We'll hold on starting Remeron due to family's desire to have patient on morphine. 11. Chronic pain, secondary to inflammatory arthritis, rheumatoid, on maintenance morphine 12. HSV oral simplex lesions, doubt herpes zoster, continue valacyclovir will be 1 g 3 times a day, 5-7 days instead of 2 tabs twice a day 13. DVT prophylaxis. Lovenox. DISCHARGE PLAN Return to [facility] under the care of Dr. Durham on Tuesday to complete course of rehab. Impression and plan of care have been directed as dictated by the signing physician. Raissa Ledbetter nurse practitioner acting as scribe for signing physician. Objective - Vital Signs Vital signs: Vital Signs Temp 98.5 F 11/13/20 05:29 Pulse 102 H 11/13/20 05:29 Resp 17 11/13/20 05:29 BP 136/71 11/13/20 05:29 Pulse Ox 95 11/13/20 05:29 Intake & Output 11/12/20 11/13/20 11/13/20 18:59 06:59 18:59 Output Total 275 Balance -275 Weight 36.3 kg 36 kg Output: Urine 275 Other: Voiding Method Diaper Diaper # Voids 1 - Labs CBC & Chem 7: 11/12/20 06:07 11/12/20 06:07
--- NOTE | 2020-11-13 18:20 | PN ---
PROGRESS NOTE DATE OF SERVICE: 11/13/2020 REASON FOR FOLLOWUP: Fever, likely aspiration pneumonia. INTERVAL HISTORY: The patient is currently running a low-grade fever of 99.7. The patient remains slightly lethargic and not a good historian. No vomiting, diarrhea or any other changes reported by the nursing staff. PHYSICAL EXAMINATION: Blood pressure 144/70 with a pulse of 95, temperature 99.7. She is 97% on room air. General description is an elderly female lying in bed in no distress. HEENT EXAMINATION: The patient appears . LUNGS: Unlabored breathing. Decreased breath sounds at the base. No wheeze. HEART: S1, S2. Regular rate and rhythm. ABDOMEN: Soft. No tenderness. LABS: Hemoglobin 9.7, white count 9.94. Creatinine 0.5. Blood culture negative. DIAGNOSTIC IMPRESSION AND PLAN: 1. Patient with a fever. Concern for possible aspiration pneumonia, for which the patient is currently covered with Zosyn and aspiration precautions. 2. Patient with valtrex has been added. Continue with supportive care. MMODL / IJN: [id number] /
[2020-11-13] MEDS: MIRTAZAPINE 15 MG TAB PO SCH (19:50)
[2020-11-13] MEDS: METOPROLOL TARTRATE 25 MG TAB PO SCH (19:50)
[2020-11-14] MEDS: PIPERACILLIN-TAZOBACTAM 3.375 GM in SODIUM CHLORIDE 0.9% 100 ML IVPB SCH ×4 (06:02→21:41)
[2020-11-14] MEDS: ENOXAPARIN 40 MG/0.4 ML SYRINGE SQ SCH (08:29)
[2020-11-14] MEDS: PANTOPRAZOLE 40 MG TABLET PO SCH (08:30)
[2020-11-14] MEDS: CHOLECALCIFEROL 25 MCG (1000 IU) TABLET PO SCH (08:30)
[2020-11-14] MEDS: METOPROLOL TARTRATE 25 MG TAB PO SCH ×2 (08:31→21:41)
[2020-11-14] MEDS: FOLIC ACID 1 MG TAB PO SCH (08:31)
[2020-11-14] MEDS: THIAMINE 100 MG TAB PO SCH (08:31)
[2020-11-14] MEDS: MULTIVITAMINS, THERA 1 EACH TAB PO SCH (08:31)
[2020-11-14] MEDS: ASCORBIC ACID 500 MG TAB PO SCH (08:31)
[2020-11-14] MEDS: ZINC SULFATE 220 MG CAP PO SCH (08:31)
[2020-11-14] MEDS: NON FORMULARY DRUG (Mirabegron [Myrbetriq] 25 MG Tab.Er.24h) PO SCH (08:32)
[2020-11-14] MEDS: valACYclovir HCL 1,000 MG TABLET PO SCH (08:32)
[2020-11-14] MEDS: ALBUTEROL HFA INHALER INHALATION SCH ×4 (08:51→20:23)
[2020-11-14] MEDS: SYMBICORT 160-4.5 MCG INHALER INHALATION SCH ×2 (08:51→20:23)
[2020-11-14 09:19] LABS: HCT 32.9 % (37.2-46.3); HGB 10.4 g/dL (12.0-15.0); MCHC 31.6 g/dL (32.0-37.0); MCV 98.2 fL (80.0-97.0); Mean Platelet Volume 9.2 fL (9.5-12.2); Platelet Count 493 X 10*3/uL (140-440); RBC 3.35 X 10*6/uL (4.10-5.20); RDW 14.4 % (11.5-14.5); WBC 7.97 X 10*3/uL (4.50-10.00)
[2020-11-14 09:33] LABS: ALT 28 U/L (8-44); AST 30 U/L (13-35); African American GFR (CKD) 104.5 (60.0-200.0); Alkaline Phosphatase 173 U/L (41-126); Blood Urea Nitrogen <5.0 mg/dL (9.0-27.0); Calcium 8.7 mg/dL (8.7-10.3); Chloride 97 mmol/L (96-109); Globulin 2.8 g/dL (1.6-3.3); Glucose 88 mg/dL (70-110); Non-African American GFR(CKD) 90.1 (60.0-200.0); Potassium 4.1 mmol/L (3.5-5.5); Sodium 134 mmol/L (135-145); Total Bilirubin 0.4 mg/dL (0.3-1.2); Total Protein 5.6 g/dL (6.2-8.2)
--- NOTE | 2020-11-14 10:50 | P.PN ---
Subjective Progress Note Date: 11/14/20 HISTORY OF PRESENT ILLNESS This is an 80-year-old female patient of Dr. Zambrano in [facility] currently at [facility] under the care of Dr. Durham for subacute rehab with past medical history of rheumatoid arthritis, bronchial mild intermittent asthma, overactive bladder. Patient was diagnosed with COVID-19 1 month after receiving the first vaccine on October 23 and was hospitalized at that time. CT angiogram was negative for pulmonary embolism. She was treated with colchicine, Lovenox and supplements. Patient was discharged home on October 28 but due to weakness and diarrhea, nathan ospitalized on October 29 under [facility] and was subsequently discharged to [facility]. Patient was sent from [facility] to the [facility] due to tachycardia and low blood pressure and fevers. Patient also complained of shortness of breath and body aches. No nausea, vomiting or diarrhea. She does have decreased appetite and generalized weakness. She was found to be afebrile, heart rate 117, respiratory rate 24, blood pressure 132/90, pulse ox 98% on 2 L nasal cannula. EKG was a sinus tachycardia with right bundle branch block. No acute ST changes. Chest x-ray reveals chronic changes. CTA of the chest showed no evidence of pulmonary embolism. Pulmonary emphysema. Thoracic kyphotic deformity. Compression fracture stable. WBC 19.6, hemoglobin 12.7, platelet count 388. INR 1.2. D-dimer 2.61. Electrolytes normal. BUN 23 and creatinine 0.52. AST 53, ALT 31, alkaline phosphate is 152. LDH 876. C-reactive protein 348.3. Lactic acid 1.4. ProBNP 1170. 11/07: Pulse ox 100% on 2 L nasal cannula, afebrile, heart rate 79, blood pressure 135/74. 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 Patient has been seen by pulmonary medicine indeterminate patient does not require antibiotics, no benefit with Decadron. Recommended a urinalysis which has been ordered on 2 occasions and not collected. Patient has refused PT and OT today. Recommendations from therapies is for subacute rehab. Patient is eating very little, she states she does not have appetite. Patient remains pleasantly confused. 11/08: Patient arm was seen for evaluation today, very frail looking, she R feels drowsy, and has not slept well last night, when inquired she arm was supposed to take morphine 30 mg every 8 hours, she has been doing in the past several years, secondary to RA. Apparently she hasn't had this medication off for the past several days now, the family 1. Her morphine 3 started, when inquired patient denies any significant pain today. She is noticed to have unlimited appetite, however she is drinking okay. She is a little bit anemic when evaluated for blood work, hemoglobin was 11.0, creatinine 0.45, Covid markers on admission November 05 was elevated, with ferritin 969, alkaline phosphatase 152, LDH 876, CRP of 348, pro-calcitonin elevated at 10.24, urine WBC the 84 WBC, currently pending patient is on Rocephin. Vital signs okay, nonlabored breathing, O2 sats 2 L cannula, 100%, otherwise remainder she stands at 97%. T-max of 98, heart rate of 88. She is followed here by Dr. Jaramillo a critical care medicine. attempted to call son 4x and another family member 2x without response 11/09: Patient is more drowsy today, more lethargic, we have to back down on morp mauricio 15 mg twice a day, still with diminished appetite, she does have lip sores mainly on the left side, possibly suspected HSV oral simplex, valacyclovir initiated, we haven't initiated mirtaze[ine. Melatonin started for sleep denominational at nighttime. Nutrition is still impaired, started on liquid ensure tid hemoglobin 11, creatinine of 0.45, albumin not 2.5 urine culture presumptive staph aureus, patient is on Rocephin, patient denies pain in the joints or the back or abdominal pain 11/10: Patient states that she is not feeling too good today. She states she is feeling tired. She denies having any pain whatsoever. Patient is somewhat lethargic. She is on morphine 15 mg every 8 hours which will be decreased frequency to every 12 hours and hold for sedation. Urine culture is positive for MSSA and ceftriaxone will be transitioned to Kefzol. Patient has been afebrile, heart rate 92, blood pressure 115/59, pulse ox 100% on 3 L nasal cannula. Repeat blood work reveals WBC 10.1, hemoglobin 10.1. Sodium 136, potassium 3. form will be replaced, chloride 98, CO2 32, BUN 16 creatinine 0.54. Blood sugars running between 72 and 89. AST 46, ALT 88, alkaline phosphatase 225. C-reactive protein 246.8. Plan is to monitor patient overnight and probable discharge to ECF tomorrow. 11/11: Patient had a temperature max yesterday afternoon when a 1.8 and consult was added for Dr. Beltran and antibiotics changed to Zosyn. Patient remains more sedated unchanged from yesterday. She will open her eyes and answer questions. She is eating very little. We have added and speech consult for possible aspiration. Chest x-ray ordered yesterday afternoon revealed slightly increased prominence of bilateral upper lobe interstitial opacities. May relate to acute or chronic process. Repeat blood work ordered for tomorrow. Patient has been afebrile since yesterday afternoon, heart rate 101, blood pressure 135/73, pulse ox 95% on room air. 11/12: The patient is again more lethargic but has been afebrile. She has been seen bipolar medicine & office cases there is no active pulmonary issues. Blood culture was never obtained as ordered on the evening of November 10. Blood culture will be ordered now. Consult placed with Dr. Beltran. Patient is currently on Zosyn. Valtrex dosing will be decreased to twice daily to complete 4 more days. She has been afebrile, heart rate 99, blood pressure 134/71, pulse ox 100% on room air. Repeat blood work reveals WBC 9.9, hemoglobin 9.7, platelet count 438. Sodium 133, potassium 4.3, chloride 97, CO2 27.9, BUN 10 and creatinine 0.4. Alkaline phosphatase 192. Anticipate possible discharge back to ECF tomorrow if patient remains stable.. Blood culture ordered. 11/13: She has been seen and followed by Dr. Beltran from infectious disease for possible aspiration pneumonia. Temperature max 100.1 yesterday at 1600. Patient has been continued on Zosyn. Urine culture is finalized with staph aureus. Blood cultures no growth. Heart rate is running low 100s and metoprolol increased to 25 mg twice daily. Blood pressure 136/71. voip network technician is sinus rhythm. Patient is not eating very much, about 25% of her meals with low appetite. 11/14: Patient is slightly more awake alert today. We will discontinue Valtrex in case this is an packed in her mental status. Patient is not eating anything. She is not taking ensure. Patient verbalizes that she does not want a PEG tube. Noted oral thrush and patient started on clotrimazole. Family will be contacted regarding clarification of CODE STATUS and PEG tube. Patient has been afebrile, heart rate 105, blood pressure 120/62, pulse ox 91% on room air. Repeat blood work reveals WBC 7.9, hemoglobin 10.4, platelet count 493. Sodium 134, potassium 4.1, chloride 97, CO2 21, BUN less than 5 and creatinine 0.5. Patient is followed by Dr. Beltran and continued on Zosyn. REVIEW OF SYSTEMS Constitutional: Reports fever, no chills, no night sweats. Reported weight loss. Reports weakness, Reports fatigue reports lethargy. Reports daytime sleepiness. EENT: No headache. No blurred vision or double vision, no loss of vision. Reports loss of Hearing, no ringing in the ears, no dizziness. No nasal drainage or congestion. No epistaxis. No sore throat. Lungs: Reports shortness of breath, cough, no sputum production. No wheezing. Cardiovascular: No chest pain, no lower extremity edema. No palpitations. No paroxysmal nocturnal dyspnea. No orthopnea. No lightheadedness or dizziness. No syncopal episodes. Abdominal: No abdominal pain. No nausea, vomiting. No diarrhea. No constipation. No bloody or tarry stools reports loss of appetite. Genitourinary: No dysuria, increased frequency, urgency. No urinary retention. Musculoskeletal: Denies myalgias. Reports muscle weakness, no gait dysfunction, no frequent falls. No back pain. No neck pain. Integumentary: No wounds, no lesions. No rash or pruritus. No unusual bruising. No change in hair or nails. Neurologic: No aphasia. No facial droop. Reported change in mentation. No head injury. No headache. No paralysis. No paresthesia. Psychiatric: No depression. No anxiety. Endocrine: No abnormal blood sugars. PHYSICAL EXAMINATION Gen: This is a frail 80-year-old female. She is resting on the side of the bed and appears comfortable. No acute respiratory distress is noted. HEENT: Head is atraumatic, normocephalic. Pupils equal, round. Sclerae is anicteric. Herpes lesion left lips NECK: Supple. No JVD. No lymphadenopathy. No thyromegaly. LUNGS: Diminished. No intercostal retractions. No accessory muscle usage. HEART: Regular rate and rhythm. No murmur. ABDOMEN: Soft. Bowel sounds are present. No masses. No tenderness. EXTREMITIES: No pedal edema. No calf tenderness. NEUROLOGICAL: Patient is awake, alert and oriented to person and place. Cranial nerves 2 through 12 are grossly intact. ASSESSMENT AND PLAN 1. Generalized weakness secondary to Covid 19, prolonged hospitalization, recent diarrhea, weight loss. Continue PT and OT. 2. Sepsis: Hypotension and tachycardia with leukocytosis possibly related to dehydration secondary to recent diarrhea, possibly secondary to aspiration pneumonia.continue Zosyn, consult with Dr. Beltran 3. Leukocytosis secondary to steroids. 4. Elevated d-dimer, pulmonary embolism ruled out. D-dimer elevated secondary to recent Covid infection.. 5. Elevated inflammatory markers secondary to Covid 19. 6. Covid 19 pneumonia, possible bacterial pneumonia with lingering effects. Continue Kefzol, Lovenox 40 mg subcu daily. 7. Acute MSSA UTI with pyuria, patient is on Zosyn. 8. Mild intermittent asthma. 9. Overactive bladder. Continue Mirabegron 25 mg daily. 10. Severe protein calorie malnutrition with BMI of 15. Morphine has been discontinued. Patient started on Remeron 7.5 mg at bedtime. Family will be contacted regarding possible PEG tube. 11. Chronic pain, secondary to inflammatory arthritis, rheumatoid, on maintenance morphine 12. HSV oral simplex lesions, doubt herpes zoster, continue valacyclovir will be 1 g 3 times a day, 5-7 days instead of 2 tabs twice a day 13. DVT prophylaxis. Lovenox. DISCHARGE PLAN Return to [facility] under the care of Dr. Durham next week to complete course of rehab. Impression and plan of care have been directed as dictated by the signing physician. Raissa Ledbetter nurse practitioner acting as scribe for signing physician. Objective - Vital Signs Vital signs: Vital Signs Temp 98.5 F 11/14/20 06:00 Pulse 103 H 11/14/20 06:00 Resp 17 11/13/20 21:58 BP 147/74 11/14/20 06:00 Pulse Ox 96 11/14/20 06:00 Intake & Output 11/13/20 11/14/20 11/14/20 18:59 06:59 18:59 Intake Total 360 Output Total 600 Balance -600 360 Intake: Oral 360 Output: Urine 600 Other: Voiding Method Diaper Diaper External Catheter External Catheter External Catheter - Labs CBC & Chem 7: 11/14/20 06:17 11/14/20 06:17 Labs: Microbiology - Last 24 Hours (Table) 11/12/20 11:36 Blood Culture - Preliminary Blood No Growth after 24 hours
[2020-11-14] MEDS: CLOTRIMAZOLE TROCHE 10 MG TROCHE MUCOUS MEM SCH ×4 (11:25→23:34)
[2020-11-14 14:46] VITALS: BMI 16.5
--- NOTE | 2020-11-14 15:36 | PN ---
PROGRESS NOTE DATE OF SERVICE: 11/14/2020. REASON FOR FOLLOWUP: 1. Aspiration pneumonia. 2. Herpes labialis. INTERVAL HISTORY: The patient is currently afebrile. She has been slightly more awake, however, did not answer any questions. No vomiting or diarrhea has been reported. Currently on room air. PHYSICAL EXAMINATION: Blood pressure 128/62 with a pulse of 105, temperature 98.1. She is 91% on room air. General description is an elderly female lying in bed in no distress. HEENT EXAMINATION: The patient has crusting on the lips. No lesions were noticed. LUNGS: Unlabored breathing, decreased breath sounds at bases. No wheeze. HEART: S1, S2. Regular rate and rhythm. ABDOMEN: Soft, no tenderness. LABS: Hemoglobin 10.4, white count 7.97, creatinine 0.5. DIAGNOSTIC IMPRESSION AND PLAN: 1. Patient with pneumonia, likely aspiration etiology. This patient is currently covered with Zosyn, to oral antibiotic on discharge. 2. Herpes labialis. Patient received 2 doses of Valtrex, should be enough. Continue with supportive care. MMODL / IJN: [id number] /
[2020-11-14] MEDS: MIRTAZAPINE 15 MG TAB PO SCH (16:59)
[2020-11-14] MEDS: ACETAMINOPHEN TAB 325 MG TAB PO PRN (21:47)
[2020-11-15] MEDS: CLOTRIMAZOLE TROCHE 10 MG TROCHE MUCOUS MEM SCH ×5 (05:31→23:33)
[2020-11-15] MEDS: PIPERACILLIN-TAZOBACTAM 3.375 GM in SODIUM CHLORIDE 0.9% 100 ML IVPB SCH ×3 (05:31→22:00)
[2020-11-15] MEDS: MULTIVITAMINS, THERA 1 EACH TAB PO SCH (08:00)
[2020-11-15] MEDS: FOLIC ACID 1 MG TAB PO SCH (08:00)
[2020-11-15] MEDS: THIAMINE 100 MG TAB PO SCH (08:00)
[2020-11-15] MEDS: METOPROLOL TARTRATE 25 MG TAB PO SCH ×2 (08:00→20:30)
[2020-11-15] MEDS: ENOXAPARIN 40 MG/0.4 ML SYRINGE SQ SCH (08:00)
[2020-11-15] MEDS: PANTOPRAZOLE 40 MG TABLET PO SCH (08:00)
[2020-11-15] MEDS: ZINC SULFATE 220 MG CAP PO SCH (08:00)
[2020-11-15] MEDS: ASCORBIC ACID 500 MG TAB PO SCH (08:00)
[2020-11-15] MEDS: CHOLECALCIFEROL 25 MCG (1000 IU) TABLET PO SCH (08:00)
[2020-11-15] MEDS: NON FORMULARY DRUG (Mirabegron [Myrbetriq] 25 MG Tab.Er.24h) PO SCH (08:01)
[2020-11-15] MEDS: ALBUTEROL HFA INHALER INHALATION SCH ×4 (08:14→18:46)
[2020-11-15] MEDS: SYMBICORT 160-4.5 MCG INHALER INHALATION SCH ×2 (08:15→18:47)
--- NOTE | 2020-11-15 10:27 | P.PN ---
Subjective Progress Note Date: 11/15/20 HISTORY OF PRESENT ILLNESS This is an 80-year-old female patient of Dr. Zambrano in [facility] currently at [facility] under the care of Dr. Durham for subacute rehab with past medical history of rheumatoid arthritis, bronchial mild intermittent asthma, overactive bladder. Patient was diagnosed with COVID-19 1 month after receiving the first vaccine on October 23 and was hospitalized at that time. CT angiogram was negative for pulmonary embolism. She was treated with colchicine, Lovenox and supplements. Patient was discharged home on October 28 but due to weakness and diarrhea, nathan ospitalized on October 29 under [facility] and was subsequently discharged to [facility]. Patient was sent from [facility] to the [facility] due to tachycardia and low blood pressure and fevers. Patient also complained of shortness of breath and body aches. No nausea, vomiting or diarrhea. She does have decreased appetite and generalized weakness. She was found to be afebrile, heart rate 117, respiratory rate 24, blood pressure 132/90, pulse ox 98% on 2 L nasal cannula. EKG was a sinus tachycardia with right bundle branch block. No acute ST changes. Chest x-ray reveals chronic changes. CTA of the chest showed no evidence of pulmonary embolism. Pulmonary emphysema. Thoracic kyphotic deformity. Compression fracture stable. WBC 19.6, hemoglobin 12.7, platelet count 388. INR 1.2. D-dimer 2.61. Electrolytes normal. BUN 23 and creatinine 0.52. AST 53, ALT 31, alkaline phosphate is 152. LDH 876. C-reactive protein 348.3. Lactic acid 1.4. ProBNP 1170. 11/07: Pulse ox 100% on 2 L nasal cannula, afebrile, heart rate 79, blood pressure 135/74. senior communications specialist is a sinus rhythm. Patient has been seen by pulmonary medicine indeterminate patient does not require antibiotics, no benefit with Decadron. Recommended a urinalysis which has been ordered on 2 occasions and not collected. Patient has refused PT and OT today. Recommendations from therapies is for subacute rehab. Patient is eating very little, she states she does not have appetite. Patient remains pleasantly confused. 11/08: Patient arm was seen for evaluation today, very frail looking, she R feels drowsy, and has not slept well last night, when inquired she arm was supposed to take morphine 30 mg every 8 hours, she has been doing in the past several years, secondary to RA. Apparently she hasn't had this medication off for the past several days now, the family 1. Her morphine 3 started, when inquired patient denies any significant pain today. She is noticed to have unlimited appetite, however she is drinking okay. She is a little bit anemic when evaluated for blood work, hemoglobin was 11.0, creatinine 0.45, Covid markers on admission November 05 was elevated, with ferritin 969, alkaline phosphatase 152, LDH 876, CRP of 348, pro-calcitonin elevated at 10.24, urine WBC the 84 WBC, currently pending patient is on Rocephin. Vital signs okay, nonlabored breathing, O2 sats 2 L cannula, 100%, otherwise remainder she stands at 97%. T-max of 98, heart rate of 88. She is followed here by Dr. Jaramillo a critical care medicine. attempted to call son 4x and another family member 2x without response 11/09: Patient is more drowsy today, more lethargic, we have to back down on morp mauricio 15 mg twice a day, still with diminished appetite, she does have lip sores mainly on the left side, possibly suspected HSV oral simplex, valacyclovir initiated, we haven't initiated mirtaze[ine. Melatonin started for sleep gnosticist at nighttime. Nutrition is still impaired, started on liquid ensure tid hemoglobin 11, creatinine of 0.45, albumin not 2.5 urine culture presumptive staph aureus, patient is on Rocephin, patient denies pain in the joints or the back or abdominal pain 11/10: Patient states that she is not feeling too good today. She states she is feeling tired. She denies having any pain whatsoever. Patient is somewhat lethargic. She is on morphine 15 mg every 8 hours which will be decreased frequency to every 12 hours and hold for sedation. Urine culture is positive for MSSA and ceftriaxone will be transitioned to Kefzol. Patient has been afebrile, heart rate 92, blood pressure 115/59, pulse ox 100% on 3 L nasal cannula. Repeat blood work reveals WBC 10.1, hemoglobin 10.1. Sodium 136, potassium 3. form will be replaced, chloride 98, CO2 32, BUN 16 creatinine 0.54. Blood sugars running between 72 and 89. AST 46, ALT 88, alkaline phosphatase 225. C-reactive protein 246.8. Plan is to monitor patient overnight and probable discharge to ECF tomorrow. 11/11: Patient had a temperature max yesterday afternoon when a 1.8 and consult was added for Dr. Beltran and antibiotics changed to Zosyn. Patient remains more sedated unchanged from yesterday. She will open her eyes and answer questions. She is eating very little. We have added and speech consult for possible aspiration. Chest x-ray ordered yesterday afternoon revealed slightly increased prominence of bilateral upper lobe interstitial opacities. May relate to acute or chronic process. Repeat blood work ordered for tomorrow. Patient has been afebrile since yesterday afternoon, heart rate 101, blood pressure 135/73, pulse ox 95% on room air. 11/12: The patient is again more lethargic but has been afebrile. She has been seen bipolar medicine & office cases there is no active pulmonary issues. Blood culture was never obtained as ordered on the evening of November 10. Blood culture will be ordered now. Consult placed with Dr. Beltran. Patient is currently on Zosyn. Valtrex dosing will be decreased to twice daily to complete 4 more days. She has been afebrile, heart rate 99, blood pressure 134/71, pulse ox 100% on room air. Repeat blood work reveals WBC 9.9, hemoglobin 9.7, platelet count 438. Sodium 133, potassium 4.3, chloride 97, CO2 27.9, BUN 10 and creatinine 0.4. Alkaline phosphatase 192. Anticipate possible discharge back to ECF tomorrow if patient remains stable.. Blood culture ordered. 11/13: She has been seen and followed by Dr. Beltran from infectious disease for possible aspiration pneumonia. Temperature max 100.1 yesterday at 1600. Patient has been continued on Zosyn. Urine culture is finalized with staph aureus. Blood cultures no growth. Heart rate is running low 100s and metoprolol increased to 25 mg twice daily. Blood pressure 136/71. senior communications specialist is sinus rhythm. Patient is not eating very much, about 25% of her meals with low appetite. 11/14: Patient is slightly more awake alert today. We will discontinue Valtrex in case this is an packed in her mental status. Patient is not eating anything. She is not taking ensure. Patient verbalizes that she does not want a PEG tube. Noted oral thrush and patient started on clotrimazole. Family will be contacted regarding clarification of CODE STATUS and PEG tube. Patient has been afebrile, heart rate 105, blood pressure 120/62, pulse ox 91% on room air. Repeat blood work reveals WBC 7.9, hemoglobin 10.4, platelet count 493. Sodium 134, potassium 4.1, chloride 97, CO2 21, BUN less than 5 and creatinine 0.5. Patient is followed by Dr. Beltran and continued on Zosyn. 11/15: Patient is awake and alert. She continues to not eat very much. She denies having any nausea. Modified barium swallow will be order regarding concern for aspiration pneumonia. Speech therapy ordered. She is complaining of pain in bilateral knees and Hayden wraps ordered as well as Toradol. REVIEW OF SYSTEMS Constitutional: Reports fever, no chills, no night sweats. Reported weight loss. Reports weakness, Reports fatigue reports lethargy. Reports daytime sleepiness. EENT: No headache. No blurred vision or double vision, no loss of vision. Reports loss of Hearing, no ringing in the ears, no dizziness. No nasal drainage or congestion. No epistaxis. No sore throat. Lungs: Reports shortness of breath, cough, no sputum production. No wheezing. Cardiovascular: No chest pain, no lower extremity edema. No palpitations. No paroxysmal nocturnal dyspnea. No orthopnea. No lightheadedness or dizziness. No syncopal episodes. Abdominal: No abdominal pain. No nausea, vomiting. No diarrhea. No constipation. No bloody or tarry stools reports loss of appetite. Genitourinary: No dysuria, increased frequency, urgency. No urinary retention. Musculoskeletal: Denies myalgias. Reports muscle weakness, no gait dysfunction, no frequent falls. No back pain. No neck pain. Integumentary: No wounds, no lesions. No rash or pruritus. No unusual bruising. No change in hair or nails. Neurologic: No aphasia. No facial droop. Reported change in mentation. No head injury. No headache. No paralysis. No paresthesia. Psychiatric: No depression. No anxiety. Endocrine: No abnormal blood sugars. PHYSICAL EXAMINATION Gen: This is a frail 80-year-old female. She is resting on the side of the bed and appears comfortable. No acute respiratory distress is noted. HEENT: Head is atraumatic, normocephalic. Pupils equal, round. Sclerae is anicteric. Herpes lesion left lips NECK: Supple. No JVD. No lymphadenopathy. No thyromegaly. LUNGS: Diminished. No intercostal retractions. No accessory muscle usage. HEART: Regular rate and rhythm. No murmur. ABDOMEN: Soft. Bowel sounds are present. No masses. No tenderness. EXTREMITIES: No pedal edema. No calf tenderness. NEUROLOGICAL: Patient is awake, alert and oriented to person and place. Cranial nerves 2 through 12 are grossly intact. ASSESSMENT AND PLAN 1. Generalized weakness secondary to Covid 19, prolonged hospitalization, recent diarrhea, weight loss. Continue PT and OT. PT inflammatory markers. 2. Sepsis: Hypotension and tachycardia with leukocytosis possibly related to dehydration secondary to recent diarrhea, possibly secondary to aspiration pneumonia.continue Zosyn, consult with Dr. Beltran 3. Leukocytosis secondary to steroids. 4. Elevated d-dimer, pulmonary embolism ruled out. D-dimer elevated secondary to recent Covid infection.. 5. Elevated inflammatory markers secondary to Covid 19. 6. Covid 19 pneumonia, possible bacterial pneumonia with lingering effects. Continue Kefzol, Lovenox 40 mg subcu daily. 7. Acute MSSA UTI with pyuria, patient is on Zosyn. 8. Mild intermittent asthma. 9. Overactive bladder. Continue Mirabegron 25 mg daily. 10. Severe protein calorie malnutrition with BMI of 15. Morphine has been discontinued. Patient started on Remeron 7.5 mg at bedtime. Family will be contacted regarding possible PEG tube. 11. Chronic pain, secondary to inflammatory arthritis, rheumatoid, on maintenance morphine 12. HSV oral simplex lesions, doubt herpes zoster, continue valacyclovir will be 1 g 3 times a day, 5-7 days instead of 2 tabs twice a day 13. DVT prophylaxis. Lovenox. DISCHARGE PLAN Return to [facility] under the care of Dr. Durham next week to complete course of rehab. Impression and plan of care have been directed as dictated by the signing physician. Raissa Ledbetter nurse practitioner acting as scribe for signing physician. Objective - Vital Signs Vital signs: Vital Signs Temp 97.8 F 11/15/20 06:00 Pulse 65 11/15/20 06:00 Resp 18 11/15/20 06:00 BP 121/75 11/15/20 06:00 Pulse Ox 94 L 11/15/20 06:00 Intake & Output 11/14/20 11/15/20 11/15/20 18:59 06:59 18:59 Intake Total 360 Output Total 400 400 Balance -40 -400 Weight 36 kg Intake: Oral 360 Output: Urine 400 400 Other: Voiding Method External Catheter External Catheter # Bowel Movements 1 1 - Labs CBC & Chem 7: 11/14/20 06:17 11/14/20 06:17 Labs: Abnormal Lab Results - Last 24 Hours (Table) 11/14/20 11/14/20 Range/Units 06:17 06:17 RBC 3.35 L (4.10-5.20) X 10*6/uL Hgb 10.4 L (12.0-15.0) g/dL Hct 32.9 L (37.2-46.3) % MCV 98.2 H (80.0-97.0) fL MCHC 31.6 L (32.0-37.0) g/dL Plt Count 493 H (140-440) X 10*3/uL MPV 9.2 L (9.5-12.2) fL Sodium 134 L (135-145) mmol/L Carbon Dioxide 21.0 L (21.6-31.8) mmol/L Anion Gap 16.00 H (4.00-12.00) mmol/L BUN <5.0 L (9.0-27.0) mg/dL Creatinine 0.5 L (0.6-1.5) mg/dL Alkaline Phosphatase 173 H (41-126) U/L Total Protein 5.6 L (6.2-8.2) g/dL Albumin 2.80 L (3.80-4.90) g/dL Albumin/Globulin Ratio 1.00 L (1.60-3.17) g/dL Microbiology - Last 24 Hours (Table) 11/12/20 11:36 Blood Culture - Preliminary Blood No Growth after 48 hours
[2020-11-15] MEDS: BENZOCAINE 20 % GEL 15 GM TUBE MM SCH ×3 (11:24→20:31)
[2020-11-15] MEDS: KETOROLAC 15 MG/ML 1 ML VIAL IVP SCH ×2 (11:25→16:55)
[2020-11-15 12:18] LABS: C Reactive Protein 232.8 mg/L (<10.0)
[2020-11-15] MEDS: ACETAMINOPHEN TAB 325 MG TAB PO PRN (16:55)
--- NOTE | 2020-11-15 18:02 | PN ---
PROGRESS NOTE DATE OF SERVICE: 11/15/2020 REASON FOR FOLLOWUP: Aspiration pneumonia. INTERVAL HISTORY: The patient is currently afebrile. The patient is slightly more awake and alert today. The patient denies having any chest pain or cough. No abdominal pain. No diarrhea. remains to be poor per the nursing staff. PHYSICAL EXAMINATION: Blood pressure 103/62 with a pulse of 99, temperature 98.4. She is 95% on room air. General description is an elderly female lying in bed in no distress. HEENT examination: The herpes labialis lesions are crusting up nicely. LUNGS unlabored breathing, decreased breath sounds in the base, with no wheeze. HEART S1, S2. Regular. ABDOMEN: Soft. No tenderness. LABS: The CRP is 328 . DIAGNOSTIC IMPRESSION/PLAN: Patient with fever, concerning for aspiration pneumonia in this patient covered with Zosyn to continue and monitor clinical course closely. Continue supportive care. MMODL / IJN: [id number] /
[2020-11-15 18:53] LABS: Ferritin 569.7 ng/mL (10.0-291.0)
[2020-11-15] MEDS: MIRTAZAPINE 15 MG TAB PO SCH (20:30)
[2020-11-16] MEDS: KETOROLAC 15 MG/ML 1 ML VIAL IVP SCH ×2 (00:07→05:25)
[2020-11-16] MEDS: CLOTRIMAZOLE TROCHE 10 MG TROCHE MUCOUS MEM SCH ×5 (05:25→23:55)
[2020-11-16] MEDS: PIPERACILLIN-TAZOBACTAM 3.375 GM in SODIUM CHLORIDE 0.9% 100 ML IVPB SCH ×3 (05:25→22:00)
[2020-11-16] MEDS: ZINC SULFATE 220 MG CAP PO SCH (07:33)
[2020-11-16] MEDS: THIAMINE 100 MG TAB PO SCH (07:33)
[2020-11-16] MEDS: METOPROLOL TARTRATE 25 MG TAB PO SCH ×2 (07:33→22:00)
[2020-11-16] MEDS: PANTOPRAZOLE 40 MG TABLET PO SCH (07:33)
[2020-11-16] MEDS: ASCORBIC ACID 500 MG TAB PO SCH (07:33)
[2020-11-16] MEDS: CHOLECALCIFEROL 25 MCG (1000 IU) TABLET PO SCH (07:33)
[2020-11-16] MEDS: FOLIC ACID 1 MG TAB PO SCH (07:33)
[2020-11-16] MEDS: ENOXAPARIN 40 MG/0.4 ML SYRINGE SQ SCH (07:34)
[2020-11-16] MEDS: BENZOCAINE 20 % GEL 15 GM TUBE MM SCH ×3 (07:34→22:00)
[2020-11-16] MEDS: MULTIVITAMINS, THERA 1 EACH TAB PO SCH (07:34)
[2020-11-16] MEDS: NON FORMULARY DRUG (Mirabegron [Myrbetriq] 25 MG Tab.Er.24h) PO SCH (07:34)
[2020-11-16] MEDS: SYMBICORT 160-4.5 MCG INHALER INHALATION SCH ×2 (08:43→20:30)
[2020-11-16] MEDS: ALBUTEROL HFA INHALER INHALATION SCH ×4 (08:43→20:30)
--- NOTE | 2020-11-16 10:08 | P.PN ---
Subjective Progress Note Date: 11/16/20 HISTORY OF PRESENT ILLNESS This is an 80-year-old female patient of Dr. Zambrano in [facility] currently at [facility] under the care of Dr. Durham for subacute rehab with past medical history of rheumatoid arthritis, bronchial mild intermittent asthma, overactive bladder. Patient was diagnosed with COVID-19 1 month after receiving the first vaccine on October 23 and was hospitalized at that time. CT angiogram was negative for pulmonary embolism. She was treated with colchicine, Lovenox and supplements. Patient was discharged home on October 28 but due to weakness and diarrhea, nathan ospitalized on October 29 under [facility] and was subsequently discharged to [facility]. Patient was sent from [facility] to the [facility] due to tachycardia and low blood pressure and fevers. Patient also complained of shortness of breath and body aches. No nausea, vomiting or diarrhea. She does have decreased appetite and generalized weakness. She was found to be afebrile, heart rate 117, respiratory rate 24, blood pressure 132/90, pulse ox 98% on 2 L nasal cannula. EKG was a sinus tachycardia with right bundle branch block. No acute ST changes. Chest x-ray reveals chronic changes. CTA of the chest showed no evidence of pulmonary embolism. Pulmonary emphysema. Thoracic kyphotic deformity. Compression fracture stable. WBC 19.6, hemoglobin 12.7, platelet count 388. INR 1.2. D-dimer 2.61. Electrolytes normal. BUN 23 and creatinine 0.52. AST 53, ALT 31, alkaline phosphate is 152. LDH 876. C-reactive protein 348.3. Lactic acid 1.4. ProBNP 1170. 11/07: Pulse ox 100% on 2 L nasal cannula, afebrile, heart rate 79, blood pressure 135/74. 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 Patient has been seen by pulmonary medicine indeterminate patient does not require antibiotics, no benefit with Decadron. Recommended a urinalysis which has been ordered on 2 occasions and not collected. Patient has refused PT and OT today. Recommendations from therapies is for subacute rehab. Patient is eating very little, she states she does not have appetite. Patient remains pleasantly confused. 11/08: Patient arm was seen for evaluation today, very frail looking, she R feels drowsy, and has not slept well last night, when inquired she arm was supposed to take morphine 30 mg every 8 hours, she has been doing in the past several years, secondary to RA. Apparently she hasn't had this medication off for the past several days now, the family 1. Her morphine 3 started, when inquired patient denies any significant pain today. She is noticed to have unlimited appetite, however she is drinking okay. She is a little bit anemic when evaluated for blood work, hemoglobin was 11.0, creatinine 0.45, Covid markers on admission November 05 was elevated, with ferritin 969, alkaline phosphatase 152, LDH 876, CRP of 348, pro-calcitonin elevated at 10.24, urine WBC the 84 WBC, currently pending patient is on Rocephin. Vital signs okay, nonlabored breathing, O2 sats 2 L cannula, 100%, otherwise remainder she stands at 97%. T-max of 98, heart rate of 88. She is followed here by Dr. Jaramillo a critical care medicine. attempted to call son 4x and another family member 2x without response 11/09: Patient is more drowsy today, more lethargic, we have to back down on morp mauricio 15 mg twice a day, still with diminished appetite, she does have lip sores mainly on the left side, possibly suspected HSV oral simplex, valacyclovir initiated, we haven't initiated mirtaze[ine. Melatonin started for sleep muslim at nighttime. Nutrition is still impaired, started on liquid ensure tid hemoglobin 11, creatinine of 0.45, albumin not 2.5 urine culture presumptive staph aureus, patient is on Rocephin, patient denies pain in the joints or the back or abdominal pain 11/10: Patient states that she is not feeling too good today. She states she is feeling tired. She denies having any pain whatsoever. Patient is somewhat lethargic. She is on morphine 15 mg every 8 hours which will be decreased frequency to every 12 hours and hold for sedation. Urine culture is positive for MSSA and ceftriaxone will be transitioned to Kefzol. Patient has been afebrile, heart rate 92, blood pressure 115/59, pulse ox 100% on 3 L nasal cannula. Repeat blood work reveals WBC 10.1, hemoglobin 10.1. Sodium 136, potassium 3. form will be replaced, chloride 98, CO2 32, BUN 16 creatinine 0.54. Blood sugars running between 72 and 89. AST 46, ALT 88, alkaline phosphatase 225. C-reactive protein 246.8. Plan is to monitor patient overnight and probable discharge to ECF tomorrow. 11/11: Patient had a temperature max yesterday afternoon when a 1.8 and consult was added for Dr. Beltran and antibiotics changed to Zosyn. Patient remains more sedated unchanged from yesterday. She will open her eyes and answer questions. She is eating very little. We have added and speech consult for possible aspiration. Chest x-ray ordered yesterday afternoon revealed slightly increased prominence of bilateral upper lobe interstitial opacities. May relate to acute or chronic process. Repeat blood work ordered for tomorrow. Patient has been afebrile since yesterday afternoon, heart rate 101, blood pressure 135/73, pulse ox 95% on room air. 11/12: The patient is again more lethargic but has been afebrile. She has been seen bipolar medicine & office cases there is no active pulmonary issues. Blood culture was never obtained as ordered on the evening of November 10. Blood culture will be ordered now. Consult placed with Dr. Beltran. Patient is currently on Zosyn. Valtrex dosing will be decreased to twice daily to complete 4 more days. She has been afebrile, heart rate 99, blood pressure 134/71, pulse ox 100% on room air. Repeat blood work reveals WBC 9.9, hemoglobin 9.7, platelet count 438. Sodium 133, potassium 4.3, chloride 97, CO2 27.9, BUN 10 and creatinine 0.4. Alkaline phosphatase 192. Anticipate possible discharge back to ECF tomorrow if patient remains stable.. Blood culture ordered. 11/13: She has been seen and followed by Dr. Beltran from infectious disease for possible aspiration pneumonia. Temperature max 100.1 yesterday at 1600. Patient has been continued on Zosyn. Urine culture is finalized with staph aureus. Blood cultures no growth. Heart rate is running low 100s and metoprolol increased to 25 mg twice daily. Blood pressure 136/71. 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 Patient is not eating very much, about 25% of her meals with low appetite. 11/14: Patient is slightly more awake alert today. We will discontinue Valtrex in case this is an packed in her mental status. Patient is not eating anything. She is not taking ensure. Patient verbalizes that she does not want a PEG tube. Noted oral thrush and patient started on clotrimazole. Family will be contacted regarding clarification of CODE STATUS and PEG tube. Patient has been afebrile, heart rate 105, blood pressure 120/62, pulse ox 91% on room air. Repeat blood work reveals WBC 7.9, hemoglobin 10.4, platelet count 493. Sodium 134, potassium 4.1, chloride 97, CO2 21, BUN less than 5 and creatinine 0.5. Patient is followed by Dr. Beltran and continued on Zosyn. 11/15: Patient is awake and alert. She continues to not eat very much. She denies having any nausea. Modified barium swallow will be order regarding concern for aspiration pneumonia. Speech therapy ordered. She is complaining of pain in bilateral knees and Hayden wraps ordered as well as Toradol. 11/16: Patient continues to eat only a couple bites of food and a little Ensure. Patient is very weak and does not want to get out of bed. Left knee immobilizer in place. Dr. Durham spoke to patient's son and patient will be made comfort care and plan for dc to [facility] with hospice care. Patient will be resumed back on morphine for pain control per son. No PEG insertion. REVIEW OF SYSTEMS Constitutional: Reports fever, no chills, no night sweats. Reported weight loss. Reports weakness, Reports fatigue reports lethargy. Reports daytime sleepiness. EENT: No headache. No blurred vision or double vision, no loss of vision. Reports loss of Hearing, no ringing in the ears, no dizziness. No nasal drainage or congestion. No epistaxis. No sore throat. Lungs: Reports shortness of breath, cough, no sputum production. No wheezing. Cardiovascular: No chest pain, no lower extremity edema. No palpitations. No paroxysmal nocturnal dyspnea. No orthopnea. No lightheadedness or dizziness. No syncopal episodes. Abdominal: No abdominal pain. No nausea, vomiting. No diarrhea. No constipation. No bloody or tarry stools reports loss of appetite. Genitourinary: No dysuria, increased frequency, urgency. No urinary retention. Musculoskeletal: Denies myalgias. Reports muscle weakness, no gait dysfunction, no frequent falls. No back pain. No neck pain. Integumentary: No wounds, no lesions. No rash or pruritus. No unusual bruising. No change in hair or nails. Neurologic: No aphasia. No facial droop. Reported change in mentation. No head injury. No headache. No paralysis. No paresthesia. Psychiatric: No depression. No anxiety. Endocrine: No abnormal blood sugars. PHYSICAL EXAMINATION Gen: This is a frail 80-year-old female. She is resting on the side of the bed and appears comfortable. No acute respiratory distress is noted. HEENT: Head is atraumatic, normocephalic. Pupils equal, round. Sclerae is anicteric. Herpes lesion left lips NECK: Supple. No JVD. No lymphadenopathy. No thyromegaly. LUNGS: Diminished. No intercostal retractions. No accessory muscle usage. HEART: Regular rate and rhythm. No murmur. ABDOMEN: Soft. Bowel sounds are present. No masses. No tenderness. EXTREMITIES: No pedal edema. No calf tenderness. NEUROLOGICAL: Patient is awake, alert and oriented to person and place. Cranial nerves 2 through 12 are grossly intact. ASSESSMENT AND PLAN 1. Generalized weakness secondary to Covid 19, prolonged hospitalization, recent diarrhea, weight loss. 2. Sepsis: Hypotension and tachycardia with leukocytosis possibly related to dehydration secondary to recent diarrhea, possibly secondary to aspiration pneumonia. Continue Zosyn, consult with Dr. Devin morales. 3. Leukocytosis secondary to steroids. 4. Elevated d-dimer, pulmonary embolism ruled out. D-dimer elevated secondary to recent Covid infection.. 5. Elevated inflammatory markers secondary to Covid 19. 6. Covid 19 pneumonia, possible bacterial pneumonia with lingering effects. Completed Kefzol. 7. Acute MSSA UTI with pyuria. 8. Mild intermittent asthma. 9. Overactive bladder. Continue Mirabegron 25 mg daily. 10. Severe protein calorie malnutrition with BMI of 15. Morphine resumed. Remeron discontinued. 11. Chronic pain, secondary to inflammatory arthritis, rheumatoid, on maintenance morphine 12. HSV oral simplex lesions, doubt herpes zoster, discontinue valacyclovir, completed course 13. DVT prophylaxis. Lovenox. DISCHARGE PLAN Return to [facility] under the care of Dr. Durham on Tuesday with plan for Hospice. Impression and plan of care have been directed as dictated by the signing physician. Raissa Ledbetter nurse practitioner acting as scribe for signing physician. Objective - Vital Signs Vital signs: Vital Signs Temp 97.5 F L 11/16/20 06:00 Pulse 89 11/16/20 06:00 Resp 17 11/16/20 06:00 BP 124/76 11/16/20 06:00 Pulse Ox 95 11/16/20 06:00 Intake & Output 11/15/20 11/16/20 11/16/20 18:59 06:59 18:59 Intake Total 240 100 Output Total 300 Balance -60 100 Weight 39 kg Intake: Oral 240 100 Output: Urine 300 Other: Voiding Method External Catheter Incontinent Diaper Incontinent # Voids 1 # Bowel Movements 1 1 - Labs CBC & Chem 7: 11/14/20 06:17 11/14/20 06:17 Labs: Abnormal Lab Results - Last 24 Hours (Table) 11/15/20 11/15/20 Range/Units 09:39 09:39 Ferritin 569.7 H (10.0-291.0) ng/mL C-Reactive Protein 232.8 H (<10.0) mg/L Procalcitonin 4.52 H (0.02-0.09) ng/mL Microbiology - Last 24 Hours (Table) 11/12/20 11:36 Blood Culture - Preliminary Blood No Growth after 72 hours
[2020-11-16] MEDS: MORPHINE SULFATE IR 15 MG TABLET PO PRN ×2 (11:20→17:07)
[2020-11-17] MEDS: CLOTRIMAZOLE TROCHE 10 MG TROCHE MUCOUS MEM SCH ×4 (05:32→21:44)
[2020-11-17] MEDS: MORPHINE SULFATE IR 15 MG TABLET PO PRN (05:32)
[2020-11-17] MEDS: PIPERACILLIN-TAZOBACTAM 3.375 GM in SODIUM CHLORIDE 0.9% 100 ML IVPB SCH ×2 (05:32→15:56)
[2020-11-17] MEDS: METOPROLOL TARTRATE 25 MG TAB PO SCH ×2 (07:52→21:21)
[2020-11-17] MEDS: ENOXAPARIN 40 MG/0.4 ML SYRINGE SQ SCH (07:52)
[2020-11-17] MEDS: PANTOPRAZOLE 40 MG TABLET PO SCH (07:52)
[2020-11-17] MEDS: NON FORMULARY DRUG (Mirabegron [Myrbetriq] 25 MG Tab.Er.24h) PO SCH (07:53)
[2020-11-17] MEDS: BENZOCAINE 20 % GEL 15 GM TUBE MM SCH ×3 (07:53→21:21)
[2020-11-17] MEDS: ALBUTEROL HFA INHALER INHALATION SCH ×4 (08:59→19:23)
[2020-11-17] MEDS: SYMBICORT 160-4.5 MCG INHALER INHALATION SCH ×2 (08:59→19:23)
--- NOTE | 2020-11-17 09:16 | P.DS ---
Providers Date of admission: 11/05/20 17:17 Expected date of discharge: 11/17/20 Attending physician: Jeanette Durham Consults: 11/05/20 17:24 Consult Physician Routine Consulting Provider: Hugo Yusuf Consult Reason/Comments: covid, dyspnea, hypoxia, persistent tachycardi Do you want consulting provider notified?: Yes, Notify in am 11/10/20 18:17 Consult Physician Routine Consulting Provider: Kj Beltran Consult Reason/Comments: fevers Do you want consulting provider notified?: Yes Primary care physician: Jeanette Durham [facility] Course: HISTORY OF PRESENT ILLNESS This is an 80-year-old female patient of Dr. Zambrano in [facility] currently at [facility] under the care of Dr. Durham for subacute rehab with past medical history of rheumatoid arthritis, bronchial mild intermittent asthma, overactive bladder. Patient was diagnosed with COVID-19 1 month after receiving the first vaccine on October 23 and was hospitalized at that time. CT angiogram was negative for pulmonary embolism. She was treated with colchicine, Lovenox and supplements. Patient was discharged home on October 28 but due to weakness and diarrhea, rehospitalized on October 29 under [facility] and was subsequently discharged to [facility]. Patient was sent from [facility] to the [facility] due to tachycardia and low blood pressure and fevers. Patient also complained of shortness of breath and body aches. No nausea, vomiting or diarrhea. She does have decreased appetite and generalized weakness. She was found to be afebrile, heart rate 117, respiratory rate 24, blood pressure 132/90, pulse ox 98% on 2 L nasal cannula. EKG was a sinus tachycardia with right bundle branch block. No acute ST changes. Chest x-ray reveals chronic changes. CTA of the chest showed no evidence of pulmonary embolism. Pulmonary emphysema. Thoracic kyphotic deformity. Compression fracture stable. WBC 19.6, hemoglobin 12.7, platelet count 388. INR 1.2. D-dimer 2.61. Electrolytes normal. BUN 23 and creatinine 0.52. AST 53, ALT 31, alkaline phosphate is 152. LDH 876. C-reactive protein 348.3. Lactic acid 1.4. ProBNP 1170. 3/: Pulse ox 100% on 2 L nasal cannula, afebrile, heart rate 79, blood pressure 135/74. patient monitor is a sinus rhythm. Patient has been seen by pulmonary medicine indeterminate patient does not require antibiotics, no benefit with Decadron. Recommended a urinalysis which has been ordered on 2 occasions and not collected. Patient has refused PT and OT today. Recommendations from therapies is for subacute rehab. Patient is eating very little, she states she does not have appetite. Patient remains pleasantly confused. 11/08: Patient arm was seen for evaluation today, very frail looking, she R feels drowsy, and has not slept well last night, when inquired she arm was supposed to take morphine 30 mg every 8 hours, she has been doing in the past several years, secondary to RA. Apparently she hasn't had this medication off for the past several days now, the family 1. Her morphine 3 started, when inquired patient denies any significant pain today. She is noticed to have unlimited appetite, however she is drinking okay. She is a little bit anemic when evaluated for blood work, hemoglobin was 11.0, creatinine 0.45, Covid markers on admission November 05 was elevated, with ferritin 969, alkaline phosphatase 152, LDH 876, CRP of 348, pro-calcitonin elevated at 10.24, urine WBC the 84 WBC, currently pending patient is on Rocephin. Vital signs okay, nonlabored breathing, O2 sats 2 L cannula, 100%, otherwise remainder she stands at 97%. T-max of 98, heart rate of 88. She is followed here by Dr. Jaramillo a critical care medicine. attempted to call son 4x and another family member 2x without response 11/09: Patient is more drowsy today, more lethargic, we have to back down on morphine 15 mg twice a day, still with diminished appetite, she does have lip sores mainly on the left side, possibly suspected HSV oral simplex, valacyclovir initiated, we haven't initiated mirtaze[ine. Melatonin started for sleep samaritan at nighttime. Nutrition is still impaired, started on liquid ensure tid hemoglobin 11, creatinine of 0.45, albumin not 2.5 urine culture presumptive staph aureus, patient is on Rocephin, patient denies pain in the joints or the back or abdominal pain 11/10: Patient states that she is not feeling too good today. She states she is feeling tired. She denies having any pain whatsoever. Patient is somewhat lethargic. She is on morphine 15 mg every 8 hours which will be decreased frequency to every 12 hours and hold for sedation. Urine culture is positive for MSSA and ceftriaxone will be transitioned to Kefzol. Patient has been afebrile, heart rate 92, blood pressure 115/59, pulse ox 100% on 3 L nasal cannula. Repeat blood work reveals WBC 10.1, hemoglobin 10.1. Sodium 136, potassium 3. form will be replaced, chloride 98, CO2 32, BUN 16 creatinine 0.54. Blood sugars running between 72 and 89. AST 46, ALT 88, alkaline phosphatase 225. C-reactive protein 246.8. Plan is to monitor patient overnight and probable discharge to ECF tomorrow. 11/11: Patient had a temperature max yesterday afternoon when a 1.8 and consult was added for Dr. Beltran and antibiotics changed to Zosyn. Patient remains more sedated unchanged from yesterday. She will open her eyes and answer questions. She is eating very little. We have added and speech consult for possible aspiration. Chest x-ray ordered yesterday afternoon revealed slightly increased prominence of bilateral upper lobe interstitial opacities. May relate to acute or chronic process. Repeat blood work ordered for tomorrow. Patient has been afebrile since yesterday afternoon, heart rate 101, blood pressure 135/73, pulse ox 95% on room air. 11/12: The patient is again more lethargic but has been afebrile. She has been seen bipolar medicine & office cases there is no active pulmonary issues. Blood culture was never obtained as ordered on the evening of November 10. Blood culture will be ordered now. Consult placed with Dr. Beltran. Patient is currently on Zosyn. Valtrex dosing will be decreased to twice daily to complete 4 more days. She has been afebrile, heart rate 99, blood pressure 134/71, pulse ox 100% on room air. Repeat blood work reveals WBC 9.9, hemoglobin 9.7, platelet count 438. Sodium 133, potassium 4.3, chloride 97, CO2 27.9, BUN 10 and creatinine 0.4. Alkaline phosphatase 192. Anticipate possible discharge back to ECF tomorrow if patient remains stable.. Blood culture ordered. 11/13: She has been seen and followed by Dr. Beltran from infectious disease for possible aspiration pneumonia. Temperature max 100.1 yesterday at 1600. Patient has been continued on Zosyn. Urine culture is finalized with staph aureus. Blood cultures no growth. Heart rate is running low 100s and metoprolol increased to 25 mg twice daily. Blood pressure 136/71. patient monitor is sinus rhythm. Patient is not eating very much, about 25% of her meals with low appetite. 11/14: Patient is slightly more awake alert today. We will discontinue Valtrex in case this is an packed in her mental status. Patient is not eating anything. She is not taking ensure. Patient verbalizes that she does not want a PEG tube. Noted oral thrush and patient started on clotrimazole. Family will be contacted regarding clarification of CODE STATUS and PEG tube. Patient has been afebrile, heart rate 105, blood pressure 120/62, pulse ox 91% on room air. Repeat blood work reveals WBC 7.9, hemoglobin 10.4, platelet count 493. Sodium 134, potassium 4.1, chloride 97, CO2 21, BUN less than 5 and creatinine 0.5. Patient is followed by Dr. Beltran and continued on Zosyn. 11/15: Patient is awake and alert. She continues to not eat very much. She denies having any nausea. Modified barium swallow will be order regarding concern for aspiration pneumonia. Speech therapy ordered. She is complaining of pain in bilateral knees and Hayden wraps ordered as well as Toradol. 11/16: Patient continues to eat only a couple bites of food and a little Ensure. Patient is very weak and does not want to get out of bed. Left knee immobilizer in place. Dr. Durham spoke to patient's son and patient will be made comfort care and plan for dc to [facility] with hospice care. Patient will be resumed back on morphine for pain control per son. No PEG insertion. 11/17: Patient status is the same as yesterday. She is eating only a couple bites. Pain seems to be controlled. She has a knee immobilizer on the left leg. She has been afebrile, heart rate 74, blood pressure 90/51, pulse ox 90% on room air. Patient will be discharged back to [facility] under the care of Dr. Durham. ASSESSMENT AND PLAN 1. Generalized weakness secondary to Covid 19, prolonged hospitalization, recent diarrhea, weight loss. 2. Sepsis: Hypotension and tachycardia with leukocytosis possibly related to dehydration secondary to recent diarrhea, possibly secondary to aspiration pneumonia 3. Leukocytosis secondary to steroids. 4. Elevated d-dimer, pulmonary embolism ruled out. D-dimer elevated secondary to recent Covid infection.. 5. Elevated inflammatory markers secondary to Covid 19.. 6. Recent Covid 19 pneumonia. 7. Acute MSSA UTI with pyuria. 8. Mild intermittent asthma. 9. Overactive bladder. 10. Severe protein calorie malnutrition with BMI of 15. 11. 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 DISCHARGE PLAN Return to [facility] under the care of Dr. Durham. Impression and plan of care have been directed as dictated by the signing physician. Raissa Ledbetter nurse practitioner acting as scribe for signing physician. Patient Condition at Discharge: Stable Plan - Discharge Summary Discharge Rx Participant: No New Discharge Prescriptions: New Clotrimazole Gary [Mycelex Gary] 10 mg MUCOUS MEM 5XD #20 gary Acetaminophen Tab [Tylenol] 650 mg PO Q4HR PRN tab PRN Reason: Fever and/ or Mild Pain Metoprolol Tartrate [Lopressor] 25 mg PO BID tab Morphine Sulfate Ir [MSIR] 15 mg PO Q6H PRN #12 tablet PRN Reason: Pain Benzocaine 20 % Gel [Orajel] 1 gm MM TID tube Albuterol Inhaler [Ventolin Hfa Inhaler] 2 puff INHALATION RT-QID PRN puff PRN Reason: Shortness Of Breath Or Wheezing Continue Budesonide/Formoterol Fumarate [Symbicort 160-4.5 Mcg Inhaler] 2 puff INHALATION RT-BID@0900,2100 Cholestyramine (with Sugar) [Questran Packet] 4 gm PO TID BETWEEN MEALS PRN packet PRN Reason: Constipation Loperamide [Imodium] 2 mg PO Q6H PRN PRN Reason: Diarrhea Acetaminophen [Tylenol] 650 mg PO Q6H PRN PRN Reason: Pain Lactose-Reduced Food [Ensure Plus] 1 can PO BID@0900,2100 Zinc Sulfate [Orazinc] 220 mg PO DAILY@0900 Discontinued metHOTREXate sodium [Methotrexate] 20 mg PO TH@0900 Mirabegron [Myrbetriq] 25 mg PO DAILY@0900 Ipratropium-Albuterol Nebulize [Duoneb 0.5 mg-3 mg/3 ml Soln] 3 ml INHALATION RT-QID@,, Dicyclomine [Bentyl] 10 mg PO TID PRN #10 capsule PRN Reason: Diarrhea Thiamine [Vitamin B-1] 100 mg PO DAILY@0900 Cholecalciferol [Vitamin D3 (25 Mcg = 1000 Iu)] 25 mcg PO DAILY@0900 Multivitamins, Thera [Multivitamin (formulary)] 1 tab PO DAILY@0900 Folic Acid 1 mg PO DAILY@0900 Ascorbic Acid [Vitamin C] 500 mg PO DAILY@0900 Discharge Medication List Budesonide/Formoterol Fumarate [Symbicort 160-4.5 Mcg Inhaler] 2 puff INHALATION RT-BID@899,209904/30/19 [History] Cholestyramine (with Sugar) [Questran Packet] 4 gm PO TID BETWEEN MEALS PRN packet 10/30/20 [Rx] Acetaminophen [Tylenol] 650 mg PO Q6H PRN 11/05/20 [History] Lactose-Reduced Food [Ensure Plus] 1 can PO BID@0900,209911/05/20 [History] Loperamide [Imodium] 2 mg PO Q6H PRN 11/05/20 [History] Zinc Sulfate [Orazinc] 220 mg PO DAILY@00 11/05/20 [History] Acetaminophen Tab [Tylenol] 650 mg PO Q4HR PRN tab 11/17/20 [Rx] Albuterol Inhaler [Ventolin Hfa Inhaler] 2 puff INHALATION RT-QID PRN puff 11/17/20 [Rx] Benzocaine 20 % Gel [Orajel] 1 gm MM TID tube 11/17/20 [Rx] Clotrimazole Gary [Mycelex Gary] 10 mg MUCOUS MEM 5XD #20 gary 11/17/20 [Rx] Metoprolol Tartrate [Lopressor] 25 mg PO BID tab 11/17/20 [Rx] Morphine Sulfate Ir [MSIR] 15 mg PO Q6H PRN #12 tablet 11/17/20 [Rx] Follow up Appointment(s)/Referral(s): Jeanette Durham MD [Primary Care Provider] - 1 Week (at [facility]) Luis Zambrano DO [REFERRING] - [facility] Needed [facility] [NON-STAFF] - As Needed [facility], [NON-STAFF] - As Needed Discharge Disposition: TRANSFER TO SNF/ECF
--- NOTE | 2020-11-17 14:44 | P.PN ---
Subjective Progress Note Date: 11/17/20 HISTORY OF PRESENT ILLNESS This is an 80-year-old female patient of Dr. Zambrano in [facility] currently at [facility] under the care of Dr. Durham for subacute rehab with past medical history of rheumatoid arthritis, bronchial mild intermittent asthma, overactive bladder. Patient was diagnosed with COVID-19 1 month after receiving the first vaccine on October 23 and was hospitalized at that time. CT angiogram was negative for pulmonary embolism. She was treated with colchicine, Lovenox and supplements. Patient was discharged home on October 28 but due to weakness and diarrhea, nathan ospitalized on October 29 under [facility] and was subsequently discharged to [facility]. Patient was sent from [facility] to the [facility] due to tachycardia and low blood pressure and fevers. Patient also complained of shortness of breath and body aches. No nausea, vomiting or diarrhea. She does have decreased appetite and generalized weakness. She was found to be afebrile, heart rate 117, respiratory rate 24, blood pressure 132/90, pulse ox 98% on 2 L nasal cannula. EKG was a sinus tachycardia with right bundle branch block. No acute ST changes. Chest x-ray reveals chronic changes. CTA of the chest showed no evidence of pulmonary embolism. Pulmonary emphysema. Thoracic kyphotic deformity. Compression fracture stable. WBC 19.6, hemoglobin 12.7, platelet count 388. INR 1.2. D-dimer 2.61. Electrolytes normal. BUN 23 and creatinine 0.52. AST 53, ALT 31, alkaline phosphate is 152. LDH 876. C-reactive protein 348.3. Lactic acid 1.4. ProBNP 1170. 11/07: Pulse ox 100% on 2 L nasal cannula, afebrile, heart rate 79, blood pressure 135/74. 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 Patient has been seen by pulmonary medicine indeterminate patient does not require antibiotics, no benefit with Decadron. Recommended a urinalysis which has been ordered on 2 occasions and not collected. Patient has refused PT and OT today. Recommendations from therapies is for subacute rehab. Patient is eating very little, she states she does not have appetite. Patient remains pleasantly confused. 11/08: Patient arm was seen for evaluation today, very frail looking, she R feels drowsy, and has not slept well last night, when inquired she arm was supposed to take morphine 30 mg every 8 hours, she has been doing in the past several years, secondary to RA. Apparently she hasn't had this medication off for the past several days now, the family 1. Her morphine 3 started, when inquired patient denies any significant pain today. She is noticed to have unlimited appetite, however she is drinking okay. She is a little bit anemic when evaluated for blood work, hemoglobin was 11.0, creatinine 0.45, Covid markers on admission November 05 was elevated, with ferritin 969, alkaline phosphatase 152, LDH 876, CRP of 348, pro-calcitonin elevated at 10.24, urine WBC the 84 WBC, currently pending patient is on Rocephin. Vital signs okay, nonlabored breathing, O2 sats 2 L cannula, 100%, otherwise remainder she stands at 97%. T-max of 98, heart rate of 88. She is followed here by Dr. Jaramillo a critical care medicine. attempted to call son 4x and another family member 2x without response 11/09: Patient is more drowsy today, more lethargic, we have to back down on morp mauricio 15 mg twice a day, still with diminished appetite, she does have lip sores mainly on the left side, possibly suspected HSV oral simplex, valacyclovir initiated, we haven't initiated mirtaze[ine. Melatonin started for sleep religious at nighttime. Nutrition is still impaired, started on liquid ensure tid hemoglobin 11, creatinine of 0.45, albumin not 2.5 urine culture presumptive staph aureus, patient is on Rocephin, patient denies pain in the joints or the back or abdominal pain 11/10: Patient states that she is not feeling too good today. She states she is feeling tired. She denies having any pain whatsoever. Patient is somewhat lethargic. She is on morphine 15 mg every 8 hours which will be decreased frequency to every 12 hours and hold for sedation. Urine culture is positive for MSSA and ceftriaxone will be transitioned to Kefzol. Patient has been afebrile, heart rate 92, blood pressure 115/59, pulse ox 100% on 3 L nasal cannula. Repeat blood work reveals WBC 10.1, hemoglobin 10.1. Sodium 136, potassium 3. form will be replaced, chloride 98, CO2 32, BUN 16 creatinine 0.54. Blood sugars running between 72 and 89. AST 46, ALT 88, alkaline phosphatase 225. C-reactive protein 246.8. Plan is to monitor patient overnight and probable discharge to ECF tomorrow. 11/11: Patient had a temperature max yesterday afternoon when a 1.8 and consult was added for Dr. Beltran and antibiotics changed to Zosyn. Patient remains more sedated unchanged from yesterday. She will open her eyes and answer questions. She is eating very little. We have added and speech consult for possible aspiration. Chest x-ray ordered yesterday afternoon revealed slightly increased prominence of bilateral upper lobe interstitial opacities. May relate to acute or chronic process. Repeat blood work ordered for tomorrow. Patient has been afebrile since yesterday afternoon, heart rate 101, blood pressure 135/73, pulse ox 95% on room air. 11/12: The patient is again more lethargic but has been afebrile. She has been seen bipolar medicine & office cases there is no active pulmonary issues. Blood culture was never obtained as ordered on the evening of November 10. Blood culture will be ordered now. Consult placed with Dr. Beltran. Patient is currently on Zosyn. Valtrex dosing will be decreased to twice daily to complete 4 more days. She has been afebrile, heart rate 99, blood pressure 134/71, pulse ox 100% on room air. Repeat blood work reveals WBC 9.9, hemoglobin 9.7, platelet count 438. Sodium 133, potassium 4.3, chloride 97, CO2 27.9, BUN 10 and creatinine 0.4. Alkaline phosphatase 192. Anticipate possible discharge back to ECF tomorrow if patient remains stable.. Blood culture ordered. 11/13: She has been seen and followed by Dr. Beltran from infectious disease for possible aspiration pneumonia. Temperature max 100.1 yesterday at 1600. Patient has been continued on Zosyn. Urine culture is finalized with staph aureus. Blood cultures no growth. Heart rate is running low 100s and metoprolol increased to 25 mg twice daily. Blood pressure 136/71. 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 Patient is not eating very much, about 25% of her meals with low appetite. 11/14: Patient is slightly more awake alert today. We will discontinue Valtrex in case this is an packed in her mental status. Patient is not eating anything. She is not taking ensure. Patient verbalizes that she does not want a PEG tube. Noted oral thrush and patient started on clotrimazole. Family will be contacted regarding clarification of CODE STATUS and PEG tube. Patient has been afebrile, heart rate 105, blood pressure 120/62, pulse ox 91% on room air. Repeat blood work reveals WBC 7.9, hemoglobin 10.4, platelet count 493. Sodium 134, potassium 4.1, chloride 97, CO2 21, BUN less than 5 and creatinine 0.5. Patient is followed by Dr. Beltran and continued on Zosyn. 11/15: Patient is awake and alert. She continues to not eat very much. She denies having any nausea. Modified barium swallow will be order regarding concern for aspiration pneumonia. Speech therapy ordered. She is complaining of pain in bilateral knees and Hayden wraps ordered as well as Toradol. 11/16: Patient continues to eat only a couple bites of food and a little Ensure. Patient is very weak and does not want to get out of bed. Left knee immobilizer in place. Dr. Durham spoke to patient's son and patient will be made comfort care and plan for dc to [facility] with hospice care. Patient will be resumed back on morphine for pain control per son. No PEG insertion. 11/17: Patient status is the same as yesterday. She is eating only a couple bites. Pain seems to be controlled. She has a knee immobilizer on the left leg. She has been afebrile, heart rate 74, blood pressure 90/51, pulse ox 90% on room air. Patient was prepared to return to [facility] today but received a call from patient's covering physician that states his son will be coming into talk to the patient about having a PEG tube placed. Discharge is held until this has been clarified. REVIEW OF SYSTEMS Constitutional: Reports fever, no chills, no night sweats. Reported weight loss. Reports weakness, Reports fatigue reports lethargy. Reports daytime sleepiness. EENT: No headache. No blurred vision or double vision, no loss of vision. Reports loss of Hearing, no ringing in the ears, no dizziness. No nasal drainage or congestion. No epistaxis. No sore throat. Lungs: Reports shortness of breath, cough, no sputum production. No wheezing. Cardiovascular: No chest pain, no lower extremity edema. No palpitations. No paroxysmal nocturnal dyspnea. No orthopnea. No lightheadedness or dizziness. No syncopal episodes. Abdominal: No abdominal pain. No nausea, vomiting. No diarrhea. No cons tipation. No bloody or tarry stools. reports loss of appetite. Genitourinary: No dysuria, increased frequency, urgency. No urinary retention. Musculoskeletal: Denies myalgias. Reports muscle weakness, no gait dysfunction, no frequent falls. No back pain. No neck pain. Integumentary: No wounds, no lesions. No rash or pruritus. No unusual bruising. No change in hair or nails. Neurologic: No aphasia. No facial droop. Reported change in mentation. No head injury. No headache. No paralysis. No paresthesia. Psychiatric: No depression. No anxiety. Endocrine: No abnormal blood sugars. PHYSICAL EXAMINATION Gen: This is a frail 80-year-old female. She is resting in bed and appears comfortable. No acute respiratory distress is noted. HEENT: Head is atraumatic, normocephalic. Pupils equal, round. Sclerae is anicteric. Herpes lesion left lips NECK: Supple. No JVD. No lymphadenopathy. No thyromegaly. LUNGS: Diminished. No intercostal retractions. No accessory muscle usage. HEART: Regular rate and rhythm. No murmur. ABDOMEN: Soft. Bowel sounds are present. No masses. No tenderness. EXTREMITIES: No pedal edema. No calf tenderness. NEUROLOGICAL: Patient is awake, alert and oriented to person and place. Significant weakness noted. ASSESSMENT AND PLAN 1. Generalized weakness secondary to Covid 19, prolonged hospitalization, recent diarrhea, weight loss. 2. Sepsis: Hypotension and tachycardia with leukocytosis possibly related to dehydration secondary to recent diarrhea, possibly secondary to aspiration pneumonia. Continue Zosyn, consult with Dr. Devin morales. 3. Leukocytosis secondary to steroids. 4. Elevated d-dimer, pulmonary embolism ruled out. D-dimer elevated secondary to recent Covid infection.. 5. Elevated inflammatory markers secondary to Covid 19. 6. Covid 19 pneumonia, possible bacterial pneumonia with lingering effects. Completed Kefzol. 7. Acute MSSA UTI with pyuria. 8. Mild intermittent asthma. 9. Overactive bladder. Continue Mirabegron 25 mg daily. 10. Severe protein calorie malnutrition with BMI of 15. Morphine resumed. Remeron discontinued. Family will be meeting with the patient regarding getting a PEG tube placed. 11. Chronic pain, secondary to inflammatory arthritis, rheumatoid, on maintenance morphine 12. HSV oral simplex lesions, doubt herpes zoster, discontinue valacyclovir, completed course 13. DVT prophylaxis. Lovenox. DISCHARGE PLAN Return to [facility] under the care of Dr. Durham. Impression and plan of care have been directed as dictated by the signing physician. Raissa Ledbetter nurse practitioner acting as scribe for signing physician. Objective - Vital Signs Vital signs: Vital Signs Temp 98.0 F 11/17/20 11:12 Pulse 74 11/17/20 11:12 Resp 15 11/17/20 11:12 BP 90/51 11/17/20 11:12 Pulse Ox 90 L 11/17/20 11:12 Intake & Output 11/16/20 11/17/20 11/17/20 18:59 06:59 18:59 Intake Total 150 Balance 150 Weight 39.1 kg Intake: Intake, IV Titration 100 Amount Piperacillin-Tazobactam 3 100 .375 gm In Sodium Chloride 0.9% 100 ml @ 25 mls/hr IVPB Q8H [facility] Rx#: [id number] Oral 50 Other: Voiding Method Diaper Diaper Diaper Incontinent Incontinent Incontinent # Voids 0 - Labs CBC & Chem 7: 11/14/20 06:17 11/14/20 06:17 Labs: Microbiology - Last 24 Hours (Table) 11/12/20 11:36 Blood Culture - Preliminary Blood No Growth after 120 hours
[2020-11-18] MEDS: CLOTRIMAZOLE TROCHE 10 MG TROCHE MUCOUS MEM SCH ×3 (00:22→08:18)
[2020-11-18] MEDS: ENOXAPARIN 40 MG/0.4 ML SYRINGE SQ SCH (08:17)
[2020-11-18] MEDS: METOPROLOL TARTRATE 25 MG TAB PO SCH (08:17)
[2020-11-18] MEDS: ACETAMINOPHEN TAB 325 MG TAB PO PRN (08:17)
[2020-11-18] MEDS: PANTOPRAZOLE 40 MG TABLET PO SCH (08:17)
[2020-11-18] MEDS: MORPHINE SULFATE IR 15 MG TABLET PO PRN (08:18)
[2020-11-18] MEDS: BENZOCAINE 20 % GEL 15 GM TUBE MM SCH (08:19)
[2020-11-18] MEDS: ALBUTEROL HFA INHALER INHALATION SCH ×2 (09:27→12:37)
[2020-11-18] MEDS: SYMBICORT 160-4.5 MCG INHALER INHALATION SCH (09:27)
[2020-11-18 10:26] VITALS: BP 107/65; PULSE 82; RESP 18; TEMP 99.1
== END 2020-11-18 14:35 | DRG 177 ==
LOC: EC 14:01 → 3SCARD 17:17 → 4SSUR 11-11 18:44
PROVIDERS: ADMIT Family Medicine; ATTEND Family Medicine
DX: U07.1 COVID-19 (principal); J12.82 Pneumonia due to coronavirus disease 2019; A41.89 Other specified sepsis; J69.0 Pneumonitis due to inhalation of food and vomit; E43 Unspecified severe protein-calorie malnutrition; A08.39 Other viral enteritis; B37.0 Candidal stomatitis; Z68.1 Body mass index [BMI] 19.9 or less, adult; N39.0 Urinary tract infection, site not specified; J43.9 Emphysema, unspecified; M06.9 Rheumatoid arthritis, unspecified; M06.4 Inflammatory polyarthropathy; Z51.5 Encounter for palliative care; Z66 Do not resuscitate; B00.1 Herpesviral vesicular dermatitis; B95.61 Methicillin susceptible Staphylococcus aureus infection as the cause of diseases classified elsewhere; I45.10 Unspecified right bundle-branch block; J45.20 Mild intermittent asthma, uncomplicated; N32.81 Overactive bladder; M48.54XS Collapsed vertebra, not elsewhere classified, thoracic region, sequela of fracture; G89.29 Other chronic pain; R09.02 Hypoxemia; R54 Age-related physical debility; M25.561 Pain in right knee; M25.562 Pain in left knee; R77.8 Other specified abnormalities of plasma proteins; T38.0X5A Adverse effect of glucocorticoids and synthetic analogues, initial encounter; M19.90 Unspecified osteoarthritis, unspecified site; Z79.51 Long term (current) use of inhaled steroids; Z79.899 Other long term (current) drug therapy; Z96.642 Presence of left artificial hip joint; Z85.828 Personal history of other malignant neoplasm of skin; Z90.49 Acquired absence of other specified parts of digestive tract; Z87.19 Personal history of other diseases of the digestive system; Z98.890 Other specified postprocedural states; Z71.3 Dietary counseling and surveillance; Z88.2 Allergy status to sulfonamides; Z82.49 Family history of ischemic heart disease and other diseases of the circulatory system; Z82.3 Family history of stroke
CPT/HCPCS: 36415; 71045; 71275; 80053; 81001; 82728; 83605; 83615; 83735; 83880; 84132; 84145; 85025; 85027; 85379; 85610; 85730; 86140; 87040; 87077; 87086; 87186; 93005; 94640; 94760; 96361; 96365; 96366; 96375; 99285